=== PATIENT | female | born 1940 | race Caucasian/White ===

== ENCOUNTER 2019-04-30 00:17 | Day surgery (SDC) | payer MEDICARE, SELFPAY ==
[2019-04-17 14:10] VITALS: BMI 21.8
--- NOTE | ~2019-04-30 | XR_ITS ---
EXAMINATION: XR retrograde pyelo w/stent LT EXAM DATE: 04/30/2019 08:26 INDICATION: Left-sided stent exchange. TECHNIQUE: Fluoroscopy used during XR retrograde pyelo w/stent LT performed by Dr. Broderick Lal MD. The DAP for this procedure was 0.5 mGym2. Cine run(s) available for review. FINDINGS: Left ureter was cannulated, injected. There are limitations from lower lumbar hardware ove rlying this region. No mid ureteral strictures identified on images available. A left-sided double-J ureteral stent was placed in expected position. Density projecting over left kidney consistent with k idney stones. Correlate with procedure note. IMPRESSION: Fluoroscopy used during XR retrograde pyelo w/stent LT. Reviewed, dictated and finalized at location B.
--- NOTE | 2019-04-30 06:41 | WPDHPUPDATE1 ---
History and Physical Update Update Date/Time: 04/30/19 06:41 History and Physical has been reviewed, including an updated exam of the patient. There are NO changes in the patient's condition. Risks, benefits, and alternatives have been discussed and questions answered. Patient agrees to proceed with procedure.
[2019-04-30 07:00] VITALS: BP 135/52; PULSE 62; RESP 18; TEMP 36.6; O2SAT 98
[2019-04-30] MEDS: LACTATED RINGERS 1,000 ML 30 ML IV CONT (07:00)
--- NOTE | 2019-04-30 07:47 | WPDANESEPPF ---
Anes - Initial Pre Proc Eval Procedure: Operation Date: 04/30/19 08:30 Proposed Procedures p Cystoscopy, Left Stent Exchange - Broderick Lal MD Date/Time: 04/30/19 07:47 Surgeon: Broderick Lal MD Pre Op Diagnosis: Hydronephrosis/ Cystitis Patient Data Age: 78 Gender: F Height: 5 ft 4 in Weight: 58 kg Last Vital Signs Temp 36.6 C 04/30/19 07:00 Pulse 62 04/30/19 07:00 Resp 18 04/30/19 07:00 BP 135/52 L 04/30/19 07:00 Pulse Ox 98 04/30/19 07:00 Allergies Allergy/AdvReac Type Severity Reaction Status Date / Time latex Allergy Severe SWELLING, Verified 04/30/19 07:28 RASH-POWDER Sulfa (Sulfonamide Allergy Severe RASH Verified 04/30/19 07:28 Antibiotics) estradiol Allergy Intermediate Joint Verified 04/30/19 07:28 pain, swollen eyes & leg pain codeine Allergy Mild NAUSEA, Verified 04/30/19 07:28 RASH esomeprazole Allergy Mild CHEST PAIN Verified 04/30/19 07:28 lansoprazole Allergy Mild CHEST PAIN Verified 04/30/19 07:28 Penicillins Allergy Mild RASH Verified 04/30/19 07:28 baclofen Allergy tremors Verified 04/30/19 07:28 amitriptyline AdvReac Mild MUSCLE PAIN Verified 04/30/19 07:28 citalopram AdvReac Mild CHEST PAIN Verified 04/30/19 07:28 morphine AdvReac Mild MIGRAINE Verified 04/30/19 07:28 lisinopril AdvReac Unknown NAUSEA/DIAR Verified 04/30/19 07:28 SU pravastatin AdvReac Unknown Nausea Verified 04/30/19 07:28 SERTRALINE HCL Allergy Severe Facial Uncoded 04/30/19 07:28 swelling, joint pain & difficulty walking TOLMETIN SODIUM Allergy Mild HIVES Uncoded 04/30/19 07:28 ATORVASTATIN CALCIUM Allergy Unknown HIVES AND Uncoded 04/30/19 07:28 EXTREME NAUSEA Contrast Media Allergy Unknown HIVES Uncoded 04/30/19 07:28 NEBIVOLOL HCL Allergy Unknown NAUSEA, Uncoded 04/30/19 07:28 ITCHING METOCLOPRAMIDE HCL AdvReac Mild ITCHING Uncoded 04/30/19 07:28 Home Medications Medication Instructions Recorded Confirmed Type aspirin 81 mg tablet,delayed 81 mg PO DAILY 12/16/18 04/30/19 History release gabapentin 300 mg capsule 300 mg PO TID 12/16/18 04/30/19 History metoprolol succinate 25 mg 25 mg PO DAILY 12/16/18 04/30/19 History tablet,extended release 24 hr triamterene 37.5 1 cap PO DAILY 12/16/18 04/30/19 History mg-hydrochlorothiazide 25 mg capsule apixaban 5 mg tablet 5 mg PO BID 12/25/18 04/30/19 History budesonide 3 mg 3 mg PO DAILY 12/25/18 04/30/19 History capsule,delayed,extended release Dramamine 50 mg PO Q4-6H PRN 12/30/18 04/30/19 History amiodarone 200 mg PO HS 12/30/18 04/30/19 History calcium citrate-vitamin D3 1 tablet PO DAILY 12/30/18 04/30/19 History [Calcium Citrate + D] oxycodone 10 mg tablet 10 mg PO Q8H PRN #90 tablet 02/23/19 04/30/19 Rx cannabidiol 300 mg HS 03/05/19 04/30/19 History ezetimibe 10 mg tablet 10 mg PO DAILY #90 tablet 04/02/19 04/30/19 Rx Patient hx anesthesia problems: none Family hx anesthesia problems: none PMFSH Past Medical History Medical History Atrial fibrillation Benign essential hypertension History of thrombosis of lower extremity Mixed hyperlipidemia Neuropathic pain Pacemaker Surgical History Surgical History H/O angioplasty History of coronary artery stent placement Peripheral vascular angioplasty status with implants and grafts Family History Family History Mother Family history of osteoporosis Hypertension Family history of elevated blood lipids Family history of coronary artery disease Sibling Patient's brother is Other Family history of cardiovascular disease Family history of malignant neoplasm of breast in first degree relative Family history of malignant neoplasm of male breast Family history of malignant neopl
[2019-04-30] MEDS: ceFAZolin 2 GM/D5W 50 ML 2 GM/50 ML BAG IVPB (08:00)
[2019-04-30] MEDS: LIDOCAINE HCL 2% GEL UROJET 10 ML PKG MUCOUS MEM (08:14)
[2019-04-30 08:28] VITALS: BP 111/48; PULSE 63; RESP 18; O2SAT 99
--- NOTE | 2019-04-30 08:33 | PM.PROC ---
Procedure Note - Detailed Date of procedure: 04/30/19 Pre-op diagnosis: Hydronephrosis/ Cystitis Left hydronephrosis Post-op diagnosis: same Procedure performed: 1. Cystoscopy, left retrograde pyelography. 2. Left ureteroscopy. 3. Left ureteral stent exchange. Description of procedure: The patient is brought to the operative suite where she was prepped and draped in routine sterile fashion while in a dorsal lithotomy position. 2% lidocaine jelly was introduced intraurethrally and systemic sedation is administered per the anesthesia department. The bladder neck and urethra endoscopically normal. Bladder mucosa is without significant hyperemia. The tip of the indwelling ureteral stent is grasped and a 0.035 glidewire is advanced into the left renal pelvis. A gentle retrograde pyelogram was obtained. There is no evidence of contrast extravasation with minimal residual left hydronephrosis. A 7.5 F flexible ureteral scope was then used to perform left ureteral re-endoscopy. The ureter is normal but she continues to have a foreign body visible in the medial portion of her left renal pelvis, consistent with hardware from her back. The remainder of the collecting system was endoscopically normal. At this point ureteral scope was removed and a 4.8 F variable length stent is positioned with the proximal coil in the renal pelvis and distal coil in the bladder. Patient was taken to the outpatient recovery in good condition. Blood loss was negligible. Anesthesia: MAC Surgeon: Broderick Lal MD Estimated blood loss (mL): 0 Drains: Yes (4.8F left uretetal stent) Packing: No Pathology: none sent Complications: No immediate complications Condition: stable Disposition: PACU
[2019-04-30 08:55] VITALS: BP 127/56; PULSE 60; RESP 18; O2SAT 98
[2019-04-30 09:20] VITALS: BP 129/60; PULSE 60; RESP 18
--- NOTE | 2019-04-30 09:38 | SUR.PHASEII ---
[id number] - DR. LOYOLA IN ROOM TALKING WITH PT
[2019-04-30 09:50] VITALS: BP 135/58; PULSE 59; RESP 16
== END 2019-04-30 10:00 | disposition home or self-care (01) ==
PROVIDERS: PCP Internal Medicine; Visit Provider Urology
PROC: (CPT 52352; principal; 2019-04-30 08:30)
DX: N13.30 Unspecified hydronephrosis (principal); N30.90 Cystitis, unspecified without hematuria; I48.91 Unspecified atrial fibrillation; I10 Essential (primary) hypertension; E78.2 Mixed hyperlipidemia; G62.9 Polyneuropathy, unspecified; Z95.0 Presence of cardiac pacemaker; Z79.01 Long term (current) use of anticoagulants; Z79.82 Long term (current) use of aspirin; Z95.5 Presence of coronary angioplasty implant and graft; Z95.820 Peripheral vascular angioplasty status with implants and grafts; Z87.891 Personal history of nicotine dependence
CPT/HCPCS: 52332; 74420; A9270; C1769; C1887; C2617; J0690; J2704; J3010; J7120; Q9966

== ENCOUNTER 2019-05-19 15:04 | IRF | payer MEDICARE, SELFPAY ==
--- NOTE | 2019-05-19 15:09 | ADMGEN ---
This patient, Desirae Peng, was admitted to [facility] Room 230-02. Patient/family oriented to hospital policies and general routines including ID bracelet, bed and alarms, visiting hours, pain management, procedures, bathroom and other care routines, personal items, smoking policy, room service/diet, and visiting hours. Valuables list has been completed. Information on how to activate the Rapid Response Team has been discussed. Patient/Family are encouraged to report perceived risks to care and to ask questions if they do not understand what they are told or what they should do.
[2019-05-19 15:38] VITALS: BP 127/60; PULSE 63; RESP 18; TEMP 36.3; O2SAT 100
[2019-05-19 15:39] VITALS: BMI 23.4
[2019-05-19] MEDS: APIXABAN 5 MG TABLET PO (16:38)
[2019-05-19 17:25] VITALS: PULSE 63
[2019-05-19] MEDS: AMIODARONE HCL 200 MG TABLET PO (17:25)
[2019-05-19] MEDS: EZETIMIBE 10 MG TABLET PO (20:28)
[2019-05-19] MEDS: GABAPENTIN 300 MG CAPSULE PO (20:28)
[2019-05-19] MEDS: MELATONIN 5 MG TABLET 20 MG PO (20:31)
[2019-05-19 22:00] VITALS: BP 148/47; PULSE 65; RESP 20; TEMP 36.6; O2SAT 99
[2019-05-20] VITALS (15 sets, daily range): BP systolic 98–144; BP diastolic 40–73; PULSE 58–82; RESP 18–20; TEMP 35.9–37; O2SAT 96–100; BMI 23.4
[2019-05-20 05:09] LABS: Basophils Percent Auto 0.2 % (0.2-1.2); Eosinophils Absolute Auto 0.3 K/mm3 (0-0.3); Eosinophils Percent Auto 3.4 % (0-4.4); Hematocrit 22.2 % (37.0-47.0); Immature Granulocyte Absolute 0.05 K/mm3 (0.00-0.031); Immature Granulocyte Percent A 0.5 % (0-0.5); Lymphocytes Absolute Auto 1.73 K/mm3 (0.9-3.2); Lymphocytes Percent Auto 17.8 % (18.3-44.2); Mean Corpuscular HGB Conc 30.6 g/dl (32-36); Mean Corpuscular Hemoglobin 25.2 pg (26-34); Mean Corpuscular Volume 82.2 fl (80-100); Mean Platelet Volume 9.2 fl (7.4-10.4); Monocytes Absolute Auto 1.3 K/mm3 (0.1-0.6); Monocytes Percent Auto 12.9 % (2.6-8.5); Neutrophils Absolute Auto 6.3 K/mm3 (1.3-6.7); Neutrophils Percent Auto 65.2 % (45.5-73.1); Platelet Count Result 539 k/mm3 (150-375); Red Cell Distribution Width 18.4 % (11.5-14.5); White Blood Count 9.7 K/mm3 (4.5-10.0)
[2019-05-20] MEDS: GABAPENTIN 300 MG CAPSULE PO ×3 (05:11→20:59)
[2019-05-20 05:24] LABS: Hemoglobin 6.8 g/dL (12.0-15.0)
[2019-05-20 05:29] LABS: Blood Urea Nitrogen 8 mg/dL (7-17); Calcium 8.4 mg/dL (8.4-10.2); Carbon Dioxide 31 mmol/L (22-30); Chloride 104 mmol/L (98-107); Estimated CRCL calculation 44 ml/min; Estimated Glomerular Filt Rate > 60; Glucose 101 mg/dL (65-105); Potassium 4.2 mmol/L (3.4-5.0); Sodium 137 mmol/L (137-145)
--- NOTE | 2019-05-20 06:15 | PC.NURSE ---
critical cbc called to dr maki, orders for type and cross only at this time, explained reason to pt, understands
[2019-05-20] MEDS: ASPIRIN 81 MG ENTERIC TABLET PO (09:52)
[2019-05-20] MEDS: APIXABAN 5 MG TABLET PO ×2 (09:53→17:23)
[2019-05-20] MEDS: METOPROLOL SUCCINATE EXT REL 25 MG TABCR PO (09:53)
[2019-05-20] MEDS: BUDESONIDE 3 MG CAP.SR.24H PO (09:53)
[2019-05-20] MEDS: TRIAMTERENE 37.5 MG/HCTZ 25 MG (MAXZIDE) TABLET 1 TAB PO (09:54)
[2019-05-20] MEDS: SENNOSIDES 8.6 MG TABLET PO (09:54)
[2019-05-20] MEDS: OXYBUTYNIN CHLORIDE 5 MG TABLET PO (09:54)
[2019-05-20] MEDS: ASCORBIC ACID 500 MG TABLET 1000 MG PO (09:55)
--- NOTE | 2019-05-20 11:00 | WPDREHABHP ---
H&P: HPI History of Present Illness Chief complaint: L BKA Narrative: Desirae Peng is a 78 year old femaleHISTORY OF PRESENT ILLNESS: The patient's primary rehab impairment category is amputation/lower extremity The etiologic diagnosis is multilevel arterial occlusive disease with thrombosed left femoral to posterior tibial artery. I saw this patient [id number] on May 19 at 11:00 a.m. 2019 The patient is a 78-year-old white woman with a past medical history of mitral valve regurgitation, atrial fibrillation, coronary artery disease, peripheral vascular disease, hypertension, chronic obstructive pulmonary disease, chronic kidney disease and multilevel arterial occlusive disease. She presented to [facility] on May 11, 2019 with an ischemic left lower extremity and underwent mechanical thrombectomy, left femoral/posterior tibial bypass and a lytic catheter placement for thrombolytic therapy. This make an ankle thrombectomy was performed by Dr. Rudy Hernandez and was only partially successful. On May 12, 2019 she underwent a left leg angiogram and balloon angioplasty of the posterior tibial artery with Mir. Area the procedure the graft was widely patent, however there were still and no filling at the origin and the posterior tibial runoff was to ankle with no good filling of the foot. Vascular surgery was consulted and was determined that the limb was not salvageable. The left foot was cold and pulseless with cyanosis and extreme rest pain. She was scheduled for left [id number] amputation May 14, 2019. Postoperatively she was and still experiencing acute postoperative pain and acute blood-loss anemia which needs to be followed quite closely. The pain is now controlled and is on oral medication however she is quite reluctant to take it and wants to use the 10s unit for her back pain which she has had for quite some time. The patient is hemodynamically stable and at present very eager to engage in therapy the patient is on Eliquis Therapy was initiated at the acute care facility and the patient transferred to us from [facility] on May 19, 2019 on FALLS OR SURGERIES: The patient has had major surgeries in the 100 days prior to admission. They had falls in the past year. They had falls with injury in the past year. PAST MEDICAL HISTORY: allergic rhinitis, bilateral cataracts, [id number], sinus infections, mitral valve regurgitation, arrhythmia, atrial fibrillation, coronary artery disease, deep venous thrombosis, hyperlipidemia, hypertension, pacemaker, peripheral vascular disease, pneumonia, inflammatory bowel disease, liver disease cirrhosis ( nonalcoholic fatty liver ), peptic ulcer disease, chronic kidney disease, frequent urinary tract infections, kidney stones, recurrent kidney infections, osteoarthritis, degenerative disc disease, chronic back pain, melanoma of the face PAST SURGICAL HISTORY: several breast biopsies bilateral breasts, appendectomy 1953, cholecystectomy in 1977, vaginal deliveries x3, partial hysterectomy 1970, joint replacement right total hip 2017, left knee surgery 1989, lumbar laminectomy 1983, lumbar fusion 2015, lumbar fusion with hardware in June of 2018, a right cubital tunnel 1997, left cubital tunnel 1995, [employer] pacemaker 2014, cataract excision 2014, left ring trigger release 1998, sphincterotomy 1998, several angiograms to left lower extremity (angiogram/ [facility] January 16, 2017 and November 20, 2017, thrombectomy femoral the popliteal bypass , angiogram with PTCA, stent to the left lower extremity in February 2019 cystoscopy with ureteral stent to the left ureter SOCIAL HISTORY: the patient lives with her spouse in 1 level home with the ramped entry. She was independent with functional transfers, ambulation and ADLs prior. She used wheel walker for mobility. Patient and daughter available to assist her following rehab if necessa
--- NOTE | 2019-05-20 16:57 | PC.NURSE ---
#20 Saline lock inserted in right forearm. Blood infusing without difficulty. no reactions or side affects noted. Patient sitting up in bed eating dinner.
[2019-05-20] MEDS: AMIODARONE HCL 200 MG TABLET PO (17:23)
[2019-05-20] MEDS: SODIUM CHLORIDE 0.9% IV 250 ML 30 ML IV CONT (17:24)
--- NOTE | 2019-05-20 19:07 | PC.NURSE ---
Patient tolerated 1st unit of blood. no reactions noted. call light within reach. continue to monitor.
--- NOTE | 2019-05-20 20:20 | PC.NURSE ---
Unable to verify second unit of PRBCs. Lab and nursing molding supervisor notified. Instructed per Nursing supervvisor to manually verify unit. Verified with IMU nurseNahed.
[2019-05-20] MEDS: EZETIMIBE 10 MG TABLET PO (20:57)
[2019-05-20] MEDS: MELATONIN 5 MG TABLET 20 MG PO (20:58)
[2019-05-21 05:09] LABS: Basophils Percent Auto 0.3 % (0.2-1.2); Eosinophils Absolute Auto 0.2 K/mm3 (0-0.3); Eosinophils Percent Auto 1.8 % (0-4.4); Hematocrit 28.8 % (37.0-47.0); Hemoglobin 8.9 g/dL (12.0-15.0); Immature Granulocyte Absolute 0.05 K/mm3 (0.00-0.031); Immature Granulocyte Percent A 0.5 % (0-0.5); Lymphocytes Absolute Auto 1.42 K/mm3 (0.9-3.2); Lymphocytes Percent Auto 14.7 % (18.3-44.2); Mean Corpuscular HGB Conc 30.9 g/dl (32-36); Mean Corpuscular Volume 80.9 fl (80-100); Mean Platelet Volume 8.8 fl (7.4-10.4); Monocytes Absolute Auto 1.2 K/mm3 (0.1-0.6); Monocytes Percent Auto 12.3 % (2.6-8.5); Neutrophils Absolute Auto 6.8 K/mm3 (1.3-6.7); Neutrophils Percent Auto 70.4 % (45.5-73.1); Platelet Count Result 553 k/mm3 (150-375); Red Blood Count 3.56 M/mm3 (4.2-5.4); Red Cell Distribution Width 17.6 % (11.5-14.5); White Blood Count 9.7 K/mm3 (4.5-10.0)
[2019-05-21 05:29] LABS: Iron 22 ug/dL (37-170)
[2019-05-21 06:00] VITALS: BP 146/54; PULSE 66; RESP 18; TEMP 36.6; O2SAT 100
[2019-05-21] MEDS: GABAPENTIN 300 MG CAPSULE PO ×3 (07:18→20:42)
[2019-05-21 08:51] VITALS: PULSE 68
[2019-05-21] MEDS: METOPROLOL SUCCINATE EXT REL 25 MG TABCR PO (08:51)
[2019-05-21] MEDS: ASPIRIN 81 MG ENTERIC TABLET PO (08:51)
[2019-05-21] MEDS: ASCORBIC ACID 500 MG TABLET 1000 MG PO (08:51)
[2019-05-21] MEDS: BUDESONIDE 3 MG CAP.SR.24H PO (08:51)
[2019-05-21] MEDS: APIXABAN 5 MG TABLET PO ×2 (08:51→17:21)
[2019-05-21] MEDS: OXYBUTYNIN CHLORIDE 5 MG TABLET PO (08:52)
[2019-05-21] MEDS: SENNOSIDES 8.6 MG TABLET PO (08:52)
[2019-05-21] MEDS: TRIAMTERENE 37.5 MG/HCTZ 25 MG (MAXZIDE) TABLET 1 TAB PO (08:52)
[2019-05-21 14:00] VITALS: BP 120/64; PULSE 88; RESP 20; TEMP 36.6; O2SAT 100
--- NOTE | 2019-05-21 15:50 | WPDNEURORHBP ---
Subjective Date/time seen: 05/21/19 15:50 Interval history: this 78-year-old woman is here after having had complete hbjzy-[id number] amputation of the left lower extremity is in significant amount of pain and I have adjusted her medication on a scheduled rather than an as-needed basis her constipation is relatively okay she denies any fever chills sore throat headache nausea vomiting her back pain is also stable Review of Systems Review of Systems: All systems reviewed & are unremarkable except as noted in HPI and below Functional Status Ambulation Ability Ability to Ambulate 10 Feet: Contact Guard Ambulation Assistive Devices: Walker, Wheeled Transfers Ability Ability to Transfer In/Out of Chair: Standby Assistance Exam Const: General: comfortable and no acute distress HENMT: General nose exam: Normal nares present Mouth: Yes moist mucous membranes Eyes: General: appearance normal, both eyes and all related structures Neck: Neck: supple and no JVD Resp: Effort & Inspection: normal respiratory effort Auscultation: clear to auscultation bilaterally Cardio: Rate: regular rate Rhythm: regular rhythm GI: GI Palp: Yes Soft to palpation Auscultation: normal bowel sounds Skin: General skin exam: normal color and no rashes or lesions noted Neuro: Other: patient's mental status is normal train of the motion normal upper extremity strength is 4.5/5 lower extremity strength is 4- over 5 overall picture is stable and in fact improving Extrem: Other: the below the knee amputation is clean Psych: Mental Status: mental status grossly normal Objective Data Vital Signs Vital Signs: Vital Signs - 24 hr 05/20/19 16:15 05/20/19 16:25 05/20/19 17:23 Temperature 36.8 C 36.7 C Pulse Rate 62 58 L 62 Respiratory Rate 20 20 Blood Pressure 144/58 H 123/57 L Pulse Oximetry 96 100 05/20/19 17:25 05/20/19 18:25 05/20/19 19:05 Temperature 36.9 C 35.9 C L 35.9 C L Pulse Rate 59 L 60 60 Respiratory Rate 20 18 20 Blood Pressure 124/58 L 104/40 L 119/45 L Pulse Oximetry 98 97 100 05/20/19 20:08 05/20/19 20:20 05/20/19 20:35 Temperature 36.6 C 36.7 C 37.0 C Pulse Rate 63 63 65 Respiratory Rate 20 20 20 Blood Pressure 128/73 128/73 116/69 Pulse Oximetry 97 97 100 05/20/19 22:00 05/20/19 23:30 05/21/19 06:00 Temperature 36.8 C 36.6 C Pulse Rate 65 65 66 Respiratory Rate 18 18 18 Blood Pressure 109/73 146/54 H Pulse Oximetry 99 99 100 05/21/19 08:51 05/21/19 14:00 Temperature 36.6 C Pulse Rate 68 88 Respiratory Rate 20 Blood Pressure 120/64 Pulse Oximetry 100 Intake/Output Intake/Output: Intake & Output 05/18/19 05/19/19 05/20/19 05/21/19 23:59 23:59 23:59 23:59 Intake Total 360 1070 480 Balance 360 1070 480 Meds/Results Medications: Active Medications Generic Name Dose Route Start Last Admin Trade Name Freq PRN Reason Stop Dose Admin Amiodarone HCl 200 mg 05/19/19 18:00 05/20/19 17:23 Pacerone PO 200 mg QPM JORDIN Administration Apixaban 5 mg 05/19/19 17:00 05/21/19 08:51 Eliquis PO 5 mg BID JORDIN Administration Ascorbic Acid 1,000 mg 05/20/19 09:00 05/21/19 08:51 Vitamin C PO 1,000 mg DAILY JORDIN Administration Aspirin 81 mg 05/20/19 09:00 05/21/19 08:51 Aspirin Ec PO 81 mg DAILY JORDIN Administration Budesonide 3 mg 05/20/19 09:00 05/21/19 08:51 Entocort Ec PO 3 mg DAILY JORDIN Administration Diphenhydramine HCl 50 mg 05/19/19 15:37 Benadryl Cap PO HS PRN Sleep Ezetimibe 10 mg 05/19/19 21:00 05/20/19 20:57 Zetia PO 10 mg HS JORDIN Administration Fluticasone Propionate 1 spray 05/19/19 15:37 Flonase 0.05% Nasal [place] NASAL DAILY PRN Allergy Symptoms Gabapentin 300 mg 05/19/19 22:00 05/21/19 13:11 Neurontin PO 300 mg Q8HR JORDIN Administration Melatonin 20 mg 05/19/19 21:00 05/20/19 20:58 Melatonin PO 20 mg HS JORDIN Administration Metoprolol Succinate 25 mg
[2019-05-21 17:22] VITALS: PULSE 86
[2019-05-21] MEDS: AMIODARONE HCL 200 MG TABLET PO (17:22)
[2019-05-21] MEDS: DIPHENHYDRAMINE 1%/ZINC 0.1% CREAM 30 GM TUBE 1 APPLIC TOPICAL (17:22)
[2019-05-21 17:27] VITALS: PULSE 86; RESP 20; O2SAT 100
[2019-05-21] MEDS: MELATONIN 5 MG TABLET 20 MG PO (20:40)
[2019-05-21] MEDS: EZETIMIBE 10 MG TABLET PO (20:41)
[2019-05-21 22:00] VITALS: BP 133/57; PULSE 64; RESP 18; TEMP 36.3; O2SAT 99
[2019-05-22] MEDS: GABAPENTIN 300 MG CAPSULE PO ×3 (05:25→20:54)
[2019-05-22 06:00] VITALS: BP 129/55; PULSE 65; RESP 18; TEMP 36.7; O2SAT 98
[2019-05-22 08:56] VITALS: PULSE 65
[2019-05-22] MEDS: BUDESONIDE 3 MG CAP.SR.24H PO (08:56)
[2019-05-22] MEDS: METOPROLOL SUCCINATE EXT REL 25 MG TABCR PO (08:56)
[2019-05-22] MEDS: ASPIRIN 81 MG ENTERIC TABLET PO (08:56)
[2019-05-22] MEDS: ASCORBIC ACID 500 MG TABLET 1000 MG PO (08:56)
[2019-05-22] MEDS: TRIAMTERENE 37.5 MG/HCTZ 25 MG (MAXZIDE) TABLET 1 TAB PO (08:56)
[2019-05-22] MEDS: DIPHENHYDRAMINE 1%/ZINC 0.1% CREAM 30 GM TUBE 1 APPLIC TOPICAL ×3 (08:56→17:05)
[2019-05-22] MEDS: SENNOSIDES 8.6 MG TABLET PO (08:56)
[2019-05-22] MEDS: OXYBUTYNIN CHLORIDE 5 MG TABLET PO (08:56)
[2019-05-22] MEDS: APIXABAN 5 MG TABLET PO ×2 (08:57→17:05)
--- NOTE | 2019-05-22 10:45 | RPD ---
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 Comorbidities include status post angiogram with partially successful mechanical thrombectomy left femoral to posterior tibial artery bypass graft with placement and subsequent initiation of thrombolysis, status post left below the knee amputation, acute pain, acute blood loss anemia, hypertension, hyperlipidemia, atrial fibrillation. The patient requires physician services for medical oversight, management of post-op complications in the setting of present comorbidities and pain management. Post-op complications have included acute blood loss anemia and acute postoperative pain. The patient requires nursing services for anticoagulation therapy, DVT prophylactics, infection protection, medication management and education, pressure relief, and wound care. Deficits include:ADLs, Balance, Endurance, Family Training/Education, Mobility, Pain Management, ROM, Safety, Strength, Transfers Jack Tamp Operator/Case Management for: Discharge Planning and Patient/Family Counseling Physical Therapy: 5 days per week for 90 minutes. Treatments may include: Therapeutic Exercise, Gait Training, Neuromuscular Re-education, Transfer Training, Community Reintegration, Bed Mobility, Patient/Family Education, Wheelchair Mobility Group Therapy/Concurrent Therapy Rationales: -Improve attention span during functional activities in a distracted environment. -Enhance problem solving and/or adequate judgment skills during functional activities in a distracted environment. -Promote increased safety awareness in a distracted environment to reduce fall risk with functional tasks, transfers, and ambulation to allow a more safe, self-sufficient return to the home environment. -Improve dynamic balance skills to promote safety and independence with functional activities in a distracted environment for maximum gain. Occupational Therapy: 5 days per week for 90 minutes. Treatments may include: Therapeutic Exercise, Therapeutic Activity, Cognitive Training, Self-Care Transfer Training, Community Reintegration, Home Management, Patient/Family Education, Wheelchair Mobility Training, Energy Conservation Training Group Therapy/Concurrent Therapy Rationales: -Allow therapist to observe and teach generalization and carry-over of skills learned in individual therapy. -Enhance problem solving and sequencing skills during therapeutic activities in a distracted environment. -Promote increased safety awareness in a realistic setting to reduce fall risk with functional tasks due to visual and verbal distractions. -Increase functional level with ADLs, ADL transfers and use of adaptive equipment through therapeutic activities with others while promoting safety to allow a more safe, self-sufficient return home. Medical Prognosis: Good Anticipated Length of Stay: 12 days Rehab Goals: Eating Goal: 06-Independent Oral Hygiene Goal: 06-Independent Toileting Hygiene Goal: 06-Independent Shower/Bathe Self Goal: 06-Independent Upper Body Dressing Goal: 06-Independent Lower Body Dressing Goal: 06-Independent Putting On/Taking Off Footwear Goal: 06-Independent Rolling Left and Right Goal: 06-Independent Sit to Lying Goal: 06-Independent Lying to Sitting on Side of Bed Goal: 06-Independent Sit to Stand Goal: 06-Independent Chair/Hhk-ex-Ocrhv Transfer Goal: 06-Independent Toilet Transfer Goal: 06-Independent Car Transfer Goal: 06-Independent Walk 10' Goal: 06-Independent Walk 50' with Two Turns Goal: 06-Independent Walk 150' Goal: 09-Not Applicable Walk 10' on Uneven Surface Goal: 06-Independent 1 Step (Curb) Goal: 06-Independent 4 Steps Goal: 04-Supervision or Touching Assistance 12 Steps Goal Score: 09-Not Applicable Picking Up Object Goal
--- NOTE | 2019-05-22 12:55 | WPDNEURORHBP ---
Subjective Date/time seen: 05/22/19 12:55 Interval history: this 78-year-old woman is here after having had left hcdnj-wqg-okaa amputation she had packed RBCs done couple of days ago on her hemoglobin has come over 9 she is doing better however the pain is at best fair control overall picture is of improvement no headache nausea vomiting chest pain shortness of breath fever chills or sore throat Review of Systems Review of Systems: All systems reviewed & are unremarkable except as noted in HPI and below Functional Status Ambulation Ability Ability to Ambulate 10 Feet: Standby Assistance Ambulation Assistive Devices: Walker, Wheeled Transfers Ability Ability to Transfer In/Out of Chair: Standby Assistance Exam Const: General: comfortable and no acute distress HENMT: General nose exam: Normal nares present Mouth: Yes moist mucous membranes Eyes: General: appearance normal, both eyes and all related structures Neck: Neck: supple and no JVD Resp: Effort & Inspection: normal respiratory effort Auscultation: clear to auscultation bilaterally Cardio: Rate: regular rate Rhythm: regular rhythm GI: GI Palp: Yes Soft to palpation Auscultation: normal bowel sounds Skin: General skin exam: normal color and no rashes or lesions noted Neuro: Other: is speech and language functions are normal, cranial examination is normal is strength is improving pain is controlled apart from the deficit she has from the left sahng-ggp-iymw amputation neurologically she seems to fairly decent and intact Extrem: Other: the amputation site is clean Psych: Mental Status: mental status grossly normal Objective Data Vital Signs Vital Signs: Vital Signs - 24 hr 05/21/19 14:00 05/21/19 17:22 05/21/19 17:27 Temperature 36.6 C Pulse Rate 88 86 86 Respiratory Rate 20 20 Blood Pressure 120/64 Pulse Oximetry 100 100 05/21/19 22:00 05/22/19 06:00 05/22/19 08:56 Temperature 36.3 C L 36.7 C Pulse Rate 64 65 65 Respiratory Rate 18 18 Blood Pressure 133/57 L 129/55 L Pulse Oximetry 99 98 Intake/Output Intake/Output: Intake & Output 05/19/19 05/20/19 05/21/19 05/22/19 23:59 23:59 23:59 23:59 Intake Total 360 1070 720 360 Balance 360 1070 720 360 Meds/Results Medications: Active Medications Generic Name Dose Route Start Last Admin Trade Name Freq PRN Reason Stop Dose Admin Amiodarone HCl 200 mg 05/19/19 18:00 05/21/19 17:22 Pacerone PO 200 mg QPM JORDIN Administration Apixaban 5 mg 05/19/19 17:00 05/22/19 08:57 Eliquis PO 5 mg BID JORDIN Administration Ascorbic Acid 1,000 mg 05/20/19 09:00 05/22/19 08:56 Vitamin C PO 1,000 mg DAILY JORDIN Administration Aspirin 81 mg 05/20/19 09:00 05/22/19 08:56 Aspirin Ec PO 81 mg DAILY JORDIN Administration Budesonide 3 mg 05/20/19 09:00 05/22/19 08:56 Entocort Ec PO 3 mg DAILY JORDIN Administration Diphenhydramine HCl 50 mg 05/19/19 15:37 Benadryl Cap PO HS PRN Sleep Ezetimibe 10 mg 05/19/19 21:00 05/21/19 20:41 Zetia PO 10 mg HS [facility] Administration Fluticasone Propionate 1 spray 05/19/19 15:37 Flonase 0.05% Nasal [place] NASAL DAILY PRN Allergy Symptoms Gabapentin 300 mg 05/19/19 22:00 05/22/19 12:35 Neurontin PO 300 mg Q8HR JORDIN Administration Melatonin 20 mg 05/19/19 21:00 05/21/19 20:40 Melatonin PO 20 mg HS [facility] Administration Metoprolol Succinate 25 mg 05/20/19 09:00 05/22/19 08:56 Toprol Xl PO 25 mg DAILY [facility] Administration Oxybutynin Chloride 5 mg 05/20/19 09:00 05/22/19 08:56 Ditropan PO 5 mg DAILY [facility] Administration Oxycodone HCl 10 mg 05/21/19 13:00 05/22/19 12:35 Roxicodone Ir Tablet PO 10 mg Q4HR JORDIN Administration Prochlorperazine Maleate 10 mg 05/19/19 15:37 Compazine Tab PO Q8H PRN Nausea And Vomiting Senna 8.6 mg 05/20/19 09:00 05/22/19 08:56 Senokot Tablet PO 8.6 mg DAILY [place]
[2019-05-22 14:00] VITALS: BP 128/69; PULSE 62; RESP 18; TEMP 37.2; O2SAT 100
[2019-05-22 17:05] VITALS: PULSE 62
[2019-05-22] MEDS: AMIODARONE HCL 200 MG TABLET PO (17:05)
--- NOTE | 2019-05-22 19:16 | PC.NURSE ---
changed dressing to L stump. manisha intact. there was a few reddened areas. md updated. Dr Gonzalez would like a picture taken tomorrow during dressing change and for us to continue to monitor. He also ordered labs for in the morning will continue to monitor.
[2019-05-22] MEDS: MELATONIN 5 MG TABLET 20 MG PO (20:54)
[2019-05-22] MEDS: EZETIMIBE 10 MG TABLET PO (20:55)
[2019-05-22 22:00] VITALS: BP 114/68; PULSE 80; RESP 20; TEMP 36.9; O2SAT 98
[2019-05-23] MEDS: polyethylene glycoL 3350 17 GM POWD.PACK PO (05:09)
[2019-05-23] MEDS: GABAPENTIN 300 MG CAPSULE PO ×3 (05:10→20:45)
[2019-05-23 05:28] VITALS: BP 131/67; PULSE 78; RESP 20; O2SAT 97
[2019-05-23 05:48] LABS: Basophils Percent Auto 0.2 % (0.2-1.2); Eosinophils Absolute Auto 0.2 K/mm3 (0-0.3); Eosinophils Percent Auto 1.5 % (0-4.4); Hematocrit 30.9 % (37.0-47.0); Hemoglobin 9.6 g/dL (12.0-15.0); Immature Granulocyte Absolute 0.11 K/mm3 (0.00-0.031); Immature Granulocyte Percent A 0.8 % (0-0.5); Lymphocytes Absolute Auto 1.86 K/mm3 (0.9-3.2); Lymphocytes Percent Auto 14.3 % (18.3-44.2); Mean Corpuscular HGB Conc 31.1 g/dl (32-36); Mean Corpuscular Hemoglobin 24.8 pg (26-34); Mean Corpuscular Volume 79.8 fl (80-100); Mean Platelet Volume 8.4 fl (7.4-10.4); Monocytes Absolute Auto 1.3 K/mm3 (0.1-0.6); Neutrophils Absolute Auto 9.5 K/mm3 (1.3-6.7); Neutrophils Percent Auto 73.2 % (45.5-73.1); Platelet Count Result 732 k/mm3 (150-375); Red Blood Count 3.87 M/mm3 (4.2-5.4)
[2019-05-23 06:49] VITALS: BP 131/67; PULSE 78; RESP 20; TEMP 37.2; O2SAT 97
[2019-05-23 07:08] LABS: Blood Urea Nitrogen 14 mg/dL (7-17); Calcium 8.7 mg/dL (8.4-10.2); Carbon Dioxide 27 mmol/L (22-30); Chloride 101 mmol/L (98-107); Estimated CRCL calculation 44 ml/min; Estimated Glomerular Filt Rate > 60; Glucose 99 mg/dL (65-105); Potassium 3.6 mmol/L (3.4-5.0); Sodium 136 mmol/L (137-145)
[2019-05-23 09:05] VITALS: PULSE 82
[2019-05-23] MEDS: METOPROLOL SUCCINATE EXT REL 25 MG TABCR PO (09:05)
[2019-05-23] MEDS: PROCHLORPERAZINE MALEATE 5 MG TABLET 10 MG PO (09:05)
[2019-05-23] MEDS: DIPHENHYDRAMINE 1%/ZINC 0.1% CREAM 30 GM TUBE 1 APPLIC TOPICAL ×3 (09:05→17:04)
[2019-05-23] MEDS: SENNOSIDES 8.6 MG TABLET PO (09:05)
[2019-05-23] MEDS: TRIAMTERENE 37.5 MG/HCTZ 25 MG (MAXZIDE) TABLET 1 TAB PO (09:06)
[2019-05-23] MEDS: APIXABAN 5 MG TABLET PO ×2 (09:06→17:04)
[2019-05-23] MEDS: OXYBUTYNIN CHLORIDE 5 MG TABLET PO (09:06)
[2019-05-23] MEDS: BUDESONIDE 3 MG CAP.SR.24H PO (09:06)
[2019-05-23] MEDS: ASCORBIC ACID 500 MG TABLET 1000 MG PO (09:06)
[2019-05-23] MEDS: ASPIRIN 81 MG ENTERIC TABLET PO (09:07)
[2019-05-23 14:43] VITALS: BP 139/49; PULSE 73; RESP 17; TEMP 37.4; O2SAT 98
[2019-05-23 17:05] VITALS: PULSE 74
[2019-05-23] MEDS: AMIODARONE HCL 200 MG TABLET PO (17:05)
--- NOTE | 2019-05-23 19:55 | PM.IMCN ---
Assessment and Plan Assessment and plan (1) Skin infection: Code(s): L08.9 - Local infection of the skin and subcutaneous tissue, unspecified Status: Acute Assessment and Plan: Patient had surgery approximately 1 week ago and has had some peripheral vascular disease. I placed the patient on vancomycin. Considered Zosyn but with her allergies I held off on Zosyn. I could not physically evaluate the surgical site at this time because the patient was in too much pain to remove the Thony wrap at this time. I did review the pictures and it looks like possibly a blister on the anterior medial side. I empirically started her on vancomycin. Wound care consult (2) Atrial fibrillation: Code(s): I48.91 - Unspecified atrial fibrillation Status: Acute Assessment and Plan: Patient is on Eliquis and metoprolol. (3) History of thrombosis of lower extremity: Code(s): Z86.718 - Personal history of other venous thrombosis and embolism Status: Acute Assessment and Plan: Patient is on Eliquis. (4) H/O angioplasty: Code(s): Z98.62 - Peripheral vascular angioplasty status Status: Acute Assessment and Plan: She recently had a left ewmai-xoa-ovye amputation. 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 (6) Neuropathic pain: Code(s): M79.2 - Neuralgia and neuritis, unspecified Status: Acute Assessment and Plan: Continue with gabapentin. (7) Hypertension: Code(s): I10 - Essential (primary) hypertension Status: Acute Assessment and Plan: Continue with metoprolol and triamterene. (8) Mixed hyperlipidemia: Code(s): E78.2 - Mixed hyperlipidemia Status: Chronic Assessment and Plan: Continue with Zetia. [facility] Data of Consult Consult date: 05/23/19 Requesting Physician: Xavier Gonzalez MD Primary Care Provider: Kingston Brown DO Consult Narrative Narrative: Desirae Peng is a 78 year old female Who was in [facility] at this time. The patient presented to [facility] May 10, 2021 with an ischemic left lower extremity placement for thrombectomy therapy. On May 12, 2019 she underwent a left leg angiogram and balloon angioplasty of the posterior tibial artery by Dr. Bartlett after the procedure there was still no feeling at the origin and posterior to earlier runoff. Vascular surgery was consulted and was determined that the limb was not salvageable. The left foot was cold and pulseless was cyanotic and extreme rest pain. She underwent a left zubzt-lea-jfml amputation on 08/08/2019. She is in rehab for for postop left lsuly-mpu-fxxd amputation. There was a blister noted that looks yellow fluid filled on the stump today. There was no drainage and there is some redness there it is hard to determine if there is any infectious process. The nurse just rewrapped the leg and the patient was seen by wound care. The patient would not allow me to take off the Thony wrap due to the amount of pain she is having. The patient did get a dose of Rocephin today. Since she has had history of vascular problems and she is newly postop I empirically started her vancomycin. She has multiple allergies. Review of Systems Review of Systems: All systems reviewed & are unremarkable except as noted in HPI and below Constitutional: Constitutional: Reports as per HPI and Reports no additional constitutional complaints Eyes: Eyes: Reports as per HPI and Reports no additional eye complaints ENT: Reports system reviewed and no additional complaints, except as documented and Reports Normal hearing present Cardiovascular: Cardiovascular: Reports no additional cardiovascular complaints Respiratory: Respiratory: Reports n
[2019-05-23] MEDS: MELATONIN 5 MG TABLET 20 MG PO (20:44)
[2019-05-23] MEDS: EZETIMIBE 10 MG TABLET PO (20:46)
[2019-05-23 22:00] VITALS: BP 115/53; PULSE 61; RESP 18; TEMP 36.7; O2SAT 100
[2019-05-24] MEDS: FLUTICASONE PROPIONATE 0.05% NA SPR 16 GM BTL (*BKC) 1 SPRAY NASAL ×4 (01:31→20:53)
[2019-05-24 06:00] VITALS: BP 134/44; PULSE 66; RESP 18; TEMP 37.2; O2SAT 98
[2019-05-24 08:44] VITALS: PULSE 72
[2019-05-24] MEDS: OXYBUTYNIN CHLORIDE 5 MG TABLET PO (08:44)
[2019-05-24] MEDS: DIPHENHYDRAMINE 1%/ZINC 0.1% CREAM 30 GM TUBE 1 APPLIC TOPICAL ×3 (08:44→16:49)
[2019-05-24] MEDS: ASCORBIC ACID 500 MG TABLET 1000 MG PO (08:44)
[2019-05-24] MEDS: METOPROLOL SUCCINATE EXT REL 25 MG TABCR PO (08:44)
[2019-05-24] MEDS: APIXABAN 5 MG TABLET PO ×2 (08:45→16:50)
[2019-05-24] MEDS: ASPIRIN 81 MG ENTERIC TABLET PO (08:45)
[2019-05-24] MEDS: TRIAMTERENE 37.5 MG/HCTZ 25 MG (MAXZIDE) TABLET 1 TAB PO (08:46)
[2019-05-24] MEDS: BUDESONIDE 3 MG CAP.SR.24H PO (08:46)
[2019-05-24] MEDS: SENNOSIDES 8.6 MG TABLET PO (08:46)
[2019-05-24] MEDS: GABAPENTIN 300 MG CAPSULE PO ×3 (08:48→20:58)
[2019-05-24 11:00] VITALS: PULSE 72; RESP 18; O2SAT 98
--- NOTE | 2019-05-24 13:48 | PM.IMPN ---
Progress Note: A&P Assessment and Plan (1) Skin infection: Code(s): L08.9 - Local infection of the skin and subcutaneous tissue, unspecified Status: Acute Assessment and Plan: Patient had surgery approximately 1 week ago and has had some peripheral vascular disease. I placed the patient on vancomycin. Considered Zosyn but with her allergies I held off on Zosyn. I could not physically evaluate the surgical site at this time because the patient was in too much pain to remove the Thony wrap at this time. I did review the pictures and it looks like possibly a blister on the anterior medial side. I empirically started her on vancomycin. Wound care consult 05/24/19 13:48 Patient is 78-year-old female status post left tccbe-nwz-gcfv empty amputation here in [facility] for rehab patient has a wound on her left stumap along surgical site and we were consulted possible wound management, examined the wound with her nurse, along the surgical site on lateral aspect disease a blister hyperemia there is no open wound or sore, there is no drainage, there is no red streak, though it is extremely painful for the patient, patient denies any fever or chills, patient started on vancomycin empirically will follow-up on wound culture and patient be seen by wound team and further recommendation to follow (2) Atrial fibrillation: Code(s): I48.91 - Unspecified atrial fibrillation Status: Acute Assessment and Plan: Patient is on Eliquis and metoprolol. (3) History of thrombosis of lower extremity: Code(s): Z86.718 - Personal history of other venous thrombosis and embolism Status: Acute Assessment and Plan: Patient is on Eliquis. (4) H/O angioplasty: Code(s): Z98.62 - Peripheral vascular angioplasty status Status: Acute Assessment and Plan: She recently had a left ruhfm-ioe-arct amputation. 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 (6) Neuropathic pain: Code(s): M79.2 - Neuralgia and neuritis, unspecified Status: Acute Assessment and Plan: Continue with gabapentin., will and Zanaflex 2 mg q.day to help her with the pain (7) Hypertension: Code(s): I10 - Essential (primary) hypertension Status: Acute Assessment and Plan: Continue with metoprolol and triamterene. (8) Mixed hyperlipidemia: Code(s): E78.2 - Mixed hyperlipidemia Status: Chronic Assessment and Plan: Continue with Zetia. Subjective Date/time seen: 05/24/19 13:48 Patient is 78-year-old female status post left quqjm-zjh-qinh empty amputation here in [facility] for rehab patient has a wound on her left stumap along surgical site and we were consulted possible wound management, examined the wound with her nurse, along the surgical site on lateral aspect disease a blister hyperemia there is no open wound or sore, there is no drainage, there is no red streak, though it is extremely painful for the patient, patient denies any fever or chills Review of Systems Review of Systems: All systems reviewed & are unremarkable except as noted in HPI and below Exam Const: General: comfortable and no acute distress HENMT: General nose exam: Normal nares present Mouth: Yes moist mucous membranes Eyes: General: appearance normal, both eyes and all related structures Sclera: sclerae normal Neck: Neck: supple Resp: Effort & Inspection: normal respiratory effort Auscultation: clear to auscultation bilaterally Cardio: Rate: regular rate Rhythm: regular rhythm Skin: Other: Left zbost-jdd-gpka amputation along the surgical wound on lateral aspect there is hyperemia and a blister, there is no open wound or sore, there is no drainage or red streaks Neuro: Speech: normal speech
[2019-05-24 14:00] VITALS: BP 130/50; PULSE 64; RESP 18; TEMP 36.8; O2SAT 100
--- NOTE | 2019-05-24 16:51 | WPDNEURORHBP ---
Subjective Date/time seen: 05/24/19 16:51 Interval history: this 78-year-old woman is here after having had left iqwzk-msz-xpra amputation the amputations site in past couple of days was relatively reddish we have taken the cultures but this seems to be little bit better I have requested my attending nurse to take the pictures of this and pass it on to the surgeon and see what their input is for precautionary measures I had started on Rocephin which has been changed to vancomycin by the hospitalist with whom I have consulted with overall it looks good will our wound care nurse look at it and patient seems to be stable apart from the pain she has been suffering from otherwise no headache nausea vomiting fevers chills sore throat Review of Systems Review of Systems: All systems reviewed & are unremarkable except as noted in HPI and below Functional Status Ambulation Ability Ability to Ambulate 10 Feet: Contact Guard Ability to Ambulate 50 Feet With 2 Turns: Contact Guard Ambulation Assistive Devices: Walker, Wheeled Transfers Ability Ability to Transfer In/Out of Chair: Standby Assistance Exam Const: General: comfortable HENMT: General nose exam: Normal nares present Mouth: Yes moist mucous membranes Eyes: General: appearance normal, both eyes and all related structures Neck: Neck: supple and no JVD Resp: Effort & Inspection: normal respiratory effort Auscultation: clear to auscultation bilaterally Cardio: Rate: regular rate Rhythm: regular rhythm GI: GI Palp: Yes Soft to palpation Auscultation: normal bowel sounds Skin: General skin exam: normal color and no rashes or lesions noted Neuro: Other: patient remains awake alert were went to time place and person is speech and language function normal screening exam she has normal upper extremity strength is 4.45 lower extremity strength is 405 reflexes are depressed and she does have evidence of neuropathy Extrem: Other: the reddish area of the stump seems to be little bit better than the previous 48 hours Psych: Mental Status: mental status grossly normal Objective Data Vital Signs Vital Signs: Vital Signs - 24 hr 05/23/19 17:05 05/23/19 22:00 05/24/19 06:00 Temperature 36.7 C 37.2 C Pulse Rate 74 61 66 Respiratory Rate 18 18 Blood Pressure 115/53 L 134/44 L Pulse Oximetry 100 98 05/24/19 08:44 05/24/19 11:00 05/24/19 14:00 Temperature 36.8 C Pulse Rate 72 72 64 Respiratory Rate 18 18 Blood Pressure 130/50 L Pulse Oximetry 98 100 Intake/Output Intake/Output: Intake & Output 05/21/19 05/22/19 05/23/19 05/24/19 23:59 23:59 23:59 23:59 Intake Total 720 840 970 600 Balance 720 840 970 600 Meds/Results Medications: Active Medications Generic Name Dose Route Start Last Admin Trade Name Freq PRN Reason Stop Dose Admin Alprazolam 0.5 mg 05/24/19 15:32 Xanax PO HS PRN Anxiety Amiodarone HCl 200 mg 05/19/19 18:00 05/23/19 17:05 Pacerone PO 200 mg QPM JORDIN Administration Apixaban 5 mg 05/19/19 17:00 05/24/19 08:45 Eliquis PO 5 mg BID JORDIN Administration Ascorbic Acid 1,000 mg 05/20/19 09:00 05/24/19 08:44 Vitamin C PO 1,000 mg DAILY JORDIN Administration Aspirin 81 mg 05/20/19 09:00 05/24/19 08:45 Aspirin Ec PO 81 mg DAILY JORDNI Administration Bisacodyl 10 mg 05/23/19 00:53 Dulcolax Suppository RECTAL QAM PRN Constipation Budesonide 3 mg 05/20/19 09:00 05/24/19 08:46 Entocort Ec PO 3 mg DAILY JORDIN Administration Diphenhydramine HCl 50 mg 05/19/19 15:37 Benadryl Cap PO HS PRN Sleep Ezetimibe 10 mg 05/19/19 21:00 05/23/19 20:46 Zetia PO 10 mg HS JORDIN Administration Fluticasone Propionate 1 spray 05/19/19 15:37 05/24/19 01:39 Flonase 0.05% Nasal [place] NASAL 05/24/19 23:59 1 spray DAILY PRN Administration Allergy Symptoms Fluticasone Propionate 1 spray 05/24/19 09:00 05/24/19 08:44 Flonase 0.05%
[2019-05-24 18:01] VITALS: PULSE 64
[2019-05-24] MEDS: AMIODARONE HCL 200 MG TABLET PO (18:01)
[2019-05-24] MEDS: MELATONIN 5 MG TABLET 20 MG PO (20:53)
[2019-05-24] MEDS: EZETIMIBE 10 MG TABLET PO (20:54)
[2019-05-24] MEDS: ALPRAZOLAM 0.5 MG TABLET PO (20:55)
[2019-05-24 21:20] VITALS: BP 119/46; PULSE 61; RESP 22; TEMP 36.3; O2SAT 99
--- NOTE | 2019-05-24 22:29 | PC.NURSE ---
2152 IV VANCOMYCIN 1000MG/D5W 250ML INFUSED WITHOUT DIFFICULTY.
[2019-05-25 05:02] LABS: Estimated CRCL calculation 40 ml/min; Estimated Glomerular Filt Rate > 60
[2019-05-25] MEDS: GABAPENTIN 300 MG CAPSULE PO ×3 (05:58→21:00)
[2019-05-25 06:00] VITALS: BP 124/45; PULSE 69; RESP 20; TEMP 36.6; O2SAT 96
[2019-05-25 08:43] VITALS: PULSE 69
[2019-05-25] MEDS: ASCORBIC ACID 500 MG TABLET 1000 MG PO (08:43)
[2019-05-25] MEDS: METOPROLOL SUCCINATE EXT REL 25 MG TABCR PO (08:43)
[2019-05-25] MEDS: DIPHENHYDRAMINE 1%/ZINC 0.1% CREAM 30 GM TUBE 1 APPLIC TOPICAL ×3 (08:43→17:28)
[2019-05-25] MEDS: FLUTICASONE PROPIONATE 0.05% NA SPR 16 GM BTL (*BKC) 1 SPRAY NASAL ×2 (08:43→20:59)
[2019-05-25] MEDS: OXYBUTYNIN CHLORIDE 5 MG TABLET PO (08:43)
[2019-05-25] MEDS: TRIAMTERENE 37.5 MG/HCTZ 25 MG (MAXZIDE) TABLET 1 TAB PO (08:43)
[2019-05-25] MEDS: BUDESONIDE 3 MG CAP.SR.24H PO (08:44)
[2019-05-25] MEDS: ASPIRIN 81 MG ENTERIC TABLET PO (08:44)
[2019-05-25] MEDS: SENNOSIDES 8.6 MG TABLET PO (08:44)
[2019-05-25] MEDS: APIXABAN 5 MG TABLET PO ×2 (08:44→17:27)
--- NOTE | 2019-05-25 09:45 | PC.NURSE ---
called Dr Hurst's office at [phone] regarding patient's stump. wound nurse did come look at stump as well. email address for 's office was given and photos were being sent to surgeon for review. awaiting further orders if any. will continue to monitor.
[2019-05-25 11:46] LABS: Hematocrit 30.8 % (37.0-47.0); Hemoglobin 9.4 g/dL (12.0-15.0); Mean Corpuscular HGB Conc 30.5 g/dl (32-36); Mean Corpuscular Hemoglobin 24.8 pg (26-34); Mean Corpuscular Volume 81.3 fl (80-100); Mean Platelet Volume 8.3 fl (7.4-10.4); Platelet Count Result 749 k/mm3 (150-375); Red Blood Count 3.79 M/mm3 (4.2-5.4); Red Cell Distribution Width 17.6 % (11.5-14.5); White Blood Count 15.4 K/mm3 (4.5-10.0)
--- NOTE | 2019-05-25 12:03 | PC.NURSE ---
spoke to Ernestina from Dr Hurst/Dr Harrell's office at approximately 12 pm. Photos were shown to [employer] for the doctors. It is recommended that xeroform be added over the incision on her stump. Ernestina stated that the doctor's are very aware of how her stump is looking. She stated it does not look any worse than it did at [facility]. She also stated they would not be surprised if it comes open. A follow up appointment was scheduled on June 11 at 10:30 am. Ernestina stated they usually recommend manisha being removed in 4 weeks and that they would remove them at her follow up appointment. She also stated to let them know if stump starts looking worse. Spoke with Dr Zhang regarding recommendations for wound care. will continue to monitor.
[2019-05-25 14:00] VITALS: BP 120/49; PULSE 58; RESP 18; TEMP 37.1; O2SAT 98
--- NOTE | 2019-05-25 16:29 | PM.IMPN ---
Progress Note: A&P Assessment and Plan (1) Skin infection: Code(s): L08.9 - Local infection of the skin and subcutaneous tissue, unspecified Status: Acute Assessment and Plan: 05/25/19 16:29 Patient had surgery approximately 1 week ago and has had some peripheral vascular disease. I placed the patient on vancomycin. Considered Zosyn but with her allergies I held off on Zosyn. I could not physically evaluate the surgical site at this time because the patient was in too much pain to remove the Thony wrap at this time. I did review the pictures and it looks like possibly a blister on the anterior medial side. I empirically started her on vancomycin. Wound care consult Patient is 78-year-old female status post left mqjdh-crg-tuwn empty amputation here in [facility] for rehab patient has a wound on her left stumap along surgical site and we were consulted possible wound management, examined the wound with her nurse, along the surgical site on lateral aspect disease a blister hyperemia there is no open wound or sore, there is no drainage, there is no red streak, though it is extremely painful for the patient, patient denies any fever or chills, patient started on vancomycin empirically, today patient pain is better and wound was redressed by the nurse appear healling however her white counts are trending up, she does not have fever, will do blood culture to further evalute will follow-up on wound and blood culture and patient be seen by wound team and further recommendation to follow (2) Atrial fibrillation: Code(s): I48.91 - Unspecified atrial fibrillation Status: Acute Assessment and Plan: Patient is on Eliquis and metoprolol. (3) History of thrombosis of lower extremity: Code(s): Z86.718 - Personal history of other venous thrombosis and embolism Status: Acute Assessment and Plan: Patient is on Eliquis. (4) H/O angioplasty: Code(s): Z98.62 - Peripheral vascular angioplasty status Status: Acute Assessment and Plan: She recently had a left hnzpo-krl-qjsp amputation. 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 (6) Neuropathic pain: Code(s): M79.2 - Neuralgia and neuritis, unspecified Status: Acute Assessment and Plan: Continue with gabapentin., will and Zanaflex 2 mg q.day to help her with the pain (7) Hypertension: Code(s): I10 - Essential (primary) hypertension Status: Acute Assessment and Plan: Continue with metoprolol and triamterene. (8) Mixed hyperlipidemia: Code(s): E78.2 - Mixed hyperlipidemia Status: Chronic Assessment and Plan: Continue with Zetia. Subjective Date/time seen: 05/25/19 16:29 Patient had surgery approximately 1 week ago and has had some peripheral vascular disease. I placed the patient on vancomycin. Considered Zosyn but with her allergies I held off on Zosyn. I could not physically evaluate the surgical site at this time because the patient was in too much pain to remove the Thony wrap at this time. I did review the pictures and it looks like possibly a blister on the anterior medial side. I empirically started her on vancomycin. Wound care consult Patient is 78-year-old female status post left ecurr-mjw-eyfn empty amputation here in [facility] for rehab patient has a wound on her left stumap along surgical site and we were consulted possible wound management, examined the wound with her nurse, along the surgical site on lateral aspect disease a blister hyperemia there is no open wound or sore, there is no drainage, there is no red streak, though it is extremely painful for the patient, patient denies any fever or chills, patient started on vancomycin empirically, today patient pain is
[2019-05-25 17:27] VITALS: PULSE 58
[2019-05-25] MEDS: AMIODARONE HCL 200 MG TABLET PO (17:27)
[2019-05-25] MEDS: EZETIMIBE 10 MG TABLET PO (20:59)
[2019-05-25] MEDS: MELATONIN 5 MG TABLET 20 MG PO (20:59)
[2019-05-25 22:00] VITALS: BP 135/41; PULSE 62; RESP 18; TEMP 37.4; O2SAT 97
[2019-05-26 06:00] VITALS: BP 133/67; PULSE 63; RESP 18; TEMP 37; O2SAT 96
[2019-05-26] MEDS: GABAPENTIN 300 MG CAPSULE PO ×3 (06:08→21:20)
[2019-05-26 08:20] VITALS: PULSE 63
[2019-05-26] MEDS: ASCORBIC ACID 500 MG TABLET 1000 MG PO (08:20)
[2019-05-26] MEDS: OXYBUTYNIN CHLORIDE 5 MG TABLET PO (08:20)
[2019-05-26] MEDS: APIXABAN 5 MG TABLET PO ×2 (08:20→17:05)
[2019-05-26] MEDS: BUDESONIDE 3 MG CAP.SR.24H PO (08:20)
[2019-05-26] MEDS: METOPROLOL SUCCINATE EXT REL 25 MG TABCR PO (08:20)
[2019-05-26] MEDS: SENNOSIDES 8.6 MG TABLET PO (08:20)
[2019-05-26] MEDS: ASPIRIN 81 MG ENTERIC TABLET PO (08:20)
[2019-05-26] MEDS: FLUTICASONE PROPIONATE 0.05% NA SPR 16 GM BTL (*BKC) 1 SPRAY NASAL ×2 (08:20→21:23)
[2019-05-26] MEDS: TRIAMTERENE 37.5 MG/HCTZ 25 MG (MAXZIDE) TABLET 1 TAB PO (08:20)
--- NOTE | 2019-05-26 10:02 | PCPTNOTE ---
Maritza Reyna PT completed an inpatient rehab wheelchair evaluation on Desirae Peng on 05/26/2019. The patient is unable to safely and independently ambulate household distances due to their current impairments. Their diagnosis is L BKA and her impairments include decreased strength, decreased endurance, decreased range of motion, decreased balance, lower extremity weakness, and ataxia. Desirae's weight bearing status is hlm-mhiluj-lswoqrh on the left lower leg. The patient demonstrates significant functional mobility limitations that impair their ability to participate in mobility-related activities of daily living (MRADLs), including toileting, feeding, dressing, grooming, and bathing in the customary locations in the home. These limitations cannot be sufficiently resolved by the use of an appropriately fitted cane or walker. It is recommended that the patient utilize a wheelchair for functional mobility within the home in order to facilitate optimal safety, independence and participation in all MRADL's and adequately access their home environment on a regular basis. The patient's home provides adequate access between rooms, maneuvering space, and surfaces to accommodate the recommended wheelchair. The use of a wheelchair for functional mobility is strongly recommended and the patient is receptive to using the wheelchair. The use of this wheelchair will significantly improve the patient's ability to participate in MRADLS and the patient will use it on a regular basis in the home. This will facilitate optimal safety, independence, and participation. The patient has demonstrated sufficient physical and mental capabilities needed to safely propel a manual wheelchair that is provided in the home during a typical day. Recommended Wheelchair Frame: standard Recommended Wheelchair Size: 18 h x 18 w Recommended Wheelchair Cushion: Wheelchair Leg Recommendations: detachable elevating legrests - Elevating legrests are recommended because the patient has significant edema of the left lower extremity that requires an elevating legrest. - Anti-tippers are recommended due to patient demonstrating increased risk for falls. They would benefit from anti-tippers with added safety and stabilization. Maritza Reyna PT 05/26/19 Evaluating Therapist Date I agree with and certify that the above recommendation is medically necessary. Referring Physician Date I agree with and certify that the above recommendation is medically necessary. Referring Physician Date
--- NOTE | 2019-05-26 10:08 | PCPTNOTE ---
Desirae Peng was evaluated for a wheeled walker on 05/26/2019 by this physical therapist. The wheeled walker will resolve patient's mobility limitations and will be used for ADL's within the home. The patient can safely use the wheeled walker. ?The wheeled walker will resolve the patient?s mobility deficits, including self care, transfers and gait in the bathroom and short distances in home. Maritza Reyna PT
[2019-05-26 10:41] LABS: Hematocrit 31.1 % (37.0-47.0); Hemoglobin 9.7 g/dL (12.0-15.0); Mean Corpuscular HGB Conc 31.2 g/dl (32-36); Mean Corpuscular Hemoglobin 25.1 pg (26-34); Mean Corpuscular Volume 80.4 fl (80-100); Mean Platelet Volume 8.4 fl (7.4-10.4); Platelet Count Result 809 k/mm3 (150-375); Red Blood Count 3.87 M/mm3 (4.2-5.4); Red Cell Distribution Width 17.6 % (11.5-14.5); White Blood Count 12.6 K/mm3 (4.5-10.0)
[2019-05-26 10:52] LABS: Blood Urea Nitrogen 17 mg/dL (7-17); Calcium 8.9 mg/dL (8.4-10.2); Carbon Dioxide 24 mmol/L (22-30); Chloride 96 mmol/L (98-107); Estimated CRCL calculation 44 ml/min; Estimated Glomerular Filt Rate > 60; Glucose 103 mg/dL (65-105); Potassium 4.3 mmol/L (3.4-5.0); Sodium 132 mmol/L (137-145)
--- NOTE | 2019-05-26 11:58 | WPDNEURORHBP ---
Subjective Date/time seen: 05/25/19 11:58 Interval history: This 78-year-old woman is here on the acute rehab after having had the left fyhdw-afb-thuk amputation the details of which are available in my history and physical examination her stump has been her reddish and a possibility of infection is there and she has been consulted with the hospitalist and also actual real-time pictures have been taken and forwarded to her surgeon and updated has been given patient does have follow-up appointment and will keep on updating the surgeon. Although the patient is running relatively high white count but she is afebrile and denies any fever chills sore throat crying his chest pain or shortness of breath Review of Systems Review of Systems: All systems reviewed & are unremarkable except as noted in HPI and below Functional Status Ambulation Ability Ability to Ambulate 10 Feet: Standby Assistance Ability to Ambulate 50 Feet With 2 Turns: Standby Assistance Ambulation Assistive Devices: Walker, Wheeled Transfers Ability Ability to Transfer In/Out of Chair: Standby Assistance Exam Const: General: comfortable and no acute distress HENMT: General nose exam: Normal nares present Mouth: Yes moist mucous membranes Eyes: General: appearance normal, both eyes and all related structures Neck: Neck: supple and no JVD Resp: Effort & Inspection: normal respiratory effort Auscultation: clear to auscultation bilaterally Cardio: Rate: regular rate Rhythm: regular rhythm GI: GI Palp: Yes Soft to palpation Auscultation: normal bowel sounds Skin: General skin exam: normal color and no rashes or lesions noted Other: the stump is reddish not a whole lot discharges noted the culture from the stump is negative Neuro: Other: patient remains awake and alert and well oriented time place and person speech and language function are normal cranial examination normal upper extremity strength is 4.5/5 lower extremity strength is 4- over 5 the stump has really been mentioned the wound nurse notes have been reviewed please refer that Extrem: Other: the left lower extremity stump is relatively reddish does not look like severely infected but the possibilities their hospital is following and the pictures have been taken and sent to the surgeon Psych: Mental Status: mental status grossly normal Objective Data Vital Signs Vital Signs: Vital Signs - 24 hr 05/25/19 14:00 05/25/19 17:27 05/25/19 22:00 Temperature 37.1 C 37.4 C Pulse Rate 58 L 58 L 62 Respiratory Rate 18 18 Blood Pressure 120/49 L 135/41 L Pulse Oximetry 98 97 05/26/19 06:00 05/26/19 08:20 Temperature 37.0 C Pulse Rate 63 63 Respiratory Rate 18 Blood Pressure 133/67 Pulse Oximetry 96 Intake/Output Intake/Output: Intake & Output 05/23/19 05/24/19 05/25/19 05/26/19 23:59 23:59 23:59 23:59 Intake Total 970 1210 970 480 Balance 970 1210 970 480 Meds/Results Medications: Active Medications Generic Name Dose Route Start Last Admin Trade Name Freq PRN Reason Stop Dose Admin Alprazolam 0.5 mg 05/24/19 15:32 05/24/19 20:55 Xanax PO 0.5 mg HS PRN Administration Anxiety Amiodarone HCl 200 mg 05/19/19 18:00 05/25/19 17:27 Pacerone PO 200 mg QPM JORDIN Administration Apixaban 5 mg 05/19/19 17:00 05/26/19 08:20 Eliquis PO 5 mg BID JORDIN Administration Ascorbic Acid 1,000 mg 05/20/19 09:00 05/26/19 08:20 Vitamin C PO 1,000 mg DAILY JORDIN Administration Aspirin 81 mg 05/20/19 09:00 05/26/19 08:20 Aspirin Ec PO 81 mg DAILY JORDIN Administration Bisacodyl 10 mg 05/23/19 00:53 Dulcolax Suppository RECTAL QAM PRN Constipation Budesonide 3 mg 05/20/19 09:00 05/26/19 08:20 Entocort Ec PO 3 mg DAILY JORDIN Administration Diphenhydramine HCl 50 mg 05/19/19 15:37 05/25/19 00:32 Benadryl Cap PO 50 mg HS PRN Administration Sleep Ezetimibe 10 mg 05/19/19 21:00 05/25/19 20:59
--- NOTE | 2019-05-26 12:58 | PCDIET ---
Nutrition Follow-Up Complete: Nutrition Diagnosis: Increased protein/calorie needs related to wound healing as evidenced by recent BKA. Nutrition Goal: Patient to consume 75% of meals or greater. Goal met. Average intake has been 76% of meals since last review. Last recorded weight is 62 kg. Recommend obtaining new weight. Bowel Motility: +BM on 05/24/19. Labs Reviewed: Na (132) Meds Noted: Vitamin C, Miralax, Maxzide-25, Dulcolax, Senna, Vancomycin Additional Notes: Left leg incision post-op; no documented pressure ulcers. Will continue to monitor with same goal. Nutrition Monitoring and Evaluation: Follow up every 7 days.
--- NOTE | 2019-05-26 13:02 | WPDNEURORHBP ---
Subjective Date/time seen: 05/26/19 13:02 Interval history: this 78-year-old woman the status post left fidps-aqx-[id number] amputation and a possibility of a skin infection is being treated with vancomycin has been followed by our hospitalist team and also the wound care nurse the pictures have been taken our nurse salt manager have been sent to the surgeon yesterday and they know about it and we will keep them of bracing of the situation gets worse she remains afebrile without any fever chills sore throat headache nausea vomiting shortness of breath or chest pain Review of Systems Review of Systems: All systems reviewed & are unremarkable except as noted in HPI and below Functional Status Ambulation Ability Ability to Ambulate 10 Feet: Standby Assistance Ability to Ambulate 50 Feet With 2 Turns: Standby Assistance Ambulation Assistive Devices: Walker, Wheeled Transfers Ability Ability to Transfer In/Out of Chair: Standby Assistance Exam Const: General: comfortable and no acute distress HENMT: General nose exam: Normal nares present Mouth: Yes moist mucous membranes Eyes: General: appearance normal, both eyes and all related structures Neck: Neck: supple and no JVD Resp: Effort & Inspection: normal respiratory effort Auscultation: clear to auscultation bilaterally Cardio: Rate: regular rate Rhythm: regular rhythm Other: patient's atrial fibrillation fluctuate GI: GI Palp: Yes Soft to palpation Auscultation: normal bowel sounds Skin: General skin exam: normal color and no rashes or lesions noted Neuro: General: gait normal Speech: normal speech Extrem: Other: according to the hospitalist the a redness of the stump is roughly about the same there is no sign of overt infection the culture via taken is negative report of the blood cultures negative she is already on vancomycin Psych: Mental Status: mental status grossly normal Objective Data Vital Signs Vital Signs: Vital Signs - 24 hr 05/25/19 14:00 05/25/19 17:27 05/25/19 22:00 Temperature 37.1 C 37.4 C Pulse Rate 58 L 58 L 62 Respiratory Rate 18 18 Blood Pressure 120/49 L 135/41 L Pulse Oximetry 98 97 05/26/19 06:00 05/26/19 08:20 Temperature 37.0 C Pulse Rate 63 63 Respiratory Rate 18 Blood Pressure 133/67 Pulse Oximetry 96 Intake/Output Intake/Output: Intake & Output 04/04/20 05/24/19 05/25/19 05/26/19 23:59 23:59 23:59 23:59 Intake Total 970 1210 970 480 Balance 970 1210 970 480 Meds/Results Medications: Active Medications Generic Name Dose Route Start Last Admin Trade Name Freq PRN Reason Stop Dose Admin Alprazolam 0.5 mg 05/24/19 15:32 05/24/19 20:55 Xanax PO 0.5 mg HS PRN Administration Anxiety Amiodarone HCl 200 mg 05/19/19 18:00 05/25/19 17:27 Pacerone PO 200 mg QPM JORDIN Administration Apixaban 5 mg 05/19/19 17:00 05/26/19 08:20 Eliquis PO 5 mg BID JORDIN Administration Ascorbic Acid 1,000 mg 05/20/19 09:00 05/26/19 08:20 Vitamin C PO 1,000 mg DAILY JORDIN Administration Aspirin 81 mg 05/20/19 09:00 05/26/19 08:20 Aspirin Ec PO 81 mg DAILY JORDIN Administration Bisacodyl 10 mg 05/23/19 00:53 Dulcolax Suppository RECTAL QAM PRN Constipation Budesonide 3 mg 05/20/19 09:00 05/26/19 08:20 Entocort Ec PO 3 mg DAILY JORDIN Administration Diphenhydramine HCl 50 mg 05/19/19 15:37 05/25/19 00:32 Benadryl Cap PO 50 mg HS PRN Administration Sleep Ezetimibe 10 mg 05/19/19 21:00 05/25/19 20:59 Zetia PO 10 mg HS JORDIN Administration Fluticasone Propionate 1 spray 05/24/19 09:00 05/26/19 08:20 Flonase 0.05% Nasal [place] NASAL 1 spray Q12HR JORDIN Administration Gabapentin 300 mg 05/19/19 22:00 05/26/19 06:08 Neurontin PO 300 mg Q8HR JORDIN Administration Vancomycin HCl 1,000 mg in 250 mls @ 250 mls/hr 05/23/19 21:00 05/25/19 21:57 Vancomycin 1,000 Mg/D5w 250 Ml IVPB Infused Q24H JORDIN Infusion
--- NOTE | 2019-05-26 13:30 | PM.IMPN ---
Progress Note: A&P Assessment and Plan (1) Skin infection: Code(s): L08.9 - Local infection of the skin and subcutaneous tissue, unspecified Status: Acute Assessment and Plan: 05/26/19 13:30 Patient had surgery approximately 1 week ago and has had some peripheral vascular disease. I placed the patient on vancomycin. Considered Zosyn but with her allergies I held off on Zosyn. I could not physically evaluate the surgical site at this time because the patient was in too much pain to remove the Thony wrap at this time. I did review the pictures and it looks like possibly a blister on the anterior medial side. I empirically started her on vancomycin. Wound care consult Patient is 78-year-old female status post left bpbtq-vjt-[id number] empty amputation here in [facility] for rehab patient has a wound on her left stumap along surgical site and we were consulted possible wound management, examined the wound with her nurse, along the surgical site on lateral aspect disease a blister hyperemia there is no open wound or sore, there is no drainage, there is no red streak, though it is extremely painful for the patient, patient denies any fever or chills, patient started on vancomycin empirically, today patient pain is better and wound was redressed by the nurse appear healling however her white counts are trending up, she does not have fever, did order blood culture to further evalute today examined the wound with nurse, the wound does appear hyperemic and and swelling most likely normal healing process, there is no drainage there is no red streak will follow-up on wound wound culture did not grow any bacteria infection, and blood culture is pending and patient be seen by wound team and further recommendation to follow (2) Atrial fibrillation: Code(s): I48.91 - Unspecified atrial fibrillation Status: Acute Assessment and Plan: Patient is on Eliquis and metoprolol. (3) History of thrombosis of lower extremity: Code(s): Z86.718 - Personal history of other venous thrombosis and embolism Status: Acute Assessment and Plan: Patient is on Eliquis. (4) H/O angioplasty: Code(s): Z98.62 - Peripheral vascular angioplasty status Status: Acute Assessment and Plan: She recently had a left cqjsv-[id number]-natt amputation. 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 (6) Neuropathic pain: Code(s): M79.2 - Neuralgia and neuritis, unspecified Status: Acute Assessment and Plan: Continue with gabapentin., will and Zanaflex 2 mg q.day to help her with the pain (7) Hypertension: Code(s): I10 - Essential (primary) hypertension Status: Acute Assessment and Plan: Continue with metoprolol and triamterene. (8) Mixed hyperlipidemia: Code(s): E78.2 - Mixed hyperlipidemia Status: Chronic Assessment and Plan: Continue with Zetia. Subjective Date/time seen: 05/26/19 13:30 Patient had surgery approximately 1 week ago and has had some peripheral vascular disease. I placed the patient on vancomycin. Considered Zosyn but with her allergies I held off on Zosyn. I could not physically evaluate the surgical site at this time because the patient was in too much pain to remove the Thony wrap at this time. I did review the pictures and it looks like possibly a blister on the anterior medial side. I empirically started her on vancomycin. Wound care consult Patient is 78-year-old female status post left fafgr-[id number] empty amputation here in [facility] for rehab patient has a wound on her left stumap along surgical site and we were consulted possible wound management, examined the wound with her nurse, along the surgical site on lateral aspect disease a blister hypere
[2019-05-26 14:00] VITALS: BP 122/64; PULSE 78; RESP 20; TEMP 36.8; O2SAT 100
[2019-05-26 17:05] VITALS: PULSE 78
[2019-05-26] MEDS: AMIODARONE HCL 200 MG TABLET PO (17:05)
--- NOTE | 2019-05-26 18:33 | PC.NURSE ---
received call from patient's family asking when patient last ate. Stated that she ate lunch and that patient had told nursing staff someone was bringing her food. Pt's stated they were not but they were going to grab her some food. Nursing staff let them know we could order her something from the kitchen. Patient's stated patient was very confused and asked if we have checked her for a kidney infection. Nursing staff let family know that she has been answering things appropriately when we check on her as well as during med pass times. Let family know we would call the doctor. Talked to Dr Gonzalez and received order for a UA with culture. will continue to monitor.
[2019-05-26] MEDS: polyethylene glycoL 3350 17 GM POWD.PACK PO (21:20)
[2019-05-26] MEDS: EZETIMIBE 10 MG TABLET PO (21:22)
[2019-05-26] MEDS: MELATONIN 5 MG TABLET 20 MG PO (21:23)
[2019-05-26 21:49] LABS: Add Urine Microscopic? YES; Appearance Urine Clear (Clear); Bacteria Urine 2+ /hpf; Bilirubin Urine Negative (Negative); Blood Urine 1+ (Negative); Color Urine Yellow (Yellow); Glucose Urine UA Negative (Negative); Ketones Urine Negative (Negative); Leukocyte Esterase Ur 3+ LEU/UL (Negative); Mucus Urine Rare /lpf; Nitrate Urine Negative (Negative); Protein Urine 1+ mg/dL (Negative); Specific Grav Ur 1.011 (1.001-1.035); Squamous Epithelial Cell Urine Few /hpf (Few); Urobilinogen Urine Negative mg/dL (<2.0); WBC Urine 51-75 /hpf
[2019-05-26 22:00] VITALS: BP 111/41; PULSE 61; RESP 16; TEMP 36.8; O2SAT 100
[2019-05-27 04:47] LABS: Basophils Absolute Auto 0.1 K/mm3 (0.0-0.1); Basophils Percent Auto 0.4 % (0.2-1.2); Eosinophils Absolute Auto 0.2 K/mm3 (0-0.3); Eosinophils Percent Auto 1.5 % (0-4.4); Hematocrit 31.7 % (37.0-47.0); Hemoglobin 9.8 g/dL (12.0-15.0); Immature Granulocyte Absolute 0.09 K/mm3 (0.00-0.031); Immature Granulocyte Percent A 0.8 % (0-0.5); Lymphocytes Percent Auto 10.9 % (18.3-44.2); Mean Corpuscular HGB Conc 30.9 g/dl (32-36); Mean Corpuscular Hemoglobin 24.7 pg (26-34); Mean Corpuscular Volume 80.1 fl (80-100); Mean Platelet Volume 8.5 fl (7.4-10.4); Monocytes Absolute Auto 1.1 K/mm3 (0.1-0.6); Monocytes Percent Auto 9.5 % (2.6-8.5); Neutrophils Absolute Auto 9.2 K/mm3 (1.3-6.7); Neutrophils Percent Auto 76.9 % (45.5-73.1); Platelet Count Result 807 k/mm3 (150-375); Red Blood Count 3.96 M/mm3 (4.2-5.4); Red Cell Distribution Width 17.4 % (11.5-14.5)
[2019-05-27 05:00] LABS: Blood Urea Nitrogen 17 mg/dL (7-17); Calcium 9.3 mg/dL (8.4-10.2); Carbon Dioxide 28 mmol/L (22-30); Chloride 97 mmol/L (98-107); Estimated CRCL calculation 40 ml/min; Estimated Glomerular Filt Rate > 60; Glucose 112 mg/dL (65-105); Potassium 4.5 mmol/L (3.4-5.0); Sodium 131 mmol/L (137-145)
[2019-05-27] MEDS: GABAPENTIN 300 MG CAPSULE PO ×3 (05:19→20:43)
[2019-05-27 05:52] VITALS: BP 126/50; PULSE 61; RESP 20; TEMP 36.5; O2SAT 97
[2019-05-27] MEDS: FLUTICASONE PROPIONATE 0.05% NA SPR 16 GM BTL (*BKC) 1 SPRAY NASAL ×2 (08:40→20:41)
[2019-05-27 08:41] VITALS: PULSE 64
[2019-05-27] MEDS: METOPROLOL SUCCINATE EXT REL 25 MG TABCR PO (08:41)
[2019-05-27] MEDS: BUDESONIDE 3 MG CAP.SR.24H PO (08:41)
[2019-05-27] MEDS: ASPIRIN 81 MG ENTERIC TABLET PO (08:41)
[2019-05-27] MEDS: ASCORBIC ACID 500 MG TABLET 1000 MG PO (08:41)
[2019-05-27] MEDS: SENNOSIDES 8.6 MG TABLET PO (08:41)
[2019-05-27] MEDS: APIXABAN 5 MG TABLET PO ×2 (08:41→17:14)
[2019-05-27] MEDS: OXYBUTYNIN CHLORIDE 5 MG TABLET PO (08:42)
[2019-05-27] MEDS: TRIAMTERENE 37.5 MG/HCTZ 25 MG (MAXZIDE) TABLET 1 TAB PO (08:42)
--- NOTE | 2019-05-27 10:23 | PM.IMPN ---
Progress Note: A&P Assessment and Plan (1) Skin infection: Code(s): L08.9 - Local infection of the skin and subcutaneous tissue, unspecified Status: Acute Assessment and Plan: Empirically started on vancomycin at time of consultation. Wound culture negative. Blood cultures negative to date. Findings appear to be more consistent with bruising and healing med infection at this time. Will discontinue vancomycin. Will continue to monitor. 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 Vascular surgeon has been notified of current issues. Continue PT/OT. (3) Pyuria: Code(s): R82.81 - Pyuria Status: Acute Assessment and Plan: Patient with no urinary symptoms but urine culture ordered with WBC increased. Urine culture pending. Levaquin has been started while awaiting culture. (4) Leukocytosis: Qualifiers: Leukocytosis type: unspecified Qualified Code(s): D72.829 - Elevated white blood cell count, unspecified Code(s): D72.829 - Elevated white blood cell count, unspecified Status: Acute Assessment and Plan: WBC did increase to 15.4 on 05/25/2019. Now down to 12.0 today. Blood cultures negative to date. Urine culture pending as noted. No fever. Will monitor. (5) Neuropathic pain: Code(s): M79.2 - Neuralgia and neuritis, unspecified Status: Acute Assessment and Plan: Already on gabapentin. Will continue and monitor. (6) Hypertension: Qualifiers: Hypertension type: essential hypertension Qualified Code(s): I10 - Essential (primary) hypertension Code(s): I10 - Essential (primary) hypertension Status: Acute Assessment and Plan: Blood pressure reviewed on 05/27/2019 and stable. Will continue metoprolol and triamterene/HCTZ. Will monitor. (7) Atrial fibrillation: Qualifiers: Atrial fibrillation type: unspecified Qualified Code(s): I48.91 - Unspecified atrial fibrillation Code(s): I48.91 - Unspecified atrial fibrillation Status: Acute Assessment and Plan: Presently controlled. Will continue to monitor on amiodarone and metoprolol. Continue Eliquis for anticoagulation. (8) History of thrombosis of lower extremity: Code(s): Z86.718 - Personal history of other venous thrombosis and embolism Status: Acute Assessment and Plan: Continue Eliquis. (9) H/O angioplasty: Code(s): Z98.62 - Peripheral vascular angioplasty status Status: Acute Assessment and Plan: Now S/P left BKA as noted above. (10) Mixed hyperlipidemia: Code(s): E78.2 - Mixed hyperlipidemia Status: Chronic Assessment and Plan: Continue Zetia. Time Spent With Patient Time with patient: 15 - 25 minutes Subjective Date/time seen: 05/27/19 10:23 Interval history: Date of Service: 05/27/2019. Admitted to [facility] S/P left BKA. Hospitalist service consulted for possible infection of left stump. Patient complains of pain in left stump. Notes redness but no warmth of left stump. No fever. No chest pain or shortness of breath. Review of Systems Constitutional: Constitutional: Denies chills and Denies fever(s) ENT: Denies nasal congestion and Denies nasal discharge Cardiovascular: Cardiovascular: Denies chest pain Respiratory: Respiratory: Denies dyspnea Gastrointestinal: Gastrointestinal: Denies abdominal pain, Denies nausea and Denies vomiting Genitourinary: Genitourinary: Denies hematuria, Denies nocturia and Denies dysuria Musculoskeletal: Comments: pain left
--- NOTE | 2019-05-27 11:00 | PCPTNOTE ---
05/27/19 physical therapist contacted amputee peer support this date and will schedule telephone appointment with patient and amputee support person.
[2019-05-27 14:00] VITALS: BP 128/69; PULSE 82; RESP 20; TEMP 36.8; O2SAT 99
--- NOTE | 2019-05-27 14:04 | WPDNEURORHBP ---
Subjective Date/time seen: 05/27/19 14:04 Interval history: this 78-year-old is here post left gfpwc-[id number]-weee amputation last evening she was encephalopathic and her was concerned that whenever she gets the urinary tract infection she becomes encephalopathic as it turns out the urinalysis does show at least the initial indication of urinary tract infection and I am going to empirically start her with Levaquin and wait for the culture results her vancomycin for the cellulitis has been discontinued and I do not believe the vancomycin will work for her UTI if she does indeed have 1 in any event she denies any headache nausea vomiting fever chills sore throat and she is back to her baseline Review of Systems Review of Systems: All systems reviewed & are unremarkable except as noted in HPI and below Functional Status Ambulation Ability Ability to Ambulate 10 Feet: Standby Assistance Ability to Ambulate 50 Feet With 2 Turns: Standby Assistance Ambulation Assistive Devices: Walker, Wheeled Transfers Ability Ability to Transfer In/Out of Chair: Standby Assistance Exam Const: General: comfortable and no acute distress HENMT: General nose exam: Normal nares present Mouth: Yes moist mucous membranes Eyes: General: appearance normal, both eyes and all related structures Neck: Neck: supple and no JVD Resp: Effort & Inspection: normal respiratory effort Auscultation: clear to auscultation bilaterally Cardio: Rate: regular rate Rhythm: regular rhythm GI: GI Palp: Yes Soft to palpation Auscultation: normal bowel sounds Skin: General skin exam: normal color and no rashes or lesions noted Neuro: Other: patient is awake alert not clearly encephalopathic as she was yesterday even clear-headed following all commands and normal speech and reflection normal cranial examination normal upper extremity strength clearly decreased strength in the lower extremities due to multiple factors 1 of them is the left fvyyc-elm-kvlt amputation Extrem: Other: the site of left nbtej-hbb-fvaz amputation is stable no drainage is noted no sign of infectious process Psych: Mental Status: mental status grossly normal Objective Data Vital Signs Vital Signs: Vital Signs - 24 hr 05/26/19 17:05 05/26/19 22:00 05/27/19 05:52 Temperature 36.8 C 36.5 C Pulse Rate 78 61 61 Respiratory Rate 16 20 Blood Pressure 111/41 L 126/50 L Pulse Oximetry 100 97 05/27/19 08:41 Temperature Pulse Rate 64 Respiratory Rate Blood Pressure Pulse Oximetry Intake/Output Intake/Output: Intake & Output 05/24/19 05/25/19 05/26/19 05/27/19 23:59 23:59 23:59 23:59 Intake Total 1210 970 960 720 Balance 1210 970 960 720 Meds/Results Medications: Active Medications Generic Name Dose Route Start Last Admin Trade Name Freq PRN Reason Stop Dose Admin Alprazolam 0.5 mg 05/24/19 15:32 05/24/19 20:55 Xanax PO 0.5 mg HS PRN Administration Anxiety Amiodarone HCl 200 mg 05/19/19 18:00 05/26/19 17:05 Pacerone PO 200 mg QPM JORDIN Administration Apixaban 5 mg 05/19/19 17:00 05/27/19 08:41 Eliquis PO 5 mg BID JORDIN Administration Ascorbic Acid 1,000 mg 05/20/19 09:00 05/27/19 08:41 Vitamin C PO 1,000 mg DAILY JORDIN Administration Aspirin 81 mg 05/20/19 09:00 05/27/19 08:41 Aspirin Ec PO 81 mg DAILY JORDIN Administration Bisacodyl 10 mg 05/23/19 00:53 Dulcolax Suppository RECTAL QAM PRN Constipation Budesonide 3 mg 05/20/19 09:00 05/27/19 08:41 Entocort Ec PO 3 mg DAILY JORDIN Administration Diphenhydramine HCl 50 mg 05/19/19 15:37 05/25/19 00:32 Benadryl Cap PO 50 mg HS PRN Administration Sleep Ezetimibe 10 mg 05/19/19 21:00 05/26/19 21:22 Zetia PO 10 mg HS JORDIN Administration Fluticasone Propionate 1 spray 05/24/19 09:00 05/27/19 08:40 Flonase 0.05% Nasal [place] NASAL 1 spray Q12HR JORDIN Administration Gabapentin 300 mg 05/19/19
[2019-05-27 14:50] VITALS: PULSE 82; RESP 20
[2019-05-27 17:14] VITALS: PULSE 80
[2019-05-27] MEDS: AMIODARONE HCL 200 MG TABLET PO (17:14)
[2019-05-27] MEDS: MELATONIN 5 MG TABLET 20 MG PO (20:42)
[2019-05-27] MEDS: EZETIMIBE 10 MG TABLET PO (20:42)
[2019-05-27 22:00] VITALS: BP 131/55; PULSE 62; RESP 18; TEMP 36.6; O2SAT 97
[2019-05-27] MEDS: CYCLOBENZAPRINE HCL 5 MG TABLET PO (22:21)
[2019-05-28 05:00] LABS: Hematocrit 31.5 % (37.0-47.0); Hemoglobin 9.6 g/dL (12.0-15.0); Mean Corpuscular HGB Conc 30.5 g/dl (32-36); Mean Corpuscular Hemoglobin 24.5 pg (26-34); Mean Corpuscular Volume 80.4 fl (80-100); Mean Platelet Volume 8.6 fl (7.4-10.4); Platelet Count Result 842 k/mm3 (150-375); Red Blood Count 3.92 M/mm3 (4.2-5.4); Red Cell Distribution Width 17.2 % (11.5-14.5); White Blood Count 11.4 K/mm3 (4.5-10.0)
[2019-05-28 05:40] LABS: Estimated CRCL calculation 44 ml/min; Estimated Glomerular Filt Rate > 60
[2019-05-28 06:00] VITALS: BP 140/54; PULSE 64; RESP 18; TEMP 36.7; O2SAT 100
[2019-05-28] MEDS: GABAPENTIN 300 MG CAPSULE PO ×3 (06:07→20:58)
--- NOTE | 2019-05-28 08:45 | PM.IMPN ---
Progress Note: A&P Assessment and Plan (1) UTI (urinary tract infection): Qualifiers: Urinary tract infection type: acute cystitis Hematuria presence: without hematuria Qualified Code(s): N30.00 - Acute cystitis without hematuria Code(s): N39.0 - Urinary tract infection, site not specified Status: Acute Assessment and Plan: Urine culture now growing Enterococcus with sensitivities pending. Per nurse, patient was noted to have some confusion a few days ago but now fully oriented. No other specific signs of infection but will assume true infection at this point. Currently on Levaquin but expect to adjust antibiotic once sensitivities are final. (2) Leukocytosis: Qualifiers: Leukocytosis type: unspecified Qualified Code(s): D72.829 - Elevated white blood cell count, unspecified Code(s): D72.829 - Elevated white blood cell count, unspecified Status: Acute Assessment and Plan: WBC did increase to 15.4 on 05/25/2019. Now down to 11.4 today. Blood cultures negative to date. Urine culture as noted above. Continue to follow periodically. (3) Skin infection: Code(s): L08.9 - Local infection of the skin and subcutaneous tissue, unspecified Status: Ruled-out Assessment and Plan: Empirically started on vancomycin at time of consultation. Wound culture negative. Blood cultures negative to date. Findings appear to be more consistent with bruising and healing med infection at this time. Infection ruled out with IV vancomycin discontinued. 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 Vascular surgeon has been notified of current issues. Continue PT/OT. (5) Neuropathic pain: Code(s): M79.2 - Neuralgia and neuritis, unspecified Status: Acute Assessment and Plan: Continue gabapentin. (6) Hypertension: Qualifiers: Hypertension type: essential hypertension Qualified Code(s): I10 - Essential (primary) hypertension Code(s): I10 - Essential (primary) hypertension Status: Acute Assessment and Plan: Blood pressure reviewed on 05/28/2019. Remains stable. Will continue metoprolol and triamterene/HCTZ. Will continue to monitor. (7) Atrial fibrillation: Qualifiers: Atrial fibrillation type: unspecified Qualified Code(s): I48.91 - Unspecified atrial fibrillation Code(s): I48.91 - Unspecified atrial fibrillation Status: Acute Assessment and Plan: Remains controlled. Will continue to monitor on amiodarone and metoprolol. Continue Eliquis for anticoagulation. (8) History of thrombosis of lower extremity: Code(s): Z86.718 - Personal history of other venous thrombosis and embolism Status: Acute Assessment and Plan: Continue Eliquis. (9) H/O angioplasty: Code(s): Z98.62 - Peripheral vascular angioplasty status Status: Acute Assessment and Plan: Now S/P left BKA as noted above. (10) Mixed hyperlipidemia: Code(s): E78.2 - Mixed hyperlipidemia Status: Chronic Assessment and Plan: Continue Zetia. Time Spent With Patient Time with patient: 15 - 25 minutes Subjective Date/time seen: 05/28/19 08:45 Interval history: Date of Service: 05/28/2019. Admitted to [facility] S/P left BKA. Hospitalist service consulted for possible infection of left stump. Patient tearful today over her general situation. Still has pain in left stump particular with movement. No chest pain. No shortness of breath. No dysuria, hematuria, urinary frequency or foul
[2019-05-28] MEDS: FLUTICASONE PROPIONATE 0.05% NA SPR 16 GM BTL (*BKC) 1 SPRAY NASAL ×2 (08:54→20:55)
[2019-05-28 08:55] VITALS: PULSE 64
[2019-05-28] MEDS: TRIAMTERENE 37.5 MG/HCTZ 25 MG (MAXZIDE) TABLET 1 TAB PO (08:55)
[2019-05-28] MEDS: METOPROLOL SUCCINATE EXT REL 25 MG TABCR PO (08:55)
[2019-05-28] MEDS: ASCORBIC ACID 500 MG TABLET 1000 MG PO (08:55)
[2019-05-28] MEDS: BUDESONIDE 3 MG CAP.SR.24H PO (08:55)
[2019-05-28] MEDS: SENNOSIDES 8.6 MG TABLET PO (08:55)
[2019-05-28] MEDS: APIXABAN 5 MG TABLET PO ×2 (08:55→17:25)
[2019-05-28] MEDS: ASPIRIN 81 MG ENTERIC TABLET PO (08:55)
[2019-05-28] MEDS: OXYBUTYNIN CHLORIDE 5 MG TABLET PO (08:55)
--- NOTE | 2019-05-28 12:16 | WPDNEURORHBP ---
Subjective Date/time seen: 05/28/19 12:16 Interval history: apart from the pain and discomfort the patient is doing fairly well denies any changes in her mental status particularly no headache nausea vomiting chest pain shortness of breath the low-dose Flexeril helped her sleep last night for the muscle spasm and most definitely she is feeling better apart from the fact that she still has the pain including the phantom pain no fever no chills no sore throat no belly ache Review of Systems Review of Systems: All systems reviewed & are unremarkable except as noted in HPI and below Functional Status Ambulation Ability Ability to Ambulate 10 Feet: Independent Ability to Ambulate 50 Feet With 2 Turns: Independent Ambulation Assistive Devices: Walker, Wheeled Transfers Ability Ability to Transfer In/Out of Chair: Independent Exam Const: General: comfortable and no acute distress HENMT: General nose exam: Normal nares present Mouth: Yes moist mucous membranes Eyes: General: appearance normal, both eyes and all related structures Neck: Neck: supple and no JVD Resp: Effort & Inspection: normal respiratory effort Auscultation: clear to auscultation bilaterally Cardio: Rate: regular rate Rhythm: regular rhythm GI: GI Palp: Yes Soft to palpation Auscultation: normal bowel sounds Skin: General skin exam: normal color and no rashes or lesions noted Neuro: Other: patient's mental status is normal cranial exam fall normal upper extremity is 5/5 lower extremities 4.5/5 Extrem: General: normal to inspection Other: the left adzly-[id number]-pgap amputation looks clean and the redness is related but better Psych: Mental Status: mental status grossly normal Objective Data Vital Signs Vital Signs: Vital Signs - 24 hr 05/27/19 14:00 05/27/19 14:50 05/27/19 17:14 Temperature 36.8 C Pulse Rate 82 82 80 Respiratory Rate 20 20 Blood Pressure 128/69 Pulse Oximetry 99 05/27/19 22:00 05/28/19 06:00 05/28/19 08:55 Temperature 36.6 C 36.7 C Pulse Rate 62 64 64 Respiratory Rate 18 18 Blood Pressure 131/55 L 140/54 L Pulse Oximetry 97 100 Intake/Output Intake/Output: Intake & Output 05/25/19 05/26/19 05/27/19 05/28/19 23:59 23:59 23:59 23:59 Intake Total 970 960 960 480 Balance 970 960 960 480 Meds/Results Medications: Active Medications Generic Name Dose Route Start Last Admin Trade Name Freq PRN Reason Stop Dose Admin Alprazolam 0.5 mg 05/24/19 15:32 05/24/19 20:55 Xanax PO 0.5 mg HS PRN Administration Anxiety Amiodarone HCl 200 mg 05/19/19 18:00 05/27/19 17:14 Pacerone PO 200 mg QPM JORDIN Administration Apixaban 5 mg 05/19/19 17:00 05/28/19 08:55 Eliquis PO 5 mg BID JORDIN Administration Ascorbic Acid 1,000 mg 05/20/19 09:00 05/28/19 08:55 Vitamin C PO 1,000 mg DAILY JORDIN Administration Aspirin 81 mg 05/20/19 09:00 05/28/19 08:55 Aspirin Ec PO 81 mg DAILY JORDIN Administration Bisacodyl 10 mg 05/23/19 00:53 Dulcolax Suppository RECTAL QAM PRN Constipation Budesonide 3 mg 05/20/19 09:00 05/28/19 08:55 Entocort Ec PO 3 mg DAILY JORDIN Administration Cyclobenzaprine HCl 5 mg 05/27/19 20:54 05/27/19 22:21 Flexeril PO 5 mg Q12H PRN Administration Muscle Spasm Diphenhydramine HCl 50 mg 05/19/19 15:37 05/25/19 00:32 Benadryl Cap PO 50 mg HS PRN Administration Sleep Ezetimibe 10 mg 05/19/19 21:00 05/27/19 20:42 Zetia PO 10 mg HS JORDIN Administration Fluticasone Propionate 1 spray 05/24/19 09:00 05/28/19 08:54 Flonase 0.05% Nasal [place] NASAL 1 spray Q12HR JORDIN Administration Gabapentin 300 mg 05/19/19 22:00 05/28/19 06:07 Neurontin PO 300 mg Q8HR JORDIN Administration Levofloxacin 500 mg 05/27/19 14:15 05/28/19 08:55 Levaquin Tab PO 500 mg DAILY JORDIN Administration Melatonin 20 mg 05/19/19 21:00 05/27/19 20:42 Melatonin PO 20 mg HS S
[2019-05-28 14:00] VITALS: BP 110/54; PULSE 60; RESP 20; TEMP 37.2; O2SAT 100
[2019-05-28 17:25] VITALS: PULSE 60
[2019-05-28] MEDS: AMIODARONE HCL 200 MG TABLET PO (17:25)
[2019-05-28] MEDS: EZETIMIBE 10 MG TABLET PO (20:55)
[2019-05-28] MEDS: MELATONIN 5 MG TABLET 20 MG PO (20:55)
[2019-05-28 21:58] VITALS: BP 114/45; PULSE 62; RESP 18; TEMP 37.1; O2SAT 95
[2019-05-29 06:00] VITALS: BP 133/54; PULSE 65; RESP 18; TEMP 36.7; O2SAT 97
[2019-05-29] MEDS: GABAPENTIN 300 MG CAPSULE PO ×3 (06:13→20:43)
[2019-05-29] MEDS: TRIAMTERENE 37.5 MG/HCTZ 25 MG (MAXZIDE) TABLET 1 TAB PO (09:12)
[2019-05-29] MEDS: ASCORBIC ACID 500 MG TABLET 1000 MG PO (09:12)
[2019-05-29] MEDS: ASPIRIN 81 MG ENTERIC TABLET PO (09:12)
[2019-05-29] MEDS: OXYBUTYNIN CHLORIDE 5 MG TABLET PO (09:12)
[2019-05-29] MEDS: FLUTICASONE PROPIONATE 0.05% NA SPR 16 GM BTL (*BKC) 1 SPRAY NASAL (09:12)
[2019-05-29 09:13] VITALS: PULSE 65
[2019-05-29] MEDS: APIXABAN 5 MG TABLET PO ×2 (09:13→16:56)
[2019-05-29] MEDS: SENNOSIDES 8.6 MG TABLET PO (09:13)
[2019-05-29] MEDS: BUDESONIDE 3 MG CAP.SR.24H PO (09:13)
[2019-05-29] MEDS: METOPROLOL SUCCINATE EXT REL 25 MG TABCR PO (09:13)
--- NOTE | 2019-05-29 09:19 | PM.IMPN ---
Progress Note: A&P Assessment and Plan (1) UTI (urinary tract infection): Qualifiers: Urinary tract infection type: acute cystitis Hematuria presence: without hematuria Qualified Code(s): N30.00 - Acute cystitis without hematuria Code(s): N39.0 - Urinary tract infection, site not specified Status: Acute Assessment and Plan: Urine culture now growing Enterococcus with sensitivities showing VRE. Possible this is asymptomatic bacteriuria but as patient did have some confusion a few days ago will continue to treat as true infection. She has already received Levaquin x3 doses but will transition to Macrobid for an additional 5 days given current sensitivities. Will continue to monitor from afar at this point as stable. Will officially sign off with culture results pending. Please re-consult if needed. (2) Leukocytosis: Qualifiers: Leukocytosis type: unspecified Qualified Code(s): D72.829 - Elevated white blood cell count, unspecified Code(s): D72.829 - Elevated white blood cell count, unspecified Status: Acute Assessment and Plan: WBC did increase to 15.4 on 05/25/2019. Decreased to 11.4 on 05/28/2019. Urine culture now with VRE. Blood cultures negative. Follow periodically. 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 Vascular surgeon has been notified of current issues. Continue PT/OT. (4) Neuropathic pain: Code(s): M79.2 - Neuralgia and neuritis, unspecified Status: Acute Assessment and Plan: Will continue gabapentin. (5) Hypertension: Qualifiers: Hypertension type: essential hypertension Qualified Code(s): I10 - Essential (primary) hypertension Code(s): I10 - Essential (primary) hypertension Status: Acute Assessment and Plan: Blood pressure reviewed on 05/29/2019 and controlled. Will continue metoprolol and triamterene/HCTZ. Will continue to monitor. (6) Atrial fibrillation: Qualifiers: Atrial fibrillation type: unspecified Qualified Code(s): I48.91 - Unspecified atrial fibrillation Code(s): I48.91 - Unspecified atrial fibrillation Status: Acute Assessment and Plan: Remains well controlled. Will continue to monitor on amiodarone and metoprolol. Continue Eliquis for anticoagulation. (7) History of thrombosis of lower extremity: Code(s): Z86.718 - Personal history of other venous thrombosis and embolism Status: Acute Assessment and Plan: Continue Eliquis. (8) H/O angioplasty: Code(s): Z98.62 - Peripheral vascular angioplasty status Status: Acute Assessment and Plan: Now S/P left BKA as noted above. (9) Mixed hyperlipidemia: Code(s): E78.2 - Mixed hyperlipidemia Status: Chronic Assessment and Plan: Continue Zetia. Time Spent With Patient Time with patient: 15 - 25 minutes Subjective Date/time seen: 05/29/19 09:19 Interval history: Date of Service: 05/29/2019. Admitted to [facility] S/P left BKA. Hospitalist service consulted for possible infection of left stump. Patient sitting in chair finishing breakfast. Still has pain in left BKA stump. No dysuria, hematuria or urinary frequency. No chest pain. No shortness of breath. Is tearful again today. Review of Systems Constitutional: Constitutional: Denies chills and Denies fever(s) ENT: Denies nasal congestion and Denies nasal discharge Cardiovascular: Cardiovascular: Denies chest pain Respiratory: Respiratory: Denies cough and Denies dyspnea Gastrointestinal: Ga
[2019-05-29] MEDS: NITROFURANTOIN MONOHYD MACROCR 100 MG CAP PO ×2 (12:33→20:43)
--- NOTE | 2019-05-29 13:15 | WPDNEURORHBP ---
Subjective Date/time seen: 05/29/19 13:15 Interval history: this 78-year-old is here after having had left above the knee amputation she is doing fairly well the urine culture has VRE for which at this point her hospitalist team has switched her over from Levaquin to nitrofurantoin which is fine with me the patient denies any headache nausea vomiting chest pain or shortness of breath fever chills Review of Systems Review of Systems: All systems reviewed & are unremarkable except as noted in HPI and below Functional Status Ambulation Ability Ability to Ambulate 10 Feet: Independent Ability to Ambulate 50 Feet With 2 Turns: Independent Ambulation Assistive Devices: Walker, Wheeled Transfers Ability Ability to Transfer In/Out of Chair: Independent Exam Const: General: comfortable and no acute distress HENMT: General nose exam: Normal nares present Mouth: Yes moist mucous membranes Eyes: General: appearance normal, both eyes and all related structures Neck: Neck: supple and no JVD Resp: Effort & Inspection: normal respiratory effort Auscultation: clear to auscultation bilaterally Cardio: Rate: regular rate Rhythm: regular rhythm GI: GI Palp: Yes Soft to palpation Auscultation: normal bowel sounds Skin: General skin exam: normal color and no rashes or lesions noted Neuro: Other: patient is quite lucid has normal mental state examination normal cranial option normal upper extremity strength and improving lower extremity strength of course with the evidence of the peripheral vascular disease and peripheral neuropathy Extrem: Other: the left lower extremity stump looks better Psych: Mental Status: mental status grossly normal Objective Data Vital Signs Vital Signs: Vital Signs - 24 hr 05/28/19 14:00 05/28/19 17:25 05/28/19 21:58 Temperature 37.2 C 37.1 C Pulse Rate 60 60 62 Respiratory Rate 20 18 Blood Pressure 110/54 L 114/45 L Pulse Oximetry 100 95 05/29/19 06:00 05/29/19 09:13 Temperature 36.7 C Pulse Rate 65 65 Respiratory Rate 18 Blood Pressure 133/54 L Pulse Oximetry 97 Intake/Output Intake/Output: Intake & Output 05/26/19 05/27/19 05/28/19 05/29/19 23:59 23:59 23:59 23:59 Intake Total 803 280 6622 480 Balance 544 005 9501 480 Meds/Results Medications: Active Medications Generic Name Dose Route Start Last Admin Trade Name Freq PRN Reason Stop Dose Admin Alprazolam 0.5 mg 05/24/19 15:32 05/24/19 20:55 Xanax PO 0.5 mg HS PRN Administration Anxiety Amiodarone HCl 200 mg 05/19/19 18:00 05/28/19 17:25 Pacerone PO 200 mg QPM JORDIN Administration Apixaban 5 mg 05/19/19 17:00 05/29/19 09:13 Eliquis PO 5 mg BID JORDIN Administration Ascorbic Acid 1,000 mg 05/20/19 09:00 05/29/19 09:12 Vitamin C PO 1,000 mg DAILY JORDIN Administration Aspirin 81 mg 05/20/19 09:00 05/29/19 09:12 Aspirin Ec PO 81 mg DAILY JORDIN Administration Bisacodyl 10 mg 05/23/19 00:53 Dulcolax Suppository RECTAL QAM PRN Constipation Budesonide 3 mg 05/20/19 09:00 05/29/19 09:13 Entocort Ec PO 3 mg DAILY JORDIN Administration Cyclobenzaprine HCl 5 mg 05/27/19 20:54 05/27/19 22:21 Flexeril PO 5 mg Q12H PRN Administration Muscle Spasm Diphenhydramine HCl 50 mg 05/19/19 15:37 05/25/19 00:32 Benadryl Cap PO 50 mg HS PRN Administration Sleep Ezetimibe 10 mg 05/19/19 21:00 05/28/19 20:55 Zetia PO 10 mg HS JORDIN Administration Fluticasone Propionate 1 spray 05/24/19 09:00 05/29/19 09:12 Flonase 0.05% Nasal [place] NASAL 1 spray Q12HR JORDIN Administration Gabapentin 300 mg 05/19/19 22:00 05/29/19 06:13 Neurontin PO 300 mg Q8HR JORDIN Administration Melatonin 20 mg 05/19/19 21:00 05/28/19 20:55 Melatonin PO 20 mg HS JORDIN Administration Metoprolol Succinate 25 mg 05/20/19 09:00 05/29/19 09:13 Toprol Xl PO 25 mg DAILY JORDIN Administration Nitrofur
[2019-05-29 14:00] VITALS: BP 112/56; PULSE 64; RESP 16; TEMP 36.6; O2SAT 99
[2019-05-29 16:57] VITALS: PULSE 64
[2019-05-29] MEDS: AMIODARONE HCL 200 MG TABLET PO (16:57)
[2019-05-29] MEDS: EZETIMIBE 10 MG TABLET PO (20:42)
[2019-05-29] MEDS: MELATONIN 5 MG TABLET 20 MG PO (20:43)
[2019-05-29 22:00] VITALS: BP 114/37; PULSE 63; RESP 16; TEMP 36.6; O2SAT 99
[2019-05-30] MEDS: FLUTICASONE PROPIONATE 0.05% NA SPR 16 GM BTL (*BKC) 1 SPRAY NASAL ×3 (01:04→20:44)
[2019-05-30] MEDS: GABAPENTIN 300 MG CAPSULE PO ×3 (05:15→20:45)
[2019-05-30 06:00] VITALS: BP 168/65; PULSE 71; RESP 16; TEMP 36.5; O2SAT 98
[2019-05-30 08:00] VITALS: PULSE 71; RESP 16; O2SAT 98
[2019-05-30 09:41] VITALS: PULSE 71
[2019-05-30] MEDS: OXYBUTYNIN CHLORIDE 5 MG TABLET PO (09:41)
[2019-05-30] MEDS: BUDESONIDE 3 MG CAP.SR.24H PO (09:41)
[2019-05-30] MEDS: METOPROLOL SUCCINATE EXT REL 25 MG TABCR PO (09:41)
[2019-05-30] MEDS: ASPIRIN 81 MG ENTERIC TABLET PO (09:41)
[2019-05-30] MEDS: NITROFURANTOIN MONOHYD MACROCR 100 MG CAP PO ×2 (09:42→20:44)
[2019-05-30] MEDS: ASCORBIC ACID 500 MG TABLET 1000 MG PO (09:42)
[2019-05-30] MEDS: APIXABAN 5 MG TABLET PO ×2 (09:43→17:16)
[2019-05-30] MEDS: SENNOSIDES 8.6 MG TABLET PO (09:47)
[2019-05-30] MEDS: TRIAMTERENE 37.5 MG/HCTZ 25 MG (MAXZIDE) TABLET 1 TAB PO (09:47)
--- NOTE | 2019-05-30 12:02 | WPDNEURORHBP ---
Subjective Date/time seen: 05/30/19 12:02 Review of Systems Review of Systems: All systems reviewed & are unremarkable except as noted in HPI and below Functional Status Ambulation Ability Ability to Ambulate 10 Feet: Independent Ability to Ambulate 50 Feet With 2 Turns: Independent Ambulation Assistive Devices: Walker, Wheeled Transfers Ability Ability to Transfer In/Out of Chair: Independent Exam Const: General: cooperative, comfortable and no acute distress Nutritional Appearance: average body habitus Orientation/consciousness: oriented to person and oriented to place HENMT: General nose exam: No nasal discharge present Face and sinus: normal facial exam and face symmetric Mouth: Yes Normal oral and palatal mucosa present Eyes: General: appearance normal, both eyes and all related structures Neck: Neck: full ROM Resp: Effort & Inspection: normal respiratory effort and able to speak in complete sentences Auscultation: clear to auscultation bilaterally Cardio: Rate: regular rate Rhythm: regular rhythm GI: Auscultation: normal bowel sounds Skin: General skin exam: no rashes or lesions noted Neuro: General: oriented to person, oriented to place and moves all extremities Cranial nerves: Yes CN's II-XII intact bilaterally, Yes Equal, round and reactive pupils present, Yes Bilaterally intact EOM present, Yes Nystagmus not present, Yes Normal facial strength present, Yes Midline tongue present, Yes Ability to bilaterally rotate head present and Yes Ability to bilaterally elevate shoulders present Cognition (Neuro): normal cognition Speech: normal speech Motor exam (neuro): 5/5 motor strength present throughout (U/E) Deep tendon reflexes (DTR's): Right triceps reflex intensity grade: 1+, Left triceps reflex intensity grade: 1+, Rt Biceps (C5, C6): 1+, Left biceps reflex intensity grade: 1+, Right brachioradialis reflex intensity grade: 1+ and Left brachioradialis reflex intensity grade: 1+ Psych: Appearance: grossly normal Mental Status: mental status grossly normal Speech and movement: Normal speech and movement present Affect: normal affect Attitude: cooperative Thought process: Normal thought process present Thought content: Yes Normal thought content present Insight: Good insight present (Psych) Judgement: Good judgement present (Psych) Objective Data Vital Signs Vital Signs: Vital Signs - 24 hr 05/29/19 14:00 05/29/19 16:57 05/29/19 22:00 Temperature 36.6 C 36.6 C Pulse Rate 64 64 63 Respiratory Rate 16 16 Blood Pressure 112/56 L 114/37 L Pulse Oximetry 99 99 05/30/19 06:00 05/30/19 09:41 Temperature 36.5 C Pulse Rate 71 71 Respiratory Rate 16 Blood Pressure 168/65 H Pulse Oximetry 98 Intake/Output Intake/Output: Intake & Output 05/27/19 05/28/19 05/29/19 05/30/19 23:59 23:59 23:59 23:59 Intake Total 960 1320 1200 240 Balance 960 1320 1200 240 Meds/Results Medications: Active Medications Generic Name Dose Route Start Last Admin Trade Name Freq PRN Reason Stop Dose Admin Alprazolam 0.5 mg 05/24/19 15:32 05/24/19 20:55 Xanax PO 0.5 mg HS PRN Administration Anxiety Amiodarone HCl 200 mg 05/19/19 18:00 05/29/19 16:57 Pacerone PO 200 mg QPM JORDIN Administration Apixaban 5 mg 05/19/19 17:00 05/30/19 09:43 Eliquis PO 5 mg BID JORDIN Administration Ascorbic Acid 1,000 mg 05/20/19 09:00 05/30/19 09:42 Vitamin C PO 1,000 mg DAILY JORDIN Administration Aspirin 81 mg 05/20/19 09:00 05/30/19 09:41 Aspirin Ec PO 81 mg DAILY JORDIN Administration Bisacodyl 10 mg 05/23/19 00:53 Dulcolax Suppository RECTAL QAM PRN Constipation Budesonide 3 mg 05/20/19 09:00 05/30/19 09:41 Entocort Ec PO 3 mg DAILY JORDIN Administration Cyclobenzaprine HCl 5 mg 05/27/19 20:54 05/27/19 22:21 Flexeril PO 5 mg Q12H PRN Administration Muscle Spasm Diphenhydramine HCl 50 mg 05/19/19 15:37 05/25/19 00:
[2019-05-30 14:00] VITALS: BP 149/43; PULSE 66; RESP 16; TEMP 36.8; O2SAT 99
[2019-05-30 17:16] VITALS: PULSE 66
[2019-05-30] MEDS: AMIODARONE HCL 200 MG TABLET PO (17:16)
[2019-05-30] MEDS: MELATONIN 5 MG TABLET 20 MG PO (20:44)
[2019-05-30] MEDS: EZETIMIBE 10 MG TABLET PO (20:44)
[2019-05-30 22:00] VITALS: BP 119/58; PULSE 64; RESP 18; TEMP 37; O2SAT 99
[2019-05-31 06:00] VITALS: BP 132/53; PULSE 62; RESP 20; TEMP 36.6; O2SAT 95
[2019-05-31] MEDS: GABAPENTIN 300 MG CAPSULE PO ×3 (06:00→20:16)
[2019-05-31] MEDS: FLUTICASONE PROPIONATE 0.05% NA SPR 16 GM BTL (*BKC) 1 SPRAY NASAL ×2 (09:01→20:16)
[2019-05-31] MEDS: NITROFURANTOIN MONOHYD MACROCR 100 MG CAP PO ×2 (09:01→20:15)
[2019-05-31] MEDS: ASPIRIN 81 MG ENTERIC TABLET PO (09:02)
[2019-05-31] MEDS: ASCORBIC ACID 500 MG TABLET 1000 MG PO (09:02)
[2019-05-31] MEDS: OXYBUTYNIN CHLORIDE 5 MG TABLET PO (09:02)
[2019-05-31] MEDS: BUDESONIDE 3 MG CAP.SR.24H PO (09:02)
[2019-05-31] MEDS: SENNOSIDES 8.6 MG TABLET PO (09:02)
[2019-05-31] MEDS: TRIAMTERENE 37.5 MG/HCTZ 25 MG (MAXZIDE) TABLET 1 TAB PO (09:02)
[2019-05-31 09:03] VITALS: PULSE 62
[2019-05-31] MEDS: METOPROLOL SUCCINATE EXT REL 25 MG TABCR PO (09:03)
[2019-05-31] MEDS: APIXABAN 5 MG TABLET PO ×2 (09:03→17:25)
[2019-05-31 14:00] VITALS: BP 143/42; PULSE 62; RESP 16; TEMP 36.2; O2SAT 94
[2019-05-31] MEDS: CYCLOBENZAPRINE HCL 5 MG TABLET PO (16:37)
[2019-05-31 17:25] VITALS: PULSE 62
[2019-05-31] MEDS: AMIODARONE HCL 200 MG TABLET PO (17:25)
[2019-05-31] MEDS: MELATONIN 5 MG TABLET 20 MG PO (20:14)
[2019-05-31] MEDS: EZETIMIBE 10 MG TABLET PO (20:15)
[2019-05-31 22:00] VITALS: BP 127/47; PULSE 60; RESP 18; TEMP 36.7; O2SAT 98
[2019-06-01] MEDS: GABAPENTIN 300 MG CAPSULE PO ×2 (04:57→13:26)
[2019-06-01 05:28] LABS: Estimated CRCL calculation 40 ml/min; Estimated Glomerular Filt Rate > 60
[2019-06-01 06:00] VITALS: BP 174/45; PULSE 65; RESP 18; TEMP 36.5; O2SAT 98
[2019-06-01 08:57] VITALS: PULSE 64
[2019-06-01] MEDS: APIXABAN 5 MG TABLET PO (08:57)
[2019-06-01] MEDS: METOPROLOL SUCCINATE EXT REL 25 MG TABCR PO (08:57)
[2019-06-01] MEDS: BUDESONIDE 3 MG CAP.SR.24H PO (08:57)
[2019-06-01] MEDS: OXYBUTYNIN CHLORIDE 5 MG TABLET PO (08:57)
[2019-06-01] MEDS: SENNOSIDES 8.6 MG TABLET PO (08:58)
[2019-06-01] MEDS: NITROFURANTOIN MONOHYD MACROCR 100 MG CAP PO (08:58)
[2019-06-01] MEDS: ASPIRIN 81 MG ENTERIC TABLET PO (08:58)
[2019-06-01] MEDS: ASCORBIC ACID 500 MG TABLET 1000 MG PO (08:58)
[2019-06-01] MEDS: FLUTICASONE PROPIONATE 0.05% NA SPR 16 GM BTL (*BKC) 1 SPRAY NASAL (09:00)
[2019-06-01] MEDS: TRIAMTERENE 37.5 MG/HCTZ 25 MG (MAXZIDE) TABLET 1 TAB PO (09:01)
--- NOTE | 2019-06-01 12:03 | WPDNEURORHBP ---
Subjective Date/time seen: 06/01/19 12:03 Review of Systems Review of Systems: All systems reviewed & are unremarkable except as noted in HPI and below Functional Status Ambulation Ability Ability to Ambulate 10 Feet: Independent Ability to Ambulate 50 Feet With 2 Turns: Independent Ambulation Assistive Devices: Walker, Wheeled Transfers Ability Ability to Transfer In/Out of Chair: Standby Assistance Exam Const: General: cooperative, healthy appearing, alert, awake and acute distress Nutritional Appearance: average body habitus Orientation/consciousness: patient oriented x3 Limitations: no limitations Eyes: General: appearance normal, both eyes and all related structures Neck: Neck: full ROM Resp: Effort & Inspection: normal respiratory effort and able to speak in complete sentences Cardio: Rate: regular rate Rhythm: regular rhythm GI: Auscultation: normal bowel sounds Skin: General skin exam: no rashes or lesions noted Wounds: amputation site (clean) Neuro: General: patient oriented x3 Cranial nerves: Yes CN's II-XII intact bilaterally Cognition (Neuro): normal cognition Motor exam (neuro): 5/5 motor strength present throughout Psych: Appearance: grossly normal Mental Status: mental status grossly normal Speech and movement: Normal speech and movement present Affect: Anxious affect present Attitude: cooperative Thought process: Normal thought process present Thought content: Yes Normal thought content present Insight: Good insight present (Psych) Objective Data Vital Signs Vital Signs: Vital Signs - 24 hr 05/31/19 14:00 05/31/19 17:25 05/31/19 22:00 Temperature 36.2 C L 36.7 C Pulse Rate 62 62 60 Respiratory Rate 16 18 Blood Pressure 143/42 H 127/47 L Pulse Oximetry 94 98 06/01/19 06:00 06/01/19 08:57 Temperature 36.5 C Pulse Rate 65 64 Respiratory Rate 18 Blood Pressure 174/45 H Pulse Oximetry 98 Intake/Output Intake/Output: Intake & Output 05/29/19 05/30/19 05/31/19 06/01/19 23:59 23:59 23:59 23:59 Intake Total 1200 720 680 240 Balance 1200 720 680 240 Meds/Results Medications: Active Medications Generic Name Dose Route Start Last Admin Trade Name Freq PRN Reason Stop Dose Admin Alprazolam 0.5 mg 05/24/19 15:32 05/24/19 20:55 Xanax PO 0.5 mg HS PRN Administration Anxiety Amiodarone HCl 200 mg 05/19/19 18:00 05/31/19 17:25 Pacerone PO 200 mg QPM JORDIN Administration Apixaban 5 mg 05/19/19 17:00 06/01/19 08:57 Eliquis PO 5 mg BID JORDIN Administration Ascorbic Acid 1,000 mg 05/20/19 09:00 06/01/19 08:58 Vitamin C PO 1,000 mg DAILY JORDIN Administration Aspirin 81 mg 05/20/19 09:00 06/01/19 08:58 Aspirin Ec PO 81 mg DAILY JORDIN Administration Bisacodyl 10 mg 05/23/19 00:53 Dulcolax Suppository RECTAL QAM PRN Constipation Budesonide 3 mg 05/20/19 09:00 06/01/19 08:57 Entocort Ec PO 3 mg DAILY JORDIN Administration Cyclobenzaprine HCl 5 mg 05/27/19 20:54 05/31/19 16:37 Flexeril PO 5 mg Q12H PRN Administration Muscle Spasm Diphenhydramine HCl 50 mg 05/19/19 15:37 05/25/19 00:32 Benadryl Cap PO 50 mg HS PRN Administration Sleep Ezetimibe 10 mg 05/19/19 21:00 05/31/19 20:15 Zetia PO 10 mg HS JORDIN Administration Fluticasone Propionate 1 spray 05/24/19 09:00 06/01/19 09:00 Flonase 0.05% Nasal [place] NASAL 1 spray Q12HR JORDIN Administration Gabapentin 300 mg 05/19/19 22:00 06/01/19 04:57 Neurontin PO 300 mg Q8HR JORDIN Administration Melatonin 20 mg 05/19/19 21:00 05/31/19 20:14 Melatonin PO 20 mg HS JORDIN Administration Metoprolol Succinate 25 mg 05/20/19 09:00 06/01/19 08:57 Toprol Xl PO 25 mg DAILY JORDIN Administration Nitrofurantoin Macrocrystals 100 mg 05/29/19 09:25 06/01/19 08:58 Macrobid PO 06/03/19 09:26 100 mg Q12HR JORDIN Administration Oxybutynin Chloride 5 mg 05/20/19 09:00
--- NOTE | 2019-06-03 14:28 | PM.DS ---
DS: Diagnosis Admitting Diagnosis Admitting Diagnosis: Embolism and thrombosis of arteries of the lower extremities Discharge Diagnosis (1) UTI (urinary tract infection): Qualifiers: Urinary tract infection type: acute cystitis Hematuria presence: without hematuria Qualified Code(s): N30.00 - Acute cystitis without hematuria Code(s): N39.0 - Urinary tract infection, site not specified Status: Acute (2) Leukocytosis: Qualifiers: Leukocytosis type: unspecified Qualified Code(s): D72.829 - Elevated white blood cell count, unspecified Code(s): D72.829 - Elevated white blood cell count, unspecified Status: Acute (3) Pyuria: Code(s): R82.81 - Pyuria Status: Acute (4) Skin infection: Code(s): L08.9 - Local infection of the skin and subcutaneous tissue, unspecified Status: Ruled-out (5) Hypertension: Qualifiers: Hypertension type: essential hypertension Qualified Code(s): I10 - Essential (primary) hypertension Code(s): I10 - Essential (primary) hypertension Status: Acute (6) 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: Qualifiers: Encounter type: sequela Qualified Code(s): S88.112S - Complete traumatic amputation at level between knee and ankle, left lower leg, sequela Code(s): S88.112A - Complete traumatic amputation at level between knee and ankle, left lower leg, initial encounter Status: Acute (7) H/O angioplasty: Code(s): Z98.62 - Peripheral vascular angioplasty status Status: Acute (8) History of thrombosis of lower extremity: Code(s): Z86.718 - Personal history of other venous thrombosis and embolism Status: Acute (9) Pacemaker: Code(s): Z95.0 - Presence of cardiac pacemaker Status: Chronic (10) Chronic low back pain: Code(s): M54.5 - Low back pain; G89.29 - Other chronic pain Status: Acute (11) Osteopenia: Code(s): M85.80 - Other specified disorders of bone density and structure, unspecified site Status: Acute (12) Peripheral vascular angioplasty status with implants and grafts: Code(s): Z95.820 - Peripheral vascular angioplasty status with implants and grafts Status: Acute (13) Mixed hyperlipidemia: Code(s): E78.2 - Mixed hyperlipidemia Status: Chronic (14) Neuropathic pain: Code(s): M79.2 - Neuralgia and neuritis, unspecified Status: Acute (15) Benign essential hypertension: Code(s): I10 - Essential (primary) hypertension Status: Acute (16) Atrial fibrillation: Qualifiers: Atrial fibrillation type: unspecified Qualified Code(s): I48.91 - Unspecified atrial fibrillation Code(s): I48.91 - Unspecified atrial fibrillation Status: Acute (17) ASHD (arteriosclerotic heart disease): Code(s): I25.10 - Atherosclerotic heart disease of [place] coronary artery without angina pectoris Status: Acute (18) Reactive depression (situational): Code(s): F32.9 - Major depressive disorder, single episode, unspecified Status: Acute (19) Vasomotor instability: Code(s): R55 - Syncope and collapse Status: Acute DS: Summary Hospital Course Reason for hospitalization: the patient was admitted to rehab after having had amputation of the left lower extremity below the knee with multiple medical issues as mentioned in the above mentioned problem was able to be safely discharged to home with home health no falls were recorded we had consulted the hospitalist for other medical issues and the recommendations were followed Hospital Course: during the rehab she received the PT OT and medical management was able to choose the following independent measures eating independent, oral hygiene independent, toileting setup, bathing setup, upper body dressing independent, lower body dressing setup, footwear setup, rolling in bed independen
== END 2019-06-01 15:35 | disposition home health service (06) | DRG 560 ==
PROVIDERS: Family Medicine; Hospitalist; Nurse Practitioner; Admitting Provider Psychiatry & Neurology Neurology; PCP Internal Medicine; Visit Provider Psychiatry & Neurology Neurology
DX: Z47.81 Encounter for orthopedic aftercare following surgical amputation (principal); D62 Acute posthemorrhagic anemia; N39.0 Urinary tract infection, site not specified; T87.89 Other complications of amputation stump; D72.829 Elevated white blood cell count, unspecified; B95.2 Enterococcus as the cause of diseases classified elsewhere; E78.2 Mixed hyperlipidemia; I73.9 Peripheral vascular disease, unspecified; I99.8 Other disorder of circulatory system; G62.9 Polyneuropathy, unspecified; G54.6 Phantom limb syndrome with pain; G89.29 Other chronic pain; H91.90 Unspecified hearing loss, unspecified ear; I48.91 Unspecified atrial fibrillation; I25.10 Atherosclerotic heart disease of native coronary artery without angina pectoris; I12.9 Hypertensive chronic kidney disease with stage 1 through stage 4 chronic kidney disease, or unspecified chronic kidney disease; I34.0 Nonrheumatic mitral (valve) insufficiency; J44.9 Chronic obstructive pulmonary disease, unspecified; K76.0 Fatty (change of) liver, not elsewhere classified; L08.9 Local infection of the skin and subcutaneous tissue, unspecified; M85.80 Other specified disorders of bone density and structure, unspecified site; N18.9 Chronic kidney disease, unspecified; R09.89 Other specified symptoms and signs involving the circulatory and respiratory systems; R73.03 Prediabetes; Z95.820 Peripheral vascular angioplasty status with implants and grafts; Z96.641 Presence of right artificial hip joint; Z95.0 Presence of cardiac pacemaker; Z86.718 Personal history of other venous thrombosis and embolism; Z98.1 Arthrodesis status; Z79.82 Long term (current) use of aspirin; Z85.820 Personal history of malignant melanoma of skin; Z79.01 Long term (current) use of anticoagulants; Z89.512 Acquired absence of left leg below knee; Z87.891 Personal history of nicotine dependence
CPT/HCPCS: 36415; 36430; 80048; 80202; 81001; 82565; 83540; 85025; 85027; 86850; 86900; 86901; 86923; 87040; 87070; 87077; 87086; 87088; 87186; 87205; 97110; 97116; 97140; 97162; 97166; 97530; 97535; A9270; J0696; J3370; J7040; J7050; P9016

== ENCOUNTER 2019-07-24 13:01 | Outpatient (CLI) | payer MEDICARE, SELFPAY ==
[2019-07-24 13:44] LABS: Blood Urea Nitrogen 15 mg/dL (7-17); Carbon Dioxide 26 mmol/L (22-30); Chloride 102 mmol/L (98-107); Estimated Glomerular Filt Rate > 60; Glucose 93 mg/dL (65-105); Sodium 135 mmol/L (137-145)
== END 2019-07-24 13:02 | disposition home or self-care (01) ==
PROVIDERS: Anesthesiology; PCP Internal Medicine; Visit Provider Urology
DX: Z79.899 Other long term (current) drug therapy (principal)
CPT/HCPCS: 36415; 80048

== ENCOUNTER 2019-08-04 00:40 | Outpatient (CLI) | payer MEDICARE, SELFPAY ==
[2019-08-04 18:12] LABS: SARS-CoV-2 RNA PCR Negative
== END 2019-08-04 00:41 | disposition home or self-care (01) ==
LOC: ANHCOVIDDT 00:40
PROVIDERS: PCP Internal Medicine; Visit Provider Urology
DX: Z20.828 Contact with and (suspected) exposure to other viral communicable diseases (principal); Z01.812 Encounter for preprocedural laboratory examination
CPT/HCPCS: 87635; C9803; U0003

== ENCOUNTER 2019-08-06 01:06 | Day surgery (SDC) | payer MEDICARE, SELFPAY ==
[2019-07-23 10:17] VITALS: BMI 21.2
--- NOTE | 2019-07-30 10:54 | PM.HPGS ---
History of Present Illness History of Present Illness Consent: Risks, benefits, and alternatives have been discussed and questions answered. Patient agrees to proceed with procedure. 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 This is currently being managed with an indwelling stent with periodic changes. Review of Systems Cardiovascular: Cardiovascular: Denies chest pain, Denies lightheadedness, Denies palpitations and Denies dyspnea Respiratory: Respiratory: Denies dyspnea Gastrointestinal: Gastrointestinal: Denies diarrhea, Denies nausea and Denies vomiting Genitourinary: Genitourinary: Denies hematuria and Denies dysuria Endocrine: Endocrine: Denies palpitations PMFSH Past Medical History Medical History Atrial fibrillation Benign essential hypertension CAD (coronary artery disease) Carotid bruit Chronic renal disease DVT (deep venous thrombosis) Fatty liver History of thrombosis of lower extremity Hx of adenomatous colonic polyps Hypertension Inflammatory bowel disease Kidney stones Melanoma Extracted from her face Menopausal and female climacteric states Microscopic colitis, unspecified Mixed hyperlipidemia Neuropathic pain 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 Thrombectomy femoral popliteal bypass 2009 angiogram with PTCA stent to left lower extremity February 2019 H/O breast biopsy Several biopsies both breast H/O cystoscopy H/O laminectomy Lumbar 1983 H/O left knee surgery 1989 H/O rectal polypectomy History of appendectomy 1953 History of back surgery History of coronary artery stent placement History of lumbar fusion 2015, lumbar fusion with hardware June of 2018 History of partial hysterectomy 1970 History of total right knee replacement (TKR) 2018 History of ureter stent Hx of cholecystectomy 1977 Peripheral vascular angioplasty status with implants and grafts S/P cubital tunnel release Right-sided 1997 and left 1995 Status post trigger finger release Left ring finger 1998 Family History Family History Mother Family history of osteoporosis Hypertension Family history of elevated blood lipids Family history of coronary artery disease Sibling Patient's brother is Other Family history of cardiovascular disease Family history of malignant neoplasm of breast in first degree relative Family history of malignant neoplasm of male breast Family history of malignant neoplasm of ovary Family history of osteoarthritis Social History Social History Social History: The patient quit smoking August of 2013. 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 She has 3 children. She lives with her and daughter. 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 Smoking status: Former smoker Second hand tobacco smoke exposure: No Smoking end date: 02/18/11 Alcohol intake: never Substance use: never Substance use type: does not use Spiritual care concerns: No Agree to blood products: Yes Meds Home Medications and Allergies Home Medications Medication Instructions Recorded Confirmed Type amiodarone 200 mg PO QPM 05/31/19 07/23/19 History apixaban 5 mg tablet 5 mg PO BID 05/31/19 07/23/19 History ascorbic acid (vitamin C) [Vitamin 1,000 mg PO DAILY 30 Days #60 05/31/19 07/23/19 Rx C] tablet
[2019-08-06] VITALS (10 sets, daily range): BP systolic 90–137; BP diastolic 45–73; PULSE 60–73; RESP 6–20; TEMP 36.2–36.6; O2SAT 95–100
--- NOTE | ~2019-08-06 | XR_ITS ---
EXAMINATION: XR retrograde pyelo w/stent LT DATE: 08/06/2019 12:22 INDICATION: Renal stone and flank pain with left ureteral stent placement. TECHNIQUE: 74 fluoroscopic spot images of the abdomen and pelvis were obtained during procedure perfo rmed by the previous. Radiologist was not present for the imaging or procedure. The amount of fluoros copy time used during this procedure was 2.4 minutes. 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 Subsequent images demonstrate removal of the stent and cannulation of the distal left ureter. Retr ograde injection of contrast demonstrates a likely stenosis in the region of the left ureteropelvic j unction with degenerative contrast extending into the renal pelvis. The site of the suspected stenosi s is however obscured by metallic instrumentation for a combined instrumented anterior and posterior lumbar spinal fusion appears to extend from L2 through S1. There is mild left hydronephrosis. Final i mages demonstrate placement of a new left internal ureteral stent with loops formed over the left facundo al pelvis and the bladder. Cholecystectomy clips are seen in the right upper quadrant. IMPRESSION: 1. Left internal ureteral stent exchange with new stent in expected position. 2. Mild left hydronephrosis with likely stenosis in the region of the left ureteropelvic junction but which is obscured by overlying instrumentation for lumbar spinal fusion. See procedure note for furt her detail. Reviewed, dictated and finalized at location A. IMPRESSION: 1. Left internal ureteral stent exchange with new stent in expected position. 2. Mild left hydronephrosis with likely stenosis in the region of the left uret eropelvic junction but which is obscured by overlying instrumentation for lumba r spinal fusion. See procedure note for further detail.
--- NOTE | 2019-08-06 06:49 | WPDHPUPDATE1 ---
History and Physical Update Update Date/Time: 08/06/19 06:49 History and Physical has been reviewed, including an updated exam of the patient. There are NO changes in the patient's condition. Risks, benefits, and alternatives have been discussed and questions answered. Patient agrees to proceed with procedure.
--- NOTE | 2019-08-06 10:53 | WPDANESEPPF ---
Anes - Initial Pre Proc Eval Procedure: Operation Date: 08/06/19 12:00 Proposed Procedures p Cystoscopy, Left Ureteral Stent Exchange - Broderick Lal MD Date/Time: 08/06/19 10:53 Surgeon: Broderick Lal MD Pre Op Diagnosis: hydronephrosis, pelvic pain Patient Data Age: 78 Gender: F Height: 1.63 m Weight: 56 kg Allergies Allergy/AdvReac Type Severity Reaction Status Date / Time latex Allergy Severe SWELLING, Verified 07/23/19 10:12 RASH-POWDER sertraline Allergy Severe Joint Pain Verified 07/23/19 10:12 Sulfa (Sulfonamide Allergy Severe RASH Verified 07/23/19 10:12 Antibiotics) atorvastatin Allergy Intermediate Hives Verified 07/23/19 10:12 baclofen Allergy Intermediate tremors Verified 07/23/19 10:12 estradiol Allergy Intermediate Joint Verified 07/23/19 10:12 pain, swollen eyes & leg pain codeine Allergy Mild NAUSEA, Verified 07/23/19 10:12 RASH esomeprazole Allergy Mild CHEST PAIN Verified 07/23/19 10:12 lansoprazole Allergy Mild CHEST PAIN Verified 07/23/19 10:12 Penicillins Allergy Mild RASH Verified 07/23/19 10:12 trazodone Allergy Mild Joint Pain Verified 07/23/19 10:12 iohexol Allergy Unknown Hives Verified 07/23/19 10:12 [From contrast - CT, X-RAY] metoclopramide Allergy Unknown Itching Verified 07/23/19 10:12 nebivolol Allergy Unknown Itching Verified 07/23/19 10:12 tolmetin Allergy Unknown Hives Verified 07/23/19 10:12 amitriptyline AdvReac Mild MUSCLE PAIN Verified 07/23/19 10:12 citalopram AdvReac Mild CHEST PAIN Verified 07/23/19 10:12 colesevelam AdvReac Mild Gastrointestinal Verified 07/23/19 10:12 Upset lisinopril AdvReac Mild NAUSEA/DIAR Verified 07/23/19 10:12 SU morphine AdvReac Mild MIGRAINE Verified 07/23/19 10:12 pravastatin AdvReac Mild Nausea Verified 07/23/19 10:12 Home Medications Medication Instructions Recorded Confirmed Type amiodarone 200 mg PO QPM 05/31/19 07/23/19 History apixaban 5 mg tablet 5 mg PO BID 05/31/19 07/23/19 History ascorbic acid (vitamin C) [Vitamin 1,000 mg PO DAILY 30 Days #60 05/31/19 07/23/19 Rx C] tablet aspirin 81 mg PO DAILY #30 tablet 05/31/19 07/23/19 Rx budesonide 3 mg 3 mg PO DAILY 05/31/19 07/23/19 History capsule,delayed,extended release fluticasone propionate [Allergy 1 spray INTRANASAL DAILY PRN 30 05/31/19 07/23/19 Rx Relief (fluticasone)] Days #1 vial melatonin 20 mg PO HS #30 tablet 05/31/19 07/23/19 Rx metoprolol succinate 25 mg 25 mg PO DAILY 05/31/19 07/23/19 History tablet,extended release 24 hr oxybutynin chloride 5 mg PO DAILY #30 tablet 05/31/19 07/23/19 Rx polyethylene glycol 3350 [Miralax] 17 g PO QAM PRN #30 ea 05/31/19 07/23/19 Rx sennosides [Senokot] 8.6 mg PO DAILY 30 Days #30 tablet 05/31/19 07/23/19 Rx triamterene 37.5 1 cap PO DAILY 05/31/19 07/23/19 History mg-hydrochlorothiazide 25 mg capsule morphine 15 mg PO Q12H 07/23/19 07/23/19 History ezetimibe 10 mg tablet See Rx Instructions .ROUTE 08/03/19 Rx .COMPLEX #90 tablet gabapentin 300 mg capsule 300 mg PO Q8H #270 cap 08/04/19 Rx prochlorperazine maleate 10 mg 10 mg PO Q8H PRN #30 tablet 08/04/19 Rx tablet Patient hx anesthesia problems: none Family hx anesthesia problems: none PMFSH Past Medical History Medical History Atrial fibrillation Benign essential hypertension CAD (coronary artery disease) Carotid bruit Chronic renal disease DVT (deep venous thrombosis) Fatty liver History of thrombosis of lower extremity Hx of adenomatous colonic polyps Hypertension Inflammatory bowel disease Kidney stones Melanoma Extracted from her face Menopausal and female climacteric states Microscopic colitis, unspecified Mixed hyperlipidemia Neuropathic pain On [facility] drug therapy Pacemaker Inserted 2014 [employer] Peripheral vascular disease Pre-diabetes Statin intolerance Surgical History Surgical History (Reviewed 07/29
[2019-08-06] MEDS: LACTATED RINGERS 1,000 ML 30 ML IV CONT (11:15)
[2019-08-06] MEDS: ceFAZolin 2 GM/D5W 50 ML 2 GM/50 ML BAG IVPB (11:41)
[2019-08-06] MEDS: LIDOCAINE HCL 2% GEL UROJET 10 ML PKG MUCOUS MEM (11:59)
--- NOTE | 2019-08-06 12:28 | PM.PROC ---
Procedure Note - Detailed Date of procedure: 08/06/19 Pre-op diagnosis: hydronephrosis, pelvic pain Post-op diagnosis: same Procedure performed: 1. Cystoscopy with left ureteral stent removal 2. Left retrograde pyelography 3. Left ureteroscopy. 4. Left ureteral stent replacement Description of procedure: patient is brought to the operative suite where she was prepped and draped in routine sterile fashion while in a dorsal lithotomy position. Cystoscopy is undertaken with a 19 F rigid cystoscope in the indwelling stent is removed with ease. 0.035 in glidewire is advanced in the left renal pelvis. Left retrograde pyelography be an angiographic catheter shows no evidence of contrast extravasation but with persistent, unchanged medial tenting of the ureteropelvic junction. Luis ureteroscopy with a 7.5 F digital ureteroscope shows marked edematous changes around the left ureteropelvic junction. The left collecting system and proximal ureter were carefully evaluated. On today's exam, however, I was unable to identify any foreign body extruding into the medial wall of the renal pelvis as had been seen on 2 prior occasions. Again, however, there is an un president amount +edema around the ureteropelvic junction which may be obscuring visualization of an ongoing problem. This point I replace her 4.8 F left ureteral stent with proximal coil in renal pelvis and distal coil in the bladder. Scope was removed. The patient was taken recovery room in good condition. Anesthesia: GLMA Surgeon: Broderick Lal MD Estimated blood loss (mL): 0 Drains: Yes (4.8F left ureteral stent) Packing: No Pathology: none sent Complications: No immediate complications Condition: stable Disposition: PACU
--- NOTE | 2019-08-06 14:16 | SUR.PHASEII ---
1415: RN called Dr. Lal for a medication to help with bladder spasms.
[2019-08-06] MEDS: HYOSCYAMINE SULFATE 0.125 MG TABLET PO (14:25)
--- NOTE | 2019-08-06 15:00 | SUR.PHASEII ---
1455: Dr. Lal contacted by telephone. Prescription for bladder spasm medication will be sent to pharmacy. Also he could not see any hardware like previously seen so there is no images to give to patient.
== END 2019-08-06 15:10 | disposition home or self-care (01) ==
PROVIDERS: PCP Internal Medicine; Visit Provider Urology
PROC: (CPT 52352; principal; 2019-08-06 12:00)
DX: N13.30 Unspecified hydronephrosis (principal); R10.2 Pelvic and perineal pain; I48.91 Unspecified atrial fibrillation; I10 Essential (primary) hypertension; I25.10 Atherosclerotic heart disease of native coronary artery without angina pectoris; K76.0 Fatty (change of) liver, not elsewhere classified; E78.2 Mixed hyperlipidemia; R73.03 Prediabetes; I73.9 Peripheral vascular disease, unspecified; K58.9 Irritable bowel syndrome, unspecified; Z79.01 Long term (current) use of anticoagulants; Z79.82 Long term (current) use of aspirin; Z86.718 Personal history of other venous thrombosis and embolism; Z85.820 Personal history of malignant melanoma of skin; Z95.0 Presence of cardiac pacemaker; Z95.820 Peripheral vascular angioplasty status with implants and grafts; Z95.5 Presence of coronary angioplasty implant and graft; Z87.891 Personal history of nicotine dependence
CPT/HCPCS: 52332; 74420; A9270; C1758; C1769; C2617; J0690; J2704; J3010; J7120; Q9966

== ENCOUNTER 2019-08-09 05:42 | Inpatient (IN) | payer MEDICARE, SELFPAY ==
[2019-08-09] VITALS (18 sets, daily range): BP systolic 94–143; BP diastolic 38–99; PULSE 60–72; RESP 16–20; TEMP 36.4–38; O2SAT 92–100; BMI 20.7
--- NOTE | ~2019-08-09 | CT_ITS ---
EXAMINATION: CT chest wo con DATE: 08/11/2019 20:29 INDICATION: Pneumonia and hemoptysis TECHNIQUE: Computed tomography (CT) of the chest was performed without intravenous contrast. The dose -length product (DLP) was 160.11 mGy-cm. 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 COMPARISON: 03/01/2010 FINDINGS: There are small pleural effusions with mild passive atelectasis in the lower lobes. A few s cattered patchy airspace opacities are present in the upper lobes. There is no pneumothorax. A dual-l ead pacemaker of the left chest wall ends with leads in the right atrium and right ventricle. The hea rt size is normal. There are no pathologically enlarged thoracic lymph nodes. There is mild thoracic spondylosis. IMPRESSION: 1. Small pleural effusions with passive atelectasis in the lower lobes. 2. Scattered patchy airspace opacities in the upper lobes, likely infectious or inflammatory. Reviewed, dictated and finalized at location A.
--- NOTE | ~2019-08-09 | XR_ITS ---
EXAMINATION: XR chest 2V DATE: 08/11/2019 09:44 INDICATION: Pneumonia TECHNIQUE: frontal and lateral views of the chest were obtained. COMPARISON: Chest radiograph dated 08/09/2019 FINDINGS: Increased interstitial pattern with peripheral Camron B-lines in the bilateral mid and lower lung zon es consistent with mild pulmonary edema. Small bilateral pleural effusions best seen on the lateral p rojection. Reticular opacities at the posterior lung bases most likely additional pulmonary edema and atelectasis although differential includes pneumonia. No pneumothorax. The cardiomediastinal silhoue tte is normal. Dual lead pacemaker seen with leads projecting over the expected locations of the righ t atrium and right ventricle near the pulmonary outflow tract. IMPRESSION: 1. Mild pulmonary edema. 2. Small bilateral pleural effusions with bibasilar opacities which in addition no pulmonary edema co uld represent atelectasis or pneumonia. Reviewed, dictated and finalized at location A. IMPRESSION: 1. Mild pulmonary edema. 2. Small bilateral pleural effusions with bibasilar opacities which in addition no pulmonary edema could represent atelectasis or pneumonia.
--- NOTE | ~2019-08-09 | CT_ITS ---
EXAMINATION: CT abdomen pelvis wo con DATE: 08/09/2019 07:20 INDICATION: Lower abdominal tenderness TECHNIQUE: Computed tomography (CT) of the abdomen and pelvis was performed without intravenous contr ast. The dose-length product was 300.39 mGy-cm. Automated exposure control and iterative reconstructi on technique were employed. COMPARISON: CT dated 10/21/2018 FINDINGS: There is patchy bibasilar airspace consolidation. Heart size normal. There is extensive ath erosclerosis of the aorta without evidence for aneurysm. There is a left iliac artery stent. There is a left internal ureteral stent with the proximal coil in the left renal pelvis and distal coil in th e bladder. Small amount of gas in the left renal collecting system and bladder, consistent with stent placement. There are renal arterial calcifications. There is a nonobstructing left renal stone. Bladder is moder ately distended. Status post cholecystectomy. The spleen, pancreas, adrenal glands are unremarkable. There are spinal fusion changes at L3-5. There is retroperitoneal lymphadenopathy, not well visualized due to streak a rtifact from spinal hardware and lack of contrast. IMPRESSION: 1. Moderate bladder distention. Left internal ureteral stent in expected position. 2: Patchy bibasilar airspace consolidation may represent atelectasis and/or pneumonia. 3: Nonobstructing left renal stone. 4: Retroperitoneal lymphadenopathy, nonspecific. Reviewed, dictated and finalized at location A. IMPRESSION: 1. Moderate bladder distention. Left internal ureteral stent in expected positi on. 2: Patchy bibasilar airspace consolidation may represent atelectasis and/or pn eumonia. 3: Nonobstructing left renal stone. 4: Retroperitoneal lymphadenopathy, nonspecific.
--- NOTE | ~2019-08-09 | XR_ITS ---
XR chest 1V portable 08/09/2019 05:58 Indication: Fever. Dyspnea. Procedure: AP portable chest Comparison: Comparison to multiple prior studies sequentially, with oldest reviewed study dated 01/18. Findings: Pacemaker leads are stable. Heart size normal. Interval development of patchy bibasilar air space disease, consistent with pneumonia. The lungs are hyperinflated which is consistent with, but n ot diagnostic of chronic obstructive pulmonary disease. No acute osseous abnormality. Impression: 1: Patchy bibasilar airspace disease, compatible with pneumonia. Reviewed, dictated and finalized at location A. Impression: 1: Patchy bibasilar airspace disease, compatible with pneumonia.
--- NOTE | 2019-08-09 05:43 | ECG_ITS ---
Measurements Intervals [place] Rate: 61 P: 126 [place]: 189 QRS: -15 QRSD: 128 T: 107 QT: 457 QTc: 462 Interpretive Statements ELECTRONIC ATRIAL PACEMAKER LEFT BUNDLE BRANCH BLOCK BASELINE ARTIFACT- I, III, AVL, AVF ABNORMAL ECG Electronically Signed On 08-09-2019 8:13:03 CDT by Luis Layne D.O.
[2019-08-09 05:59] LABS: Basophils Percent Auto 0.3 % (0.2-1.2); Eosinophils Absolute Auto 0.1 K/mm3 (0-0.3); Eosinophils Percent Auto 0.5 % (0-4.4); Hemoglobin 8.8 g/dL (12.0-15.0); Immature Granulocyte Absolute 0.05 K/mm3 (0.00-0.031); Immature Granulocyte Percent A 0.4 % (0-0.5); Lymphocytes Absolute Auto 1.28 K/mm3 (0.9-3.2); Lymphocytes Percent Auto 10.4 % (18.3-44.2); Mean Corpuscular HGB Conc 30.3 g/dl (32-36); Mean Corpuscular Hemoglobin 23.5 pg (26-34); Mean Corpuscular Volume 77.5 fl (80-100); Monocytes Absolute Auto 0.9 K/mm3 (0.1-0.6); Monocytes Percent Auto 7.2 % (2.6-8.5); Neutrophils Percent Auto 81.2 % (45.5-73.1); Platelet Count Result 322 k/mm3 (150-375); Red Blood Count 3.74 M/mm3 (4.2-5.4); Red Cell Distribution Width 19.5 % (11.5-14.5); White Blood Count 12.3 K/mm3 (4.5-10.0)
--- NOTE | 2019-08-09 06:01 | ED.FEVER ---
HPI - Fever General Chief Complaint: Fever <Meche Velázquez MD - Last Filed: 08/10/19 00:57> Stated Complaint: fever <Meche Velázquez MD - Last Filed: 08/10/19 00:57> Source: patient and EMS <Meche Velázquez MD - Last Filed: 08/10/19 00:57> Mode of arrival: EMS <Meche Velázquez MD - Last Filed: 08/10/19 00:57> Limitations: no limitations <Meche Velázquez MD - Last Filed: 08/10/19 00:57> History of Present Illness HPI Narrative: This patient is a 78 year old female with multiple medical problems who presents for evaluation of fever s/p ureteral stent placement. She states Dr. Lal placed of left ureteral stent for hydronephrosis on 08/06/19. She states she was doing well until yesterday. Yesterday she started having fever up to maximum 102. She states just prior to arrival she had a temperature of 101.3 F. She has not taken any tylenol since yesterday. She had lower abdominal pain 3 days ago she states it has resolved. She denies nausea, vomiting, diarrhea or dysuria. She states her urine does appear dirty. She has not had cough, sob, sore throat, runny nose. She tested negative for COVID 19 prior to her procedure earlier this week. <Meche Velázquez MD - Last Filed: 08/10/19 00:57> MD elicited complaint: fever <Meche Velázquez MD - Last Filed: 08/10/19 00:57> Related Data Home Medications: Home Medications Medication Instructions Recorded Confirmed amiodarone 200 mg PO QPM 05/31/19 08/09/19 apixaban 5 mg tablet 5 mg PO BID 05/31/19 08/09/19 metoprolol succinate 25 mg 25 mg PO DAILY 05/31/19 08/09/19 tablet,extended release 24 hr morphine 15 mg PO Q12H 07/23/19 08/09/19 hyoscyamine sulfate 0.125 mg PO QID PRN 08/09/19 08/09/19 oxybutynin chloride 5 mg PO TID 08/09/19 08/09/19 <Meche Velázquez MD - Last Filed: 08/10/19 00:57> Allergies/Adverse Reactions: Allergies Allergy/AdvReac Type Severity Reaction Status Date / Time latex Allergy Severe SWELLING, Verified 08/06/19 11:28 RASH-POWDER sertraline Allergy Severe Joint Pain Verified 08/06/19 11:28 Sulfa (Sulfonamide Allergy Severe RASH Verified 08/06/19 11:28 Antibiotics) atorvastatin Allergy Intermediate Hives Verified 08/06/19 11:28 baclofen Allergy Intermediate tremors Verified 08/06/19 11:28 estradiol Allergy Intermediate Joint Verified 08/06/19 11:28 pain, swollen eyes & leg pain codeine Allergy Mild NAUSEA, Verified 08/06/19 11:28 RASH esomeprazole Allergy Mild CHEST PAIN Verified 08/06/19 11:28 lansoprazole Allergy Mild CHEST PAIN Verified 08/06/19 11:28 Penicillins Allergy Mild RASH Verified 08/06/19 11:28 trazodone Allergy Mild Joint Pain Verified 07/23/19 10:12 iohexol Allergy Unknown Hives Verified 08/06/19 11:28 [From contrast - CT, X-RAY] metoclopramide Allergy Unknown Itching Verified 08/06/19 11:28 nebivolol Allergy Unknown Itching Verified 08/06/19 11:28 tolmetin Allergy Unknown Hives Verified 08/06/19 11:28 amitriptyline AdvReac Mild MUSCLE PAIN Verified 08/06/19 11:28 citalopram AdvReac Mild CHEST PAIN Verified 08/06/19 11:28 colesevelam AdvReac Mild Gastrointestinal Verified 08/06/19 11:28 Upset lisinopril AdvReac Mild NAUSEA/DIAR Verified 08/06/19 11:28 SU pravastatin AdvReac Mild Nausea Verified 08/06/19 11:28 <Meche Velázquez MD - Last Filed: 08/10/19 00:57> Review of Systems Review of Systems: All systems reviewed & are unremarkable except as noted in HPI and below <Meche Velázquez MD - Last Filed: 08/10/19 00:57> Constitutional: Constitutional: Reports fever(s) <Meche Velázquez MD - Last Filed: 08/10/19 00:57> ENT: Denies nasal congestion and Denies sore throat <Meche Velázquez MD - Last Filed: 08/10/19 00:57> Respiratory: Respiratory: Denies cough, Denies dyspnea and Denies wheezing <Meche Velázquez MD - Last Filed: 08/10/19 00:57> Gastrointestinal: Gastrointestinal: Reports abd
[2019-08-09 06:11] LABS: INR 2.1; Prothrombin Time 22.8 Seconds (11.1-14.7)
[2019-08-09 06:12] LABS: Partial Thromboplastin Time 44.9 SECONDS (22.3-36.8)
[2019-08-09 06:15] LABS: Alanine Aminotransferase 12 U/L (4-35); Albumin Level 3.2 g/dL (3.5-5.1); Alkaline Phosphatase 64 U/L (38-126); Aspartate Amino Transferase 31 U/L (14-36); Bilirubin,Total 0.3 mg/dL (0.2-1.3); Blood Urea Nitrogen 30 mg/dL (7-17); Calcium 7.9 mg/dL (8.4-10.2); Carbon Dioxide 21 mmol/L (22-30); Chloride 97 mmol/L (98-107); Estimated CRCL calculation 27 ml/min; Estimated Glomerular Filt Rate 44; Glucose 114 mg/dL (65-105); Potassium 4.3 mmol/L (3.4-5.0); Sodium 127 mmol/L (137-145)
[2019-08-09 06:42] LABS: Add Urine Microscopic? YES; Appearance Urine Cloudy (Clear); Bacteria Urine Trace /hpf; Bilirubin Urine Negative (Negative); Blood Urine 3+ (Negative); Glucose Urine UA Negative (Negative); Ketones Urine Negative (Negative); Leukocyte Esterase Ur 3+ LEU/UL (Negative); Nitrate Urine Negative (Negative); Protein Urine 2+ mg/dL (Negative); RBC Urine >75 /hpf (0-2); Specific Grav Ur 1.012 (1.001-1.035); Squamous Epithelial Cell Urine Occasional /hpf (Few); Urobilinogen Urine Negative mg/dL (<2.0); WBC Urine >75 /hpf
[2019-08-09 06:44] LABS: Color Urine Light Red (Yellow)
--- NOTE | 2019-08-09 07:19 | PC.NURSE ---
assuming care of pt from Alfonzo ERNANDEZ. Pt is A&Ox4. Pt states medication did not help her lower back pain. Pt shivering. Pt going to CT.
[2019-08-09] MEDS: MORPHINE SULFATE 4 MG/ML INJ IV PUSH (07:46)
[2019-08-09] MEDS: SODIUM CHLORIDE 0.9% IV 1,000 ML 999 ML IV CONT (08:23)
[2019-08-09 09:43] LABS: Lactic Acid Reflex 1.3 mmol/L (0.7-2.1)
--- NOTE | 2019-08-09 10:05 | PC.NURSE ---
This patient, Desirae Peng, was admitted to [facility] Surg Room 331-01. Patient/family oriented to hospital policies and general routines including ID bracelet, bed and alarms, visiting hours, pain management, procedures, bathroom and other care routines, personal items, smoking policy, room service/diet, and visiting hours. Valuables list has been completed. Information on how to activate the Rapid Response Team has been discussed. Patient/Family are encouraged to report perceived risks to care and to ask questions if they do not understand what they are told or what they should do.
[2019-08-09 10:08] LABS: Lactate Dehydrogenase 596 U/L (313-618)
--- NOTE | 2019-08-09 12:19 | PM.IMHP ---
H&P: HPI History of Present Illness Chief complaint: pneumonia,uti Narrative: Desirae Peng is a 78 year old female with a complex medical history including a. 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 Lal on 08/05, among several other comorbid conditions who presented to the ER via EMS early this morning with complaints of fever. Patient states that she started developing fevers yesterday with max fever reported to be 102; while in the ER, there is no documented fever. She had taken Tylenol for her fevers yesterday, but nothing today. She noted that her urine has been looking like milk for the past week; it has changed to dark urine the past several days after her procedure on 08/05. Prior to Gonzalez placed in the ER, she has noticed some urgency and dysuria; possibly noting some blood as well. She also notes that she has been having a slightly productive cough, since yesterday, as well as, a sore throat. She denies any recent contacts with similar symptoms or recent COVID contacts. She has had pneumonia in the past but she states it has been years since she has had it; notes similar symptoms. She has ageusia but denies anosmia. She otherwise has no other complaints. Currently not in any pain, but notes her chronic back pain does flair up daily for which she takes 15 mg morphine Q12 at home. Denies rigors, chills, sweats, myalgias/arthralgias, headaches, dizziness, lightheadedness, changes in v/h, cp/palpitations, sob, n/v/d/c, abd pain, changes in BMs, right calf pain/swelling; no issues with left BKA. Review of Systems Review of Systems: All systems reviewed & are unremarkable except as noted in HPI and below PMFSH Past Medical History Medical History Atrial fibrillation Benign essential hypertension CAD (coronary artery disease) Carotid bruit Chronic renal disease DVT (deep venous thrombosis) Fatty liver History of thrombosis of lower extremity Hx of adenomatous colonic polyps Hypertension Inflammatory bowel disease Kidney stones Melanoma Extracted from her face Menopausal and female climacteric states Microscopic colitis, unspecified Mixed hyperlipidemia Neuropathic pain On nursing home drug therapy Pacemaker Inserted 2014 [employer] Peripheral vascular disease Pre-diabetes Statin intolerance Surgical History Surgical History Cataract extraction status 2014 H/O angioplasty Several to left lower extremity January 16, 2017 November 20, 2017. Thrombectomy femoral popliteal bypass 2009 angiogram with PTCA stent to left lower extremity February 2019 H/O breast biopsy Several biopsies both breast H/O cystoscopy H/O laminectomy Lumbar 1984 H/O left knee surgery 1989 H/O rectal polypectomy History of appendectomy 1953 History of back surgery History of coronary artery stent placement History of lumbar fusion 2015, lumbar fusion with hardware June of 2018 History of partial hysterectomy 1970 History of total right knee replacement (TKR) 2018 History of ureter stent Hx of cholecystectomy 1977 Peripheral vascular angioplasty status with implants and grafts S/P cubital tunnel release Right-sided 1997 and left 1995 Status post trigger finger release Left ring finger 1998 Family History Family History (Updated 08/09/19 @ 10:24 by Chyna Ontiveros RN) Mother Family history of cardiovascular disease Family history of elevated blood lipids Family history of osteoporosis Family history of coronary artery disease Hypertension Sibling Patient's brother is Family
[2019-08-09] MEDS: GABAPENTIN 300 MG CAPSULE PO ×2 (13:00→22:08)
[2019-08-09] MEDS: OXYBUTYNIN CHLORIDE 5 MG TABLET PO ×2 (13:00→17:21)
[2019-08-09] MEDS: SODIUM CHLORIDE 0.9% IV 1,000 ML 50 ML IV CONT (15:00)
[2019-08-09] MEDS: ACETAMINOPHEN 325 MG TABLET 650 MG PO (15:04)
[2019-08-09 16:56] LABS: Creatinine Urine 39.4 mg/dL
[2019-08-09 16:57] LABS: Sodium Urine Random 14 meq/L
[2019-08-09] MEDS: EZETIMIBE 10 MG TABLET BY MOUTH (17:21)
[2019-08-09] MEDS: AMIODARONE HCL 200 MG TABLET PO (17:21)
[2019-08-09] MEDS: APIXABAN 5 MG TABLET PO (17:21)
[2019-08-09] MEDS: MELATONIN 5 MG TABLET 20 MG PO (20:33)
[2019-08-09] MEDS: DOXYCYCLINE HYCLATE 100 MG TABLET PO (20:33)
[2019-08-09] MEDS: MORPHINE SULFATE 2 MG/ML INJ 1 MG IV PUSH (20:43)
[2019-08-10] VITALS (10 sets, daily range): BP systolic 102–120; BP diastolic 47–78; PULSE 62–100; RESP 16–20; TEMP 36.4–38.2; O2SAT 95–100; BMI 20.7
[2019-08-10] MEDS: ACETAMINOPHEN 325 MG TABLET 650 MG PO ×2 (01:35→19:02)
[2019-08-10] MEDS: MORPHINE SULFATE 2 MG/ML INJ IV PUSH ×2 (02:00→20:24)
[2019-08-10] MEDS: GABAPENTIN 300 MG CAPSULE PO ×3 (06:00→22:21)
[2019-08-10 06:20] LABS: Basophils Percent Auto 0.2 % (0.2-1.2); Eosinophils Absolute Auto 0.1 K/mm3 (0-0.3); Eosinophils Percent Auto 0.6 % (0-4.4); Hematocrit 26.4 % (37.0-47.0); Immature Granulocyte Absolute 0.04 K/mm3 (0.00-0.031); Immature Granulocyte Percent A 0.5 % (0-0.5); Lymphocytes Absolute Auto 1.25 K/mm3 (0.9-3.2); Lymphocytes Percent Auto 14.2 % (18.3-44.2); Mean Corpuscular HGB Conc 30.3 g/dl (32-36); Mean Corpuscular Hemoglobin 23.7 pg (26-34); Mean Corpuscular Volume 78.1 fl (80-100); Mean Platelet Volume 9.1 fl (7.4-10.4); Monocytes Absolute Auto 0.9 K/mm3 (0.1-0.6); Monocytes Percent Auto 10.2 % (2.6-8.5); Neutrophils Absolute Auto 6.5 K/mm3 (1.3-6.7); Neutrophils Percent Auto 74.3 % (45.5-73.1); Nucleated Red Blood Cells Perc 0.2 % (0.0-0.2); Platelet Count Result 333 k/mm3 (150-375); Red Blood Count 3.38 M/mm3 (4.2-5.4); Red Cell Distribution Width 19.4 % (11.5-14.5); White Blood Count 8.8 K/mm3 (4.5-10.0)
[2019-08-10 06:35] LABS: Alanine Aminotransferase 12 U/L (4-35); Albumin Level 2.9 g/dL (3.5-5.1); Alkaline Phosphatase 62 U/L (38-126); Aspartate Amino Transferase 28 U/L (14-36); Bilirubin,Total 0.2 mg/dL (0.2-1.3); Blood Urea Nitrogen 18 mg/dL (7-17); Calcium 7.9 mg/dL (8.4-10.2); Carbon Dioxide 21 mmol/L (22-30); Chloride 107 mmol/L (98-107); Estimated CRCL calculation 36 ml/min; Estimated Glomerular Filt Rate 54; Glucose 107 mg/dL (65-105); Magnesium 2.1 mg/dL (1.6-2.3); Potassium 4.1 mmol/L (3.4-5.0); Sodium 134 mmol/L (137-145)
[2019-08-10 06:38] LABS: Hemoglobin A1C 5.5 % (<5.7)
--- NOTE | 2019-08-10 07:04 | WPDURCON ---
Assessment and Plan Assessment and plan (1) Hydronephrosis: Code(s): N13.30 - Unspecified hydronephrosis Status: Acute (2) UTI (urinary tract infection): Qualifiers: Urinary tract infection type: acute cystitis Hematuria presence: without hematuria Qualified Code(s): N30.00 - Acute cystitis without hematuria Code(s): N39.0 - Urinary tract infection, site not specified Status: Acute Assessment and Plan: Febrile illness 7 days following replacement of left ureteral stent. It appears this may be coming either from either a urinary tract infection or possible pneumonia. Agree with ceftriaxone pending culture results. 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. Urology Consult Note HPI Date Seen: 08/10/19 Requesting Physician: Tejinder Jay PA-C Primary Care Provider: Albino De Dios, FORENSICS ANALYST Consult Narrative Narrative: Desirae Peng is a 78 year old female who is very well known to me with a history of spinal fixation hardware extruding into her left pelvis. This was diagnosed in December 2018 after she was found to have mild left hydronephrosis. She is working with neurosurgeon at [facility] in [place] to arrange for possible revision of her spinal fixation. In the interval have an indwelling left ureteral stent which is changed periodically, most recently 4 days ago. Subsequent to post recent stent replacement she developed shaking chills and fever several days later. She is admitted to the ER with possible urinary tract infection and possible pneumonia. Review of Systems Cardiovascular: Cardiovascular: Denies chest pain, Denies lightheadedness, Denies palpitations and Denies dyspnea Respiratory: Respiratory: Denies dyspnea Gastrointestinal: Gastrointestinal: Denies diarrhea, Denies nausea and Denies vomiting Genitourinary: Genitourinary: Denies hematuria and Denies dysuria Endocrine: Endocrine: Denies palpitations PMFSH Past Medical History Medical History Atrial fibrillation Benign essential hypertension CAD (coronary artery disease) Carotid bruit Chronic renal disease DVT (deep venous thrombosis) Fatty liver History of thrombosis of lower extremity Hx of adenomatous colonic polyps Hypertension Inflammatory bowel disease Kidney stones Melanoma Extracted from her face Menopausal and female climacteric states Microscopic colitis, unspecified Mixed hyperlipidemia Neuropathic pain 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 Thrombectomy femoral popliteal bypass 2009 angiogram with PTCA stent to left lower extremity February 2019 H/O breast biopsy Several biopsies both breast H/O cystoscopy H/O laminectomy Lumbar 1984 H/O left knee surgery 1989 H/O rectal polypectomy History of appendectomy 1953 History of back surgery History of coronary artery stent placement History of lumbar fusion 2015, lumbar fusion with hardware June of 2018 History of partial hysterectomy 1970 History of total right knee replacement (TKR) 2018 History of ureter stent Hx of cholecystectomy 1977 Peripheral vascular angioplasty status with implants and grafts S/P cubital tunnel release Right-sided 1997 and left 1995 Status post trigger finger release Left ring finger 1998 Family History Family History Mother Family history of cardiovascular disease Family history of elevated blood lipids Family history of osteoporosis Family history of coronary artery diseas
[2019-08-10 07:07] LABS: CRP 28.8 mg/dL (<1.0)
[2019-08-10] MEDS: OXYBUTYNIN CHLORIDE 5 MG TABLET PO ×3 (10:05→17:21)
[2019-08-10] MEDS: ASPIRIN 81 MG ENTERIC TABLET PO (10:06)
[2019-08-10] MEDS: DOXYCYCLINE HYCLATE 100 MG TABLET PO ×2 (10:06→20:22)
[2019-08-10] MEDS: APIXABAN 5 MG TABLET PO ×2 (10:06→17:21)
[2019-08-10] MEDS: SENNOSIDES 8.6 MG TABLET PO (10:07)
[2019-08-10] MEDS: ASCORBIC ACID 500 MG TABLET 1000 MG PO (10:13)
[2019-08-10] MEDS: METOPROLOL SUCCINATE EXT REL 25 MG TABCR PO (10:13)
[2019-08-10 17:14] LABS: SARS-CoV-2 RNA PCR Negative
[2019-08-10] MEDS: SODIUM CHLORIDE 0.9% IV 1,000 ML 50 ML IV CONT (17:20)
[2019-08-10] MEDS: EZETIMIBE 10 MG TABLET BY MOUTH (17:21)
[2019-08-10] MEDS: AMIODARONE HCL 200 MG TABLET PO (17:21)
--- NOTE | 2019-08-10 17:27 | PM.IMPN ---
Progress Note: A&P Assessment and Plan (1) Acute UTI: Code(s): N39.0 - Urinary tract infection, site not specified Status: Acute Assessment and Plan: UCx negative today. S/p cystoscopy with left ureteral stent replacement per Dr. Lal on 08/05. Urology has been consulted by the ER; appreciate recommendations. Patient had been taking cephalexin for UTI as outpatient, per patient. UCx negative today, likely from antibiotic use as an outpatient. Patient reports urgency and dysuria prior to Gonzalez placement in ER, stating urine looked like milk earlier this week. Urine now appears red, but clearer today. Sepsis documented in the ER, however, patient only has leukocytosis; no documented fever, tachypnea, or tachycardia. No lactic acidosis Will continue with IV rocephin daily for now and await further rec from Urology on duration of Rocephin (2) Pneumonia: Qualifiers: Laterality: bilateral Lung location: lower lobe of lung Pneumonia type: due to unspecified organism Qualified Code(s): J18.9 - Pneumonia, unspecified organism Code(s): J18.9 - Pneumonia, unspecified organism Status: Acute Assessment and Plan: Noted as bibasilar airspace consolidation possibly atelectasis vs pneumonia on CT. Given her recent development of respiratory symptoms, pneumonia a possibility. COVID testing negative. Ur anitgens negative. Sputum culture pending For now, will treat patient with IV Rocephin (for UTI as well) and PO doxycycline In addition, will do supportive care with Tylenol and Mucinex Monitor respiratory status (3) Suspected 2019-nCoV infection: Code(s): Z20.828 - Contact with and (suspected) exposure to other viral communicable diseases Status: Ruled-out Assessment and Plan: Testing is negative see above treatment for PNA take patient off droplet isolation (4) Hydronephrosis: Code(s): N13.30 - Unspecified hydronephrosis Status: Acute Assessment and Plan: S/p left ureteral stent replacement per Dr. Lal on 08/05. Urology consulted form the ER; appreciate recommendations. 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 No acute issues PT/OT ordered today (8) Chronic low back pain: Code(s): M54.5 - Low back pain; G89.29 - Other chronic pain Status: Acute Assessment and Plan: Takes morphine 15 mg Q12 at home. no acute issues at the moment. Patient states current regimen is adequate Will do PRN IV morphine now; adjust as needed Hold home PO morphine (9) Mixed hyperlipidemia: Code(s): E78.2 - Mixed hyperlipidemi
[2019-08-10] MEDS: MELATONIN 5 MG TABLET 20 MG PO (20:23)
[2019-08-11] MEDS: GABAPENTIN 300 MG CAPSULE PO ×3 (05:10→21:17)
[2019-08-11 05:20] VITALS: BP 117/46; PULSE 70; RESP 20; TEMP 37.5; O2SAT 95
[2019-08-11 06:31] LABS: Basophils Percent Auto 0.2 % (0.2-1.2); Eosinophils Percent Auto 0.2 % (0-4.4); Hematocrit 23.3 % (37.0-47.0); Hemoglobin 7.2 g/dL (12.0-15.0); Immature Granulocyte Absolute 0.07 K/mm3 (0.00-0.031); Immature Granulocyte Percent A 0.7 % (0-0.5); Lymphocytes Absolute Auto 1.05 K/mm3 (0.9-3.2); Lymphocytes Percent Auto 11.2 % (18.3-44.2); Mean Corpuscular HGB Conc 30.9 g/dl (32-36); Mean Corpuscular Hemoglobin 23.3 pg (26-34); Mean Corpuscular Volume 75.4 fl (80-100); Mean Platelet Volume 9.2 fl (7.4-10.4); Monocytes Absolute Auto 0.9 K/mm3 (0.1-0.6); Monocytes Percent Auto 9.9 % (2.6-8.5); Neutrophils Absolute Auto 7.3 K/mm3 (1.3-6.7); Neutrophils Percent Auto 77.8 % (45.5-73.1); Platelet Count Result 304 k/mm3 (150-375); Red Blood Count 3.09 M/mm3 (4.2-5.4); Red Cell Distribution Width 19.5 % (11.5-14.5); White Blood Count 9.3 K/mm3 (4.5-10.0)
[2019-08-11 06:52] LABS: Blood Urea Nitrogen 14 mg/dL (7-17); Calcium 7.4 mg/dL (8.4-10.2); Carbon Dioxide 19 mmol/L (22-30); Chloride 107 mmol/L (98-107); Estimated CRCL calculation 40 ml/min; Estimated Glomerular Filt Rate > 60; Glucose 138 mg/dL (65-105); Magnesium 1.9 mg/dL (1.6-2.3); Potassium 3.6 mmol/L (3.4-5.0); Sodium 134 mmol/L (137-145)
[2019-08-11 06:59] LABS: Iron < 10 ug/dL (37-170)
[2019-08-11 07:02] LABS: CRP 21.4 mg/dL (<1.0)
[2019-08-11 07:18] LABS: Percent Iron Saturation < 5 % (20-50)
--- NOTE | 2019-08-11 07:20 | WPDUROPN2 ---
Progress Note: A&P Assessment and Plan (1) Hydronephrosis: Code(s): N13.30 - Unspecified hydronephrosis Status: Acute Assessment and Plan: Urine culture negative. Would resume suppressive Trimethoprim at discharge. I have plans to replace left ureteral stent in 3-months. Subjective Subjective Date/Time Seen: 08/11/19 07:20 Feeling better Review of Systems Cardiovascular: Cardiovascular: Denies chest pain, Denies lightheadedness, Denies palpitations and Denies dyspnea Respiratory: Respiratory: Denies dyspnea Gastrointestinal: Gastrointestinal: Denies diarrhea, Denies nausea and Denies vomiting Genitourinary: Genitourinary: Denies hematuria and Denies dysuria Endocrine: Endocrine: Denies palpitations Exam Const: General: no acute distress Resp: Effort & Inspection: normal respiratory effort GI: Inspection: non-distended GI Palp: No abdominal tenderness and No Guarding due to palpation present (GI) Auscultation: normal bowel sounds Objective Data Vital Signs Vital Signs: Vital Signs - 24 hr 08/10/19 10:00 08/10/19 10:13 08/10/19 14:00 Temperature 98.2 F 98.4 F Pulse Rate 70 64 70 Respiratory Rate 16 16 Blood Pressure 106/77 110/78 Pulse Oximetry 96 100 08/10/19 17:21 08/10/19 18:00 08/10/19 21:45 Temperature 99.3 F 98.9 F Pulse Rate 64 100 62 Respiratory Rate 16 20 Blood Pressure 120/66 102/47 L Pulse Oximetry 100 95 08/11/19 05:20 Temperature 99.5 F Pulse Rate 70 Respiratory Rate 20 Blood Pressure 117/46 L Pulse Oximetry 95 Intake/Output Intake/Output: Intake & Output 08/08/19 08/09/19 08/10/19 08/11/19 23:59 23:59 23:59 23:59 Intake Total 4630 3120 1100 Output Total 1300 2550 800 Balance 3330 570 300 Meds/Results Medications: Active Medications Generic Name Dose Route Start Last Admin Trade Name Freq PRN Reason Stop Dose Admin Acetaminophen 650 mg 08/09/19 14:28 08/10/19 19:02 Tylenol Tablet PO 650 mg Q4H PRN Administration Pain or Fever Amiodarone HCl 200 mg 08/09/19 18:00 08/10/19 17:21 Pacerone PO 200 mg QPM JORDIN Administration Apixaban 5 mg 08/09/19 17:00 08/10/19 17:21 Eliquis PO 5 mg BID JORDIN Administration Ascorbic Acid 1,000 mg 08/10/19 09:00 08/10/19 10:13 Vitamin C PO 1,000 mg DAILY JORDIN Administration Aspirin 81 mg 08/10/19 09:00 08/10/19 10:06 Aspirin Ec PO 81 mg DAILY JORDIN Administration Doxycycline Hyclate 100 mg 08/09/19 21:00 08/10/19 20:22 Vibramycin Tab PO 100 mg Q12HR JORDIN Administration Ezetimibe 10 mg 08/09/19 17:00 08/10/19 17:21 Zetia BY MOUTH 10 mg 1700 JORDIN Administration Fluticasone Propionate 1 spray 08/09/19 11:28 Flonase 0.05% Nasal Shushan NASAL DAILY PRN Allergy Symptoms Gabapentin 300 mg 08/09/19 14:00 08/11/19 05:10 Neurontin PO 300 mg Q8HR JORDIN Administration Guaifenesin 1,200 mg 08/09/19 21:00 08/10/19 20:21 Mucinex 12 Hr Tab PO 1,200 mg Q12HR JORDIN Administration Hyoscyamine 0.125 mg 08/09/19 13:00 Levsin Tablet PO QID PRN Bladder Spasms Ceftriaxone Sodium/Dextrose 1 gm in 50 mls @ 100 mls/hr 08/10/19 09:00 08/10/19 10:35 Rocephin 1 Gm/D5w 50 Ml IVPB Infused Q24H JORDIN Infusion Sodium Chloride 1,000 mls @ 50 mls/hr 08/09/19 13:45 08/10/19 17:20 Normal Saline Iv IV CONT 50 mls/hr .Q20H JORDIN Administration Melatonin 20 mg 08/09/19 21:00 08/10/19 20:23 Melatonin PO 20 mg HS JORDIN Administration Metoprolol Succinate 25 mg 08/10/19 09:00 08/10/19 10:13 Toprol Xl PO 25 mg DAILY JORDIN Administration Morphine Sulfate 2 mg 08/09/19 12:17 08/10/19 20:24 Morphine Sulfate Inj IV PUSH 2 mg Q4H PRN Administration Pain Rated 7-10 Morphine Sulfate 1 mg 08/09/19 12:17 08/09/19 20:43 Morphine Sulfate Inj IV PUSH 1 mg Q4H PRN Administration Pain Rated 4-6 Oxybutynin Chloride 5 mg 08/09/19 13:0
[2019-08-11 08:23] VITALS: BP 117/45; PULSE 65; RESP 18; O2SAT 95
[2019-08-11] MEDS: OXYBUTYNIN CHLORIDE 5 MG TABLET PO ×3 (08:25→17:50)
[2019-08-11] MEDS: ASCORBIC ACID 500 MG TABLET 1000 MG PO (08:25)
[2019-08-11] MEDS: DOXYCYCLINE HYCLATE 100 MG TABLET PO ×2 (08:27→21:17)
[2019-08-11] MEDS: ASPIRIN 81 MG ENTERIC TABLET PO (08:27)
[2019-08-11 10:29] VITALS: PULSE 65
[2019-08-11] MEDS: SENNOSIDES 8.6 MG TABLET PO (10:29)
[2019-08-11] MEDS: METOPROLOL SUCCINATE EXT REL 25 MG TABCR PO (10:29)
--- NOTE | 2019-08-11 13:02 | PM.IMPN ---
Progress Note: A&P Assessment and Plan (1) Pneumonia: Qualifiers: Laterality: bilateral Lung location: lower lobe of lung Pneumonia type: due to unspecified organism Qualified Code(s): J18.9 - Pneumonia, unspecified organism Code(s): J18.9 - Pneumonia, unspecified organism Status: Acute Assessment and Plan: Noted as bibasilar airspace consolidation possibly atelectasis vs pneumonia on CT. Given her recent development of respiratory symptoms, pneumonia a possibility. COVID testing negative. Ur antigens pending. Sputum culture was negative. For now, will treat patient with IV Rocephin (for UTI as well) and PO doxycycline In addition, will do supportive care with Tylenol and Mucinex Patient reports intermittent bright red blood sputum production, will order CT Chest to further evaluate pneumonia. Monitor respiratory status (2) Acute UTI: Code(s): N39.0 - Urinary tract infection, site not specified Status: Acute Assessment and Plan: S/p cystoscopy with left ureteral stent replacement per Dr. Lal on 08/05. Urology has been consulted by the ER; appreciate recommendations. Patient had been taking cephalexin for UTI as outpatient, per patient. UCx negative today, likely from antibiotic use as an outpatient. Patient reports urgency and dysuria prior to Gonzalez placement in ER, stating urine looked like milk earlier this week. Urine now appears red, but clearer today. Urology evaluated the patient and recommends discharging her on trimethoprim. Will continue with IV rocephin daily for now and await further rec from Urology on duration of Rocephin Plans to replace left ureteral stent in 3 months. Continue monitoring patients symptoms. Sepsis documented in the ER, however, patient only has leukocytosis; no documented fever, tachypnea, or tachycardia. No lactic acidosis (3) Hydronephrosis: Code(s): N13.30 - Unspecified hydronephrosis Status: Acute Assessment and Plan: S/p left ureteral stent replacement per Dr. Lal on 08/05. Urology consulted form the ER; appreciate recommendations. No mention of this on CT scan during this hospital stay Will await further recommendations from Urology Monitor (4) Suspected 2019-nCoV infection: Code(s): Z20.828 - Contact with and (suspected) exposure to other viral communicable diseases Status: Ruled-out Assessment and Plan: Testing is negative see above treatment for PNA take patient off droplet isolation (5) Hypertension: Qualifiers: Hypertension type: essential hypertension Qualified Code(s): I10 - Essential (primary) hypertension Code(s): I10 - Essential (primary) hypertension Status: Acute Assessment and Plan: BP soft at 110s sys today Continue home antihypertensives Monitor for increase in BP with IVF (6) 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 No acute issues PT/OT ordered today (8) Chronic low back pain: Code(s): M54.5 - Low back pain; G89.29 - Other chronic pain Status: Acute Assessment and Plan:
[2019-08-11 13:29] LABS: Hematocrit 28.5 % (37.0-47.0); Hemoglobin 8.6 g/dL (12.0-15.0)
[2019-08-11 14:00] VITALS: BP 137/59; PULSE 67; RESP 18; TEMP 37.2; O2SAT 96
[2019-08-11 17:03] LABS: IFOB Positive Control Positive; Immunochemical Fecal Occult Bl Positive (N)
[2019-08-11] MEDS: EZETIMIBE 10 MG TABLET BY MOUTH (17:50)
[2019-08-11] MEDS: APIXABAN 5 MG TABLET PO (17:50)
[2019-08-11 19:39] VITALS: PULSE 59
[2019-08-11] MEDS: AMIODARONE HCL 200 MG TABLET PO (19:39)
[2019-08-11 20:00] VITALS: BP 108/42; PULSE 59; RESP 16; TEMP 37; O2SAT 96
--- NOTE | 2019-08-11 20:07 | PC.NURSE ---
Patient to CT at this time.
[2019-08-11] MEDS: MELATONIN 5 MG TABLET 20 MG PO (21:18)
[2019-08-12] VITALS (11 sets, daily range): BP systolic 105–123; BP diastolic 41–60; PULSE 59–79; RESP 16–20; TEMP 36.6–37.4; O2SAT 94–98
[2019-08-12] MEDS: GABAPENTIN 300 MG CAPSULE PO ×3 (06:19→21:40)
[2019-08-12 06:34] LABS: Basophils Percent Auto 0.2 % (0.2-1.2); Eosinophils Absolute Auto 0.1 K/mm3 (0-0.3); Eosinophils Percent Auto 0.5 % (0-4.4); Hematocrit 22.4 % (37.0-47.0); Lymphocytes Absolute Auto 1.71 K/mm3 (0.9-3.2); Lymphocytes Percent Auto 16.4 % (18.3-44.2); Mean Corpuscular HGB Conc 31.3 g/dl (32-36); Mean Corpuscular Hemoglobin 23.4 pg (26-34); Mean Corpuscular Volume 74.9 fl (80-100); Mean Platelet Volume 9.1 fl (7.4-10.4); Monocytes Absolute Auto 1.1 K/mm3 (0.1-0.6); Monocytes Percent Auto 10.5 % (2.6-8.5); Neutrophils Absolute Auto 7.5 K/mm3 (1.3-6.7); Neutrophils Percent Auto 71.4 % (45.5-73.1); Platelet Count Result 303 k/mm3 (150-375); Red Blood Count 2.99 M/mm3 (4.2-5.4); Red Cell Distribution Width 19.4 % (11.5-14.5); White Blood Count 10.5 K/mm3 (4.5-10.0)
[2019-08-12 07:10] LABS: Blood Urea Nitrogen 11 mg/dL (7-17); CRP 19.3 mg/dL (<1.0); Calcium 7.8 mg/dL (8.4-10.2); Carbon Dioxide 21 mmol/L (22-30); Chloride 106 mmol/L (98-107); Estimated CRCL calculation 40 ml/min; Estimated Glomerular Filt Rate > 60; Glucose 101 mg/dL (65-105); Potassium 3.7 mmol/L (3.4-5.0); Sodium 133 mmol/L (137-145)
[2019-08-12] MEDS: ASCORBIC ACID 500 MG TABLET 1000 MG PO (08:37)
[2019-08-12] MEDS: OXYBUTYNIN CHLORIDE 5 MG TABLET PO ×3 (08:37→17:28)
[2019-08-12] MEDS: METOPROLOL SUCCINATE EXT REL 25 MG TABCR PO (08:37)
[2019-08-12] MEDS: ASPIRIN 81 MG ENTERIC TABLET PO (08:37)
[2019-08-12] MEDS: DOXYCYCLINE HYCLATE 100 MG TABLET PO ×2 (08:37→21:41)
[2019-08-12] MEDS: SENNOSIDES 8.6 MG TABLET PO (08:37)
[2019-08-12] MEDS: SODIUM CHLORIDE 0.9% IV 250 ML 30 ML IV CONT (10:04)
[2019-08-12] MEDS: PROCHLORPERAZINE MALEATE 5 MG TABLET 10 MG PO (10:21)
--- NOTE | 2019-08-12 12:27 | WPDGICN ---
Assessment and Plan Assessment and plan (1) Anemia: Code(s): D64.9 - Anemia, unspecified Status: Acute Assessment and Plan: Anemia appears to be chronic. It is possible that anemia may be secondary to hematoma Cervantes a period as she is anticoagulated and had recent ureteral stent placement. Additionally patient notes occasional hemoptysis. Today stool was for documented be Hemoccult-positive. Occult blood stool may be related to swallowed blood from her hemoptysis. GI blood loss cannot be excluded but suggest deferring GI endoscopy until she is more stable. If endoscopy was required she would be required to hold anticoagulation for an interval of time at this time is felt that this may not be prudent given her head for history of peripheral vascular disease and atrial fibrillation. We will follow with you. Consider GI endoscopy electively at a later day. It may be done more urgently should her hemoglobin continued decline. However currently hemoglobin appears to be stable. Iron studies reveal a low iron of 10. Low TIBC 200, 5% saturation but elevated ferritin 261 raising the question this may be anemia of Chronic disease. (2) Occult blood in stools: Code(s): R19.5 - Other fecal abnormalities Status: Acute Assessment and Plan: We will continue to monitor for signs of additional GI blood loss. Hemoglobin will continue be monitored. 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 She is advised to remain on anticoagulation. For this reason we will defer GI endoscopy as anticoagulation she would not be held at this time. (4) Pacemaker: Code(s): Z95.0 - Presence of cardiac pacemaker Status: Chronic (5) Atrial fibrillation: Qualifiers: Atrial fibrillation type: unspecified Qualified Code(s): I48.91 - Unspecified atrial fibrillation Code(s): I48.91 - Unspecified atrial fibrillation Status: Acute Assessment and Plan: Patient remains on Eliquis anticoagulation because of atrial fibrillation at this time. (6) Pneumonia: Code(s): J18.9 - Pneumonia, unspecified organism Status: Acute (7) Hydronephrosis: Code(s): N13.30 - Unspecified hydronephrosis Status: Acute Assessment and Plan: Patient followed by urology service status post ureteral stent placement she does have subsequent hematuria. Which likely contributes to her ongoing anemia. GI Consult Note Consult date/time: 08/12/19 12:27 HPI: Desirae Peng is a 78 year old female seen in evaluation at the request of the hospitalist service. I am asked to see the patient because of occult blood in stool with anemia. Patient has a long history of peripheral vascular disease. She had ischemic left lower leg requiring amputation in April of 2019 she has a history of atrial fibrillation is maintained on Eliquis anticoagulation. She states the Eliquis also helps because of peripheral vascular disease. She was found to have left hydronephrosis and has had cystoscopy with stent placement per Dr. nathanael tyler is felt to have urinary tract infection because of this. Has ongoing hematuria additionally the patient complains of hemoptysis coughing up blood frequently. At the time of admission patient also was identified as having pneumonia. Review of old labs reveal that she has hemoglobin that is varied from 6.8 to 9-1/2 over the last month. This morning hemoglobin was 7 very similar to yesterday morning and is currently receiving 1unit of packed red blood
[2019-08-12] MEDS: BENZOCAINE 20% DENTAL GEL 9 GM TUBE 1 APPLIC BY MOUTH (14:20)
[2019-08-12 14:39] LABS: Hematocrit 28.3 % (37.0-47.0); Hemoglobin 8.7 g/dL (12.0-15.0)
--- NOTE | 2019-08-12 14:43 | PM.IMPN ---
Progress Note: A&P Assessment and Plan (1) Anemia: Code(s): D64.9 - Anemia, unspecified Status: Acute Assessment and Plan: Patient notes blood tinged sputum and has hematuria since urethral stent was placed. Urine still appears to have blood, but otherwise clear. Checked a Hemoccult Stool which was positive for blood. Patient appears to be chronically anemic with Hgb between 8.9-9.8 last hospital stay. MCV also 78.1. Likely acute blood loss from hematuria on top of anemia of chronic disease. Today, Hgb 7.0/Hct 22.4%. The Car Salesperson gave her 1 Unit of PRBCs to be transfused with improvement of H&H to 8.7/28.3% I discussed the case with Dr. Cottrell my attending who recommended getting GI involved for further evaluation and to see if further EGD/Colonoscopy is needed at this time Dr. Gutierrez GI evaluated the patient and feels her H&H is fairly stable since she was admitted into the hospital, and that she has multiple reasons as to why she could be having slight drop in her H&H. She is on Eliquis, having some slight hemoptysis, hematuria since urethral stent placement, and her stool Hemoccult was positive as well. Dr. Gutierrez does not feel like he needs further evaluation at this time would like to continue just monitoring her H&H routine lead to make sure it is not dropping significantly. He understands her need to continue Eliquis due to history of atrial fibrillation and clots. Anemia chronic disease and severe Iron Deficiency anemia noted on labs showing iron <10, % Saturation <5%. Will start IV Venofer for now and monitor H&H. Trend H&H Transfuse prn (2) Pneumonia: Qualifiers: Laterality: bilateral Lung location: lower lobe of lung Pneumonia type: due to unspecified organism Qualified Code(s): J18.9 - Pneumonia, unspecified organism Code(s): J18.9 - Pneumonia, unspecified organism Status: Acute Assessment and Plan: Noted as bibasilar airspace consolidation possibly atelectasis vs pneumonia on CT. Given her recent development of respiratory symptoms, pneumonia a possibility. COVID testing negative. Ur antigens pending. Sputum culture was negative. For now, will treat patient with IV Rocephin (for UTI as well) and PO doxycycline In addition, will do supportive care with Tylenol and Mucinex CT Chest showed Small pleural effusions with passive atelectasis in the lower lobes. Scattered patchy airspace opacities in the upper lobes, likely infectious or inflammatory. Will continue treatment with antibiotics. Monitor respiratory status (3) Acute UTI: Code(s): N39.0 - Urinary tract infection, site not specified Status: Acute Assessment and Plan: S/p cystoscopy with left ureteral stent replacement per Dr. Lal on 08/05. Urology has been consulted by the ER; appreciate recommendations. Patient had been taking cephalexin for UTI as outpatient, per patient. UCx negative today, likely from antibiotic use as an outpatient. Patient reports urgency and dysuria prior to Gonzalez placement in ER, stating urine looked like milk earlier this week. Urine now appears red, but clearer today. Urology evaluated the patient and recommends discharging her on trimethoprim. Will continue with IV rocephin daily for now and await further rec from Urology on duration of Rocephin Plans to replace left ureteral stent in 3 months. Continue monitoring patients symptoms. Sepsis documented in the ER, however, patient only has leukocytosis; no documented fever, tachypnea, or tachycardia. No lactic acidosis (4) Hydronephrosis: Code(s): N13.30 - Unspecified hydronephrosis Status: Acute Assessment and Plan: S/p left ureteral stent replacement per Dr. Lal on 08/05. Urology consulted form the ER; appreciate recommendations. No mention of this on CT sca
--- NOTE | 2019-08-12 14:54 | PCOTNOTE ---
Attempted to see patient this date, however patient was unavailable both attempts.
[2019-08-12 16:28] LABS: Pneumococcal Antigen Urine Not Detected (Not Detected)
[2019-08-12] MEDS: AMIODARONE HCL 200 MG TABLET PO (17:28)
[2019-08-12] MEDS: EZETIMIBE 10 MG TABLET BY MOUTH (17:28)
[2019-08-12] MEDS: MAGNES & ALUM HYD/SIMETH/DIPHENHYD/LIDOCAINE 119 ML MOUTHWASH BY MOUTH ×2 (17:29→21:40)
[2019-08-12] MEDS: APIXABAN 5 MG TABLET PO (18:55)
[2019-08-12 20:55] LABS: Legionella pneumophila Ag Ur Not Detected (Not Detected)
[2019-08-12] MEDS: MELATONIN 5 MG TABLET 20 MG PO (21:40)
--- NOTE | 2019-08-12 23:10 | PC.NURSE ---
this rn to patient's room to give prn pain med, as discussed earlier in the shift w/ patient. patient sleeping soundly, snoring. this rn called out patient's name 3x, patient continues to snore. pain med returned.
[2019-08-13] MEDS: MAGNES & ALUM HYD/SIMETH/DIPHENHYD/LIDOCAINE 119 ML MOUTHWASH BY MOUTH ×6 (02:07→21:14)
[2019-08-13 06:00] VITALS: BP 118/50; PULSE 73; RESP 16; TEMP 36.8; O2SAT 97
[2019-08-13] MEDS: BENZOCAINE 20% DENTAL GEL 9 GM TUBE 1 APPLIC BY MOUTH (06:35)
[2019-08-13] MEDS: GABAPENTIN 300 MG CAPSULE PO ×3 (06:36→21:14)
[2019-08-13 08:23] LABS: Basophils Percent Auto 0.2 % (0.2-1.2); Eosinophils Absolute Auto 0.2 K/mm3 (0-0.3); Eosinophils Percent Auto 1.2 % (0-4.4); Hematocrit 30.8 % (37.0-47.0); Hemoglobin 9.4 g/dL (12.0-15.0); Immature Granulocyte Percent A 0.8 % (0-0.5); Lymphocytes Absolute Auto 1.72 K/mm3 (0.9-3.2); Lymphocytes Percent Auto 13.2 % (18.3-44.2); Mean Corpuscular HGB Conc 30.5 g/dl (32-36); Mean Corpuscular Volume 78.8 fl (80-100); Mean Platelet Volume 9.4 fl (7.4-10.4); Monocytes Absolute Auto 1.1 K/mm3 (0.1-0.6); Monocytes Percent Auto 8.2 % (2.6-8.5); Neutrophils Absolute Auto 9.9 K/mm3 (1.3-6.7); Neutrophils Percent Auto 76.4 % (45.5-73.1); Platelet Count Result 427 k/mm3 (150-375); Red Blood Count 3.91 M/mm3 (4.2-5.4); Red Cell Distribution Width 19.9 % (11.5-14.5)
[2019-08-13 08:39] LABS: Blood Urea Nitrogen 11 mg/dL (7-17); Calcium 8.2 mg/dL (8.4-10.2); Carbon Dioxide 22 mmol/L (22-30); Chloride 103 mmol/L (98-107); Estimated CRCL calculation 40 ml/min; Estimated Glomerular Filt Rate > 60; Glucose 100 mg/dL (65-105); Potassium 3.8 mmol/L (3.4-5.0); Sodium 134 mmol/L (137-145)
[2019-08-13] MEDS: ASPIRIN 81 MG ENTERIC TABLET PO (08:45)
[2019-08-13] MEDS: ASCORBIC ACID 500 MG TABLET 1000 MG PO (08:48)
[2019-08-13] MEDS: SENNOSIDES 8.6 MG TABLET PO (08:49)
[2019-08-13] MEDS: METOPROLOL SUCCINATE EXT REL 25 MG TABCR PO (08:49)
[2019-08-13] MEDS: OXYBUTYNIN CHLORIDE 5 MG TABLET PO ×3 (08:49→18:06)
[2019-08-13] MEDS: DOXYCYCLINE HYCLATE 100 MG TABLET PO ×2 (08:50→21:13)
[2019-08-13] MEDS: FLUTICASONE PROPIONATE 0.05% NA SPR 16 GM BTL (*BKC) 1 SPRAY NASAL (08:52)
[2019-08-13 08:55] LABS: CRP 24.1 mg/dL (<1.0)
[2019-08-13] MEDS: FAMOTIDINE 20 MG/2 ML VIAL IV PUSH ×2 (08:58→21:13)
--- NOTE | 2019-08-13 10:31 | PM.IMPN ---
Progress Note: A&P Assessment and Plan (1) Acute UTI: Code(s): N39.0 - Urinary tract infection, site not specified Status: Acute Assessment and Plan: S/p cystoscopy with left ureteral stent replacement per Dr. Lal on 08/05. Urology has been consulted by the ER; appreciate recommendations. Patient had been taking cephalexin for UTI as outpatient, per patient. UCx negative today, likely from antibiotic use as an outpatient. Patient reports urgency and dysuria prior to Gonzalez placement in ER, stating urine looked like milk earlier this week. Urine now appears nadine in color which just slight red tinge, but clearer today. Urology evaluated the patient and recommends discharging her on trimethoprim. Patient still reports having some rigors at night and slight fevers. Since the patient was on antibiotics orally prior to admission this could have changed our results of her urinalysis and blood cultures. Plans to replace left ureteral stent in 3 months. Since she is still having some symptoms I talked to Dr. Cottrell, my attending provider, who recommends switching her antibiotics to IV ertapenem and continuing doxycycline for the treatment of possible ESBL UTI and coverage of pneumonia. Patient leukocytosis increased today as well as CRP. Will continue to trend. Continue monitoring patients symptoms. Sepsis documented in the ER, however, patient only has leukocytosis; no documented fever, tachypnea, or tachycardia. No lactic acidosis (2) Anemia: Code(s): D64.9 - Anemia, unspecified Status: Acute Assessment and Plan: Patient notes blood tinged sputum and has hematuria since urethral stent was placed. Urine still appears to have blood, but otherwise clear. Checked a Hemoccult Stool which was positive for blood. Patient appears to be chronically anemic with Hgb between 8.9-9.8 last hospital stay. MCV also 78.1. Likely acute blood loss from hematuria on top of anemia of chronic disease. Today, Hgb 9.4/Hct 30.8%. Improved. The [employer] gave her 1 Unit of PRBCs yesterday morning. I discussed the case with Dr. Cottrell my attending who recommended getting GI involved for further evaluation and to see if further EGD/Colonoscopy is needed at this time Dr. Fedder [facility] evaluated the patient and feels her H&H is fairly stable since she was admitted into the hospital, and that she has multiple reasons as to why she could be having slight drop in her H&H. She is on Eliquis, having some slight hemoptysis, hematuria since urethral stent placement, and her stool Hemoccult was positive as well. Dr. Gutierrez does not feel like he needs further evaluation at this time would like to continue just monitoring her H&H routine lead to make sure it is not dropping significantly. Recommend starting on an acid in the meantime. He understands her need to continue Eliquis due to history of atrial fibrillation and clots. Anemia chronic disease and severe Iron Deficiency anemia noted on labs showing iron <10, % Saturation <5%. Will start IV Venofer for now and monitor H&H. Trend H&H Transfuse prn (3) Pneumonia: Qualifiers: Laterality: bilateral Lung location: lower lobe of lung Pneumonia type: due to unspecified organism Qualified Code(s): J18.9 - Pneumonia, unspecified organism Code(s): J18.9 - Pneumonia, unspecified organism Status: Acute Assessment and Plan: Noted as bibasilar airspace consolidation possibly atelectasis vs pneumonia on CT. Given her recent development of respiratory symptoms, pneumonia a possibility. COVID testing negative. Ur antigens negative. Sputum culture was negative. 08/13/2019, we switch the patient's antibiotics IV ertapenem and continue oral doxycycline for pneumonia coverage and ESBL coverage of her urine. In addition, will do supportive care with Tylenol and Mucinex CT Chest s
[2019-08-13] MEDS: APIXABAN 5 MG TABLET PO ×2 (11:06→18:06)
--- NOTE | 2019-08-13 12:14 | PCNFU ---
Nutrition Follow-Up Complete: Inadequate Oral Intake as related to pnuemonia as evidenced by weight loss of 40 ibs in 5 months and poor po intake reported. Goal: Adequate Intake of at least 75% of meals/supplements Progressing towards goal. We will continue current goal. Pt current nutrition is Heart Healthy. Nutrition recommendation: Agree Last recorded weight is 54.8 kg. Bowel Motility:+Bm reported 08/09 Labs Reviewed:Hct 30.8,Hgb 9.4 Meds Noted:Vit C Additional Notes: Patient eating 25-100% of most meals. She does not like the ensure shakes, they are too sweet. They will be discontinued today. Received 1 unit of blood yesterday. Monitoring; RD will monitor every 5 days.
--- NOTE | 2019-08-13 12:29 | WPDGIPROGNO ---
Progress Note: A&P Additional Plan Patient alert and comfortable this morning. Still very fatigued. No longer coughing blood-tinged sputum. Still notices blood in her urine. Status post ureteral stent. Physical exam reveals her to be alert. She is anicteric. Lungs reveal a few rhonchi. Heart without murmur. Abdomen is soft and nontender. Left BKA identified. Labs reveal hemoglobin 9.4, hematocrit 30.8, MCV a 78. Stable after transfusion. Impression 1. Anemia. Appears to be chronic and multifactorial. Low iron and low TIBC low % saturation an elevated ferritin suspicious for anemia of chronic disease. Certainly a component of blood loss is possible. Currently she actively has hematuria and has had blood in her sputum. Will discuss case with Jen the hospitalist. Plan to proceed with EGD tomorrow. To assess for possible upper GI contributing causes to anemia. She has had Hemoccult-positive stools. Colonoscopy will be deferred as she cannot stop her anticoagulation because of blood clotting. Perhaps this can be done at a later date when she is stronger. And other illnesses are less acute. 2. Left ureteral stent with resolving hydronephrosis. Subsequent hematuria. UTI. 3. Pneumonia. 4. Left BKA. 5. Peripheral vascular disease. Patient states she has had blood clots contributing to loss of her left leg. 6. Atrial fibrillation. Patient remains on anticoagulation. Plan to proceed with EGD in the morning. Patient agrees to proceed colonoscopy to be considered electively at a later date. Continue to monitor hemoglobin closely Subjective Date/time seen: 08/13/19 12:29 Objective Data Vital Signs Vital Signs: Vital Signs - 24 hr 08/12/19 13:39 08/12/19 17:28 08/12/19 22:00 Temperature 36.6 C 37.2 C Pulse Rate 59 L 62 79 Respiratory Rate 16 20 Blood Pressure 119/44 L 105/60 Pulse Oximetry 97 94 08/13/19 06:00 Temperature 36.8 C Pulse Rate 73 Respiratory Rate 16 Blood Pressure 118/50 L Pulse Oximetry 97 Intake/Output Intake/Output: Intake & Output 08/10/19 08/11/19 08/12/19 08/13/19 23:59 23:59 23:59 23:59 Intake Total 3120 2355 3025 370 Output Total 2550 1475 1900 500 Balance 269 841 5097 -130 Meds/Results Medications: Active Medications Generic Name Dose Route Start Last Admin Trade Name Freq PRN Reason Stop Dose Admin Acetaminophen 650 mg 08/09/19 14:28 08/10/19 19:02 Tylenol Tablet PO 650 mg Q4H PRN Administration Pain or Fever Hydrocodone Bitart/Acetaminophen 1 tab 08/11/19 13:10 08/13/19 08:45 [place] 7.5-325 Mg PO 1 tab Q4H PRN Administration Pain Rated 4-6 Amiodarone HCl 200 mg 08/09/19 18:00 08/12/19 17:28 Pacerone PO 200 mg QPM JORDIN Administration Apixaban 5 mg 08/09/19 17:00 08/13/19 11:06 Eliquis PO 5 mg BID JORDIN Administration Ascorbic Acid 1,000 mg 08/10/19 09:00 08/13/19 08:48 Vitamin C PO 1,000 mg DAILY JORDIN Administration Aspirin 81 mg 08/10/19 09:00 08/13/19 08:45 Aspirin Ec PO 81 mg DAILY JORDIN Administration Benzocaine 1 applic 08/12/19 13:21 08/13/19 06:35 Anbesol Maximum Strength Gel BY MOUTH 1 applic QID PRN Administration Oral Pain Doxycycline Hyclate 100 mg 08/09/19 21:00 08/13/19 08:50 Vibramycin Tab PO 100 mg Q12HR JORDIN Administration Ezetimibe 10 mg 08/09/19 17:00 08/12/19 17:28 Zetia BY MOUTH 10 mg 1700 JORDIN Administration Famotidine 20 mg 08/13/19 09:00 08/13/19 08:58 Pepcid Iv IV PUSH 20 mg Q12HR JORDIN Administration Fluticasone Propionate 1 spray 08/09/19 11:28 08/13/19 08:52 Flonase 0.05% Nasal [place] NASAL 1 spray DAILY PRN Administration Allergy Symptoms Gabapentin 300 mg 08/09/19 14:00 08/13/19 06:36 Neurontin PO 300 mg Q8HR JORDIN Administration Guaifenesin 1,200 mg 08/09/19 21:00 08/13/19 08:47 Mucinex 12 Hr Tab PO 1,200 mg Q12HR JORDIN Administration Hyoscyamine 0.125
[2019-08-13] MEDS: ERTAPENEM 1 GM/NS 50 ML 1 GM/50 ML BAG IVPB (12:37)
[2019-08-13 14:00] VITALS: BP 105/50; PULSE 62; RESP 16; TEMP 36.4; O2SAT 96
[2019-08-13] MEDS: EZETIMIBE 10 MG TABLET BY MOUTH (18:06)
[2019-08-13] MEDS: AMIODARONE HCL 200 MG TABLET PO (18:06)
[2019-08-13] MEDS: MELATONIN 5 MG TABLET 20 MG PO (21:14)
[2019-08-13 22:00] VITALS: BP 113/36; PULSE 61; RESP 18; TEMP 37.2; O2SAT 91
[2019-08-14] VITALS (11 sets, daily range): BP systolic 107–154; BP diastolic 41–73; PULSE 59–93; RESP 16–21; TEMP 36.6–37.6; O2SAT 93–98
[2019-08-14] MEDS: MAGNES & ALUM HYD/SIMETH/DIPHENHYD/LIDOCAINE 119 ML MOUTHWASH BY MOUTH ×5 (05:04→21:23)
[2019-08-14] MEDS: GABAPENTIN 300 MG CAPSULE PO ×3 (05:04→21:23)
[2019-08-14 06:39] LABS: Basophils Percent Auto 0.2 % (0.2-1.2); Eosinophils Absolute Auto 0.2 K/mm3 (0-0.3); Eosinophils Percent Auto 1.5 % (0-4.4); Hematocrit 27.2 % (37.0-47.0); Hemoglobin 8.4 g/dL (12.0-15.0); Immature Granulocyte Absolute 0.16 K/mm3 (0.00-0.031); Immature Granulocyte Percent A 1.2 % (0-0.5); Lymphocytes Absolute Auto 1.68 K/mm3 (0.9-3.2); Lymphocytes Percent Auto 12.9 % (18.3-44.2); Mean Corpuscular HGB Conc 30.9 g/dl (32-36); Mean Corpuscular Hemoglobin 24.3 pg (26-34); Mean Corpuscular Volume 78.6 fl (80-100); Mean Platelet Volume 9.6 fl (7.4-10.4); Monocytes Absolute Auto 1.1 K/mm3 (0.1-0.6); Neutrophils Absolute Auto 9.9 K/mm3 (1.3-6.7); Neutrophils Percent Auto 76.2 % (45.5-73.1); Platelet Count Result 451 k/mm3 (150-375); Red Blood Count 3.46 M/mm3 (4.2-5.4); White Blood Count 13.1 K/mm3 (4.5-10.0)
[2019-08-14 07:04] LABS: Blood Urea Nitrogen 10 mg/dL (7-17); Calcium 7.9 mg/dL (8.4-10.2); Carbon Dioxide 20 mmol/L (22-30); Chloride 105 mmol/L (98-107); Estimated CRCL calculation 36 ml/min; Estimated Glomerular Filt Rate 54; Glucose 92 mg/dL (65-105); Potassium 3.5 mmol/L (3.4-5.0); Sodium 134 mmol/L (137-145)
[2019-08-14 07:15] LABS: CRP 24.3 mg/dL (<1.0)
[2019-08-14] MEDS: FAMOTIDINE 20 MG/2 ML VIAL IV PUSH ×2 (09:06→21:23)
--- NOTE | 2019-08-14 10:22 | WPDANESEPPF ---
Anes - Initial Pre Proc Eval Procedure: Operation Date: 08/14/19 11:30 Proposed Procedures p Esophagogastroduodenoscopy - Ritesh Gutierrez MD Date/Time: 08/14/19 10:22 Surgeon: Jackie Vanessa PA-C Pre Op Diagnosis: pneumonia,uti Patient Data Age: 78 Gender: F Height: 1.63 m Weight: 54.8 kg Last Vital Signs Temp 37.6 C H 08/14/19 06:00 Pulse 93 08/14/19 08:54 Resp 16 08/14/19 08:54 BP 107/73 08/14/19 08:54 Pulse Ox 93 08/14/19 08:54 Allergies Allergy/AdvReac Type Severity Reaction Status Date / Time latex Allergy Severe SWELLING, Verified 08/06/19 11:28 RASH-POWDER sertraline Allergy Severe Joint Pain Verified 08/06/19 11:28 Sulfa (Sulfonamide Allergy Severe RASH Verified 08/06/19 11:28 Antibiotics) atorvastatin Allergy Intermediate Hives Verified 08/06/19 11:28 baclofen Allergy Intermediate tremors Verified 08/06/19 11:28 estradiol Allergy Intermediate Joint Verified 08/06/19 11:28 pain, swollen eyes & leg pain codeine Allergy Mild NAUSEA, Verified 08/06/19 11:28 RASH esomeprazole Allergy Mild CHEST PAIN Verified 08/06/19 11:28 lansoprazole Allergy Mild CHEST PAIN Verified 08/06/19 11:28 Penicillins Allergy Mild RASH Verified 08/06/19 11:28 trazodone Allergy Mild Joint Pain Verified 07/23/19 10:12 iohexol Allergy Unknown Hives Verified 08/06/19 11:28 [From contrast - CT, X-RAY] metoclopramide Allergy Unknown Itching Verified 08/06/19 11:28 nebivolol Allergy Unknown Itching Verified 08/06/19 11:28 tolmetin Allergy Unknown Hives Verified 08/06/19 11:28 amitriptyline AdvReac Mild MUSCLE PAIN Verified 08/06/19 11:28 citalopram AdvReac Mild CHEST PAIN Verified 08/06/19 11:28 colesevelam AdvReac Mild Gastrointestinal Verified 08/06/19 11:28 Upset lisinopril AdvReac Mild NAUSEA/DIAR Verified 08/06/19 11:28 SU pravastatin AdvReac Mild Nausea Verified 08/06/19 11:28 Home Medications Medication Instructions Recorded Confirmed Type amiodarone 200 mg PO QPM 05/31/19 08/09/19 History apixaban 5 mg tablet 5 mg PO BID 05/31/19 08/09/19 History ascorbic acid (vitamin C) [Vitamin 1,000 mg PO DAILY 30 Days #60 05/31/19 08/09/19 Rx C] tablet aspirin 81 mg PO DAILY #30 tablet 05/31/19 08/09/19 Rx fluticasone propionate [Allergy 1 spray INTRANASAL DAILY PRN 30 05/31/19 08/09/19 Rx Relief (fluticasone)] Days #1 vial melatonin 20 mg PO HS #30 tablet 05/31/19 08/09/19 Rx metoprolol succinate 25 mg 25 mg PO DAILY 05/31/19 08/09/19 History tablet,extended release 24 hr polyethylene glycol 3350 [Miralax] 17 g PO QAM PRN #30 ea 05/31/19 08/09/19 Rx sennosides [Senokot] 8.6 mg PO DAILY 30 Days #30 tablet 05/31/19 08/09/19 Rx morphine 15 mg PO Q12H 07/23/19 08/09/19 History ezetimibe 10 mg tablet See Rx Instructions .ROUTE 08/03/19 08/09/19 Rx .COMPLEX #90 tablet gabapentin 300 mg capsule 300 mg PO Q8H #270 cap 08/04/19 08/09/19 Rx prochlorperazine maleate 10 mg 10 mg PO Q8H PRN #30 tablet 08/04/19 08/09/19 Rx tablet cephalexin 500 mg PO Q8H #9 cap 08/06/19 08/09/19 Rx hyoscyamine sulfate 0.125 mg PO QID PRN 08/09/19 08/09/19 History oxybutynin chloride 5 mg PO TID 08/09/19 08/09/19 History Laboratory Tests 08/14/19 08/14/19 05:45 05:45 WBC 13.1 K/mm3 H K/mm3 (4.5-10.0) RBC 3.46 M/mm3 L M/mm3 (4.2-5.4) Hgb 8.4 g/dL L g/dL (12.0-15.0) Hct 27.2 % L % (37.0-47.0) MCV 78.6 fl L fl (80-100) MCH 24.3 pg L pg (26-34) MCHC 30.9 g/dl L g/dl (32-36) RDW 20.0 % H % (11.5-14.5) Plt Count 451 k/mm3 H k/mm3 (150-375) MPV 9.6 fl fl (7.4-10.4) Immature Gran % (Auto) 1.2 % H % (0-0.5) Neut % (Auto) 76.2 % H % (45.5-73.1) Lymph % (Auto) 12.9 % L % (18.3-44.2) [place] % (Auto) 8.0 % % (2.6-8.5) Eos % (Auto) 1.5 % % (0-4.4) Baso % (Auto) 0.2 % % (0.2-1.2) Lymph # (Auto) 1.68 K/mm3 K/mm3 (0.9-3.2) [place] # (Au
[2019-08-14] MEDS: LACTATED RINGERS 1,000 ML 150 ML IV CONT (11:01)
--- NOTE | 2019-08-14 11:49 | PCOTNOTE ---
Attempted to see patient this am, however patient off floor for testing/procedure at this time.
--- NOTE | 2019-08-14 12:00 | PCPTNOTE ---
The patient treatment was not able to be completed on due to patient out of room for testing. Will plan to continue treatment per plan of care.
[2019-08-14] MEDS: BENZOCAINE (*SP) 60 ML SPRAY CAN (HURRICAINE) 1 SPRAY MUCOUS MEM (12:19)
--- NOTE | 2019-08-14 12:34 | PM.IMPN ---
Progress Note: A&P Assessment and Plan (1) Acute UTI: Code(s): N39.0 - Urinary tract infection, site not specified Status: Acute Assessment and Plan: S/p cystoscopy with left ureteral stent replacement per Dr. Lal on 08/05. Urology has been consulted by the ER; appreciate recommendations. Patient had been taking cephalexin for UTI as outpatient, per patient. UCx negative today, likely from antibiotic use as an outpatient. Patient reports urgency and dysuria prior to Gonzalez placement in ER, stating urine looked like milk earlier this week. Urine now appears nadine in color which just slight red tinge, but clearer today. Urology evaluated the patient and recommends discharging her on trimethoprim. Patient still reports having some rigors at night and slight fevers as well as arise to her leukocytosis and CRP level. Since the patient was on antibiotics orally prior to admission this could have changed our results of her urinalysis and blood cultures. Since she is still having some symptoms I talked to Dr. Cottrell, my attending provider, who recommends switching her antibiotics to IV ertapenem (#2) and continuing doxycycline (#5) for the treatment of possible ESBL UTI and coverage of pneumonia. Patients leukocytosis and CRP are stable today. I also consulted Dr. Rams[facility] Infect[facility] Disease about the patient for further evaluation and recommended antibiotic therapy. Will continue to trend. Continue monitoring patients symptoms. Sepsis documented in the ER, however, patient only has leukocytosis; no documented fever, tachypnea, or tachycardia. No lactic acidosis (2) Anemia: Code(s): D64.9 - Anemia, unspecified Status: Acute Assessment and Plan: Patient notes blood tinged sputum and has hematuria since urethral stent was placed. Urine still appears to have blood, but otherwise clear. Checked a Hemoccult Stool which was positive for blood. Patient appears to be chronically anemic with Hgb between 8.9-9.8 last hospital stay. MCV also 78.1. Likely acute blood loss from hematuria on top of anemia of chronic disease. Today, Hgb 8.4/Hct 27.2%. Decreased. The [employer] gave her 1 Unit of PRBCs 08/12/2019 I discussed the case with Dr. Cottrell my attending who recommended getting GI involved for further evaluation and to see if further EGD/Colonoscopy is needed at this time Dr. Brenda HAWK evaluated the patient and is preforming an EGD today. Continue antacid for possible ulcer He understands her need to continue Eliquis due to history of atrial fibrillation and clots. Anemia chronic disease and severe Iron Deficiency anemia noted on labs showing iron <10, % Saturation <5%. Will start IV Venofer for now and monitor H&H. Continue Ferrous Sulfate 324 mg BID. Continue monitoring. Trend H&H. Transfuse prn. (3) Pneumonia: Qualifiers: Laterality: bilateral Lung location: lower lobe of lung Pneumonia type: due to unspecified organism Qualified Code(s): J18.9 - Pneumonia, unspecified organism Code(s): J18.9 - Pneumonia, unspecified organism Status: Acute Assessment and Plan: Noted as bibasilar airspace consolidation possibly atelectasis vs pneumonia on CT. Given her recent development of respiratory symptoms, pneumonia a possibility. COVID testing negative. Ur antigens negative. Sputum culture was negative. 08/13/2019, we switch the patient's antibiotics IV ertapenem and continue oral doxycycline for pneumonia coverage and ESBL coverage of her urine. In addition, will do supportive care with Tylenol and Mucinex CT Chest showed Small pleural effusions with passive atelectasis in the lower lobes. Scattered patchy airspace opacities in the upper lobes, likely infectious or inflammatory. Will recheck CXR in the morning. Monitor respiratory status (4) H
[2019-08-14] MEDS: SENNOSIDES 8.6 MG TABLET PO (13:36)
[2019-08-14] MEDS: OXYBUTYNIN CHLORIDE 5 MG TABLET PO ×2 (13:36→18:48)
[2019-08-14] MEDS: ASPIRIN 81 MG ENTERIC TABLET PO (13:36)
[2019-08-14] MEDS: ASCORBIC ACID 500 MG TABLET 1000 MG PO (13:36)
[2019-08-14] MEDS: METOPROLOL SUCCINATE EXT REL 25 MG TABCR PO (13:37)
[2019-08-14] MEDS: DOXYCYCLINE HYCLATE 100 MG TABLET PO ×2 (13:37→21:23)
[2019-08-14] MEDS: APIXABAN 5 MG TABLET PO ×2 (13:37→18:49)
[2019-08-14] MEDS: ERTAPENEM 1 GM/NS 50 ML 1 GM/50 ML BAG IVPB (13:43)
--- NOTE | 2019-08-14 14:49 | WPDINFPN2 ---
Progress Note: A&P Assessment and Plan (1) Leukocytosis: Qualifiers: Leukocytosis type: unspecified Qualified Code(s): D72.829 - Elevated white blood cell count, unspecified Code(s): D72.829 - Elevated white blood cell count, unspecified Status: Acute Assessment and Plan: 1. Leukocytosis, CAP most likely 2. 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 PCN and sulfa allergies REC Ertapenem and doxy x 7 day course tentatively Subjective Date/time seen: 08/14/19 14:49 Objective Data Vital Signs Vital Signs: Vital Signs - 24 hr 08/13/19 22:00 08/14/19 00:00 08/14/19 06:00 Temperature 37.2 C 36.6 C 37.6 C H Pulse Rate 61 72 60 Respiratory Rate 18 20 18 Blood Pressure 113/36 L 154/55 H 131/51 L Pulse Oximetry 91 98 94 08/14/19 08:54 08/14/19 11:00 08/14/19 12:35 Temperature 37.4 C Pulse Rate 93 59 L 62 Respiratory Rate 16 18 21 H Blood Pressure 107/73 110/52 L 117/41 L Pulse Oximetry 93 94 96 08/14/19 12:45 08/14/19 12:55 08/14/19 13:37 Temperature Pulse Rate 60 60 60 Respiratory Rate 18 18 Blood Pressure 119/45 L 126/46 L Pulse Oximetry 97 97 Intake/Output Intake/Output: Intake & Output 08/11/19 08/12/19 08/13/19 08/14/19 23:59 23:59 23:59 23:59 Intake Total 2355 3025 1445 550 Output Total 1475 1900 1900 1000 Balance 880 1125 -455 -450 Meds/Results Medications: Active Medications Generic Name Dose Route Start Last Admin Trade Name Freq PRN Reason Stop Dose Admin Acetaminophen 650 mg 08/09/19 14:28 08/10/19 19:02 Tylenol Tablet PO 650 mg Q4H PRN Administration Pain or Fever Hydrocodone Bitart/Acetaminophen 1 tab 08/11/19 13:10 08/14/19 13:50 [place] 7.5-325 Mg PO 1 tab Q4H PRN Administration Pain Rated 4-6 Amiodarone HCl 200 mg 08/09/19 18:00 08/13/19 18:06 Pacerone PO 200 mg QPM JORDIN Administration Apixaban 5 mg 08/09/19 17:00 08/14/19 13:37 Eliquis PO 5 mg BID JORDIN Administration Ascorbic Acid 1,000 mg 08/10/19 09:00 08/14/19 13:36 Vitamin C PO 1,000 mg DAILY JORDIN Administration Aspirin 81 mg 08/10/19 09:00 08/14/19 13:36 Aspirin Ec PO 81 mg DAILY JORDIN Administration Benzocaine 1 applic 08/12/19 13:21 08/13/19 06:35 Anbesol Maximum Strength Gel BY MOUTH 1 applic QID PRN Administration Oral Pain Doxycycline Hyclate 100 mg 08/09/19 21:00 08/14/19 13:37 Vibramycin Tab PO 100 mg Q12HR JORDIN Administration Ezetimibe 10 mg 08/09/19 17:00 08/13/19 18:06 Zetia BY MOUTH 10 mg 1700 JORDIN Administration Famotidine 20 mg 08/13/19 09:00 08/14/19 09:06 Pepcid Iv IV PUSH 20 mg Q12HR JORDIN Administration Ferrous Sulfate 324 mg 08/14/19 11:30 Ferrous Sulfate PO 1130,1630 [facility] Fluticasone Propionate 1 spray 08/09/19 11:28 08/13/19 08:52 Flonase 0.05% Nasal [place] NASAL 1 spray DAILY PRN Administration Allergy Symptoms Gabapentin 300 mg 08/09/19 14:00 08/14/19 13:39 Neurontin PO 300 mg Q8HR JORDIN Administration Guaifenesin 1,200 mg 08/09/19 21:00 08/14/19 13:37 Mucinex 12 Hr Tab PO 1,200 mg Q12HR [facility] Administration Hyoscyamine 0.125 mg 08/09/19 13:00 Levsin Tablet PO QID PRN Bladder Spasms Ertapenem 1 gm in 50 mls @ 100 mls/hr 08/13/19 12:00 08/14/19 13:43 Invanz 1 Gm/Ns 50 Ml IVPB 100 mls/hr Q24H JORDIN Administration Lidocaine/Diphenhydr/Alum/Mg/Simeth 5 ml 08/12/19 17:00 08/14/19 13:38 First-Mouthwash Blm Suspension BY MOUTH 09/11/19 17:01 5 ml Q4HR JORDIN Administration Melatonin 20 mg 08/09/19 21:00 08/13/19 21:14 Melatonin PO 20 mg HS JORDIN Administration Metoprolol Succinate 25 mg 08/10/19 09:00 08/14/19 13:37 Toprol Xl PO 25 mg DAILY JORDIN Administration Morphine Sulfate 15 mg 08/11/19 13:11 Ms Contin PO Q12H PRN chronic pain Oxybutynin Chloride 5 mg 08/09/19 13:00 08/14/19 13:44 Ditropan PO Not Gi
[2019-08-14 15:04] LABS: Hematocrit 26.7 % (37.0-47.0); Hemoglobin 8.5 g/dL (12.0-15.0)
[2019-08-14] MEDS: FERROUS SULFATE 324 MG TABLET PO (18:04)
[2019-08-14] MEDS: EZETIMIBE 10 MG TABLET BY MOUTH (18:49)
[2019-08-14] MEDS: AMIODARONE HCL 200 MG TABLET PO (18:50)
--- NOTE | 2019-08-14 20:28 | CONS_ITS ---
DATE OF CONSULTATION: 08/14/2019 REASON FOR CONSULTATION: Leukocytosis. HISTORY OF PRESENT ILLNESS: The patient is a 78-year-old female who has had several encounters here in last year and has had intermittent leukocytosis. She has known hydronephrosis apparently is due to misplacement of spinal orthopedic hardware. She has ureteral stents in place that have been changed every 3 months. Her urologist placed her on cephalexin, most recently about 1 week before admission for suppression. The patient presented to the hospital on the 08 of August with fever at home up to 38.8. She also noted some hemoptysis, cloudy urine, dysuria, urgency, cough, and sore throat. While here, she is being given various antibiotics, currently ertapenem and doxycycline. No immunosuppressants. She has had stent change while here. No flank pain. No further fever. ALLERGIES: MULTIPLE INCLUDING SULFA AND PENICILLIN, BOTH CAUSE RASH. OTHERS NOT PERTINENT. HABITS: No alcohol. Quit smoking in 2011. CURRENT MEDICATIONS: List reviewed. No immunosuppressants. PAST MEDICAL HISTORY: Multiple illnesses described in her record. Most pertinent would be left AKA, chronic renal insufficiency, IBD. No immunosuppressants, pacemaker, peripheral vascular disease, and joint replacements. REVIEW OF SYSTEMS: 14-point review otherwise negative. FAMILY HISTORY: Not pertinent to her present illness. SOCIAL HISTORY: , lives with her daughter, business regulatory technician. PHYSICAL EXAMINATION: GENERAL: This is an elderly female, appears her actual age. No acute distress. VITAL SIGNS: Shortly after arrival, her temperature mandy up to 38.2 since afebrile, 60, 18, 126/46. SKIN: No rashes, warm and dry. EENT: Pupils equal, round. Conjunctivae are normal. LUNGS: Clear to auscultation and percussion. CARDIAC: Regular rate and rhythm. No murmurs or gallops. Pulses 2+. ABDOMEN: Soft, nontender. No organomegaly. No masses. EXTREMITIES: No clubbing, cyanosis, or edema. LABORATORY DATA: Current urine culture is negative. Blood cultures also no growth. Group A strep screen done for unknown reasons was negative. Sputum culture on August 09. Normal brian. White count 13.1, similar to yesterday, hemoglobin 8.4, platelets are 451. Differential with a minimal left shift. She has mild hyponatremia, otherwise unremarkable. CRP 24. Her COVID assay was nonreactive, and . RADIOLOGY: I personally reviewed her chest x-ray, has new onset since the previous chest x-ray several years ago of interstitial infiltrates bilaterally, read by the radiologist as fluid. CT, however, shows suggestion of upper lobe infiltrates on an infectious basis. ASSESSMENT: 1. Leukocytosis, consider complicated urinary tract infection versus more likely community-acquired pneumonia. Multiple possibilities in terms of microbiology. Her urine culture may be falsely negative due to pre-existing antibiotic suppression with the cephalexin. 2. Hydronephrosis, believed to be due to her spinal hardware. 3. Penicillin, sulfa allergy tolerating present therapy. 4. Past tobacco. RECOMMENDATIONS: 1. Continue her ertapenem and doxycycline through August 18 tentatively. 2. Follow white blood cell count over time. 3. She also asks when her urine might be sterilized to the point that she could have her spinal hardware removed or adjusted. This may enforce to be quite difficult due to presence of the stent, but can be followed over time. Thank you very much for asking me to see her. ANJELICA TUBBS M.D. SULKY DRIVER SULKY DRIVER D I MT: Andrew PERALTA
[2019-08-14] MEDS: MELATONIN 5 MG TABLET 20 MG PO (21:23)
[2019-08-15] MEDS: MAGNES & ALUM HYD/SIMETH/DIPHENHYD/LIDOCAINE 119 ML MOUTHWASH BY MOUTH ×5 (05:57→20:49)
[2019-08-15] MEDS: GABAPENTIN 300 MG CAPSULE PO ×3 (05:57→20:50)
[2019-08-15 06:24] LABS: Basophils Percent Auto 0.2 % (0.2-1.2); Eosinophils Absolute Auto 0.1 K/mm3 (0-0.3); Eosinophils Percent Auto 0.4 % (0-4.4); Hematocrit 26.2 % (37.0-47.0); Hemoglobin 8.3 g/dL (12.0-15.0); Immature Granulocyte Percent A 0.9 % (0-0.5); Lymphocytes Absolute Auto 1.68 K/mm3 (0.9-3.2); Mean Corpuscular HGB Conc 31.7 g/dl (32-36); Mean Corpuscular Hemoglobin 24.6 pg (26-34); Mean Corpuscular Volume 77.7 fl (80-100); Mean Platelet Volume 8.9 fl (7.4-10.4); Monocytes Absolute Auto 0.9 K/mm3 (0.1-0.6); Monocytes Percent Auto 8.3 % (2.6-8.5); Neutrophils Absolute Auto 8.4 K/mm3 (1.3-6.7); Neutrophils Percent Auto 75.2 % (45.5-73.1); Platelet Count Result 487 k/mm3 (150-375); Red Blood Count 3.37 M/mm3 (4.2-5.4); White Blood Count 11.2 K/mm3 (4.5-10.0)
[2019-08-15 06:42] LABS: Alanine Aminotransferase 11 U/L (4-35); Albumin Level 2.5 g/dL (3.5-5.1); Alkaline Phosphatase 68 U/L (38-126); Aspartate Amino Transferase 21 U/L (14-36); Bilirubin,Total 0.2 mg/dL (0.2-1.3); Blood Urea Nitrogen 12 mg/dL (7-17); Calcium 7.9 mg/dL (8.4-10.2); Carbon Dioxide 21 mmol/L (22-30); Chloride 109 mmol/L (98-107); Estimated CRCL calculation 36 ml/min; Estimated Glomerular Filt Rate 54; Glucose 95 mg/dL (65-105); Potassium 3.5 mmol/L (3.4-5.0); Sodium 137 mmol/L (137-145)
[2019-08-15 06:48] VITALS: BP 141/51; PULSE 59; RESP 16; TEMP 37.2; O2SAT 96
[2019-08-15 08:00] VITALS: PULSE 59; RESP 16; O2SAT 96
[2019-08-15] MEDS: ASCORBIC ACID 500 MG TABLET 1000 MG PO (08:42)
[2019-08-15] MEDS: ASPIRIN 81 MG ENTERIC TABLET PO (08:43)
[2019-08-15] MEDS: DOXYCYCLINE HYCLATE 100 MG TABLET PO ×2 (08:44→20:50)
[2019-08-15] MEDS: FAMOTIDINE 20 MG/2 ML VIAL IV PUSH ×2 (08:44→20:49)
[2019-08-15] MEDS: APIXABAN 5 MG TABLET PO ×2 (08:45→17:08)
[2019-08-15] MEDS: METOPROLOL SUCCINATE EXT REL 25 MG TABCR PO (08:47)
[2019-08-15] MEDS: OXYBUTYNIN CHLORIDE 5 MG TABLET PO ×3 (08:48→17:09)
[2019-08-15] MEDS: SENNOSIDES 8.6 MG TABLET PO (08:48)
--- NOTE | 2019-08-15 08:53 | WPDGIPROGNO ---
Progress Note: A&P Additional Plan Patient feeling better today. Anxious to start rehabilitation with her leg. No signs of significant bleeding evident. She no longer has blood in her phlegm. She denies abdominal pain. No blood in her stools. Perhaps some blood still remains in her urine urine Physical exam reveals her to be alert. Vital signs stable. She is anicteric. Abdomen is soft bowel sounds present nontender with no organomegaly. Left BKA noted.. Impression 1. Occult blood in stool. Could have been swallowed from blood noted with expectoration. We may want to consider colonoscopy at a later date when she is stronger. She would need to stop her anticoagulation for this. At the present time hemoglobin is stable from her chronic anemia and feel best to defer colonoscopy for now till she is stronger. 2. Anemia appears to be chronic. Labs consistent with anemia of chronic disease. Hemoglobin centrally stable. 3. Left BKA. 4. Ureteral stent with hematuria in UTI. 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 5. Pneumonia. 6. Chronic anticoagulation. Subjective Date/time seen: 08/15/19 08:53 Objective Data Vital Signs Vital Signs: Vital Signs - 24 hr 08/14/19 08:54 08/14/19 11:00 08/14/19 12:35 Temperature 37.4 C Pulse Rate 93 59 L 62 Respiratory Rate 16 18 21 H Blood Pressure 107/73 110/52 L 117/41 L Pulse Oximetry 93 94 96 08/14/19 12:45 08/14/19 12:55 08/14/19 13:37 Temperature Pulse Rate 60 60 60 Respiratory Rate 18 18 Blood Pressure 119/45 L 126/46 L Pulse Oximetry 97 97 08/14/19 14:00 08/14/19 18:50 08/14/19 22:00 Temperature 36.8 C 37.3 C Pulse Rate 60 60 60 Respiratory Rate 18 18 Blood Pressure 138/45 L 129/63 Pulse Oximetry 97 98 08/15/19 06:48 Temperature 37.2 C Pulse Rate 59 L Respiratory Rate 16 Blood Pressure 141/51 H Pulse Oximetry 96 Intake/Output Intake/Output: Intake & Output 08/12/19 08/13/19 08/14/19 08/15/19 23:59 23:59 23:59 23:59 Intake Total 3025 1445 1105 200 Output Total 1900 1900 1200 900 Balance 1125 -455 -95 -700 Meds/Results Medications: Active Medications Generic Name Dose Route Start Last Admin Trade Name Freq PRN Reason Stop Dose Admin Acetaminophen 650 mg 08/09/19 14:28 08/10/19 19:02 Tylenol Tablet PO 650 mg Q4H PRN Administration Pain or Fever Hydrocodone Bitart/Acetaminophen 1 tab 08/11/19 13:10 08/14/19 13:50 [place] 7.5-325 Mg PO 1 tab Q4H PRN Administration Pain Rated 4-6 Amiodarone HCl 200 mg 08/09/19 18:00 08/14/19 18:50 Pacerone PO 200 mg QPM JORDIN Administration Apixaban 5 mg 08/09/19 17:00 08/14/19 18:49 Eliquis PO 5 mg BID JORDIN Administration Ascorbic Acid 1,000 mg 08/10/19 09:00 08/14/19 13:36 Vitamin C PO 1,000 mg DAILY JORDIN Administration Aspirin 81 mg 08/10/19 09:00 08/14/19 13:36 Aspirin Ec PO 81 mg DAILY [facility]ORD[facility] Administration Benzocaine 1 applic 08/12/19 13:21 08/13/19 06:35 Anbesol Maximum Strength Gel BY MOUTH 1 applic QID PRN Administration Oral Pain Doxycycline Hyclate 100 mg 08/09/19 21:00 08/14/19 21:23 Vibramycin Tab PO 100 mg Q12HR JORDIN Administration Ezetimibe 10 mg 08/09/19 17:00 08/14/19 18:49 Zetia BY MOUTH 10 mg 1700 JORDIN Administration Famotidine 20 mg 08/13/19 09:00 08/14/19 21:23 Pepcid Iv IV PUSH 20 mg Q12HR JORDIN Administration Ferrous Sulfate 324 mg 08/14/19 11:30 08/14/19 18:04 Ferrous Sulfate PO 324 mg 1130,1630 JORDIN Administration Fluticasone Propionate 1 spray 08/09/19 11:28 08/13/19 08:52 Flonase 0.05% Nasal [place] NASAL 1 spray DAILY PRN Administration Allergy Symptoms Gabapentin 300 mg 08/09/19 14:00 08/15/19 05:57 Neurontin PO 300 mg Q8HR JORDIN Administration Guaifenesin 1,200 mg 08/09/19 21:00 08/14/19 21:23 Mucinex 12 Hr Tab PO 1,200 mg Q12HR JORDIN Administration Hyoscyamine 0.125 mg 08/09/19 1
--- NOTE | 2019-08-15 09:12 | PM.IMPN ---
Progress Note: A&P Assessment and Plan (1) Pneumonia: Qualifiers: Laterality: bilateral Lung location: lower lobe of lung Pneumonia type: due to unspecified organism Qualified Code(s): J18.9 - Pneumonia, unspecified organism Code(s): J18.9 - Pneumonia, unspecified organism Status: Acute Assessment and Plan: Noted as bibasilar airspace consolidation possibly atelectasis vs pneumonia on CT. Given her recent development of respiratory symptoms, pneumonia a possibility. COVID testing negative. Ur antigens negative. Sputum culture was negative. 08/13/2019, we switch the patient's antibiotics IV ertapenem and continue oral doxycycline for pneumonia coverage and ESBL coverage of her urine. In addition, will do supportive care with Tylenol and Mucinex CT Chest showed Small pleural effusions with passive atelectasis in the lower lobes. Scattered patchy airspace opacities in the upper lobes, likely infectious or inflammatory. Infectious Disease evaluated the patient and believes that her illness is secondary to her pneumonia and recommended to continue to use IV ertapenem and oral doxycycline until 08/19/2019. Her leukocytosis has improved and CRP has dropped slightly. Will again monitor her overnight and recheck her labs in the morning and see what Infectious Disease says on his evaluation. Monitor respiratory status (2) Acute UTI: Code(s): N39.0 - Urinary tract infection, site not specified Status: Acute Assessment and Plan: S/p cystoscopy with left ureteral stent replacement per Dr. Lal on 08/05. Urology has been consulted by the ER; appreciate recommendations. Patient had been taking cephalexin for UTI as outpatient, per patient. UCx negative today, likely from antibiotic use as an outpatient. Patient reports urgency and dysuria prior to Gonzalez placement in ER, stating urine looked like milk earlier this week. Urine now appears nadine in color which just slight red tinge, but clearer today. Urology evaluated the patient and recommends discharging her on trimethoprim. Patient still reports having some rigors at night and slight fevers as well as arise to her leukocytosis and CRP level. Since the patient was on antibiotics orally prior to admission this could have changed our results of her urinalysis and blood cultures. Since she is still having some symptoms I talked to Dr. Cottrell, my attending provider, who recommends switching her antibiotics to IV ertapenem (#3) and continuing doxycycline (#6) for the treatment of possible ESBL UTI and coverage of pneumonia. Patients leukocytosis and CRP are slightly better today. I also consulted Dr. Ramsay Infectious Disease who recommended to continue IV ertapenem and doxy at this time. Will continue to trend. Continue monitoring patients symptoms. Sepsis documented in the ER, however, patient only has leukocytosis; no documented fever, tachypnea, or tachycardia. No lactic acidosis (3) Anemia: Code(s): D64.9 - Anemia, unspecified Status: Acute Assessment and Plan: Patient notes blood tinged sputum and has hematuria since urethral stent was placed. Urine still appears to have blood, but otherwise clear. Checked a Hemoccult Stool which was positive for blood. Patient appears to be chronically anemic with Hgb between 8.9-9.8 last hospital stay. MCV also 78.1. Likely acute blood loss from hematuria on top of anemia of chronic disease. Today, Hgb 8.3/Hct 26.2%. Stable. The Waste Water Worker gave her 1 Unit of PRBCs 08/12/2019 I discussed the case with Dr. Cottrell my attending who recommended getting GI involved for further evaluation and to see if further EGD/Colonoscopy is needed at this time Dr. Brenda HAWK performed an EGD which showed a normal examination and no cause of her bleeding. Continue antacid for possible ulcer He understands her ne
[2019-08-15 09:15] LABS: CRP 20.5 mg/dL (<1.0)
--- NOTE | 2019-08-15 09:27 | WPDANESPN ---
Anes - Prog Note Post-Op Date/Time: 08/15/19 09:27 Cardiovascular status: normal Respiratory status: normal Airway patency: baseline Mental status: baseline Post-Op hydration status: normal Vital Signs: Last Vital Signs Temp 37.2 C 08/15/19 06:48 Pulse 59 L 08/15/19 06:48 Resp 16 08/15/19 06:48 BP 141/51 H 08/15/19 06:48 Pulse Ox 96 08/15/19 06:48 Pain Score (VAS): 0/10. Patient resting to bedside at time of assessment, appears comfortable. PCT and RN at bedside at time of assessment. I/O: Intake & Output 08/14/19 08/15/19 08/15/19 23:59 07:59 15:59 Intake Total 390 200 Output Total 200 900 Balance 190 -700 Laboratory Tests 08/15/19 06:03 08/15/19 06:03 08/14/19 08/15/19 08/15/19 14:42 05:58 06:03 WBC 11.2 H RBC 3.37 L Hgb 8.5 L 8.3 L Hct 26.7 L 26.2 L MCV 77.7 L MCH 24.6 L MCHC 31.7 L RDW 20.0 H Plt Count 487 H MPV 8.9 Immature Gran % (Auto) 0.9 H Neut % (Auto) 75.2 H Lymph % (Auto) 15.0 L [place] % (Auto) 8.3 Eos % (Auto) 0.4 Baso % (Auto) 0.2 Lymph # (Auto) 1.68 [place] # (Auto) 0.9 H Eos # (Auto) 0.1 Baso # (Auto) 0.0 Abs Immat Gran (auto) 0.10 H Absolute Neuts (auto) 8.4 H Absolute Nucleated RBC 0.0 Nucleated RBC % 0.0 Sodium Potassium Chloride Carbon Dioxide BUN Creatinine Estim Creat Clear Calc Estimated GFR Glucose Calcium Magnesium Total Bilirubin AST ALT Alkaline Phosphatase C-Reactive Protein 20.5 H Total Protein Albumin 08/15/19 06:03 WBC RBC Hgb Hct MCV MCH MCHC RDW Plt Count MPV Immature Gran % (Auto) Neut % (Auto) Lymph % (Auto) [place] % (Auto) Eos % (Auto) Baso % (Auto) Lymph # (Auto) [place] # (Auto) Eos # (Auto) Baso # (Auto) Abs Immat Gran (auto) Absolute Neuts (auto) Absolute Nucleated RBC Nucleated RBC % Sodium 137 Potassium 3.5 Chloride 109 H Carbon Dioxide 21 L BUN 12 Creatinine 1.00 Estim Creat Clear Calc 36 Estimated GFR 54 L Glucose 95 Calcium 7.9 L Magnesium 2.0 Total Bilirubin 0.2 AST 21 ALT 11 Alkaline Phosphatase 68 C-Reactive Protein Total Protein 5.0 L Albumin 2.5 L Microbiology 08/09/19 05:59 Blood Blood Culture - Final 08/09/19 05:50 Blood Blood Culture - Final Post-procedural complaints: none Patient Feedback: Patient satisfied with anesthetic care.
[2019-08-15] MEDS: FERROUS SULFATE 324 MG TABLET PO ×2 (12:29→17:09)
[2019-08-15] MEDS: ERTAPENEM 1 GM/NS 50 ML 1 GM/50 ML BAG IVPB (12:29)
[2019-08-15 14:00] VITALS: BP 132/46; PULSE 60; RESP 18; TEMP 36.7; O2SAT 97
[2019-08-15] MEDS: EZETIMIBE 10 MG TABLET BY MOUTH (17:08)
[2019-08-15] MEDS: AMIODARONE HCL 200 MG TABLET PO (17:08)
[2019-08-15] MEDS: MELATONIN 5 MG TABLET 20 MG PO (20:50)
[2019-08-15 22:08] VITALS: BP 133/48; PULSE 60; RESP 20; TEMP 37.2; O2SAT 95
[2019-08-16] MEDS: MAGNES & ALUM HYD/SIMETH/DIPHENHYD/LIDOCAINE 119 ML MOUTHWASH BY MOUTH ×5 (05:54→21:38)
[2019-08-16] MEDS: GABAPENTIN 300 MG CAPSULE PO ×3 (05:54→21:37)
[2019-08-16] MEDS: BISACODYL 10 MG SUPPOSITORY RECTAL (05:59)
[2019-08-16 06:27] LABS: Basophils Percent Auto 0.3 % (0.2-1.2); Eosinophils Absolute Auto 0.1 K/mm3 (0-0.3); Eosinophils Percent Auto 0.6 % (0-4.4); Hematocrit 28.6 % (37.0-47.0); Hemoglobin 8.8 g/dL (12.0-15.0); Immature Granulocyte Absolute 0.09 K/mm3 (0.00-0.031); Immature Granulocyte Percent A 0.8 % (0-0.5); Lymphocytes Absolute Auto 1.66 K/mm3 (0.9-3.2); Lymphocytes Percent Auto 15.1 % (18.3-44.2); Mean Corpuscular HGB Conc 30.8 g/dl (32-36); Mean Corpuscular Volume 78.1 fl (80-100); Mean Platelet Volume 8.7 fl (7.4-10.4); Monocytes Absolute Auto 0.9 K/mm3 (0.1-0.6); Monocytes Percent Auto 8.3 % (2.6-8.5); Neutrophils Absolute Auto 8.3 K/mm3 (1.3-6.7); Neutrophils Percent Auto 74.9 % (45.5-73.1); Platelet Count Result 579 k/mm3 (150-375); Red Blood Count 3.66 M/mm3 (4.2-5.4); Red Cell Distribution Width 20.9 % (11.5-14.5)
[2019-08-16 06:43] LABS: Blood Urea Nitrogen 11 mg/dL (7-17); Calcium 7.9 mg/dL (8.4-10.2); Carbon Dioxide 22 mmol/L (22-30); Chloride 109 mmol/L (98-107); Estimated CRCL calculation 44 ml/min; Estimated Glomerular Filt Rate > 60; Glucose 92 mg/dL (65-105); Potassium 3.7 mmol/L (3.4-5.0); Sodium 136 mmol/L (137-145)
[2019-08-16 06:56] VITALS: BP 145/51; PULSE 60; RESP 18; TEMP 36.7; O2SAT 95
--- NOTE | 2019-08-16 07:40 | WPDGIPROGNO ---
Progress Note: A&P Additional Plan Patient alert and comfortable this morning. Hopeful to go home today. She denies any obvious signs of GI bleeding. Denies abdominal pain. Physical exam reveals her to be alert and comfortable. Lungs are clear. She is anicteric heart is without murmur. Abdomen is soft and nontender. Labs reveal hemoglobin 8.8 stable. Hematocrit 28, MCV 78. Impression anemia. Likely multifactorial. She likely has chronic disease with superimposed anemia from recent bleeding. Now with hematuria. Resolved hemoptysis. An occult blood in stool. EGD was negative. Elective outpatient colonoscopy suggested when she is stronger. Hopefully this can be done when anticoagulation can safely be held. Currently her hemoglobin is stable with no evidence for ongoing bleeding. 2. UTI. Ureteral stent in place. With resolving hydronephrosis. 3. Left BKA. 4. Pneumonia. 5. Atrial fibrillation and blood clots requiring at chronic anticoagulation. Subjective Date/time seen: 08/16/19 07:40 Objective Data Vital Signs Vital Signs: Vital Signs - 24 hr 08/15/19 08:00 08/15/19 14:00 08/15/19 22:08 Temperature 36.7 C 37.2 C Pulse Rate 59 L 60 60 Respiratory Rate 16 18 20 Blood Pressure 132/46 L 133/48 L Pulse Oximetry 96 97 95 08/16/19 06:56 Temperature 36.7 C Pulse Rate 60 Respiratory Rate 18 Blood Pressure 145/51 H Pulse Oximetry 95 Intake/Output Intake/Output: Intake & Output 08/13/19 08/14/19 08/15/19 08/16/19 23:59 23:59 23:59 23:59 Intake Total 1445 1105 1590 500 Output Total 1900 1200 1650 1200 Balance -455 -95 -60 -700 Meds/Results Medications: Active Medications Generic Name Dose Route Start Last Admin Trade Name Freq PRN Reason Stop Dose Admin Acetaminophen 650 mg 08/09/19 14:28 08/10/19 19:02 Tylenol Tablet PO 650 mg Q4H PRN Administration Pain or Fever Hydrocodone Bitart/Acetaminophen 1 tab 08/11/19 13:10 08/14/19 13:50 [place] 7.5-325 Mg PO 1 tab Q4H PRN Administration Pain Rated 4-6 Amiodarone HCl 200 mg 08/09/19 18:00 08/15/19 17:08 Pacerone PO 200 mg QPM JORDIN Administration Apixaban 5 mg 08/09/19 17:00 08/15/19 17:08 Eliquis PO 5 mg BID JORDIN Administration Ascorbic Acid 1,000 mg 08/10/19 09:00 08/15/19 08:42 Vitamin C PO 1,000 mg DAILY JORDIN Administration Aspirin 81 mg 08/10/19 09:00 08/15/19 08:43 Aspirin Ec PO 81 mg DAILY [facility] Administration Benzocaine 1 applic 08/12/19 13:21 08/13/19 06:35 Anbesol Maximum Strength Gel BY MOUTH 1 applic QID PRN Administration Oral Pain Bisacodyl 10 mg 08/15/19 18:23 08/16/19 05:59 Dulcolax Suppository RECTAL 10 mg BID PRN Administration Constipation Doxycycline Hyclate 100 mg 08/09/19 21:00 08/15/19 20:50 Vibramycin Tab PO 100 mg Q12HR [facility] Administration Ezetimibe 10 mg 08/09/19 17:00 08/15/19 17:08 Zetia BY MOUTH 10 mg 1700 [facility] Administration Famotidine 20 mg 08/13/19 09:00 08/15/19 20:49 Pepcid Iv IV PUSH 20 mg Q12HR [facility] Administration Ferrous Sulfate 324 mg 08/14/19 11:30 08/15/19 17:09 Ferrous Sulfate PO 324 mg 1130,1630 [facility] Administration Fluticasone Propionate 1 spray 08/09/19 11:28 08/13/19 08:52 Flonase 0.05% Nasal [place] NASAL 1 spray DAILY PRN Administration Allergy Symptoms Gabapentin 300 mg 08/09/19 14:00 08/16/19 05:54 Neurontin PO 300 mg Q8HR [facility] Administration Guaifenesin 1,200 mg 08/09/19 21:00 08/15/19 20:50 Mucinex 12 Hr Tab PO 1,200 mg Q12HR [facility] Administration Hyoscyamine 0.125 mg 08/09/19 13:00 Levsin Tablet PO QID PRN Bladder Spasms Ertapenem 1 gm in 50 mls @ 100 mls/hr 08/13/19 12:00 08/15/19 13:00 Invanz 1 Gm/Ns 50 Ml IVPB Infused Q24H [facility] Infusion Lidocaine/Diphenhydr/Alum/Mg/Simeth 5 ml 08/12/19 17:00 08/16/19 05:54 First-Mouthwash Blm Suspension BY MOUTH 09/11/19 17:01 5 m
[2019-08-16] MEDS: SENNOSIDES 8.6 MG TABLET PO (09:06)
[2019-08-16 09:07] VITALS: PULSE 68
[2019-08-16] MEDS: METOPROLOL SUCCINATE EXT REL 25 MG TABCR PO (09:07)
[2019-08-16] MEDS: ASCORBIC ACID 500 MG TABLET 1000 MG PO (09:07)
[2019-08-16] MEDS: DOXYCYCLINE HYCLATE 100 MG TABLET PO ×2 (09:07→21:38)
[2019-08-16] MEDS: APIXABAN 5 MG TABLET PO ×2 (09:07→17:06)
[2019-08-16] MEDS: ASPIRIN 81 MG ENTERIC TABLET PO (09:07)
[2019-08-16] MEDS: OXYBUTYNIN CHLORIDE 5 MG TABLET PO ×3 (09:07→17:06)
[2019-08-16] MEDS: FAMOTIDINE 20 MG/2 ML VIAL IV PUSH ×2 (09:08→21:38)
--- NOTE | 2019-08-16 09:44 | PM.IMPN ---
Progress Note: A&P Assessment and Plan (1) Pneumonia: Qualifiers: Laterality: bilateral Lung location: lower lobe of lung Pneumonia type: due to unspecified organism Qualified Code(s): J18.9 - Pneumonia, unspecified organism Code(s): J18.9 - Pneumonia, unspecified organism Status: Acute Assessment and Plan: Noted as bibasilar airspace consolidation possibly atelectasis vs pneumonia on CT. Given her recent development of respiratory symptoms, pneumonia a possibility. COVID testing negative. Ur antigens negative. Sputum culture was negative. CT Chest showed Small pleural effusions with passive atelectasis in the lower lobes. Scattered patchy airspace opacities in the upper lobes, likely infectious or inflammatory. 08/13/2019, we switch the patient's antibiotics IV ertapenem and continue oral doxycycline for pneumonia coverage and ESBL coverage of her urine. In addition, will do supportive care with Tylenol and Mucinex Infectious Disease evaluated the patient and believes that her illness is secondary to her pneumonia and recommended to continue to use IV ertapenem and oral doxycycline until 08/19/2019. Her leukocytosis is stable and CRP has dropped slightly. Will again monitor her overnight and recheck her labs in the morning and see what Infectious Disease says on his evaluation. Monitor respiratory status (2) Acute UTI: Code(s): N39.0 - Urinary tract infection, site not specified Status: Acute Assessment and Plan: S/p cystoscopy with left ureteral stent replacement per Dr. Lal on 08/05. Urology has been consulted by the ER; appreciate recommendations. Patient had been taking cephalexin for UTI as outpatient, per patient. UCx negative today, likely from antibiotic use as an outpatient. Patient reports urgency and dysuria prior to Gonzalez placement in ER, stating urine looked like milk earlier this week. Urine now appears nadine in color which just slight red tinge, but clearer today. Urology evaluated the patient and recommends discharging her on trimethoprim. Patient still reports having some rigors at night and slight fevers as well as arise to her leukocytosis and CRP level. Since the patient was on antibiotics orally prior to admission this could have changed our results of her urinalysis and blood cultures. 08/13/2019: Since she is still having some symptoms I talked to Dr. Cottrell, my attending provider, who recommends switching her antibiotics to IV ertapenem (#4) and continuing doxycycline (#7) for the treatment of possible ESBL UTI and coverage of pneumonia. Patients leukocytosis and CRP are slightly better today. I also consulted Dr. Ramsay Infectious Disease who recommended to continue IV ertapenem and doxy at this time. Will continue to trend. Continue monitoring patients symptoms. Sepsis documented in the ER, however, patient only has leukocytosis; no documented fever, tachypnea, or tachycardia. No lactic acidosis (3) Anemia: Code(s): D64.9 - Anemia, unspecified Status: Acute Assessment and Plan: Patient notes blood tinged sputum and has hematuria since urethral stent was placed. Urine still appears to have blood, but otherwise clear. Checked a Hemoccult Stool which was positive for blood. Patient appears to be chronically anemic with Hgb between 8.9-9.8 last hospital stay. MCV also 78.1. Likely acute blood loss from hematuria on top of anemia of chronic disease. Today, Hgb 8.8/Hct 28.6%. Stable. The Boilermaker Fitter gave her 1 Unit of PRBCs 08/12/2019 I discussed the case with Dr. Cottrell my attending who recommended getting GI involved for further evaluation and to see if further EGD/Colonoscopy is needed at this time Dr. Brenda HAWK performed an EGD which showed a normal examination and no cause of her bleeding. Continue antacid at this time. He understands h
[2019-08-16] MEDS: FERROUS SULFATE 324 MG TABLET PO ×2 (11:21→17:06)
[2019-08-16] MEDS: ERTAPENEM 1 GM/NS 50 ML 1 GM/50 ML BAG IVPB (11:22)
[2019-08-16 14:00] VITALS: BP 147/71; PULSE 60; RESP 16; TEMP 36.5; O2SAT 95
[2019-08-16] MEDS: EZETIMIBE 10 MG TABLET BY MOUTH (17:06)
[2019-08-16 18:07] VITALS: PULSE 64
[2019-08-16] MEDS: AMIODARONE HCL 200 MG TABLET PO (18:07)
[2019-08-16] MEDS: MELATONIN 5 MG TABLET 20 MG PO (21:37)
[2019-08-16 22:00] VITALS: BP 121/41; PULSE 60; RESP 18; TEMP 37; O2SAT 96
[2019-08-17 06:00] VITALS: BP 154/51; PULSE 60; RESP 18; TEMP 37.1; O2SAT 93
[2019-08-17 06:12] LABS: Basophils Percent Auto 0.2 % (0.2-1.2); Eosinophils Absolute Auto 0.1 K/mm3 (0-0.3); Eosinophils Percent Auto 1.1 % (0-4.4); Hematocrit 28.4 % (37.0-47.0); Hemoglobin 8.7 g/dL (12.0-15.0); Immature Granulocyte Absolute 0.08 K/mm3 (0.00-0.031); Immature Granulocyte Percent A 0.7 % (0-0.5); Lymphocytes Absolute Auto 1.61 K/mm3 (0.9-3.2); Lymphocytes Percent Auto 14.4 % (18.3-44.2); Mean Corpuscular HGB Conc 30.6 g/dl (32-36); Mean Corpuscular Hemoglobin 24.1 pg (26-34); Mean Corpuscular Volume 78.7 fl (80-100); Mean Platelet Volume 8.5 fl (7.4-10.4); Monocytes Absolute Auto 0.9 K/mm3 (0.1-0.6); Neutrophils Absolute Auto 8.5 K/mm3 (1.3-6.7); Neutrophils Percent Auto 75.6 % (45.5-73.1); Platelet Count Result 571 k/mm3 (150-375); Red Blood Count 3.61 M/mm3 (4.2-5.4); Red Cell Distribution Width 21.1 % (11.5-14.5); White Blood Count 11.2 K/mm3 (4.5-10.0)
[2019-08-17] MEDS: GABAPENTIN 300 MG CAPSULE PO ×3 (06:38→21:47)
[2019-08-17] MEDS: MAGNES & ALUM HYD/SIMETH/DIPHENHYD/LIDOCAINE 119 ML MOUTHWASH BY MOUTH ×5 (06:38→20:16)
[2019-08-17 06:49] LABS: Blood Urea Nitrogen 11 mg/dL (7-17); CRP 11.7 mg/dL (<1.0); Calcium 7.8 mg/dL (8.4-10.2); Carbon Dioxide 21 mmol/L (22-30); Chloride 111 mmol/L (98-107); Estimated CRCL calculation 40 ml/min; Estimated Glomerular Filt Rate > 60; Glucose 93 mg/dL (65-105); Potassium 3.3 mmol/L (3.4-5.0); Sodium 138 mmol/L (137-145)
--- NOTE | 2019-08-17 07:06 | WPDINFPN2 ---
Progress Note: A&P Assessment and Plan (1) Leukocytosis: Qualifiers: Leukocytosis type: unspecified Qualified Code(s): D72.829 - Elevated white blood cell count, unspecified Code(s): D72.829 - Elevated white blood cell count, unspecified Status: Acute Assessment and Plan: 1. Leukocytosis, CAP most likely. WBC still slightly elevated at 11 2. 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 PCN and sulfa allergies, tolerating carbapenem REC Ertapenem and doxy x 7 day course, through AM 08/18. Then resume cephalexin suppression. Subjective Date/time seen: 08/17/19 07:06 Interval history: no dyspnea sputum abd pain n/v Exam Narrative: Exam Narrative: afebrile Const: General: no acute distress Eyes: General: appearance normal, both eyes and all related structures Resp: Effort & Inspection: normal respiratory effort Auscultation: rales Other: bilateral rales, 1/2 up on left and 1/3 up on right. Breath sounds vesicular Cardio: Rate: regular rate Rhythm: regular rhythm Heart sounds: no murmurs GI: Inspection: non-distended GI Palp: Yes Soft to palpation, No Tenderness to palpation present (GI) and No Guarding due to palpation present (GI) Urinary Catheter: Urinary Catheter: patent and draining and urine clear Skin: General skin exam: normal color and no rashes or lesions noted Objective Data Vital Signs Vital Signs: Vital Signs - 24 hr 08/16/19 09:07 08/16/19 14:00 08/16/19 18:07 Temperature 36.5 C Pulse Rate 68 60 64 Respiratory Rate 16 Blood Pressure 147/71 H Pulse Oximetry 95 08/16/19 22:00 08/17/19 06:00 Temperature 37.0 C 37.1 C Pulse Rate 60 60 Respiratory Rate 18 18 Blood Pressure 121/41 L 154/51 H Pulse Oximetry 96 93 Intake/Output Intake/Output: Intake & Output 08/14/19 08/15/19 08/16/19 08/17/19 23:59 23:59 23:59 23:59 Intake Total 1105 1590 1230 300 Output Total 1200 1650 1950 950 Balance -95 -60 -720 -650 Meds/Results Medications: Active Medications Generic Name Dose Route Start Last Admin Trade Name Freq PRN Reason Stop Dose Admin Acetaminophen 650 mg 08/09/19 14:28 08/10/19 19:02 Tylenol Tablet PO 650 mg Q4H PRN Administration Pain or Fever Hydrocodone Bitart/Acetaminophen 1 tab 08/11/19 13:10 08/16/19 17:06 [place] 7.5-325 Mg PO 1 tab Q4H PRN Administration Pain Rated 4-6 Amiodarone HCl 200 mg 08/09/19 18:00 08/16/19 18:07 Pacerone PO 200 mg QPM JORDIN Administration Apixaban 5 mg 08/09/19 17:00 08/16/19 17:06 Eliquis PO 5 mg BID [facility]ORD[facility] Administration Ascorbic Acid 1,000 mg 08/10/19 09:00 08/16/19 09:07 Vitamin C PO 1,000 mg DAILY [facility] Administration Aspirin 81 mg 08/10/19 09:00 08/16/19 09:07 Aspirin Ec PO 81 mg DAILY [facility] Administration Benzocaine 1 applic 08/12/19 13:21 08/13/19 06:35 Anbesol Maximum Strength Gel BY MOUTH 1 applic QID PRN Administration Oral Pain Bisacodyl 10 mg 08/15/19 18:23 08/16/19 05:59 Dulcolax Suppository RECTAL 10 mg BID PRN Administration Constipation Doxycycline Hyclate 100 mg 08/09/19 21:00 08/16/19 21:38 Vibramycin Tab PO 100 mg Q12HR [facility] Administration Ezetimibe 10 mg 08/09/19 17:00 08/16/19 17:06 Zetia BY MOUTH 10 mg 1700 [facility] Administration Famotidine 20 mg 08/13/19 09:00 08/16/19 21:38 Pepcid Iv IV PUSH 20 mg Q12HR [facility] Administration Ferrous Sulfate 324 mg 08/14/19 11:30 08/16/19 17:06 Ferrous Sulfate PO 324 mg 1130,1630 [facility] Administration Fluticasone Propionate 1 spray 08/09/19 11:28 08/13/19 08:52 Flonase 0.05% Nasal [place] NASAL 1 spray DAILY PRN Administration Allergy Symptoms Gabapentin 300 mg 08/09/19 14:00 08/17/19 06:38 Neurontin PO 300 mg Q8HR [facility] Administration Guaifenesin 1,200 mg 08/09/19 21:00 08/16/19 21:37 Mucinex 12 Hr Tab PO 1,200 mg Q12HR [facility] Administration Hyoscyamine 0.125 mg
--- NOTE | 2019-08-17 09:09 | PM.IMPN ---
Progress Note: A&P Assessment and Plan (1) Pneumonia: Qualifiers: Laterality: bilateral Lung location: lower lobe of lung Pneumonia type: due to unspecified organism Qualified Code(s): J18.9 - Pneumonia, unspecified organism Code(s): J18.9 - Pneumonia, unspecified organism Status: Acute Assessment and Plan: CXR revealed bibasilar opacities. She also reported a cough with blood-tinged sputum which has resolved. Chest CT was performed which revealed small pleural effusions with passive atelectasis in the lower lobes and scattered patchy airspace opacities in the upper lobes, likely infectious or inflammatory. SARS-CoV-2 testing was negative. Sputum culture was negative. Noted as bibasilar airspace consolidation possibly atelectasis vs pneumonia on CT. She was on IV ceftriaxone and PO doxycycline initially which was switched to IV ertapenem 08/13/19 (for ESBL coverage due to UTI). WBC is 11,200 today with slight increase and CRP is trending down. Dr. Ramsay is on board and recommends we continue IV ertapenem and PO doxycycine until 08/19/19. She is stable on room air and her cough has resolved. She is afebrile. Continue to monitor and trend labs. (2) Acute UTI: Code(s): N39.0 - Urinary tract infection, site not specified Status: Acute Assessment and Plan: She reported that her urine was very cloudy with the appearance of milk prior to admission. UA was suspicious for UTI. Sepsis was documented in the ER, however, patient only has leukocytosis; no documented fever, tachypnea, or tachycardia. No lactic acidosis. She is s/p cystoscopy with left ureteral stent replacement per Dr. Lal on 08/05. Urology is on board and recommendations are greatly appreciated. Final urine cultures were negative which is likely due to suppressive cephalexin which she was on prior to admission. She is currently on IV ertapenem (initiated 08/12). Her urine has cleared and is clear yellow today. WBC is 11.2 (slightly increased, 11.0 yesterday) and CRP is trending down. Dr. Ramsay is on board and recommendations are greatly appreciated. Plan to continue IV ertapenem until 08/19/19 and then resume suppressive cephalexin. Continue to monitor. (3) Anemia: Qualifiers: Anemia type: iron deficiency Iron deficiency anemia type: unspecified iron deficiency Qualified Code(s): D50.9 - Iron deficiency anemia, unspecified Code(s): D64.9 - Anemia, unspecified Status: Acute Assessment and Plan: Microcytic. She initially complained of blood tinged sputum which resolved. She also reported hematuria since urethral stent was placed which also appears to have resolved as urine appears clear. Hemoccult stool which was positive for blood. She underwent EGD by Dr. Gutierrez which was negative for an UGI source of bleeding. She will need colonoscopy outpatient per Dr. Gutierrez once she has recovered from her acute illness. She does have chronic anemia with Hb between 8.9-9.8 last hospital stay. Acute blood loss on anemia of chronic disease is suspected. She recieved 1 unit PRBC 08/12/19. Iron studies revealed evidence of severe iron deficiency so she received IV venofer and is now on ferrous sulfate. Her anemia has stabilized as Hb is 8.7 and Hct 28.4 today. Continue ferrous sulfate. Monitor H&H and transfuse PRN to maintain Hb >7. (4) Hydronephrosis: Qualifiers: Hydronephrosis type: with ureteropelvic junction obstruction Qualified Code(s): Q62.11 - Congenital occlusion of ureteropelvic junction Code(s): N13.30 - Unspecified hydronephrosis Status: Acute Assessment and Plan: Due to ureteral obstruction due to spinal hardware s/p left ureteral stent replacement per Dr. Lal on 08/05. Urology consulted form the ER; appreciate recommendations. Continue follow-up with urology outpatient. Gonzalez is in place and is draining clear yellow urine. Plan for suppressive cephalexin once she complet
--- NOTE | 2019-08-17 09:32 | WPDGIPROGNO ---
Progress Note: A&P Additional Plan patient comfortable this morning. Offers no specific complaints. Denies abdominal pain. No obvious blood in her stools. Physical exam reveals her to be alert. Comfortable at rest. Vital signs are stable. Lungs reveal a few rhonchi. Heart without murmur. Abdomen is soft and nontender with no organomegaly. Extremities with left [id number] amputation. Impression 1. Anemia likely multifactorial. Occult blood in stool noted. Plan is for elective outpatient colonoscopy when she is stronger. EGD during this admission was unremarkable. 2. Left BKA. 3. Pneumonia. 4. Atrial fibrillation on anticoagulation. 5. History of blood clotting for which she requires anticoagulation. 6. Ureteral stent. Hydronephrosis an UTI. With hematuria and identified. This gradually improving. Subjective Date/time seen: 08/17/19 09:32 Objective Data Vital Signs Vital Signs: Vital Signs - 24 hr 08/16/19 14:00 08/16/19 18:07 08/16/19 22:00 Temperature 36.5 C 37.0 C Pulse Rate 60 64 60 Respiratory Rate 16 18 Blood Pressure 147/71 H 121/41 L Pulse Oximetry 95 96 08/17/19 06:00 Temperature 37.1 C Pulse Rate 60 Respiratory Rate 18 Blood Pressure 154/51 H Pulse Oximetry 93 Intake/Output Intake/Output: Intake & Output 08/14/19 08/15/19 08/16/19 08/17/19 23:59 23:59 23:59 23:59 Intake Total 1105 1590 1230 300 Output Total 1200 1650 1950 950 Balance -95 -60 -720 -650 Meds/Results Medications: Active Medications Generic Name Dose Route Start Last Admin Trade Name Freq PRN Reason Stop Dose Admin Acetaminophen 650 mg 08/09/19 14:28 08/10/19 19:02 Tylenol Tablet PO 650 mg Q4H PRN Administration Pain or Fever Hydrocodone Bitart/Acetaminophen 1 tab 08/11/19 13:10 08/16/19 17:06 [place] 7.5-325 Mg PO 1 tab Q4H PRN Administration Pain Rated 4-6 Amiodarone HCl 200 mg 08/09/19 18:00 08/16/19 18:07 Pacerone PO 200 mg QPM JORDIN Administration Apixaban 5 mg 08/09/19 17:00 08/16/19 17:06 Eliquis PO 5 mg BID JORDIN Administration Ascorbic Acid 1,000 mg 08/10/19 09:00 08/16/19 09:07 Vitamin C PO 1,000 mg DAILY JORDIN Administration Aspirin 81 mg 08/10/19 09:00 08/16/19 09:07 Aspirin Ec PO 81 mg DAILY JORDIN Administration Benzocaine 1 applic 08/12/19 13:21 08/13/19 06:35 Anbesol Maximum Strength Gel BY MOUTH 1 applic QID PRN Administration Oral Pain Bisacodyl 10 mg 08/15/19 18:23 08/16/19 05:59 Dulcolax Suppository RECTAL 10 mg BID PRN Administration Constipation Doxycycline Hyclate 100 mg 08/09/19 21:00 08/16/19 21:38 Vibramycin Tab PO 100 mg Q12HR JORDIN Administration Ezetimibe 10 mg 08/09/19 17:00 08/16/19 17:06 Zetia BY MOUTH 10 mg 1700 JORDIN Administration Famotidine 20 mg 08/13/19 09:00 08/16/19 21:38 Pepcid Iv IV PUSH 20 mg Q12HR [facility] Administration Ferrous Sulfate 324 mg 08/14/19 11:30 08/16/19 17:06 Ferrous Sulfate PO 324 mg 1130,1630 JORDIN Administration Fluticasone Propionate 1 spray 08/09/19 11:28 08/13/19 08:52 Flonase 0.05% Nasal [place] NASAL 1 spray DAILY PRN Administration Allergy Symptoms Gabapentin 300 mg 08/09/19 14:00 08/17/19 06:38 Neurontin PO 300 mg Q8HR JORDIN Administration Guaifenesin 1,200 mg 08/09/19 21:00 08/16/19 21:37 Mucinex 12 Hr Tab PO 1,200 mg Q12HR JORDIN Administration Hyoscyamine 0.125 mg 08/09/19 13:00 Levsin Tablet PO QID PRN Bladder Spasms Ertapenem 1 gm in 50 mls @ 100 mls/hr 08/13/19 12:00 08/16/19 11:54 Invanz 1 Gm/Ns 50 Ml IVPB Infused Q24H JORDIN Infusion Lidocaine/Diphenhydr/Alum/Mg/Simeth 5 ml 08/12/19 17:00 08/17/19 06:38 First-Mouthwash Blm Suspension BY MOUTH 09/11/19 17:01 5 ml Q4HR JORDIN Administration Melatonin 20 mg 08/09/19 21:00 08/16/19 21:37 Melatonin PO 20 mg HS JORDIN Administration Metopro
[2019-08-17] MEDS: polyethylene glycoL 3350 17 GM POWD.PACK PO (09:51)
[2019-08-17] MEDS: APIXABAN 5 MG TABLET PO ×2 (09:52→17:02)
[2019-08-17] MEDS: ASPIRIN 81 MG ENTERIC TABLET PO (09:52)
[2019-08-17 09:53] VITALS: PULSE 64
[2019-08-17] MEDS: DOXYCYCLINE HYCLATE 100 MG TABLET PO ×2 (09:53→20:16)
[2019-08-17] MEDS: POTASSIUM CHLORIDE 20 MEQ PACKET (FOR LIQUID) PO (09:53)
[2019-08-17] MEDS: FAMOTIDINE 20 MG/2 ML VIAL IV PUSH ×2 (09:53→20:16)
[2019-08-17] MEDS: ASCORBIC ACID 500 MG TABLET 1000 MG PO (09:53)
[2019-08-17] MEDS: OXYBUTYNIN CHLORIDE 5 MG TABLET PO ×3 (09:53→17:02)
[2019-08-17] MEDS: METOPROLOL SUCCINATE EXT REL 25 MG TABCR PO (09:53)
[2019-08-17] MEDS: SENNOSIDES 8.6 MG TABLET PO (09:54)
[2019-08-17] MEDS: FERROUS SULFATE 324 MG TABLET PO ×2 (11:10→17:02)
[2019-08-17] MEDS: ERTAPENEM 1 GM/NS 50 ML 1 GM/50 ML BAG IVPB (12:05)
[2019-08-17 14:00] VITALS: BP 138/51; PULSE 60; RESP 16; TEMP 36.3; O2SAT 98
[2019-08-17] MEDS: EZETIMIBE 10 MG TABLET BY MOUTH (17:01)
[2019-08-17 17:02] VITALS: PULSE 68
[2019-08-17] MEDS: AMIODARONE HCL 200 MG TABLET PO (17:02)
[2019-08-17] MEDS: MELATONIN 5 MG TABLET 20 MG PO (20:15)
[2019-08-17 22:00] VITALS: BP 135/51; PULSE 60; RESP 16; TEMP 37.1; O2SAT 97
[2019-08-18] MEDS: GABAPENTIN 300 MG CAPSULE PO ×3 (05:55→21:00)
[2019-08-18] MEDS: MAGNES & ALUM HYD/SIMETH/DIPHENHYD/LIDOCAINE 119 ML MOUTHWASH BY MOUTH ×4 (05:55→20:54)
[2019-08-18 06:00] VITALS: BP 152/50; PULSE 59; RESP 16; TEMP 36.6; O2SAT 97
[2019-08-18 06:14] LABS: Basophils Percent Auto 0.3 % (0.2-1.2); Eosinophils Absolute Auto 0.1 K/mm3 (0-0.3); Eosinophils Percent Auto 0.9 % (0-4.4); Hematocrit 28.9 % (37.0-47.0); Hemoglobin 8.9 g/dL (12.0-15.0); Immature Granulocyte Absolute 0.09 K/mm3 (0.00-0.031); Immature Granulocyte Percent A 0.8 % (0-0.5); Lymphocytes Absolute Auto 1.96 K/mm3 (0.9-3.2); Lymphocytes Percent Auto 17.1 % (18.3-44.2); Mean Corpuscular HGB Conc 30.8 g/dl (32-36); Mean Corpuscular Hemoglobin 24.7 pg (26-34); Mean Corpuscular Volume 80.3 fl (80-100); Mean Platelet Volume 8.6 fl (7.4-10.4); Monocytes Absolute Auto 0.8 K/mm3 (0.1-0.6); Monocytes Percent Auto 6.6 % (2.6-8.5); Neutrophils Absolute Auto 8.5 K/mm3 (1.3-6.7); Neutrophils Percent Auto 74.3 % (45.5-73.1); Platelet Count Result 597 k/mm3 (150-375); Red Cell Distribution Width 21.7 % (11.5-14.5); White Blood Count 11.4 K/mm3 (4.5-10.0)
[2019-08-18 06:31] LABS: Blood Urea Nitrogen 12 mg/dL (7-17); CRP 7.4 mg/dL (<1.0); Calcium 7.9 mg/dL (8.4-10.2); Carbon Dioxide 22 mmol/L (22-30); Chloride 111 mmol/L (98-107); Estimated CRCL calculation 40 ml/min; Estimated Glomerular Filt Rate > 60; Glucose 95 mg/dL (65-105); Potassium 3.7 mmol/L (3.4-5.0); Sodium 138 mmol/L (137-145)
[2019-08-18 09:03] VITALS: BP 130/49; PULSE 63; RESP 18; TEMP 36.6; O2SAT 94
[2019-08-18] MEDS: polyethylene glycoL 3350 17 GM POWD.PACK PO (09:06)
[2019-08-18] MEDS: ASPIRIN 81 MG ENTERIC TABLET PO (09:08)
[2019-08-18] MEDS: OXYBUTYNIN CHLORIDE 5 MG TABLET PO ×3 (09:08→18:21)
[2019-08-18] MEDS: ASCORBIC ACID 500 MG TABLET 1000 MG PO (09:08)
[2019-08-18] MEDS: APIXABAN 5 MG TABLET PO ×2 (09:08→18:21)
[2019-08-18 09:09] VITALS: PULSE 63
[2019-08-18] MEDS: METOPROLOL SUCCINATE EXT REL 25 MG TABCR PO (09:09)
[2019-08-18] MEDS: SENNOSIDES 8.6 MG TABLET PO (09:09)
[2019-08-18] MEDS: DOXYCYCLINE HYCLATE 100 MG TABLET PO ×2 (09:09→20:55)
[2019-08-18] MEDS: FAMOTIDINE 20 MG/2 ML VIAL IV PUSH ×2 (09:10→20:54)
--- NOTE | 2019-08-18 09:41 | PM.IMPN ---
Progress Note: A&P Assessment and Plan (1) Pneumonia: Qualifiers: Laterality: bilateral Lung location: lower lobe of lung Pneumonia type: due to unspecified organism Qualified Code(s): J18.9 - Pneumonia, unspecified organism Code(s): J18.9 - Pneumonia, unspecified organism Status: Acute Assessment and Plan: CXR revealed bibasilar opacities. She also reported a cough with blood-tinged sputum which has resolved. Chest CT was performed which revealed small pleural effusions with passive atelectasis in the lower lobes and scattered patchy airspace opacities in the upper lobes, likely infectious or inflammatory. SARS-CoV-2 testing was negative. Sputum culture was negative. She was on IV ceftriaxone and PO doxycycline initially. IV ceftriaxone which switched to IV ertapenem 08/13/19 (for ESBL coverage due to UTI). WBC is 11,400 today with a slight increase and CRP continues to trend down. Dr. Ramsay is on board and recommends we continue IV ertapenem and PO doxycycine until 08/19/19. She is stable on room air and her cough has resolved. She is afebrile. Continue to monitor and trend labs. (2) Acute UTI: Code(s): N39.0 - Urinary tract infection, site not specified Status: Acute Assessment and Plan: She reported that her urine was very cloudy with the appearance of milk prior to admission. UA was suspicious for UTI. Sepsis was documented in the ER, however, patient only has leukocytosis without a documented fever, tachypnea, or tachycardia. No lactic acidosis. She is s/p cystoscopy with left ureteral stent replacement per Dr. Lal on 08/05. Urology is on board and recommendations are greatly appreciated. Final urine cultures were negative which is likely due to suppressive cephalexin which she was on prior to admission. She is currently on IV ertapenem (initiated 08/12). Her ren was removed yesterday and she is voiding without difficulty. WBC is 11.4 (slightly increased, 11.2 yesterday) and CRP is trending down. Dr. Ramsay is on board and recommendations are greatly appreciated. Plan to continue IV ertapenem until 08/19/19 and then resume suppressive cephalexin. Continue to monitor. (3) Anemia: Qualifiers: Anemia type: iron deficiency Iron deficiency anemia type: unspecified iron deficiency Qualified Code(s): D50.9 - Iron deficiency anemia, unspecified Code(s): D64.9 - Anemia, unspecified Status: Acute Assessment and Plan: Normocytic. She initially complained of blood tinged sputum which resolved. She also reported hematuria since urethral stent was placed which also appears to have resolved as urine appears clear. Hemoccult stool which was positive for blood. She underwent EGD by Dr. Gutierrez which was negative for an UGI source of bleeding. She will need colonoscopy outpatient per Dr. Gutierrez once she has recovered from her acute illness. She does have chronic anemia with Hb between 8.9-9.8 last hospital stay. Acute blood loss on anemia of chronic disease is suspected. She recieved 1 unit PRBC 08/12/19. Iron studies revealed evidence of severe iron deficiency so she received IV venofer and is now on ferrous sulfate. Her anemia has stabilized as Hb is 8.9 and Hct 28.9 today. Continue ferrous sulfate. Monitor H&H and transfuse PRN to maintain Hb >7. (4) Hydronephrosis: Qualifiers: Hydronephrosis type: with ureteropelvic junction obstruction Qualified Code(s): Q62.11 - Congenital occlusion of ureteropelvic junction Code(s): N13.30 - Unspecified hydronephrosis Status: Acute Assessment and Plan: Due to ureteral obstruction due to spinal hardware s/p left ureteral stent replacement per Dr. Lal on 08/05. Urology consulted form the ER; appreciate recommendations. Continue follow-up with urology outpatient. Urology recommended ren removal and voiding trial so that was performed yesterday (08/17/19) and she is voiding without difficulty. Plan
--- NOTE | 2019-08-18 13:50 | PCOTNOTE ---
Attempted to see patient for skilled OT, however, patient sleeping upon therapist arrival and declined to participate in any ADLs or functional mobility at this time. Will continue plan of care tomorrow, 08/19/2019.
[2019-08-18 14:00] VITALS: BP 130/59; PULSE 60; RESP 18; TEMP 36.4; O2SAT 97
[2019-08-18] MEDS: FERROUS SULFATE 324 MG TABLET PO ×2 (14:04→18:21)
[2019-08-18] MEDS: ERTAPENEM 1 GM/NS 50 ML 1 GM/50 ML BAG IVPB (14:04)
--- NOTE | 2019-08-18 16:25 | PCDIET ---
Nutrition Follow-Up Complete: Inadequate Oral Intake as related to pneumonia as evidenced by weight loss of 40 lbs in 5 months and poor po intake reported. Adequate Intake of at least 75% of meals/supplements Goal:Goal met. Continue with current goal. Pt current nutrition is Regular. Nutrition recommendation: Agree Last recorded weight is 54.8 kg (recommend new wt) Bowel Motility:Last BM Saturday (motility agents senna, miralax) Labs Reviewed: 7.4 C Reactive Meds Noted: Gabapentin, Pacerone, Vit C, Fe, Dulcolax, Senna, Miralax Additional Notes: Pt eating well on appropriate diet. Motility agents on board. No new wt to assess. We will continue to monitor for adequate intake every five days.
[2019-08-18 18:22] VITALS: PULSE 60
[2019-08-18] MEDS: EZETIMIBE 10 MG TABLET BY MOUTH (18:22)
[2019-08-18] MEDS: AMIODARONE HCL 200 MG TABLET PO (18:22)
[2019-08-18 20:00] VITALS: BP 147/51; PULSE 61; RESP 16; TEMP 37.1; O2SAT 98
[2019-08-18] MEDS: MELATONIN 5 MG TABLET 20 MG PO (20:54)
[2019-08-18] MEDS: ACETAMINOPHEN 325 MG TABLET 650 MG PO (23:19)
[2019-08-19] MEDS: MAGNES & ALUM HYD/SIMETH/DIPHENHYD/LIDOCAINE 119 ML MOUTHWASH BY MOUTH ×2 (05:19→09:48)
[2019-08-19] MEDS: GABAPENTIN 300 MG CAPSULE PO (05:19)
[2019-08-19 06:00] VITALS: BP 107/69; PULSE 62; RESP 20; TEMP 36.6; O2SAT 97
[2019-08-19 06:20] LABS: Basophils Percent Auto 0.3 % (0.2-1.2); Eosinophils Absolute Auto 0.1 K/mm3 (0-0.3); Eosinophils Percent Auto 0.9 % (0-4.4); Hematocrit 33.1 % (37.0-47.0); Immature Granulocyte Absolute 0.07 K/mm3 (0.00-0.031); Immature Granulocyte Percent A 0.7 % (0-0.5); Lymphocytes Absolute Auto 1.76 K/mm3 (0.9-3.2); Lymphocytes Percent Auto 18.3 % (18.3-44.2); Mean Corpuscular HGB Conc 30.2 g/dl (32-36); Mean Corpuscular Hemoglobin 24.8 pg (26-34); Mean Corpuscular Volume 82.1 fl (80-100); Mean Platelet Volume 8.5 fl (7.4-10.4); Monocytes Absolute Auto 0.7 K/mm3 (0.1-0.6); Monocytes Percent Auto 7.1 % (2.6-8.5); Neutrophils Percent Auto 72.7 % (45.5-73.1); Platelet Count Result 621 k/mm3 (150-375); Red Blood Count 4.03 M/mm3 (4.2-5.4); Red Cell Distribution Width 22.3 % (11.5-14.5); White Blood Count 9.6 K/mm3 (4.5-10.0)
[2019-08-19 06:33] LABS: Blood Urea Nitrogen 9 mg/dL (7-17); Calcium 7.9 mg/dL (8.4-10.2); Carbon Dioxide 24 mmol/L (22-30); Chloride 111 mmol/L (98-107); Estimated CRCL calculation 44 ml/min; Estimated Glomerular Filt Rate > 60; Glucose 93 mg/dL (65-105); Potassium 3.6 mmol/L (3.4-5.0); Sodium 139 mmol/L (137-145)
--- NOTE | 2019-08-19 09:39 | PM.DS ---
DS: Admitting Diagnosis Admitting Diagnosis Admitting Diagnosis: Urinary tract infection, site not specified DS: Discharge Diagnosis Discharge Diagnosis (1) Pneumonia: Qualifiers: Laterality: bilateral Lung location: lower lobe of lung Pneumonia type: due to unspecified organism Qualified Code(s): J18.9 - Pneumonia, unspecified organism Code(s): J18.9 - Pneumonia, unspecified organism Status: Acute (2) Acute UTI: Code(s): N39.0 - Urinary tract infection, site not specified Status: Acute (3) Anemia: Qualifiers: Anemia type: iron deficiency Iron deficiency anemia type: unspecified iron deficiency Qualified Code(s): D50.9 - Iron deficiency anemia, unspecified Code(s): D64.9 - Anemia, unspecified Status: Acute (4) Hydronephrosis: Qualifiers: Hydronephrosis type: with ureteropelvic junction obstruction Qualified Code(s): Q62.11 - Congenital occlusion of ureteropelvic junction Code(s): N13.30 - Unspecified hydronephrosis Status: Chronic (5) Hypertension: Qualifiers: Hypertension type: essential hypertension Qualified Code(s): I10 - Essential (primary) hypertension Code(s): I10 - Essential (primary) hypertension Status: Acute (6) History of thrombosis of lower extremity: Code(s): Z86.718 - Personal history of other venous thrombosis and embolism Status: Acute (7) 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: Qualifiers: Encounter type: sequela Qualified Code(s): S88.112S - Complete traumatic amputation at level between knee and ankle, left lower leg, sequela Code(s): S88.112A - Complete traumatic amputation at level between knee and ankle, left lower leg, initial encounter Status: Acute (8) Chronic low back pain: Qualifiers: Back pain laterality: midline Sciatica presence: unspecified whether sciatica present Qualified Code(s): M54.5 - Low back pain; G89.29 - Other chronic pain Code(s): M54.5 - Low back pain; G89.29 - Other chronic pain Status: Chronic (9) Mixed hyperlipidemia: Code(s): E78.2 - Mixed hyperlipidemia Status: Chronic (10) ELIZABETH (acute kidney injury): Code(s): N17.9 - Acute kidney failure, unspecified Status: Resolved (11) Atrial fibrillation: Qualifiers: Atrial fibrillation type: unspecified Qualified Code(s): I48.91 - Unspecified atrial fibrillation Code(s): I48.91 - Unspecified atrial fibrillation Status: Chronic (12) Neuropathic pain: Code(s): M79.2 - Neuralgia and neuritis, unspecified Status: Acute (13) Hyponatremia: Code(s): E87.1 - Hypo-osmolality and hyponatremia Status: Resolved (14) Pre-diabetes: Code(s): R73.03 - Prediabetes Status: Chronic Assessment and Plan: Prediabetes documented in EMR. Appears to be diet controlled; no meds. Hemoglobin A1c was 5.5. FBS on daily labs is at target. Lifestyle intervention was encouarged. (15) Suspected 2019-nCoV infection: Code(s): Z20.828 - Contact with and (suspected) exposure to other viral communicable diseases Status: Ruled-out Assessment and Plan: SARS-CoV-2 virus testing was performed and was negative 08/09/19. DS: Summary Hospital Course Hospital Course: Mrs. Peng is a 78 y.o. female with a complex medical history including atrial fibrillation (rate controlled, on eliquis), PAD with LLE ischemia s/p left AKA 05/2019 due to wound complications after left BKA, ureteral obstruction due to spinal hardware with left renal stent in place, and multiple other comorbidities who presented to the emergency department with a c/o fever up to 101.3F x1 day. She also reported that her urine looked like milk and reported urgency and dysuria. She also reported a slightly productive cough. Initial workup in the ED revealed WBC 12,300 with a neutrophil pr
[2019-08-19] MEDS: METOPROLOL SUCCINATE EXT REL 25 MG TABCR PO (09:45)
[2019-08-19] MEDS: OXYBUTYNIN CHLORIDE 5 MG TABLET PO ×2 (09:45→12:17)
[2019-08-19] MEDS: ASPIRIN 81 MG ENTERIC TABLET PO (09:46)
[2019-08-19] MEDS: DOXYCYCLINE HYCLATE 100 MG TABLET PO (09:46)
[2019-08-19] MEDS: ASCORBIC ACID 500 MG TABLET 1000 MG PO (09:46)
[2019-08-19] MEDS: SENNOSIDES 8.6 MG TABLET PO (09:46)
[2019-08-19] MEDS: FAMOTIDINE 20 MG/2 ML VIAL IV PUSH (09:47)
[2019-08-19] MEDS: APIXABAN 5 MG TABLET PO (09:47)
[2019-08-19] MEDS: ERTAPENEM 1 GM/NS 50 ML 1 GM/50 ML BAG IVPB (12:04)
[2019-08-19] MEDS: FERROUS SULFATE 324 MG TABLET PO (12:05)
--- NOTE | 2019-08-19 12:26 | WPDPN ---
Progress Note: A&P Assessment and Plan (1) Leukocytosis: Qualifiers: Leukocytosis type: unspecified Qualified Code(s): D72.829 - Elevated white blood cell count, unspecified Code(s): D72.829 - Elevated white blood cell count, unspecified Status: Acute Assessment and Plan: 1. Leukocytosis, CAP most likely. WBC back to normal 2. 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 PCN and sulfa allergies, tolerating carbapenem REC Ertapenem and doxy completed, ok discharge, resume cephalexin suppression tomorrow. Exam Narrative: Exam Narrative: afebrile Const: General: comfortable and no acute distress Eyes: General: appearance normal, both eyes and all related structures Skin: General skin exam: normal color and no rashes or lesions noted Objective Data Vital Signs Vital Signs: Vital Signs - 24 hr 08/18/19 14:00 08/18/19 18:22 08/18/19 20:00 Temperature 36.4 C 37.1 C Pulse Rate 60 60 61 Respiratory Rate 18 16 Blood Pressure 130/59 L 147/51 H Pulse Oximetry 97 98 08/19/19 06:00 Temperature 36.6 C Pulse Rate 62 Respiratory Rate 20 Blood Pressure 107/69 Pulse Oximetry 97 Intake/Output Intake/Output: Intake & Output 08/16/19 08/17/19 08/18/19 08/19/19 23:59 23:59 23:59 23:59 Intake Total 1230 1570 1300 740 Output Total 1950 1950 1200 1400 Balance -720 -380 100 -660 Meds/Results Medications: Active Medications Generic Name Dose Route Start Last Admin Trade Name Guilleq PRN Reason Stop Dose Admin Acetaminophen 650 mg 08/09/19 14:28 08/18/19 23:19 Tylenol Tablet PO 650 mg Q4H PRN Administration Pain or Fever Hydrocodone Bitart/Acetaminophen 1 tab 08/11/19 13:10 08/19/19 12:07 [place] 7.5-325 Mg PO 1 tab Q4H PRN Administration Pain Rated 4-6 Amiodarone HCl 200 mg 08/09/19 18:00 08/18/19 18:22 Pacerone PO 200 mg QPM JORDIN Administration Apixaban 5 mg 08/09/19 17:00 08/19/19 09:47 Eliquis PO 5 mg BID JORDIN Administration Ascorbic Acid 1,000 mg 08/10/19 09:00 08/19/19 09:46 Vitamin C PO 1,000 mg DAILY JORDIN Administration Aspirin 81 mg 08/10/19 09:00 08/19/19 09:46 Aspirin Ec PO 81 mg DAILY JORDIN Administration Benzocaine 1 applic 08/12/19 13:21 08/13/19 06:35 Anbesol Maximum Strength Gel BY MOUTH 1 applic QID PRN Administration Oral Pain Bisacodyl 10 mg 08/15/19 18:23 08/16/19 05:59 Dulcolax Suppository RECTAL 10 mg BID PRN Administration Constipation Doxycycline Hyclate 100 mg 08/09/19 21:00 08/19/19 09:46 Vibramycin Tab PO 100 mg Q12HR [facility] Administration Ezetimibe 10 mg 08/09/19 17:00 08/18/19 18:22 Zetia BY MOUTH 10 mg 1700 JORDIN Administration Famotidine 20 mg 08/13/19 09:00 08/19/19 09:47 Pepcid Iv IV PUSH 20 mg Q12HR [facility] Administration Ferrous Sulfate 324 mg 08/14/19 11:30 08/19/19 12:05 Ferrous Sulfate PO 324 mg 1130,1630 [facility] Administration Fluticasone Propionate 1 spray 08/09/19 11:28 08/13/19 08:52 Flonase 0.05% Nasal [place] NASAL 1 spray DAILY PRN Administration Allergy Symptoms Gabapentin 300 mg 08/09/19 14:00 08/19/19 05:19 Neurontin PO 300 mg Q8HR [facility] Administration Guaifenesin 1,200 mg 08/09/19 21:00 08/19/19 09:46 Mucinex 12 Hr Tab PO 1,200 mg Q12HR [facility] Administration Hyoscyamine 0.125 mg 08/09/19 13:00 Levsin Tablet PO QID PRN Bladder Spasms Ertapenem 1 gm in 50 mls @ 100 mls/hr 08/13/19 12:00 08/19/19 12:04 Invanz 1 Gm/Ns 50 Ml IVPB 100 mls/hr Q24H JORDIN Administration Lidocaine/Diphenhydr/Alum/Mg/Simeth 5 ml 08/12/19 17:00 08/19/19 12:17 First-Mouthwash Blm Suspension BY MOUTH 09/11/19 17:01 Not Given Q4HR JORDIN Melatonin 20 mg 08/09/19 21:00 08/18/19 20:54 Melatonin PO 20 mg HS JORDIN Administration Metoprolol Succinate 25 mg 08/10/19 09:00 08/19/19 09:45 Toprol Xl PO 25 mg DAILY JORDIN Administration
--- NOTE | 2019-08-19 14:22 | PC.NURSE ---
Pt is A&O x 4. Pt is discharging today. Pt has had IV removed, and all discharge paperwork has been reviewed with pt and her . Opportunity for questions provided, and both exhibited a good understanding of discharge instructions. Pt assisted to w/c by staff and to the front door of the facility, to get her ride.
== END 2019-08-19 14:20 | disposition home health service (06) | DRG 194 ==
LOC: ANHED 08:36 → ANH3MEDSUR 11:01
PROVIDERS: Emergency Medicine; Internal Medicine Gastroenterology; Physician Assistant; Admitting Provider Internal Medicine; Emergency Provider General Practice; PCP Nurse Practitioner Family; Visit Provider Physician Assistant
PROC: 0DJ08ZZ Inspection of Upper Intestinal Tract, Via Natural or Artificial Opening Endoscopic (ICD-10-PCS; CPT 43235; principal; 2019-08-14 11:30)
DX: J18.9 Pneumonia, unspecified organism (principal); N17.9 Acute kidney failure, unspecified; N39.0 Urinary tract infection, site not specified; N13.39 Other hydronephrosis; E87.1 Hypo-osmolality and hyponatremia; D62 Acute posthemorrhagic anemia; Z20.828 Contact with and (suspected) exposure to other viral communicable diseases; D72.829 Elevated white blood cell count, unspecified; M79.2 Neuralgia and neuritis, unspecified; D50.9 Iron deficiency anemia, unspecified; I12.9 Hypertensive chronic kidney disease with stage 1 through stage 4 chronic kidney disease, or unspecified chronic kidney disease; N18.9 Chronic kidney disease, unspecified; M54.5 Low back pain; G89.29 Other chronic pain; I48.91 Unspecified atrial fibrillation; R73.03 Prediabetes; I73.9 Peripheral vascular disease, unspecified; I25.10 Atherosclerotic heart disease of native coronary artery without angina pectoris; K58.9 Irritable bowel syndrome, unspecified; E78.2 Mixed hyperlipidemia; D63.1 Anemia in chronic kidney disease; R31.9 Hematuria, unspecified; E86.0 Dehydration; R19.5 Other fecal abnormalities; Z96.651 Presence of right artificial knee joint; Z86.718 Personal history of other venous thrombosis and embolism; Z89.612 Acquired absence of left leg above knee; Z85.820 Personal history of malignant melanoma of skin; Z95.0 Presence of cardiac pacemaker; Z98.42 Cataract extraction status, left eye; Z98.41 Cataract extraction status, right eye; Z95.5 Presence of coronary angioplasty implant and graft; Z98.1 Arthrodesis status; Z90.49 Acquired absence of other specified parts of digestive tract; Z87.891 Personal history of nicotine dependence; Z79.01 Long term (current) use of anticoagulants; Z79.82 Long term (current) use of aspirin
CPT/HCPCS: 36415; 36430; 71045; 71046; 71250; 74176; 74420; 80048; 80053; 81001; 82274; 82570; 82728; 83036; 83540; 83550; 83605; 83615; 83735; 84300; 85014; 85018; 85025; 85610; 85730; 86140; 86850; 86900; 86901; 86923; 87040; 87070; 87081; 87086; 87205; 87449; 87635; 87880; 87899; 93005; 96365; 96367; 96375; 97110; 97116; 97161; 97165; 97530; 97535; 99285; A9270; C1758; C1769; C2617; C9803; J0456; J0690; J0696; J1335; J1756; J2270; J2704; J3010; J7030; J7050; J7120; P9016; Q9966; U0003

== ENCOUNTER 2019-10-13 09:54 | Outpatient (CLI) | payer MEDICARE, SELFPAY ==
--- NOTE | 2019-10-13 | ECG_ITS ---
Measurements Intervals [place] Rate: 61 P: 151 MN: 194 QRS: -30 QRSD: 135 T: 89 QT: 490 QTc: 494 Interpretive Statements ELECTRONIC ATRIAL PACEMAKER LEFT BUNDLE BRANCH BLOCK BASELINE ARTIFACT- I, II, III, AVR, AVL ,AVF ABNORMAL ECG Electronically Signed On 10-13-2019 13:38:40 CDT by Luis Layne D.O.
== END 2019-10-13 09:55 | disposition home or self-care (01) ==
PROVIDERS: PCP Family Medicine; Visit Provider Family Medicine
DX: R94.31 Abnormal electrocardiogram [ECG] [EKG] (principal); I44.7 Left bundle-branch block, unspecified
CPT/HCPCS: 93005

== ENCOUNTER 2019-11-03 00:15 | Outpatient (CLI) | payer MEDICARE, SELFPAY ==
[2019-11-03 17:25] LABS: SARS-CoV-2 RNA PCR Negative
== END 2019-11-03 00:16 | disposition home or self-care (01) ==
LOC: ANHCOVIDDT 00:15
PROVIDERS: PCP Family Medicine; Visit Provider Urology
DX: Z01.812 Encounter for preprocedural laboratory examination (principal); Z11.59 Encounter for screening for other viral diseases
CPT/HCPCS: 87635; C9803; U0003

== ENCOUNTER 2019-11-03 08:24 | Outpatient (CLI) | payer MEDICARE, SELFPAY ==
[2019-11-03 09:15] LABS: Hematocrit 39.6 % (37.0-47.0); Hemoglobin 12.4 g/dL (12.0-15.0)
[2019-11-03 09:25] LABS: INR 1.6; Prothrombin Time 18.4 Seconds (11.1-14.7)
[2019-11-03 09:26] LABS: Anion Gap 7 mmol/L (8-16); Blood Urea Nitrogen 21 mg/dL (7-17); Calcium 9.3 mg/dL (8.4-10.2); Carbon Dioxide 26 mmol/L (22-30); Chloride 103 mmol/L (98-107); Estimated Glomerular Filt Rate 48; Glucose 112 mg/dL (65-105); Partial Thromboplastin Time 47.3 SECONDS (22.3-36.8); Potassium 5.3 mmol/L (3.4-5.0); Sodium 136 mmol/L (137-145)
== END 2019-11-03 08:25 | disposition home or self-care (01) ==
PROVIDERS: Anesthesiology; PCP Family Medicine; Visit Provider Urology
DX: N18.9 Chronic kidney disease, unspecified (principal); D64.9 Anemia, unspecified
CPT/HCPCS: 36415; 80048; 85014; 85018; 85610; 85730; 87635; C9803; U0003

== ENCOUNTER 2019-11-05 01:17 | Day surgery (SDC) | payer MEDICARE, SELFPAY ==
[2019-10-29 14:40] VITALS: BMI 18.1
--- NOTE | 2019-10-30 09:58 | PM.IMHP ---
H&P: HPI History of Present Illness Date/Time: 10/30/19 09:58 Chief complaint: gross hematuria Narrative: Pleasant 79 yo female with chronic left hydronephrosis felt to be secondary to obstruction arising from spinal orthopedic hardware. This has been managed with an indwelling left ureteral stent. Review of Systems Cardiovascular: Cardiovascular: Denies chest pain, Denies lightheadedness, Denies palpitations and Denies dyspnea Respiratory: Respiratory: Denies dyspnea Gastrointestinal: Gastrointestinal: Denies diarrhea, Denies nausea and Denies vomiting Genitourinary: Genitourinary: Denies hematuria and Denies dysuria Endocrine: Endocrine: Denies palpitations [facility] Past Medical History Medical History Above knee amputation of left lower extremity Atrial fibrillation Benign essential hypertension CAD (coronary artery disease) Carotid bruit Chronic renal disease DVT (deep venous thrombosis) Fatty liver History of thrombosis of lower extremity Hx of adenomatous colonic polyps Hypertension Inflammatory bowel disease Kidney stones Melanoma Extracted from her face Menopausal and female climacteric states Microscopic colitis, unspecified Mixed hyperlipidemia Neuropathic pain 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 Thrombectomy femoral popliteal bypass 2010 angiogram with PTCA stent to left lower extremity February 2019 H/O breast biopsy Several biopsies both breast H/O cystoscopy H/O laminectomy Lumbar 1984 H/O left knee surgery 1989 H/O rectal polypectomy History of appendectomy 1953 History of back surgery History of coronary artery stent placement History of lumbar fusion 2015, lumbar fusion with hardware June of 2018 History of partial hysterectomy 1970 History of total right knee replacement (TKR) 2018 History of ureter stent Hx of cholecystectomy 1977 Peripheral vascular angioplasty status with implants and grafts S/P cubital tunnel release Right-sided 1997 and left 1995 Status post trigger finger release Left ring finger 1998 Family History Family History Mother Family history of cardiovascular disease Family history of elevated blood lipids Family history of osteoporosis Family history of coronary artery disease Hypertension Sibling Patient's brother is Family history of malignant neoplasm of breast in first degree relative Grandparent Family history of cardiovascular disease Sibling No problems noted. Other Family history of malignant neoplasm of male breast Family history of malignant neoplasm of ovary Family history of osteoarthritis Social History Social History Social History: The patient quit smoking August of 2013. She does not have a durable power chapter relations administrator for healthcare. She has 3 children. She lives with her and daughter. 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 Smoking packs per day: 1 Smoking cigarettes per day: 20.0 Years smoked: 40 Smoking pack-years: 40.00 Smoking status: Former smoker Tobacco type: cigarettes Second hand tobacco smoke exposure: No Smoking end date: 08/21/13 Alcohol intake: never Substance use: never Substance use type: prescription drug Gender identity (if verbalized by the patient): Female Spiritual care concerns: No Agree to blood products: Yes Meds Home Medications and Allergies Home Medications Medication Instructions Recorded Confirmed Type amiodarone 200 mg PO QPM 05/31/19
--- NOTE | ~2019-11-05 | XR_ITS ---
EXAMINATION: XR retrograde pyelo w/stent LT DATE: 11/05/2019 12:21 INDICATION: Left internal ureteral stent placement TECHNIQUE: Fluoroscopic images from a left internal ureteral stent placement are submitted for review . 45 seconds of fluoroscopy time. 43 fluoroscopic images FINDINGS: There is a left double-J internal ureteral stent projecting in expected position, with proximal Refugio loop at the level of the renal pelvis and distal loop in the pelvis within the bladder lumen. IMPRESSION: 1. Left internal ureteral stent placement. Please refer to real-time procedural findings for detail s. Reviewed, dictated and finalized at location B. IMPRESSION: 1. Left internal ureteral stent placement. Please refer to real-time procedur al findings for details.
--- NOTE | 2019-11-05 07:01 | WPDHPUPDATE1 ---
History and Physical Update Update Date/Time: 11/05/19 07:01 History and Physical has been reviewed, including an updated exam of the patient. There are NO changes in the patient's condition. Risks, benefits, and alternatives have been discussed and questions answered. Patient agrees to proceed with procedure.
[2019-11-05] MEDS: LACTATED RINGERS 1,000 ML 30 ML IV CONT (10:44)
--- NOTE | 2019-11-05 10:50 | WPDANESEPPF ---
Anes - Initial Pre Proc Eval Procedure: Operation Date: 11/05/19 12:00 Proposed Procedures p Cystoscopy, Left Ureteral Stent Exchange - Broderick Lal MD Date/Time: 11/05/19 10:50 Surgeon: Broderick Lal MD Pre Op Diagnosis: gross hematuria Patient Data Age: 79 Gender: F Height: 5 ft 4 in Weight: 46.8 kg Allergies Allergy/AdvReac Type Severity Reaction Status Date / Time sertraline Allergy Severe Joint Pain Verified 11/05/19 10:20 Sulfa (Sulfonamide Allergy Severe RASH Verified 11/05/19 10:20 Antibiotics) atorvastatin Allergy Intermediate Hives Verified 11/05/19 10:20 baclofen Allergy Intermediate tremors Verified 11/05/19 10:20 estradiol Allergy Intermediate Joint Verified 11/05/19 10:20 pain, swollen eyes & leg pain codeine Allergy Mild NAUSEA, Verified 11/05/19 10:20 RASH esomeprazole Allergy Mild CHEST PAIN Verified 11/05/19 10:20 lansoprazole Allergy Mild CHEST PAIN Verified 11/05/19 10:20 Penicillins Allergy Mild RASH Verified 11/05/19 10:20 iohexol Allergy Unknown Hives Verified 11/05/19 10:20 [From contrast - CT, X-RAY] metoclopramide Allergy Unknown Itching Verified 11/05/19 10:20 nebivolol Allergy Unknown Itching Verified 11/05/19 10:20 tolmetin Allergy Unknown Hives Verified 11/05/19 10:20 amitriptyline AdvReac Mild MUSCLE PAIN Verified 11/05/19 10:20 citalopram AdvReac Mild CHEST PAIN Verified 11/05/19 10:20 colesevelam AdvReac Mild Gastrointestinal Verified 11/05/19 10:20 Upset lisinopril AdvReac Mild NAUSEA/DIAR Verified 11/05/19 10:20 SU pravastatin AdvReac Mild Nausea Verified 11/05/19 10:20 Home Medications Medication Instructions Recorded Confirmed Type amiodarone 200 mg PO QPM 05/31/19 11/05/19 History apixaban 5 mg tablet 5 mg PO BID 05/31/19 11/05/19 History ascorbic acid (vitamin C) [Vitamin 1,000 mg PO DAILY 30 Days #60 05/31/19 11/05/19 Rx C] tablet aspirin 81 mg PO DAILY #30 tablet 05/31/19 11/05/19 Rx fluticasone propionate [Allergy 1 spray INTRANASAL DAILY PRN 30 05/31/19 11/05/19 Rx Relief (fluticasone)] Days #1 vial metoprolol succinate 25 mg 25 mg PO QAM 05/31/19 11/05/19 History tablet,extended release 24 hr polyethylene glycol 3350 [Miralax] 17 g PO QAM PRN #30 ea 05/31/19 11/05/19 Rx gabapentin 300 mg capsule 300 mg PO Q8H #270 cap 08/04/19 11/05/19 Rx prochlorperazine maleate 10 mg 10 mg PO Q8H PRN #30 tablet 08/04/19 11/05/19 Rx tablet oxybutynin chloride 5 mg PO TID 08/09/19 11/05/19 History albuterol sulfate 2 puff INHALATION BID PRN 10/29/19 11/05/19 History cephalexin 500 mg PO QPM 10/29/19 11/05/19 History docusate calcium 240 mg PO HS 10/29/19 11/05/19 History ezetimibe [Zetia] 10 mg PO QPM 10/29/19 11/05/19 History hydrocodone-acetaminophen 1 tablet PO BID PRN 10/29/19 11/05/19 History trimethoprim 100 mg PO HS 10/29/19 11/05/19 History Patient hx anesthesia problems: none Family hx anesthesia problems: none PMFSH Past Medical History Medical History Above knee amputation of left lower extremity Atrial fibrillation Benign essential hypertension CAD (coronary artery disease) Carotid bruit Chronic renal disease DVT (deep venous thrombosis) Fatty liver History of thrombosis of lower extremity Hx of adenomatous colonic polyps Hypertension Inflammatory bowel disease Kidney stones Melanoma Extracted from her face Menopausal and female climacteric states Microscopic colitis, unspecified Mixed hyperlipidemia Neuropathic pain On residential drug therapy Pacemaker Inserted 2014 Medtronic Peripheral vascular disease Pre-diabetes Statin intolerance Surgical History Surgical History Cataract extraction status 2014 H/O angioplasty Several to left lower extremity January 16, 2017 November 20, 2017. Thrombectomy femoral popliteal bypass 2009 angiogram with PTCA stent to left lower extr
[2019-11-05 11:05] VITALS: BP 145/67; PULSE 68; RESP 16; TEMP 36.6; O2SAT 100
[2019-11-05 11:09] LABS: INR 1.5; Prothrombin Time 17.8 Seconds (11.1-14.7)
[2019-11-05 11:10] LABS: Partial Thromboplastin Time 47.1 SECONDS (22.3-36.8)
[2019-11-05] MEDS: levoFLOXacin 500 MG/D5W 100 ML 500 MG/100 ML BAG 100 MG IVPB (11:45)
--- NOTE | 2019-11-05 12:13 | SUR.OPER ---
Urine culture handed off to Annita @ [id number]
[2019-11-05 12:25] VITALS: BP 96/52; PULSE 61; RESP 12; O2SAT 97
--- NOTE | 2019-11-05 12:30 | PM.PROC ---
Procedure Note - Detailed Date of procedure: 11/05/19 Pre-op diagnosis: gross hematuria Post-op diagnosis: same Procedure performed: Cystoscopy. left RPG, left ureteroscopy and left stent exchange. Description of procedure: Patient is brought to the operative suite received prepped and draped in routine sterile fashion while in a dorsal lithotomy position. Twenty-one F rigid cystoscope was placed in the bladder and tip of the indwelling stent is grasped and removed with ease. A 0.035 in glidewire is advanced number left renal pelvis. The 7.5 F digital ureteral scope was advanced in the proximal ureter. I can see the ureteropelvic junction where there is marked bullous edema. There is no obvious hardware in the renal pelvis but I can't get a good look. I did perform a retrograde pyelogram and there was no apparent extravasation of contrast. A 4.8 F variable length stent was replaced with the proximal coil in the renal pelvis and distal coil in the bladder. Anesthesia: GLMA Surgeon: Broderick Lal MD Drains: Yes (4.8F left ureteral stent) Packing: No Pathology: yes (Urine culture) Complications: No immediate complications Condition: stable Disposition: PACU
[2019-11-05] MEDS: fentaNYL CITRATE INJ (*CRX) 100 MCG/2 ML VIAL 25 MCG IV PUSH ×2 (12:38→12:40)
[2019-11-05] MEDS: HYDROcodone/acetaminophen (*CRX) 5-325 MG TABLET 1 TAB PO (12:51)
[2019-11-05 12:55] VITALS: BP 106/64; PULSE 57; RESP 18
[2019-11-05 13:20] VITALS: BP 143/59; PULSE 60
== END 2019-11-05 13:25 | disposition home or self-care (01) ==
PROVIDERS: Anesthesiology; PCP Family Medicine; Visit Provider Urology
PROC: (CPT 52352; principal; 2019-11-05 12:00)
DX: R31.0 Gross hematuria (principal); N13.30 Unspecified hydronephrosis; I25.10 Atherosclerotic heart disease of native coronary artery without angina pectoris; I48.91 Unspecified atrial fibrillation; K76.0 Fatty (change of) liver, not elsewhere classified; R73.03 Prediabetes; Z85.820 Personal history of malignant melanoma of skin; I73.9 Peripheral vascular disease, unspecified; E78.2 Mixed hyperlipidemia; Z86.718 Personal history of other venous thrombosis and embolism; Z95.0 Presence of cardiac pacemaker; Z87.442 Personal history of urinary calculi; Z87.891 Personal history of nicotine dependence
CPT/HCPCS: 52332; 36415; 74420; 85610; 85730; 87086; A9270; C1769; C1887; C2617; J1956; J2370; J2704; J3010; J7120; Q9966

== ENCOUNTER 2019-11-26 21:08 | Inpatient (IN) | payer MEDICARE, SELFPAY ==
--- NOTE | ~2019-11-26 | XR_ITS ---
EXAMINATION: XR barium swallow modified DATE: 12/09/2019 14:50 INDICATION: Dysphagia. TECHNIQUE: The patient was given barium-containing material of multiple consistencies to swallow by [place] speech pathologist while I performed fluoroscopy. Dose-area product was 2.666 Gy-cm2. 2.3 minutes fluoroscopy time FINDINGS: Oral Preparatory Stage: Within functional limits Oral Stage: Within functional limits Pharyngeal Phase: Within functional limits Cervical/Esophageal Stage: Within functional limits There appears to be some retention of barium within the lower esophagus in the upright sitting positi on; consider barium swallow examination. IMPRESSION: Modified esophagram findings as above. [facility]. Unexpected retention of barium in the lower esophagus after swallowing, without abnormal dilatation; consider barium swallow examination Reviewed, dictated and finalized at Location A. Reviewed, dictated and finalized at location A. IMPRESSION: Modified esophagram findings as above. Please refer to the speech t herapy report for specific recommendations. Unexpected retention of barium in the lower esophagus after swallowing, without abnormal dilatation; consider barium swallow examination
--- NOTE | ~2019-11-26 | CT_ITS ---
EXAMINATION: CT abdomen pelvis wo con DATE: 11/29/2019 09:12 INDICATION: Constipation. Abdominal discomfort. TECHNIQUE: Computed tomography (CT) of the abdomen and pelvis was performed without intravenous contr ast. The dose-length product was 445.93 mGy-cm. Automated exposure control and iterative reconstructi on technique were employed. COMPARISON: CT dated 08/09/2019. FINDINGS: Lung bases are unremarkable. Heart size normal. No significant pleural or pericardial effus ion. There is fluid in the distal esophagus, consistent with reflux. There is extensive atheroscleros is of the aorta. No evidence for aneurysm. There is a stent in the left external iliac artery. There is fecal impaction of the colon. There is a left internal ureteral stent in expected position. Bladde r is severely distended. No free air. There are cholecystectomy clips. There is a right hip arthropla sty. There are extensive surgical changes in the lumbar spine. IMPRESSION: 1. Colonic fecal impaction. 2: Severe distention of the bladder. Left internal ureteral stent in expected position. 3: Extensive atherosclerosis without evidence for aneurysm. Reviewed, dictated and finalized at location A. IMPRESSION: 1. Colonic fecal impaction. 2: Severe distention of the bladder. Left internal ureteral stent in expected p osition. 3: Extensive atherosclerosis without evidence for aneurysm.
[2019-11-26 22:15] VITALS: BP 122/48; PULSE 63; RESP 18; TEMP 36.6; O2SAT 96
--- NOTE | 2019-11-26 22:28 | ADMGEN ---
This patient, Desirae Peng, was admitted to 2nd Floor Room 226-2. Patient/family oriented to hospital policies and general routines including ID bracelet, bed and alarms, visiting hours, pain management, procedures, bathroom and other care routines, personal items, smoking policy, room service/diet, and visiting hours. Patient/Family are encouraged to report perceived risks to care and to ask questions if they do not understand what they are told or what they should do.
--- NOTE | 2019-11-26 22:35 | PC.NURSE ---
Dr Pereira at pt bedside
--- NOTE | 2019-11-26 22:42 | PM.IMHP ---
H&P: HPI History of Present Illness Date/Time: 11/26/19 22:42 Chief complaint: REHAB Narrative: Desirae Peng is a 79 year old female Presents from [facility] after she had spinal surgery with some spinal fusion of L5 and S1, patient admitted for rehab. Patient has a history of a complicated spinal surgery with plates and and screws that admitted into her kidney causing damage to her kidney. Patient with a history of atrial fibrillation currently on amiodarone, with a history of left above knee amputation secondary to what the patient describes as numerous some blood clots to her left lower extremity. The patient is to follow up with spinal surgeon in approximately 6 weeks for possibly further surgeries and follow-up. Review of Systems Review of Systems: All systems reviewed & are unremarkable except as noted in HPI and below PMFSH Past Medical History Medical History Above knee amputation of left lower extremity Atrial fibrillation Benign essential hypertension CAD (coronary artery disease) Carotid bruit Chronic renal disease DVT (deep venous thrombosis) Fatty liver History of thrombosis of lower extremity Hx of adenomatous colonic polyps Hypertension Inflammatory bowel disease Kidney stones Melanoma Extracted from her face Menopausal and female climacteric states Microscopic colitis, unspecified Mixed hyperlipidemia Neuropathic pain 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 Thrombectomy femoral popliteal bypass 2009 angiogram with PTCA stent to left lower extremity February 2019 H/O breast biopsy Several biopsies both breast H/O cystoscopy H/O laminectomy Lumbar 1984 H/O left knee surgery 1989 H/O rectal polypectomy History of appendectomy 1953 History of back surgery History of coronary artery stent placement History of lumbar fusion 2015, lumbar fusion with hardware June of 2018 History of partial hysterectomy 1970 History of total right knee replacement (TKR) 2018 History of ureter stent Hx of cholecystectomy 1977 Peripheral vascular angioplasty status with implants and grafts S/P cubital tunnel release Right-sided 1997 and left 1996 Status post trigger finger release Left ring finger 1998 Family History Family History Mother Family history of cardiovascular disease Family history of elevated blood lipids Family history of osteoporosis Family history of coronary artery disease Hypertension Sibling Patient's brother is Family history of malignant neoplasm of breast in first degree relative Grandparent Family history of cardiovascular disease Sibling No problems noted. Other Family history of malignant neoplasm of male breast Family history of malignant neoplasm of ovary Family history of osteoarthritis Social History Social History Social History: The patient quit smoking August of 2013. She does not have a durable power sports attorney for healthcare. She has 3 children. She lives with her and daughter. 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 Smoking packs per day: 1 Smoking cigarettes per day: 20.0 Years smoked: 40 Smoking pack-years: 40.00 Smoking status: Former smoker Tobacco type: cigarettes Second hand tobacco smoke exposure: No Smoking end date: 08/21/13 Alcohol intake: never Substance use: never Substance use type: prescription drug Gender identity (if verbalized by the patient): Female Spiritual care concerns: No Agree to
[2019-11-26] MEDS: CYCLOBENZAPRINE HCL 10 MG TABLET PO (23:12)
[2019-11-26] MEDS: GABAPENTIN 300 MG CAPSULE PO (23:12)
[2019-11-26] MEDS: AMIODARONE HCL 200 MG TABLET PO (23:48)
[2019-11-26] MEDS: TRIMETHOPRIM 100 MG TABLET PO (23:48)
[2019-11-27] MEDS: oxyCODONE/ACETAMINOPHEN (*CRX) 10-325 MG TABLET 1 TAB PO ×5 (00:11→18:18)
[2019-11-27] MEDS: GABAPENTIN 300 MG CAPSULE PO ×3 (05:17→20:58)
--- NOTE | 2019-11-27 07:43 | WPDREHABHP ---
H&P: HPI History of Present Illness Date/Time: 11/27/19 07:43 Chief complaint: REHAB Narrative: Desirae Peng is a 79 year old female that was a patient at [facility] then transferred here to our swing bed for rehab status post L5-S1 fusion revision. Patient has a history of [id number] amputation to her left lower extremity, A. fib, hypertension, CAD, carotid bruit, chronic renal disease, DVT, fatty liver, fusion of lumbar spine, history of thrombosis of the lower extremities, colonic polyps, hypertension, inflammatory bowel disease, kidney stones, melanoma, colitis, mixed hyperlipidemia, neuropathy pain, pacemaker placement, peripheral vascular disease, prediabetes, and statin intolerance.. Patient was admitted into [facility] on 11/18/2019. Patient did have a procedure there she had her L2- L5 hardware removed and L5-S1 fusion revision. Patient admitted in swing bed for rehabilitation due to decreased balance decreased mobility in severe limited function endurant and/or mobility. [facility] Past Medical History Medical History (Updated 11/27/19 @ 08:12 by GA Chaney) Above knee amputation of left lower extremity Atrial fibrillation Benign essential hypertension CAD (coronary artery disease) Carotid bruit Chronic renal disease DVT (deep venous thrombosis) Fatty liver Fusion of lumbar spine History of thrombosis of lower extremity Hx of adenomatous colonic polyps Hypertension Inflammatory bowel disease Kidney stones Melanoma Extracted from her face Menopausal and female climacteric states Microscopic colitis, unspecified Mixed hyperlipidemia Neuropathic pain 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 Thrombectomy femoral popliteal bypass 2009 angiogram with PTCA stent to left lower extremity February 2019 H/O breast biopsy Several biopsies both breast H/O cystoscopy H/O laminectomy Lumbar 1984 H/O left knee surgery 1989 H/O rectal polypectomy History of appendectomy 1953 History of back surgery History of coronary artery stent placement History of lumbar fusion 2015, lumbar fusion with hardware June of 2018 History of partial hysterectomy 1970 History of total right knee replacement (TKR) 2017 History of ureter stent Hx of appendectomy Hx of cardiac cath Hx of cholecystectomy 1977 Peripheral vascular angioplasty status with implants and grafts S/P cubital tunnel release Right-sided 1997 and left 1995 Status post trigger finger release Left ring finger 1998 Family History Family History Mother Family history of cardiovascular disease Family history of elevated blood lipids Family history of osteoporosis Family history of coronary artery disease Hypertension Sibling Patient's brother is Family history of malignant neoplasm of breast in first degree relative Grandparent Family history of cardiovascular disease Sibling No problems noted. Other Family history of malignant neoplasm of male breast Family history of malignant neoplasm of ovary Family history of osteoarthritis Social History Social History Social History: The patient quit smoking August of 2013. She does not have a durable power insurance defense attorney for healthcare. She has 3 children. She lives with her and daughter. 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 Smoking packs per day: 1 Smoking cigarettes per day: 20.0 Years smoked: 40 Smoking pack-years: 40.00 Smoking status: Former smoker Tobacco type: cigarettes Second hand tobacco smoke
[2019-11-27 08:00] VITALS: BP 99/40; PULSE 69; RESP 18; TEMP 36.1; O2SAT 95
--- NOTE | 2019-11-27 08:11 | PC.NURSE ---
[place] to the back are well approximated, no drainage and no redness noted
[2019-11-27 08:31] LABS: Hematocrit 28.5 % (35.0-42.0); Hemoglobin 8.8 g/dL (11.7-13.8); Mean Corpuscular HGB Conc 30.9 g/dL (32.0-36.0); Mean Corpuscular Hemoglobin 27.4 pg (27.0-31.0); Mean Corpuscular Volume 88.8 fL (78.0-102.0); Mean Platelet Volume 7.9 fl (9.2-11.8); Platelet Count Result 561 K/mm3 (150-420); Red Blood Count 3.21 M/mm3 (4.20-5.40); Red Cell Distribution Width 14.6 % (11.6-14.4); White Blood Count 8.6 K/mm3 (4.8-10.8)
[2019-11-27 08:58] LABS: Alanine Aminotransferase 15 U/L (14-59); Albumin Level 2.8 g/dL (3.4-5.0); Alkaline Phosphatase 83 U/L (46-116); Anion Gap 9 mmol/L (8-16); Aspartate Amino Transferase 13 U/L (15-37); Bilirubin,Total 0.3 mg/dL (0.00-1.00); Blood Urea Nitrogen 11 mg/dL (7-18); Calcium 9.2 mg/dL (8.5-10.1); Carbon Dioxide 27 mmol/L (21-32); Chloride 99 mmol/L (98-108); Estimated Glomerular Filt Rate 52; Glucose 94 mg/dL (70-99); Osmolality Calculated 279 mOsm/kg (285-295); Sodium 135 mmol/L (136-145); Total Protein 6.8 g/dL (6.4-8.2)
[2019-11-27 09:10] LABS: Hemoglobin A1C 5.2 % (<5.7)
--- NOTE | 2019-11-27 09:15 | PC.NURSE ---
Pain in back worse this am 11/27, oxycodone given
[2019-11-27 09:16] VITALS: PULSE 69
[2019-11-27] MEDS: METOPROLOL SUCCINATE EXT REL 25 MG TABCR PO (09:16)
[2019-11-27] MEDS: OXYBUTYNIN CHLORIDE 5 MG TABLET PO ×3 (09:17→17:00)
[2019-11-27] MEDS: ASCORBIC ACID 500 MG TABLET 1000 MG PO (09:17)
[2019-11-27] MEDS: APIXABAN 2.5 MG TABLET 5 MG PO ×2 (09:17→17:00)
--- NOTE | 2019-11-27 10:09 | PC.NURSE ---
contacted per patient request, unable to get cell to work in room, gave patients direct line to her room, hx of constipation, no results on commode, hospitalist aware, not eating well, is taking PO fluids well,
[2019-11-27] MEDS: CYCLOBENZAPRINE HCL 10 MG TABLET PO ×3 (10:20→20:58)
--- NOTE | 2019-11-27 10:24 | PC.NURSE ---
Pain down to 8/10, laying on left side, pillows for support flexeril given for pain
--- NOTE | 2019-11-27 11:57 | PC.NURSE ---
Pain remains 8, sitting up and trying to eat lunch
[2019-11-27] MEDS: MAGNESIUM CITRATE 300 ML BTL 150 ML PO (13:30)
--- NOTE | 2019-11-27 14:07 | PC.NURSE ---
No change in pain, moved from chair to commode, then to bed, no results from magnesium citrate at this time
[2019-11-27] MEDS: EZETIMIBE 10 MG TABLET PO (16:59)
[2019-11-27] MEDS: CEPHALEXIN 500 MG CAPSULE PO (16:59)
[2019-11-27 17:00] VITALS: BP 126/81; PULSE 73; RESP 18; TEMP 36.4; O2SAT 97
--- NOTE | 2019-11-27 17:29 | PC.NURSE ---
pt's is here to eat with her, pt moved up in bed by nurses then hob raised for dinner, pt puts pain at 710, rails up, declines commode
[2019-11-27 18:43] LABS: Appearance Urine Sl Cloudy (Clear); Bilirubin Urine Negative (Negative); Color Urine Yellow (Yellow); Glucose Urine UA Negative (Negative); Ketones Urine Negative (Negative); Leukocyte Esterase Ur 3+ LEU/UL (Negative); Nitrate Urine Negative (Negative); Protein Urine Negative (Negative); Specific Grav Ur <= 1.005 (1.010-1.020); Urobilinogen Urine 0.2 mg/dL (0.2-1.0)
[2019-11-27 18:49] LABS: Add Urine Microscopic? YES; Blood Urine Trace-Intact (Negative)
[2019-11-27 18:50] LABS: Bacteria Urine 1+ /hpf; Mucus Urine None seen /lpf; Squamous Epithelial Cell Urine Few /hpf (Few); WBC Urine 51-75 /hpf (0-3)
--- NOTE | 2019-11-27 19:53 | PC.NURSE ---
pt appears to be sleeping, no s/sx of distress, rails up, breathing even, call light in reach
[2019-11-27] MEDS: AMIODARONE HCL 200 MG TABLET PO (20:57)
[2019-11-27] MEDS: SENNA/DOCUSATE SODIUM TABLET 1 TAB PO (20:58)
[2019-11-28] VITALS: PULSE 60; RESP 16; TEMP 35.9; O2SAT 96
[2019-11-28] MEDS: oxyCODONE/ACETAMINOPHEN (*CRX) 10-325 MG TABLET 1 TAB PO ×5 (00:55→21:47)
[2019-11-28] MEDS: GABAPENTIN 300 MG CAPSULE PO ×3 (06:11→21:46)
[2019-11-28 08:00] VITALS: BP 130/52; PULSE 61; RESP 18; TEMP 36.1; O2SAT 97
[2019-11-28] MEDS: ASCORBIC ACID 500 MG TABLET 1000 MG PO (08:36)
[2019-11-28] MEDS: DOCUSATE SODIUM 100 MG CAPSULE PO (08:36)
[2019-11-28] MEDS: polyethylene glycoL 3350 17 GM POWD.PACK PO ×2 (08:36→22:06)
[2019-11-28 08:37] VITALS: PULSE 61
[2019-11-28] MEDS: OXYBUTYNIN CHLORIDE 5 MG TABLET PO ×3 (08:37→17:45)
[2019-11-28] MEDS: CYCLOBENZAPRINE HCL 10 MG TABLET PO ×2 (08:37→12:56)
[2019-11-28] MEDS: APIXABAN 2.5 MG TABLET 5 MG PO ×2 (08:37→17:45)
[2019-11-28] MEDS: METOPROLOL SUCCINATE EXT REL 25 MG TABCR PO (08:37)
--- NOTE | 2019-11-28 09:00 | PC.NURSE ---
Resting quietly in bed, no distress, no evidence of pain at this time
--- NOTE | 2019-11-28 11:00 | PC.NURSE ---
Assisted up from bed to with use of walker and gait belt, to take patient for a ride in wheel chair to get out of room for a bit,
--- NOTE | 2019-11-28 11:50 | PC.NURSE ---
Assisted patient from to commode then to Bed, using gait belt and walker, tolerated fairly well, pain med given at this time for back pain, pillow for comfort, tolerated well
--- NOTE | 2019-11-28 13:05 | PC.NURSE ---
Napping at intervals, no discomfort noted at this time
[2019-11-28 16:00] VITALS: BP 90/51; PULSE 60; RESP 18; TEMP 36.1; O2SAT 95
[2019-11-28] MEDS: CEPHALEXIN 500 MG CAPSULE PO (17:45)
[2019-11-28] MEDS: EZETIMIBE 10 MG TABLET PO (17:45)
--- NOTE | 2019-11-28 18:07 | PC.NURSE ---
Up to BSC with gait belt and assist of 1 with walker, contact guard assist during duration of movement for safety, noted to pass gas while up, hoping her bowels move, will call when done
--- NOTE | 2019-11-28 18:17 | PC.NURSE ---
Assisted back to bed, voided only
[2019-11-28] MEDS: SENNA/DOCUSATE SODIUM TABLET 1 TAB PO (21:45)
[2019-11-28] MEDS: TRIMETHOPRIM 100 MG TABLET PO (21:45)
[2019-11-28] MEDS: AMIODARONE HCL 200 MG TABLET PO (21:46)
[2019-11-29] MEDS: CYCLOBENZAPRINE HCL 10 MG TABLET PO ×2 (00:32→08:48)
[2019-11-29 00:38] VITALS: BP 102/48; PULSE 61; RESP 18; TEMP 36.2; O2SAT 98
--- NOTE | 2019-11-29 02:13 | PC.NURSE ---
pt sleeping, respirations even and regular, no evidence of distress noted at this time
[2019-11-29] MEDS: GABAPENTIN 300 MG CAPSULE PO ×3 (05:25→21:04)
[2019-11-29] MEDS: oxyCODONE/ACETAMINOPHEN (*CRX) 10-325 MG TABLET 1 TAB PO ×3 (05:25→14:13)
[2019-11-29 07:52] VITALS: BP 101/31; PULSE 59; RESP 18; TEMP 36.2; O2SAT 95
--- NOTE | 2019-11-29 08:30 | PC.NURSE ---
Up to commode with physical therapy
--- NOTE | 2019-11-29 08:53 | PC.NURSE ---
Imaging here to get patient for CT scan, placed in WC per PT dept
--- NOTE | 2019-11-29 09:05 | PC.NURSE ---
returned from CT, assisted with gait belt and walker back to bed with HOB elevated for comfort, pain getting worse advised would bring pain medication when time
[2019-11-29] MEDS: ASCORBIC ACID 500 MG TABLET 1000 MG PO (09:07)
[2019-11-29] MEDS: polyethylene glycoL 3350 17 GM POWD.PACK PO (09:07)
[2019-11-29 09:08] VITALS: PULSE 59
[2019-11-29] MEDS: DOCUSATE SODIUM 100 MG CAPSULE PO (09:08)
[2019-11-29] MEDS: APIXABAN 2.5 MG TABLET 5 MG PO ×2 (09:08→17:03)
[2019-11-29] MEDS: OXYBUTYNIN CHLORIDE 5 MG TABLET PO ×3 (09:08→17:03)
--- NOTE | 2019-11-29 10:53 | PC.NURSE ---
RESTING IN BED, PAIN IMPROVED, CALL LIGHT IN REACH, DENIES NEEDS
--- NOTE | 2019-11-29 12:05 | PC.NURSE ---
CONTACT GUARD ASSIST UP TO COMMODE FROM BED, PIVOT TO SIT, ASSISTED TO STAND AND STEADY PATIENT WHILE DOES PERICARE, PIVOT ASSIST TO WC FROM COMMODE, TOLERATED WELL, BACK BRACE APPLIED WILL SIT IN CHAIR FOR A WHILE, DURING LUNCH
[2019-11-29] MEDS: MAGNESIUM CITRATE 300 ML BTL 150 ML PO (12:45)
[2019-11-29] MEDS: BISACODYL 10 MG SUPPOSITORY RECTAL (12:45)
--- NOTE | 2019-11-29 12:57 | PC.NURSE ---
Up from WC to commode then to bed, suppository for constipation administered and sipping on mag citrate at this time to promote bowel movement, to call when feels like bowels need to move
--- NOTE | 2019-11-29 13:25 | PC.NURSE ---
Responded to call light, patient needs to urinate, doesn't feel like her bowels need to move, full contact assist with use of gait belt to pivot from edge of bed to commode, will call when done
--- NOTE | 2019-11-29 13:40 | PC.NURSE ---
Returned to bed, no results from suppository at this time, set up to do oral care
--- NOTE | 2019-11-29 14:33 | PM.EVENT ---
Event Note Event Note Event Note: Patient continues to complain of constipation. CT of the abdomen completed indicate Colonic fecal impaction. Patient given mag citrate with a suppository. If she does not have a bowel movement today we will digitally remove impacted.
[2019-11-29 15:27] VITALS: BP 106/80; PULSE 65; RESP 18; TEMP 36.6; O2SAT 95
--- NOTE | 2019-11-29 17:00 | PC.NURSE ---
not much results at this time from mag citrate and suppository, 2 small flecks of brown stool noted, passed gas, felt a little better passing gas
[2019-11-29] MEDS: CEPHALEXIN 500 MG CAPSULE PO (17:02)
[2019-11-29] MEDS: EZETIMIBE 10 MG TABLET PO (17:03)
--- NOTE | 2019-11-29 17:45 | PC.NURSE ---
Assisted back to bed, use of gait belt and walker and contact guard assist, call light in reach for safety, at the bedside
--- NOTE | 2019-11-29 18:28 | PC.NURSE ---
Sleeping, no evidence of pain noted
[2019-11-29] MEDS: AMIODARONE HCL 200 MG TABLET PO (21:03)
[2019-11-29] MEDS: TRIMETHOPRIM 100 MG TABLET PO (21:03)
[2019-11-29] MEDS: SENNA/DOCUSATE SODIUM TABLET 3 TAB PO (21:04)
[2019-11-29] MEDS: PROCHLORPERAZINE MALEATE 5 MG TABLET 10 MG PO (21:14)
--- NOTE | 2019-11-29 21:20 | PC.NURSE ---
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
--- NOTE | 2019-11-29 22:02 | PC.NURSE ---
pt resting comfortably at this time
--- NOTE | 2019-11-29 22:26 | PC.NURSE ---
Call placed to Dr Duff regarding pt status, order received
[2019-11-29 23:00] VITALS: BP 114/46; PULSE 59; RESP 18; TEMP 36.7; O2SAT 95
--- NOTE | 2019-11-30 00:31 | PC.NURSE ---
Pt's called to see how pt was doing. given an update on pt's condition.
[2019-11-30] MEDS: oxyCODONE/ACETAMINOPHEN (*CRX) 10-325 MG TABLET 1 TAB PO ×4 (00:45→12:59)
--- NOTE | 2019-11-30 00:45 | PC.NURSE ---
Patient was given two soap suds enemas, she tolerated fairly well. She did pass a lot of brownish fluids with some soft brown bowel movements as well. She was assisted up to the commode with 2 assist. Patient experiencing a lot of pain and was given a pain pill and a small snack. She would like to rest for awhile before we attempt another soap suds enema.
--- NOTE | 2019-11-30 03:20 | PC.NURSE ---
Dr Duff notified of patient unable to tolerate enema any longer, only small results have been produced, Dr stated she will come evaluate pt
--- NOTE | 2019-11-30 03:32 | PC.NURSE ---
Patient received about 3/4 bag of soap suds enema (bag #3) and asked us to stop. She had mostly liquid but some formed stool. The provider was called per RN and said to go ahead and stop for now and she will come evaluate patient. Patient turned to right side and needed items within reach.
[2019-11-30] MEDS: GABAPENTIN 300 MG CAPSULE PO ×3 (05:07→21:45)
[2019-11-30 05:20] LABS: Hematocrit 29.6 % (35.0-42.0); Hemoglobin 8.9 g/dL (11.7-13.8); Immature Platelet Fraction Pct 0.5 % (1.0-7.0); Mean Corpuscular HGB Conc 30.1 g/dL (32.0-36.0); Mean Corpuscular Hemoglobin 26.5 pg (27.0-31.0); Mean Corpuscular Volume 88.1 fL (78.0-102.0); Platelet Count Result 726 K/mm3 (150-420); Red Blood Count 3.36 M/mm3 (4.20-5.40); Red Cell Distribution Width 14.9 % (11.6-14.4); White Blood Count 11.5 K/mm3 (4.8-10.8)
--- NOTE | 2019-11-30 05:24 | PC.NURSE ---
Patient received 2 3/4 bags of soap suds enema which produced 3/4 cup of soft, brown mushy stool with liquid as well.
[2019-11-30 05:45] LABS: Alanine Aminotransferase 14 U/L (14-59); Albumin Level 2.9 g/dL (3.4-5.0); Alkaline Phosphatase 110 U/L (46-116); Anion Gap 7 mmol/L (8-16); Aspartate Amino Transferase 16 U/L (15-37); Bilirubin,Total 0.3 mg/dL (0.00-1.00); Blood Urea Nitrogen 10 mg/dL (7-18); Carbon Dioxide 30 mmol/L (21-32); Chloride 100 mmol/L (98-108); Estimated Glomerular Filt Rate 46; Glucose 101 mg/dL (70-99); Osmolality Calculated 283 mOsm/kg (285-295); Potassium 4.6 mmol/L (3.5-5.1); Sodium 137 mmol/L (136-145); Total Protein 5.9 g/dL (6.4-8.2)
[2019-11-30 08:00] VITALS: BP 110/62; PULSE 64; RESP 18; TEMP 36.4; O2SAT 98
[2019-11-30] MEDS: PROCHLORPERAZINE MALEATE 5 MG TABLET 10 MG PO (08:06)
[2019-11-30] MEDS: CYCLOBENZAPRINE HCL 10 MG TABLET PO (08:13)
[2019-11-30] MEDS: DOCUSATE SODIUM 100 MG CAPSULE PO (09:13)
[2019-11-30] MEDS: ASCORBIC ACID 500 MG TABLET 1000 MG PO (09:13)
[2019-11-30 09:14] VITALS: PULSE 64
[2019-11-30] MEDS: APIXABAN 2.5 MG TABLET 5 MG PO ×2 (09:14→17:57)
[2019-11-30] MEDS: OXYBUTYNIN CHLORIDE 5 MG TABLET PO ×3 (09:14→17:57)
[2019-11-30] MEDS: METOPROLOL SUCCINATE EXT REL 25 MG TABCR PO (09:14)
[2019-11-30] MEDS: polyethylene glycoL 3350 17 GM POWD.PACK PO ×2 (09:16→17:56)
[2019-11-30] MEDS: SENNA/DOCUSATE SODIUM TABLET 2 TAB PO (09:18)
[2019-11-30 16:00] VITALS: BP 114/42; PULSE 64; RESP 16; TEMP 36.5; O2SAT 97
[2019-11-30] MEDS: BISACODYL 10 MG SUPPOSITORY RECTAL (17:57)
[2019-11-30] MEDS: EZETIMIBE 10 MG TABLET PO (17:57)
[2019-11-30] MEDS: CEPHALEXIN 500 MG CAPSULE PO (17:57)
[2019-11-30] MEDS: TRIMETHOPRIM 100 MG TABLET PO (21:45)
[2019-11-30] MEDS: SENNA/DOCUSATE SODIUM TABLET 3 TAB PO (21:45)
--- NOTE | 2019-11-30 21:45 | PC.NURSE ---
[facility] showed Amiodarone due at 2100 but APR did not show it due. Per charge nurse it says scheduled QHS so go ahead and give it. Pulled med from [facility] but when I checked patient's heart rate it was 52 so I held the medication. Amiodarone returned to [facility] and note written to pharmacy as I was unable to document not given in the APR.
[2019-12-01] VITALS: BP 110/32; PULSE 60; RESP 18; TEMP 36.6; O2SAT 97
[2019-12-01] MEDS: oxyCODONE/ACETAMINOPHEN (*CRX) 10-325 MG TABLET 1 TAB PO ×3 (00:17→15:57)
--- NOTE | 2019-12-01 04:00 | PC.NURSE ---
Sleeping; no signs of discomfort.
[2019-12-01] MEDS: GABAPENTIN 300 MG CAPSULE PO ×3 (05:55→20:36)
--- NOTE | 2019-12-01 05:59 | PC.NURSE ---
Awakens easily to name called; Morning medication taken without difficulty.
--- NOTE | 2019-12-01 06:43 | PC.NURSE ---
Addendum entered by Miladis Willett RN 12/01/19 22:26: Pillow placed under right leg, not left leg. Original Note: Returned to bed after voiding on BSC; continues to need assistance rising from chair to standing position. Unable to lift leg on to bed and needs assist of nurse to do the same. Suture line to midback is well approximated without signs of infection. Positioned on left side, pillow placed under left leg and behind back. Tolerated activity well.
[2019-12-01 07:25] VITALS: BP 92/30; PULSE 60; RESP 18; TEMP 36.2; O2SAT 95
--- NOTE | 2019-12-01 07:27 | PC.NURSE ---
Percocet given for pain in back 06/27, in preparation for physical therapy, states bad pain during therapy yesterday, commode moved from left side of bed to right side of bed for ease of use, right heel noted to be pink, states not painful just tender, keeping elevated off bed when in bed to prevent breakdown
[2019-12-01] MEDS: polyethylene glycoL 3350 17 GM POWD.PACK PO (08:12)
--- NOTE | 2019-12-01 08:14 | PC.NURSE ---
moderate assist to stand, used gait belt and walker and pivot step to commode, then to wheel chair for breakfast, tolerated well. Brace applied to back
[2019-12-01] MEDS: SENNA/DOCUSATE SODIUM TABLET 2 TAB PO (08:42)
[2019-12-01] MEDS: APIXABAN 2.5 MG TABLET 5 MG PO ×2 (08:42→16:46)
[2019-12-01] MEDS: DOCUSATE SODIUM 100 MG CAPSULE PO (08:43)
[2019-12-01] MEDS: OXYBUTYNIN CHLORIDE 5 MG TABLET PO ×3 (08:43→16:46)
[2019-12-01] MEDS: ASCORBIC ACID 500 MG TABLET 1000 MG PO (08:43)
--- NOTE | 2019-12-01 08:48 | PM.EVENT ---
Event Note Event Note Event Note: Patient had a bm this day her perocet has been changed to Q8hr instead of Q4hr. we will continue stool laxative and stool softener scheduled to prevent further constipation. Called Dr Hankins office at [phone] to inquire on date of staple removal.
--- NOTE | 2019-12-01 09:09 | PC.NURSE ---
therapy in to work with patient
[2019-12-01] MEDS: CYCLOBENZAPRINE HCL 10 MG TABLET PO ×2 (10:42→20:42)
--- NOTE | 2019-12-01 11:32 | PC.NURSE ---
Assisted up from WC to commode then to bed, pivot transfer with use of gait belt, tolerated well, just tired from sitting all am, pain improved after flexeril
--- NOTE | 2019-12-01 12:08 | PC.NURSE ---
Sitting on edge of bed, patient got self to sitting position, tolerated well, eating lunch
--- NOTE | 2019-12-01 13:00 | PC.NURSE ---
napping, on left side, heel off bed
[2019-12-01 13:59] LABS: Hematocrit 28.1 % (35.0-42.0); Hemoglobin 8.7 g/dL (11.7-13.8); Mean Corpuscular Hemoglobin 27.4 pg (27.0-31.0); Mean Corpuscular Volume 88.6 fL (78.0-102.0); Mean Platelet Volume 8.1 fl (9.2-11.8); Platelet Count Result 577 K/mm3 (150-420); Red Blood Count 3.17 M/mm3 (4.20-5.40); Red Cell Distribution Width 14.8 % (11.6-14.4); White Blood Count 10.4 K/mm3 (4.8-10.8)
--- NOTE | 2019-12-01 14:12 | PC.NURSE ---
Up to commode with assist of 1 with gait belt, back to bed, laying on right side, pillows for positioning
[2019-12-01 16:00] VITALS: BP 128/45; PULSE 61; RESP 18; TEMP 36.4; O2SAT 99
[2019-12-01] MEDS: CEPHALEXIN 500 MG CAPSULE PO (16:45)
[2019-12-01] MEDS: EZETIMIBE 10 MG TABLET PO (16:46)
[2019-12-01] MEDS: traMADol HCL (*CRX) 25 MG TABLET PO (18:22)
[2019-12-01] MEDS: TRIMETHOPRIM 100 MG TABLET PO (20:36)
[2019-12-01] MEDS: SENNA/DOCUSATE SODIUM TABLET 3 TAB PO (20:37)
[2019-12-01 20:49] VITALS: PULSE 62
[2019-12-01] MEDS: AMIODARONE HCL 200 MG TABLET PO (20:49)
[2019-12-01 23:19] VITALS: BP 104/48; PULSE 60; RESP 18; TEMP 36.2; O2SAT 98
--- NOTE | 2019-12-01 23:21 | PC.NURSE ---
Woke for vital signs, oriented to time of day, denies needs, call light inr each of pateint
[2019-12-02] MEDS: oxyCODONE/ACETAMINOPHEN (*CRX) 10-325 MG TABLET 1 TAB PO ×3 (00:34→17:00)
--- NOTE | 2019-12-02 01:05 | PC.NURSE ---
Up to BSC from bed, able to get self up from bed to sitting position, gait belt and pivot full assist to commode, voided and returned to bed
--- NOTE | 2019-12-02 03:00 | PC.NURSE ---
sleeping, no distress noted
[2019-12-02] MEDS: GABAPENTIN 300 MG CAPSULE PO ×3 (05:35→21:12)
[2019-12-02] MEDS: CYCLOBENZAPRINE HCL 10 MG TABLET PO ×3 (05:35→21:12)
--- NOTE | 2019-12-02 05:50 | PC.NURSE ---
Up to BSC, gait belt and walker used, feels unstable this am, tolerated well, more secure with movements using walker, returned to bed am meds given with flexeril added per patient request for pain
--- NOTE | 2019-12-02 07:55 | P.PNIM_ITS ---
Progress Note: A&P Assessment and Plan (1) DVT prophylaxis: Code(s): Z29.9 - Encounter for prophylactic measures, unspecified <Reji Koehlerjosé VIOLIN TEACHER-C - Last Filed: 12/02/19 10:36> Status: Acute <Reji Morales VIOLIN TEACHER-C - Last Filed: 12/02/19 10:36> Assessment and Plan: * Continue Eliquis 12/02/2019 continue Eliquis <Reji Koehlerjosé VIOLIN TEACHER-C - Last Filed: 12/02/19 10:36> (2) Weakness: Code(s): R53.1 - Weakness <Reji Koehlerjosé VIOLIN TEACHER-C - Last Filed: 12/02/19 10:36> Status: Acute <Reji Koehlerjosé VIOLIN TEACHER-C - Last Filed: 12/02/19 10:36> Assessment and Plan: ? Exhibit tolerance during physical activity as evidenced by a no rmal fluctuation of vital signs during physical activity. ? Patient will be ability to perform required activities of daily living. ? Provide appropriate nutrition for healing and strength. ? Use appropriate to prevent falls. ? Continue physical therapy/occupational therapy. 12/02/2019 continue to work with PT OT, attempting dietary modification to increased energy level, added lidocaine patch in effort to decrease patient's pain so that she can work with PT and OT <Reji OreillyDaniela Morales VIOLIN TEACHER-C - Last Filed: 12/02/19 10:36> (3) Pre-diabetes: Code(s): R73.03 - Prediabetes <Reji OreillyDaniela Morales VIOLIN TEACHER-C - Last Filed: 12/02/19 10:36> Status: Chronic <Reji OreillyDaniela Morales VIOLIN TEACHER-C - Last Filed: 12/02/19 10:36> Assessment and Plan: * A1c pending 12/02/2019 A1C is 5.2 <Reji OreillyDaniela Morales VIOLIN TEACHER-C - Last Filed: 12/02/19 10:36> (4) ELIZABETH (acute kidney injury): Code(s): N17.9 - Acute kidney failure, unspecified <Reji OreillyDaniela Morales VIOLIN TEACHER-C - Last Filed: 12/02/19 10:36> Status: Resolved <Reji AfiaDaniela Morales VIOLIN TEACHER-C - Last Filed: 12/02/19 10:36> Assessment and Plan: * BUN/creatinine pending * Patent BUN/creat at [facility] was 17/1.2 * Avoid nephrotoxic agents * Renal dose all medication * Periodically monitor renal function 12/02/2019 BUN 10, creatinine 1.15, continue to monitor, patient taking oral water <Reji KoehlerANGIE kumarC - Last Filed: 12/02/19 10:36> (5) Hypertension: Qualifiers: Hypertension type: essential hypertension Qualified Code(s): I10 - Essential (primary) hypertension <Reji KoehlerBETZAIDA kumar-C - Last Filed: 12/02/19 10:36> Code(s): I10 - Essential (primary) hypertension <Reji KoehlerBETZAIDA kumar-C - Last Filed: 12/02/19 10:36> Status: Acute <Reji KoehlerANGIE kumarC - Last Filed: 12/02/19 10:36> Assessment and Plan: * Blood pressure 122/78, stable * Continue metoprolol 25 mg daily * Vital signs as ordered * Will adjust medication as 12/02/2019 vital signs stable patient afebrile <Reji KoehlerBETZAIDA kumar-C - Last Filed: 12/02/19 10:36> (6) Atrial fibrillation: Qualifiers: Atrial fibrillation type: unspecified Qualified Code(s): I48.91 - Unspecified atrial fibrillation <Reji Reyes ANGIE MoralesC - Last Filed: 12/02/19 10:36> Code(s): I48.91 - Unspecified atrial fibrillation <Reji KoehlerBETZAIDA kumar-C - Last Filed: 12/02/19 10:36> Status: Chronic <Reji Reyes BETZAIDA Morales-C - Last Filed: 12/02/19 10:36> Assessment and Plan: * Heart rate 63 controlled * Continue Eliquis 5 mg p.o. twice daily * Continue amiodarone 200 mg daily and metoprolol 25 mg daily 12/02/2019 continue with medications, heart rate is regular around 60 <Reji Reyes ROGER Morales - Last Filed: 12/02/19 10:36> Subjective Date/time seen: 12/02/19 07:55 Patient states he
--- NOTE | 2019-12-02 07:55 | PM.IMPN ---
Progress Note: A&P Assessment and Plan (1) DVT prophylaxis: Code(s): Z29.9 - Encounter for prophylactic measures, unspecified <Reji OreillyDaniela Morales APN-C - Last Filed: 12/02/19 10:36> Status: Acute <Reji Koehlerjosé SYSTEMS PROTECTION TECHNICIAN-C - Last Filed: 12/02/19 10:36> Assessment and Plan: Continue Eliquis 12/02/2019 continue Eliquis <Reji Koehlerjosé SYSTEMS PROTECTION TECHNICIAN-C - Last Filed: 12/02/19 10:36> (2) Weakness: Code(s): R53.1 - Weakness <Reji Koehlerjosé SYSTEMS PROTECTION TECHNICIAN-C - Last Filed: 12/02/19 10:36> Status: Acute <Reji Reyes Andrew SYSTEMS PROTECTION TECHNICIAN-C - Last Filed: 12/02/19 10:36> Assessment and Plan: ? Exhibit tolerance during physical activity as evidenced by a normal fluctuation of vital signs during physical activity. ? Patient will be ability to perform required activities of daily living. ? Provide appropriate nutrition for healing and strength. ? Use appropriate to prevent falls. ? Continue physical therapy/occupational therapy. 12/02/2019 continue to work with PT OT, attempting dietary modification to increased energy level, added lidocaine patch in effort to decrease patient's pain so that she can work with PT and OT <Reji OreillyDaniela Morales APN-C - Last Filed: 12/02/19 10:36> (3) Pre-diabetes: Code(s): R73.03 - Prediabetes <Reji OreillyDaniela Morales APN-C - Last Filed: 12/02/19 10:36> Status: Chronic <Reji OreillyDaniela Morales SYSTEMS PROTECTION TECHNICIAN-C - Last Filed: 12/02/19 10:36> Assessment and Plan: A1c pending 12/02/2019 A1C is 5.2 <Reji AfiaDaniela Morales APN-C - Last Filed: 12/02/19 10:36> (4) ELIZABETH (acute kidney injury): Code(s): N17.9 - Acute kidney failure, unspecified <Reji AfiaDaniela Morales SYSTEMS PROTECTION TECHNICIAN-C - Last Filed: 12/02/19 10:36> Status: Resolved <Reji AfiaDaniela Morales SYSTEMS PROTECTION TECHNICIAN-C - Last Filed: 12/02/19 10:36> Assessment and Plan: BUN/creatinine pending Patent BUN/creat at [facility] was 17/1.2 Avoid nephrotoxic agents Renal dose all medication Periodically monitor renal function 12/02/2019 BUN 10, creatinine 1.15, continue to monitor, patient taking oral water <Reji Reyes ROGER Morales - Last Filed: 12/02/19 10:36> (5) Hypertension: Qualifiers: Hypertension type: essential hypertension Qualified Code(s): I10 - Essential (primary) hypertension <Reji OreillyROGER Starks - Last Filed: 12/02/19 10:36> Code(s): I10 - Essential (primary) hypertension <Reji OreillyROGER Starks - Last Filed: 12/02/19 10:36> Status: Acute <Reji Reyes ROGER Morales - Last Filed: 12/02/19 10:36> Assessment and Plan: Blood pressure 122/78, stable Continue metoprolol 25 mg daily Vital signs as ordered Will adjust medication as 12/02/2019 vital signs stable patient afebrile <Reji OreillyROGER Starks - Last Filed: 12/02/19 10:36> (6) Atrial fibrillation: Qualifiers: Atrial fibrillation type: unspecified Qualified Code(s): I48.91 - Unspecified atrial fibrillation <Reji OreillyROGER Starks - Last Filed: 12/02/19 10:36> Code(s): I48.91 - Unspecified atrial fibrillation <Reji OreillyROGER Starks - Last Filed: 12/02/19 10:36> Status: Chronic <Reji OreillyROGER Starks - Last Filed: 12/02/19 10:36> Assessment and Plan: Heart rate 63 controlled Continue Eliquis 5 mg p.o. twice daily Continue amiodarone 200 mg daily and metoprolol 25 mg daily 12/02/2019 continue with medications, heart rate is regular around 60 <Reji OreillyROGER Starks - Last Filed: 12/02/19 10:36> Subjective Date/time seen: 12/02/19 07:55 Patient states her appetite is not very good. She explains the insurer is too sweet and would like to switch over to Glucerna. Patient admits her lumbar pain is a 7 on 10 while lying in bed. We discussed giving her a pain pill prior to physical therapy working with her today. We discussed her recent constipation and her Percocet prescription and she was amicable to trying a lidocaine patch.
[2019-12-02 08:00] VITALS: BP 119/51; PULSE 60; RESP 16; TEMP 36.3; O2SAT 97
[2019-12-02] MEDS: APIXABAN 2.5 MG TABLET 5 MG PO ×2 (08:52→17:01)
[2019-12-02] MEDS: SENNA/DOCUSATE SODIUM TABLET 2 TAB PO (08:52)
[2019-12-02 08:53] VITALS: PULSE 64
[2019-12-02] MEDS: DOCUSATE SODIUM 100 MG CAPSULE PO (08:53)
[2019-12-02] MEDS: ASCORBIC ACID 500 MG TABLET 1000 MG PO (08:53)
[2019-12-02] MEDS: OXYBUTYNIN CHLORIDE 5 MG TABLET PO ×3 (08:53→17:01)
[2019-12-02] MEDS: METOPROLOL SUCCINATE EXT REL 25 MG TABCR PO (08:53)
[2019-12-02] MEDS: polyethylene glycoL 3350 17 GM POWD.PACK PO (08:53)
[2019-12-02] MEDS: LIDOCAINE 5% PATCH 1 PATCH TRANSDERM (09:55)
[2019-12-02 16:00] VITALS: BP 124/74; PULSE 70; RESP 16; TEMP 36.6; O2SAT 98
--- NOTE | 2019-12-02 16:21 | PC.NURSE ---
1500 at moments she she is alert and orient. the moments she is making no sense takes about a female that murdered some one and they are loooking for her. knows our president but thinks we are in another town.
[2019-12-02] MEDS: CEPHALEXIN 500 MG CAPSULE PO (17:00)
[2019-12-02] MEDS: EZETIMIBE 10 MG TABLET PO (17:12)
--- NOTE | 2019-12-02 18:33 | PC.NURSE ---
remains at bedside. tells dr spann that he was the one that did her back surgery. at times explains that she has been doing this every so often she is confused.
[2019-12-02 21:12] VITALS: PULSE 61
[2019-12-02] MEDS: SENNA/DOCUSATE SODIUM TABLET 3 TAB PO (21:12)
[2019-12-02] MEDS: TRIMETHOPRIM 100 MG TABLET PO (21:12)
[2019-12-02] MEDS: AMIODARONE HCL 200 MG TABLET PO (21:12)
[2019-12-02 23:45] VITALS: BP 105/66; PULSE 60; RESP 18; TEMP 36.6; O2SAT 96
[2019-12-03] MEDS: oxyCODONE/ACETAMINOPHEN (*CRX) 10-325 MG TABLET 1 TAB PO ×3 (01:15→15:09)
[2019-12-03] MEDS: GABAPENTIN 300 MG CAPSULE PO ×3 (05:27→21:08)
[2019-12-03 07:28] VITALS: BP 97/30; PULSE 59; RESP 18; TEMP 36.2; O2SAT 95
[2019-12-03] MEDS: traMADol HCL (*CRX) 25 MG TABLET PO (08:16)
[2019-12-03] MEDS: polyethylene glycoL 3350 17 GM POWD.PACK PO (08:19)
[2019-12-03] MEDS: CYCLOBENZAPRINE HCL 10 MG TABLET PO ×2 (08:21→21:10)
--- NOTE | 2019-12-03 08:23 | PC.NURSE ---
Up to void, then to for breakfast, back brace on, contact guard assist gait belt used for transfer, in crease pain to sit up, given tramadol and flexeril as ordered, breakfast tray to patient and will try to eat
[2019-12-03] MEDS: SENNA/DOCUSATE SODIUM TABLET 2 TAB PO (09:01)
[2019-12-03] MEDS: DOCUSATE SODIUM 100 MG CAPSULE PO (09:02)
[2019-12-03] MEDS: ASCORBIC ACID 500 MG TABLET 1000 MG PO (09:02)
[2019-12-03] MEDS: APIXABAN 2.5 MG TABLET 5 MG PO ×2 (09:02→16:33)
--- NOTE | 2019-12-03 11:50 | PC.NURSE ---
Up to commode with assist of 1 with gait belt and walker, back to bed, chooses to stay in bed for lunch due to pain
[2019-12-03] MEDS: LIDOCAINE 5% PATCH 1 PATCH TRANSDERM (12:53)
--- NOTE | 2019-12-03 13:05 | PC.NURSE ---
Assisted up to commode, tolerated fair, gait belt used and pivot transfer
--- NOTE | 2019-12-03 14:04 | PC.NURSE ---
In bed, call light and personal items in reach, no BM today, would like a suppository when all therapy done for the day, taking po fluids fairly well
[2019-12-03] MEDS: BISACODYL 10 MG SUPPOSITORY RECTAL (15:10)
--- NOTE | 2019-12-03 15:17 | PC.NURSE ---
pt given suppository per request, digitally inserted without bleeding from hemmorhoid, pt resting in bed, commode placed by bedside, pt tolerated well, given percocet for pain from therapy
[2019-12-03 16:00] VITALS: BP 108/33; PULSE 60; RESP 18; TEMP 36.3; O2SAT 95
[2019-12-03] MEDS: CEPHALEXIN 500 MG CAPSULE PO (17:34)
[2019-12-03] MEDS: EZETIMIBE 10 MG TABLET PO (17:34)
--- NOTE | 2019-12-03 18:39 | PC.NURSE ---
pt had large bm in commode, stand and pivot back to bed, leg up on pillow, hob elevated, call light in reach
[2019-12-03 21:08] VITALS: PULSE 60
[2019-12-03] MEDS: SENNA/DOCUSATE SODIUM TABLET 3 TAB PO (21:08)
[2019-12-03] MEDS: TRIMETHOPRIM 100 MG TABLET PO (21:08)
[2019-12-03] MEDS: AMIODARONE HCL 200 MG TABLET PO (21:08)
[2019-12-03] MEDS: traZODone HCL 50 MG TABLET PO (22:35)
--- NOTE | 2019-12-03 22:43 | PC.NURSE ---
pt c/o right hip pain, asks if dr will do a scan tmrw as she is worried something is wrong with it, charge nurse notified, given pain medicine on request, repositioned to back, pillow under leg
[2019-12-04] VITALS: BP 126/48; PULSE 60; RESP 20; TEMP 36.1; O2SAT 97
[2019-12-04] MEDS: oxyCODONE/ACETAMINOPHEN (*CRX) 10-325 MG TABLET 1 TAB PO ×3 (00:06→16:01)
[2019-12-04] MEDS: CYCLOBENZAPRINE HCL 10 MG TABLET PO ×3 (05:12→21:36)
[2019-12-04] MEDS: GABAPENTIN 300 MG CAPSULE PO ×3 (06:11→21:36)
[2019-12-04 07:25] VITALS: BP 109/35; PULSE 59; RESP 18; TEMP 36.3; O2SAT 95
--- NOTE | 2019-12-04 08:36 | PC.NURSE ---
Pain in right hip pretty bad this am, pain in back present, tearful, would not get in to chair for breakfast, did eat well, refused miralax due to good very large BM last night
[2019-12-04] MEDS: SENNA/DOCUSATE SODIUM TABLET 2 TAB PO (09:14)
[2019-12-04] MEDS: ASCORBIC ACID 500 MG TABLET 1000 MG PO (09:15)
[2019-12-04] MEDS: APIXABAN 2.5 MG TABLET 5 MG PO ×2 (09:15→17:06)
[2019-12-04] MEDS: LIDOCAINE 5% PATCH 1 PATCH TRANSDERM (09:16)
[2019-12-04] MEDS: DOCUSATE SODIUM 100 MG CAPSULE PO (09:16)
[2019-12-04 09:20] VITALS: PULSE 58
--- NOTE | 2019-12-04 10:39 | PC.NURSE ---
Up in chair, ice pack to right hip, Prosthesis in place at this time, all personal items in reach of patient
--- NOTE | 2019-12-04 11:30 | PC.NURSE ---
Requesting to be put back to bed, cannot sit up any longer, pateint used walker and gait belt, needs to make sure prosthesis is locked before moving, does well with use of walker, in bed and legs elevated on pillows for comfort, right heel slightly pink, keeping it off the bed with pillow
--- NOTE | 2019-12-04 15:16 | PM.EVENT ---
Event Note Event Note Event Note: 12/04/2019 Removed 1/2 of the manisha from patient's incision on her back, 18 manisha were removed, site is clean and well healed, no bleeding, no signs of infection, patient tolerated this well, will remove the remaining manisha in 2 days.
[2019-12-04 16:00] VITALS: BP 121/40; PULSE 59; RESP 18; TEMP 37; O2SAT 95
--- NOTE | 2019-12-04 16:00 | PC.NURSE ---
Up to commode, pain to right hip increased, tearful, percocet given for pain
--- NOTE | 2019-12-04 16:29 | PC.NURSE ---
Ice to right hip for pain
[2019-12-04] MEDS: CEPHALEXIN 500 MG CAPSULE PO (17:06)
[2019-12-04] MEDS: EZETIMIBE 10 MG TABLET PO (17:07)
--- NOTE | 2019-12-04 18:06 | PC.NURSE ---
In bed with HOB elevated for comfort, leg elevated on pillow to keep heel off bed, here and they shared dinner, ate fairly well, denies needs, pain at a 5-6 right now
[2019-12-04 21:36] VITALS: PULSE 60
[2019-12-04] MEDS: AMIODARONE HCL 200 MG TABLET PO (21:36)
[2019-12-04] MEDS: TRIMETHOPRIM 100 MG TABLET PO (21:36)
[2019-12-04] MEDS: SENNA/DOCUSATE SODIUM TABLET 3 TAB PO (21:37)
[2019-12-05] MEDS: oxyCODONE/ACETAMINOPHEN (*CRX) 10-325 MG TABLET 1 TAB PO ×3 (00:07→18:10)
[2019-12-05 00:20] VITALS: BP 101/35; PULSE 63; RESP 18; TEMP 36.8; O2SAT 96
[2019-12-05] MEDS: GABAPENTIN 300 MG CAPSULE PO ×3 (05:26→20:56)
[2019-12-05 08:00] VITALS: BP 123/37; PULSE 63; RESP 18; TEMP 36.3; O2SAT 98
[2019-12-05] MEDS: LIDOCAINE 5% PATCH 1 PATCH TRANSDERM (09:07)
[2019-12-05] MEDS: ASCORBIC ACID 500 MG TABLET 1000 MG PO (09:07)
[2019-12-05] MEDS: PROCHLORPERAZINE MALEATE 5 MG TABLET PO (09:08)
[2019-12-05] MEDS: APIXABAN 2.5 MG TABLET 5 MG PO ×2 (09:09→18:09)
[2019-12-05] MEDS: DOCUSATE SODIUM 100 MG CAPSULE PO (09:09)
[2019-12-05] MEDS: SENNA/DOCUSATE SODIUM TABLET 2 TAB PO (09:09)
[2019-12-05 09:10] VITALS: PULSE 63
[2019-12-05] MEDS: METOPROLOL SUCCINATE EXT REL 25 MG TABCR PO (09:10)
[2019-12-05] MEDS: polyethylene glycoL 3350 17 GM POWD.PACK PO (09:10)
[2019-12-05] MEDS: PROCHLORPERAZINE MALEATE 5 MG TABLET 10 MG PO (12:49)
[2019-12-05] MEDS: CYCLOBENZAPRINE HCL 10 MG TABLET PO ×2 (12:49→20:57)
[2019-12-05 16:00] VITALS: BP 93/31; PULSE 60; RESP 26; TEMP 36.3; O2SAT 99
[2019-12-05] MEDS: CEPHALEXIN 500 MG CAPSULE PO (18:18)
[2019-12-05] MEDS: EZETIMIBE 10 MG TABLET PO (18:18)
[2019-12-05] MEDS: TRIMETHOPRIM 100 MG TABLET PO (20:56)
[2019-12-05] MEDS: SENNA/DOCUSATE SODIUM TABLET 3 TAB PO (20:56)
[2019-12-05 20:57] VITALS: PULSE 60
[2019-12-05] MEDS: AMIODARONE HCL 200 MG TABLET PO (20:57)
--- NOTE | 2019-12-05 21:45 | PC.NURSE ---
pt has med sized soft brown stool, turn/pivot from commode back to bed, two ice packs placed under back and R hip, rails up, call light on lap
[2019-12-06] VITALS: BP 138/40; PULSE 61; RESP 14; TEMP 35.9; O2SAT 96
[2019-12-06] MEDS: traZODone HCL 50 MG TABLET PO ×2 (00:37→21:31)
[2019-12-06] MEDS: ACETAMINOPHEN 325 MG TABLET 650 MG PO ×2 (00:37→09:24)
[2019-12-06] MEDS: GABAPENTIN 300 MG CAPSULE PO ×3 (04:50→21:31)
[2019-12-06] MEDS: oxyCODONE/ACETAMINOPHEN (*CRX) 10-325 MG TABLET 1 TAB PO ×2 (04:50→14:28)
[2019-12-06 08:00] VITALS: BP 91/37; PULSE 60; RESP 20; TEMP 36.6; O2SAT 95
[2019-12-06] MEDS: LIDOCAINE 5% PATCH 1 PATCH TRANSDERM (09:10)
[2019-12-06] MEDS: SENNA/DOCUSATE SODIUM TABLET 2 TAB PO (09:11)
[2019-12-06] MEDS: DOCUSATE SODIUM 100 MG CAPSULE PO (09:11)
[2019-12-06] MEDS: ASCORBIC ACID 500 MG TABLET 1000 MG PO (09:13)
[2019-12-06] MEDS: PROCHLORPERAZINE MALEATE 5 MG TABLET PO (09:13)
[2019-12-06] MEDS: APIXABAN 2.5 MG TABLET 5 MG PO ×2 (09:14→17:12)
[2019-12-06] MEDS: polyethylene glycoL 3350 17 GM POWD.PACK PO (09:14)
[2019-12-06] MEDS: CYCLOBENZAPRINE HCL 10 MG TABLET PO ×3 (09:24→21:29)
--- NOTE | 2019-12-06 14:30 | PC.NURSE ---
Aissatou Reyes RN removed 17 manisha from back. Tolerated well by patient.
[2019-12-06 15:44] VITALS: BP 120/33; PULSE 62; RESP 18; TEMP 36.8
[2019-12-06] MEDS: CEPHALEXIN 500 MG CAPSULE PO (17:11)
[2019-12-06] MEDS: EZETIMIBE 10 MG TABLET PO (17:11)
[2019-12-06] MEDS: PROCHLORPERAZINE MALEATE 5 MG TABLET 10 MG PO (17:12)
[2019-12-06] MEDS: HYDROcodone/acetaminophen (*CRX) 7.5-325 MG TABLET 1 TAB PO (18:42)
[2019-12-06 21:29] VITALS: PULSE 63
[2019-12-06] MEDS: AMIODARONE HCL 200 MG TABLET PO (21:29)
[2019-12-06] MEDS: TRIMETHOPRIM 100 MG TABLET PO (21:31)
[2019-12-06 23:57] VITALS: BP 124/68; PULSE 61; RESP 18; TEMP 36.3; O2SAT 99
[2019-12-07] MEDS: HYDROcodone/acetaminophen (*CRX) 7.5-325 MG TABLET 1 TAB PO ×4 (00:40→22:10)
[2019-12-07] MEDS: CYCLOBENZAPRINE HCL 10 MG TABLET PO ×2 (05:49→23:55)
[2019-12-07] MEDS: GABAPENTIN 300 MG CAPSULE PO ×3 (05:49→21:19)
[2019-12-07 07:30] VITALS: BP 112/40; PULSE 61; RESP 18; TEMP 36.2; O2SAT 96
--- NOTE | 2019-12-07 08:36 | PM.EVENT ---
Event Note Event Note Event Note: 12/07/2019 Pt reports that for a few years she has been having food and drink getting stuck in her throat. She points at the area between her clavicles. This makes it difficult for her to eat. Have ordered a Modified Barium Swallow Evaluation.
[2019-12-07] MEDS: APIXABAN 2.5 MG TABLET 5 MG PO ×2 (09:12→17:09)
[2019-12-07] MEDS: LIDOCAINE 5% PATCH 1 PATCH TRANSDERM (09:12)
[2019-12-07 09:13] VITALS: PULSE 61
[2019-12-07] MEDS: ASCORBIC ACID 500 MG TABLET 1000 MG PO (09:13)
[2019-12-07] MEDS: METOPROLOL SUCCINATE EXT REL 25 MG TABCR PO (09:13)
[2019-12-07] MEDS: DOCUSATE SODIUM 100 MG CAPSULE PO (09:13)
--- NOTE | 2019-12-07 14:30 | PC.NURSE ---
Resting quietly in bed. No distress noted. Call light and belongings at side.
[2019-12-07 16:30] VITALS: BP 119/38; PULSE 60; RESP 18; TEMP 36.5; O2SAT 96
[2019-12-07] MEDS: CEPHALEXIN 500 MG CAPSULE PO (17:08)
[2019-12-07] MEDS: EZETIMIBE 10 MG TABLET PO (17:08)
[2019-12-07 21:18] VITALS: PULSE 64
[2019-12-07] MEDS: AMIODARONE HCL 200 MG TABLET PO (21:18)
[2019-12-07] MEDS: TRIMETHOPRIM 100 MG TABLET PO (21:19)
[2019-12-08] VITALS: BP 94/48; PULSE 60; RESP 20; TEMP 36.1; O2SAT 97
[2019-12-08] MEDS: HYDROcodone/acetaminophen (*CRX) 7.5-325 MG TABLET 1 TAB PO ×2 (04:10→15:17)
[2019-12-08] MEDS: GABAPENTIN 300 MG CAPSULE PO ×3 (05:50→21:02)
[2019-12-08 05:52] LABS: Hematocrit 30.6 % (35.0-42.0); Hemoglobin 9.3 g/dL (11.7-13.8); Immature Platelet Fraction Pct 0.4 % (1.0-7.0); Mean Corpuscular HGB Conc 30.4 g/dL (32.0-36.0); Mean Corpuscular Volume 88.7 fL (78.0-102.0); Mean Platelet Volume 7.9 fl (9.2-11.8); Platelet Count Result 708 K/mm3 (150-420); Red Blood Count 3.45 M/mm3 (4.20-5.40); Red Cell Distribution Width 15.2 % (11.6-14.4); White Blood Count 8.8 K/mm3 (4.8-10.8)
[2019-12-08 06:01] LABS: Anion Gap 7 mmol/L (8-16); Blood Urea Nitrogen 13 mg/dL (7-18); Calcium 8.6 mg/dL (8.5-10.1); Carbon Dioxide 27 mmol/L (21-32); Chloride 105 mmol/L (98-108); Estimated Glomerular Filt Rate 41; Glucose 89 mg/dL (70-99); Osmolality Calculated 287 mOsm/kg (285-295); Potassium 4.3 mmol/L (3.5-5.1); Sodium 139 mmol/L (136-145)
[2019-12-08 07:25] VITALS: BP 109/38; PULSE 60; RESP 18; TEMP 36.7; O2SAT 97
[2019-12-08 08:23] VITALS: PULSE 60
[2019-12-08] MEDS: ASCORBIC ACID 500 MG TABLET 1000 MG PO (08:23)
[2019-12-08] MEDS: METOPROLOL SUCCINATE EXT REL 25 MG TABCR PO (08:23)
[2019-12-08] MEDS: LIDOCAINE 5% PATCH 1 PATCH TRANSDERM (08:23)
[2019-12-08] MEDS: ACETAMINOPHEN 325 MG TABLET 650 MG PO (08:23)
[2019-12-08] MEDS: APIXABAN 2.5 MG TABLET 5 MG PO ×2 (08:23→17:35)
[2019-12-08] MEDS: DOCUSATE SODIUM 100 MG CAPSULE PO ×2 (08:24→17:35)
[2019-12-08] MEDS: CYCLOBENZAPRINE HCL 10 MG TABLET PO ×2 (08:24→17:35)
--- NOTE | 2019-12-08 11:16 | WPDPN ---
Progress Note: A&P Assessment and Plan (1) DVT prophylaxis: Code(s): Z29.9 - Encounter for prophylactic measures, unspecified Status: Acute Assessment and Plan: Continue Eliquis (2) Weakness: Code(s): R53.1 - Weakness Status: Acute Assessment and Plan: ? Exhibit tolerance during physical activity as evidenced by a normal fluctuation of vital signs during physical activity. ? Patient will be ability to perform required activities of daily living. ? Provide appropriate nutrition for healing and strength. ? Use appropriate to prevent falls. ? Continue physical therapy/occupational therapy. (3) Pre-diabetes: Code(s): R73.03 - Prediabetes Status: Chronic Assessment and Plan: A1c pending (4) ELIZABETH (acute kidney injury): Code(s): N17.9 - Acute kidney failure, unspecified Status: Resolved Assessment and Plan: BUN/creatinine 13/1.25 at baseline Patent BUN/creat at [facility] was 17/1.2 Avoid nephrotoxic agents Renal dose all medication Periodically monitor renal function (5) Hypertension: Qualifiers: Hypertension type: essential hypertension Qualified Code(s): I10 - Essential (primary) hypertension Code(s): I10 - Essential (primary) hypertension Status: Acute Assessment and Plan: Blood pressure 109/38 soft metoprolol 25 mg daily changed to 12.5 daily Vital signs as ordered Will adjust medication as (6) Atrial fibrillation: Qualifiers: Atrial fibrillation type: unspecified Qualified Code(s): I48.91 - Unspecified atrial fibrillation Code(s): I48.91 - Unspecified atrial fibrillation Status: Chronic Assessment and Plan: Heart rate 60 controlled Continue Eliquis 5 mg p.o. twice daily Continue amiodarone 200 mg daily and change metoprolol to 12.5 daily (7) Uncontrolled pain: Code(s): R52 - Pain, unspecified Status: Acute Assessment and Plan: Secondary to surgical procedure Impeding the patient's physical therapy and sleep Started patient on oxycodone 10 mg twice daily extended release with as needed [place] 7.5 and she will continue to receive the lidocaine patch Review of Systems Review of Systems: All systems reviewed & are unremarkable except as noted in HPI and below (10 point system review) Exam Narrative: Exam Narrative: GENERAL: This is a well-nourished, well-developed patient, in no apparent distress. seems depressed HEAD: normocephalic, atraumatic. EYES: PERRL. Sclera clear/white. Vision is grossly intact. EARS: External ears normal, auditory canals clear and without drainage, TMs normal without perforation. Hearing grossly intact. NOSE: External nose normal with no obvious nasal discharge, nares without redness, no rhinorrhea. THROAT: Mucous membranes moist, posterior pharynx clear. NECK: Neck supple, non-tender without lymphadenopathy, masses or thyromegaly. CARDIOVASCULAR: Regular rate and rhythm without murmurs, gallops, or rubs. RESPIRATORY: Clear to auscultation. Breath sounds equal bilaterally. No wheezes, rales, or rhonchi. GASTROINTESTINAL: Abdomen soft, non-tender, nondistended. Bowel sounds are active. No hepato-splenomegaly, or palpable masses. No guarding. SKIN: lumbar area from surgical site NEURO: awake, alert, and oriented to person, place and time. There were no obvious focal neurologic abnormalities. Steady gait EXTREMITIES: Normal range of motion. No edema. 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
[2019-12-08] MEDS: oxyCODONE HCL (*CRX) 10 MG TAB SR 12HR PO ×2 (11:48→21:02)
[2019-12-08 15:20] VITALS: BP 109/45; PULSE 63; RESP 18; TEMP 36.3; O2SAT 97
[2019-12-08] MEDS: EZETIMIBE 10 MG TABLET PO (17:35)
--- NOTE | 2019-12-08 18:15 | PC.NURSE ---
Patient resting in bed. in room to visit. Reports no needs. Call light at side
[2019-12-08 21:01] VITALS: PULSE 70
[2019-12-08] MEDS: AMIODARONE HCL 200 MG TABLET PO (21:01)
[2019-12-08] MEDS: TRIMETHOPRIM 100 MG TABLET PO (21:02)
[2019-12-09] VITALS: BP 146/37; PULSE 64; RESP 20; TEMP 36.2; O2SAT 96
[2019-12-09] MEDS: HYDROcodone/acetaminophen (*CRX) 7.5-325 MG TABLET 1 TAB PO ×3 (01:12→18:12)
[2019-12-09] MEDS: GABAPENTIN 300 MG CAPSULE PO (05:24)
[2019-12-09 08:00] VITALS: BP 121/52; PULSE 62; RESP 20; TEMP 36.3
[2019-12-09] MEDS: oxyCODONE HCL (*CRX) 10 MG TAB SR 12HR PO ×2 (08:13→20:55)
[2019-12-09] MEDS: PROCHLORPERAZINE MALEATE 5 MG TABLET 10 MG PO (08:13)
[2019-12-09] MEDS: CYCLOBENZAPRINE HCL 10 MG TABLET PO ×2 (08:13→16:28)
[2019-12-09] MEDS: ASCORBIC ACID 500 MG TABLET 1000 MG PO (09:33)
[2019-12-09] MEDS: LIDOCAINE 5% PATCH 1 PATCH TRANSDERM (09:33)
[2019-12-09] MEDS: DOCUSATE SODIUM 100 MG CAPSULE PO ×2 (09:33→16:27)
[2019-12-09 09:34] VITALS: PULSE 62
[2019-12-09] MEDS: METOPROLOL SUCCINATE EXT REL 25 MG TABCR 12.5 MG PO (09:34)
[2019-12-09] MEDS: APIXABAN 2.5 MG TABLET 5 MG PO ×2 (09:34→16:28)
[2019-12-09] MEDS: GABAPENTIN 400 MG CAPSULE PO ×2 (13:55→16:27)
--- NOTE | 2019-12-09 15:56 | PC.NURSE ---
pt out for walk in hallway with edu from PT
[2019-12-09 16:00] VITALS: BP 110/36; PULSE 60; RESP 16; TEMP 36.3; O2SAT 99
[2019-12-09] MEDS: EZETIMIBE 10 MG TABLET PO (16:28)
[2019-12-09 20:55] VITALS: PULSE 60
[2019-12-09] MEDS: AMIODARONE HCL 200 MG TABLET PO (20:55)
[2019-12-09] MEDS: TRIMETHOPRIM 100 MG TABLET PO (20:55)
[2019-12-10] VITALS: BP 106/48; PULSE 60; RESP 18; TEMP 36.3; O2SAT 94
[2019-12-10] MEDS: CYCLOBENZAPRINE HCL 10 MG TABLET PO ×2 (03:47→13:26)
[2019-12-10] MEDS: HYDROcodone/acetaminophen (*CRX) 7.5-325 MG TABLET 1 TAB PO ×2 (03:47→13:27)
[2019-12-10 08:00] VITALS: BP 112/35; PULSE 90; RESP 18; TEMP 36.4; O2SAT 98
[2019-12-10] MEDS: ASCORBIC ACID 500 MG TABLET 1000 MG PO (08:40)
[2019-12-10] MEDS: oxyCODONE HCL (*CRX) 10 MG TAB SR 12HR PO ×2 (08:40→21:18)
[2019-12-10] MEDS: LIDOCAINE 5% PATCH 1 PATCH TRANSDERM (08:40)
[2019-12-10] MEDS: PROCHLORPERAZINE MALEATE 5 MG TABLET 10 MG PO (08:40)
[2019-12-10 08:41] VITALS: PULSE 90
[2019-12-10] MEDS: METOPROLOL SUCCINATE EXT REL 25 MG TABCR 12.5 MG PO (08:41)
[2019-12-10] MEDS: APIXABAN 2.5 MG TABLET 5 MG PO ×2 (08:41→16:19)
[2019-12-10] MEDS: DOCUSATE SODIUM 100 MG CAPSULE PO ×2 (08:41→16:18)
[2019-12-10] MEDS: GABAPENTIN 400 MG CAPSULE PO ×3 (08:41→16:18)
[2019-12-10 16:00] VITALS: BP 96/32; PULSE 60; RESP 18; TEMP 36.7; O2SAT 96
[2019-12-10] MEDS: BISACODYL 10 MG SUPPOSITORY RECTAL (16:18)
[2019-12-10] MEDS: EZETIMIBE 10 MG TABLET PO (17:58)
[2019-12-10 21:17] VITALS: PULSE 68
[2019-12-10] MEDS: AMIODARONE HCL 200 MG TABLET PO (21:17)
[2019-12-10] MEDS: TRIMETHOPRIM 100 MG TABLET PO (21:18)
[2019-12-11] VITALS: BP 117/36; PULSE 60; RESP 18; TEMP 36.3; O2SAT 97
[2019-12-11] MEDS: HYDROcodone/acetaminophen (*CRX) 7.5-325 MG TABLET 1 TAB PO ×3 (00:37→16:00)
[2019-12-11] MEDS: CYCLOBENZAPRINE HCL 10 MG TABLET PO ×2 (03:49→16:00)
[2019-12-11 08:00] VITALS: BP 133/45; PULSE 73; RESP 18; TEMP 36.3; O2SAT 96
[2019-12-11] MEDS: PROCHLORPERAZINE MALEATE 5 MG TABLET 10 MG PO ×2 (08:02→16:00)
[2019-12-11 09:54] VITALS: PULSE 73
[2019-12-11] MEDS: LIDOCAINE 5% PATCH 1 PATCH TRANSDERM (09:54)
[2019-12-11] MEDS: DOCUSATE SODIUM 100 MG CAPSULE PO ×2 (09:54→16:00)
[2019-12-11] MEDS: APIXABAN 2.5 MG TABLET 5 MG PO ×2 (09:54→15:59)
[2019-12-11] MEDS: METOPROLOL SUCCINATE EXT REL 25 MG TABCR 12.5 MG PO (09:54)
[2019-12-11] MEDS: ASCORBIC ACID 500 MG TABLET 1000 MG PO (09:54)
[2019-12-11] MEDS: GABAPENTIN 400 MG CAPSULE PO ×3 (09:55→16:00)
[2019-12-11] MEDS: oxyCODONE HCL (*CRX) 10 MG TAB SR 12HR PO (09:55)
--- NOTE | 2019-12-11 13:30 | PM.DS ---
DS: Admitting Diagnosis Admitting Diagnosis Admitting Diagnosis: REHAB DS: Discharge Diagnosis Discharge Diagnosis (1) DVT prophylaxis: Code(s): Z29.9 - Encounter for prophylactic measures, unspecified Status: Acute Assessment and Plan: Continue Eliquis (2) Weakness: Code(s): R53.1 - Weakness Status: Acute Assessment and Plan: ? Exhibit tolerance during physical activity as evidenced by a normal fluctuation of vital signs during physical activity. ? Patient will be ability to perform required activities of daily living. ? Provide appropriate nutrition for healing and strength. ? Use appropriate to prevent falls. ? Continue physical therapy/occupational therapy. Patient will discharge home with home health (3) Pre-diabetes: Code(s): R73.03 - Prediabetes Status: Chronic Assessment and Plan: Follow-up with primary care physician (4) ELIZABETH (acute kidney injury): Code(s): N17.9 - Acute kidney failure, unspecified Status: Resolved Assessment and Plan: BUN/creatinine 13/1.25 at baseline Patent BUN/creat at [facility] was 17/1.2 Patient will follow up with primary care physician (5) Hypertension: Qualifiers: Hypertension type: essential hypertension Qualified Code(s): I10 - Essential (primary) hypertension Code(s): I10 - Essential (primary) hypertension Status: Acute Assessment and Plan: Blood pressure 133/45 metoprolol 25 mg daily changed to 12.5 daily Patient to follow-up with primary care physician in 1 week (6) Atrial fibrillation: Qualifiers: Atrial fibrillation type: unspecified Qualified Code(s): I48.91 - Unspecified atrial fibrillation Code(s): I48.91 - Unspecified atrial fibrillation Status: Chronic Assessment and Plan: Heart rate controlled Continue Eliquis 5 mg p.o. twice daily Continue amiodarone 200 mg daily and change metoprolol to 12.5 daily due to the soft blood pressure (7) Uncontrolled pain: Code(s): R52 - Pain, unspecified Status: Acute Assessment and Plan: Secondary to surgical procedure Impeding the patient's physical therapy and sleep patient on oxycodone 10 mg twice daily extended release with as needed [place] 7.5 and she will continue to receive the lidocaine patch. Patient will have to follow-up with the pain clinic DS: Summary Time Spent with Patient Time attestation: Total time spent providing and/or coordinating discharge services:60 Exam Narrative: Exam Narrative: GENERAL: This is a well-nourished, well-developed patient, in no apparent distress. seems depressed HEAD: normocephalic, atraumatic. EYES: PERRL. Sclera clear/white. Vision is grossly intact. EARS: External ears normal, auditory canals clear and without drainage, TMs normal without perforation. Hearing grossly intact. NOSE: External nose normal with no obvious nasal discharge, nares without redness, no rhinorrhea. THROAT: Mucous membranes moist, posterior pharynx clear. NECK: Neck supple, non-tender without lymphadenopathy, masses or thyromegaly. CARDIOVASCULAR: Regular rate and rhythm without murmurs, gallops, or rubs. RESPIRATORY: Clear to auscultation. Breath sounds equal bilaterally. No wheezes, rales, or rhonchi. GASTROINTESTINAL: Abdomen soft, non-tender, nondistended. Bowel sounds are active. No hepato-splenomegaly, or palpable masses. No guarding. SKIN: lumbar area from surgical site NEURO: awake, alert, and oriented to person, place and time. There were no obvious focal neurologic abnormalities. Steady gait EXTREMITIES: Normal range of motion. No edema. 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
--- NOTE | 2019-12-18 14:13 | PC.NURSE ---
Pt states she understood her instructions and stated I will say my care was awesome, the girls were so patient and kind .
== END 2019-12-11 16:40 | disposition home health service (06) | DRG 560 ==
PROVIDERS: Nurse Practitioner; Nurse Practitioner Family; Admitting Provider Emergency Medicine; PCP Nurse Practitioner Family; Visit Provider Emergency Medicine
DX: Z47.89 Encounter for other orthopedic aftercare (principal); I48.20 Chronic atrial fibrillation, unspecified; Z98.1 Arthrodesis status; R53.1 Weakness; G89.18 Other acute postprocedural pain; I25.10 Atherosclerotic heart disease of native coronary artery without angina pectoris; I12.9 Hypertensive chronic kidney disease with stage 1 through stage 4 chronic kidney disease, or unspecified chronic kidney disease; N18.9 Chronic kidney disease, unspecified; I73.9 Peripheral vascular disease, unspecified; E78.2 Mixed hyperlipidemia; K56.41 Fecal impaction; R73.03 Prediabetes; R41.0 Disorientation, unspecified; R09.89 Other specified symptoms and signs involving the circulatory and respiratory systems; R13.10 Dysphagia, unspecified; Z96.651 Presence of right artificial knee joint; Z86.718 Personal history of other venous thrombosis and embolism; Z86.010 Personal history of colon polyps; Z87.442 Personal history of urinary calculi; Z85.820 Personal history of malignant melanoma of skin; Z95.0 Presence of cardiac pacemaker; Z87.891 Personal history of nicotine dependence
CPT/HCPCS: 36415; 74176; 80048; 80053; 81001; 83036; 85027; 85055; 87086; 92611; 97110; 97116; 97161; 97165; 97530; 97535; A9270

== ENCOUNTER → 2020-04-11 00:09 | Outpatient (CLI) | payer MEDICARE, SELFPAY ==
[2020-04-11 19:33] LABS: SARS-CoV-2 RNA PCR Negative
== END ==
PROVIDERS: Family Provider Internal Medicine; PCP Internal Medicine; Visit Provider Urology
DX: Z01.812 Encounter for preprocedural laboratory examination (principal); Z20.822 Contact with and (suspected) exposure to COVID-19
CPT/HCPCS: C9803; U0003; U0005

== ENCOUNTER 2020-04-14 01:22 | Day surgery (SDC) | payer MEDICARE, SELFPAY ==
[2020-04-07 15:20] VITALS: BMI 17.5
--- NOTE | 2020-04-11 08:32 | PM.HPGS ---
History of Present Illness History of Present Illness Consent: Risks, benefits, and alternatives have been discussed and questions answered. Patient agrees to proceed with procedure. Chief complaint: Hydronephrosis, Bladder spasm, Cystitis Narrative: Desirae Peng is a 79 year old female known left hydronephrosis due to obstruction from spine hardware. Her spinal hardware has been revised decision not to intervene for the scrotum in her left renal pelvis. She presents now for cystoscopy with left ureteroscopy and stent exchange. Review of Systems Cardiovascular: Cardiovascular: Denies chest pain, Denies lightheadedness, Denies palpitations and Denies dyspnea Respiratory: Respiratory: Denies dyspnea Gastrointestinal: Gastrointestinal: Denies diarrhea, Denies nausea and Denies vomiting Genitourinary: Genitourinary: Denies hematuria and Denies dysuria Endocrine: Endocrine: Denies palpitations PMF Past Medical History Medical History Above knee amputation of left lower extremity Atrial fibrillation Benign essential hypertension CAD (coronary artery disease) Carotid bruit Chronic renal disease DVT (deep venous thrombosis) Fatty liver Fusion of lumbar spine History of thrombosis of lower extremity Hx of adenomatous colonic polyps Hypertension Inflammatory bowel disease Kidney stones Melanoma Extracted from her face Menopausal and female climacteric states Microscopic colitis, unspecified Mixed hyperlipidemia Neuropathic pain On long term care 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 Thrombectomy femoral popliteal bypass 2009 angiogram with PTCA stent to left lower extremity February 2019 H/O breast biopsy Several biopsies both breast H/O cystoscopy H/O laminectomy Lumbar 1984 H/O left knee surgery 1989 H/O rectal polypectomy History of appendectomy 1953 History of back surgery History of coronary artery stent placement History of lumbar fusion 2015, lumbar fusion with hardware June of 2018 History of partial hysterectomy 1970 History of total right knee replacement (TKR) 2018 History of ureter stent Hx of appendectomy Hx of cardiac cath Hx of cholecystectomy 1977 Peripheral vascular angioplasty status with implants and grafts S/P cubital tunnel release Right-sided 1997 and left 1995 Status post trigger finger release Left ring finger 1998 Family History Family History Mother Family history of cardiovascular disease Family history of elevated blood lipids Family history of osteoporosis Family history of coronary artery disease Hypertension Sibling Patient's brother is Family history of malignant neoplasm of breast in first degree relative Grandparent Family history of cardiovascular disease Sibling No problems noted. Other Family history of malignant neoplasm of male breast Family history of malignant neoplasm of ovary Family history of osteoarthritis Social History Social History Social History: The patient quit smoking August of 2013. She does not have a durable power compliance attorney for healthcare. She has 3 children. She lives with her and daughter. 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 Smoking packs per day: 1 Smoking cigarettes per day: 20.0 Years smoked: 40 Smoking pack-years: 40.00 Smoking status: Former smoker Tobacco type: cigarettes Second hand tobacco smoke exposure: No Smoking end date: 08/21/13 Alcohol intake: never Substance use: never Substa
--- NOTE | ~2020-04-14 | XR_ITS ---
EXAMINATION: XR retrograde pyelo w/stent LT EXAM DATE: 04/14/2020 12:14 INDICATION: Left-sided obstructive nephropathy. Stent. TECHNIQUE: Fluoroscopy used during XR retrograde pyelo w/stent LT performed by Dr. Broderick Lal MD. The DAP for this procedure was 667 radcm2 Cine run(s) available for review. FINDINGS: Manager Gas image demonstrates left double-J ureteral stent in position, right hip replacement o f extensive lumbar hardware. Contrast was injected into the left renal pelvis. Severe left hydronephr osis demonstrated. Image which may be the final image demonstrates another left double-J ureteral valeria nt. Correlate with procedure note. IMPRESSION: Fluoroscopy used during XR retrograde pyelo w/stent LT. Severe left hydronephrosis. Stent in position. Reviewed, dictated and finalized at location B. CONSULTANT
--- NOTE | 2020-04-14 06:54 | WPDHPUPDATE1 ---
History and Physical Update Update Date/Time: 04/14/20 06:54 History and Physical has been reviewed, including an updated exam of the patient. There are NO changes in the patient's condition. Risks, benefits, and alternatives have been discussed and questions answered. Patient agrees to proceed with procedure.
[2020-04-14 09:36] VITALS: BP 113/68; PULSE 61; RESP 14; TEMP 37.5; O2SAT 99
--- NOTE | 2020-04-14 09:57 | WPDANESEPPF ---
Anes - Initial Pre Proc Eval Procedure: Operation Date: 04/14/20 11:30 Proposed Procedures p Cystoscopy, Left Retrograde Pyelogram, Left Ureteroscopy, Left Stent Removal and Stent Replacement - Broderick Lal MD Date/Time: 04/14/20 09:57 Surgeon: Broderick Lal MD Pre Op Diagnosis: Hydronephrosis, Bladder spasm, Cystitis Patient Data Age: 79 Gender: F Height: 5 ft 4 in Weight: 41.5 kg Last Vital Signs Temp 99.5 F 04/14/20 09:36 Pulse 61 04/14/20 09:36 Resp 14 04/14/20 09:36 BP 113/68 04/14/20 09:36 Pulse Ox 99 04/14/20 09:36 Allergies Allergy/AdvReac Type Severity Reaction Status Date / Time sertraline Allergy Severe Joint Pain Verified 04/14/20 09:49 Sulfa (Sulfonamide Allergy Severe RASH Verified 04/14/20 09:49 Antibiotics) atorvastatin Allergy Intermediate Hives Verified 04/14/20 09:49 baclofen Allergy Intermediate tremors Verified 04/14/20 09:49 estradiol Allergy Intermediate Joint Verified 04/14/20 09:49 pain, swollen eyes & leg pain codeine Allergy Mild NAUSEA, Verified 04/14/20 09:49 RASH esomeprazole Allergy Mild CHEST PAIN Verified 04/14/20 09:49 lansoprazole Allergy Mild CHEST PAIN Verified 04/14/20 09:49 Penicillins Allergy Mild RASH Verified 04/14/20 09:49 iohexol Allergy Unknown Hives Verified 04/14/20 09:49 [From contrast - CT, X-RAY] metoclopramide Allergy Unknown Itching Verified 04/14/20 09:49 nebivolol Allergy Unknown Itching Verified 04/14/20 09:49 tolmetin Allergy Unknown Hives Verified 04/14/20 09:49 amitriptyline AdvReac Mild MUSCLE PAIN Verified 04/14/20 09:49 citalopram AdvReac Mild CHEST PAIN Verified 04/14/20 09:49 colesevelam AdvReac Mild Gastrointestinal Verified 04/14/20 09:49 Upset lisinopril AdvReac Mild NAUSEA/DIAR Verified 04/14/20 09:49 SU pravastatin AdvReac Mild Nausea Verified 04/14/20 09:49 Home Medications Medication Instructions Recorded Confirmed Type amiodarone 200 mg PO HS 05/31/19 04/14/20 History apixaban 5 mg tablet 5 mg PO BID 05/31/19 04/14/20 History ascorbic acid (vitamin C) [Vitamin 1,000 mg PO DAILY 30 Days #60 05/31/19 04/14/20 Rx C] tablet oxybutynin chloride 5 mg PO TID 08/09/19 04/14/20 History albuterol sulfate 2 puff INHALATION PRN PRN 10/29/19 04/14/20 History cephalexin 500 mg PO QPM 10/29/19 04/14/20 History ezetimibe [Zetia] 10 mg PO QPM 10/29/19 04/14/20 History trimethoprim 100 mg PO HS 10/29/19 04/14/20 History docusate sodium 100 mg PO HS 11/26/19 04/14/20 History polyethylene glycol 3350 [Miralax] 17 g PO HS PRN 11/26/19 04/14/20 History hydrocodone-acetaminophen 1 tab PO Q8HR PRN #15 tablet 12/11/19 04/14/20 Rx aspirin [Adult Low Dose Aspirin] 81 mg PO DAILY 04/07/20 04/14/20 History cholecalciferol (vitamin D3) 25 mcg PO DAILY 04/07/20 04/14/20 History gabapentin 300 mg PO TID 04/07/20 04/14/20 History hydrocodone bitartrate 30 mg PO BID 04/07/20 04/14/20 History lidocaine [Lidoderm] 1 patch TRANSDERMAL PRN PRN 04/07/20 04/14/20 History metoprolol succinate [Toprol XL] 25 mg PO QAM 04/07/20 04/14/20 History ondansetron HCl 4 mg PO PRN PRN 04/07/20 04/14/20 History Patient hx anesthesia problems: none Family hx anesthesia problems: none PMFSH Past Medical History Medical History Above knee amputation of left lower extremity Atrial fibrillation Benign essential hypertension CAD (coronary artery disease) Carotid bruit Chronic renal disease DVT (deep venous thrombosis) Fatty liver Fusion of lumbar spine History of thrombosis of lower extremity Hx of adenomatous colonic polyps Hypertension Inflammatory bowel disease Kidney stones Melanoma Extracted from her face Menopausal and female climacteric states Microscopic colitis, unspecified Mixed hyperlipidemia Neuropathic pain On snf drug therapy Pacemaker Inserted 2014 Medtronic Pacemaker Peripheral vascular disease Pre-diabetes Statin intolerance
[2020-04-14] MEDS: LACTATED RINGERS 1,000 ML 30 ML IV CONT ×2 (10:35→12:18)
[2020-04-14] MEDS: ONDANSETRON INJ 4 MG/2 ML VIAL IV PUSH (10:37)
[2020-04-14] MEDS: ceFAZolin 2 GM/D5W 50 ML 2 GM/50 ML BAG IVPB (11:34)
[2020-04-14 12:18] VITALS: BP 109/51; PULSE 57; RESP 18; O2SAT 99
--- NOTE | 2020-04-14 12:18 | PM.PROC ---
Procedure Note - Detailed Date of procedure: 04/14/20 Pre-op diagnosis: Hydronephrosis, Bladder spasm, Cystitis Post-op diagnosis: same Procedure performed: Cystoscopy, left ureteral stent removal, left ureteroscopy, left retrograde pyelography and left ureteral stent replacement Description of procedure: patient is brought to the operatory where she has prepped and draped in routine sterile fashion while in a dorsal lithotomy position. After the uneventful induction of a general anesthetic a 19 F rigid cystoscope was placed in her bladder. The tip of the indwelling stent is grasped in is brought to the external urethral meatus. A 0.035 in glidewire is advanced into the left renal pelvis. A digital 7.5 F flexible ureteral scope was advanced over the wire. Inspection of the ureter is normal. The continues to be bullous edema of the ureteropelvic junction suggesting an underlying extrusion of the foreign body is has been previously identified. I cannot identify the body itself today, likely because of the edema. Retrograde pyelogram shows no obvious extravasation. I replaced a 4.8 F variable length stent. It should be noted the previous 1 had minimal encrustation. I will extended duration for next stent replacement to 6 months. Anesthesia: GLMA Surgeon: Broderick Lal MD Estimated blood loss (mL): 0 Drains: Yes (4.8F left ureteral stent) Packing: No Pathology: none sent Complications: No immediate complications Condition: stable Disposition: PACU
[2020-04-14 12:48] VITALS: BP 129/56; PULSE 60; RESP 18; O2SAT 96
[2020-04-14] MEDS: oxyCODONE HCL (*CRX) 5 MG TAB IR PO (13:01)
[2020-04-14 13:18] VITALS: BP 157/61; PULSE 60; RESP 18
== END 2020-04-14 13:35 | disposition home or self-care (01) ==
PROVIDERS: Family Provider Internal Medicine; PCP Nurse Practitioner Family; Visit Provider Urology
PROC: (CPT 52352; principal; 2020-04-14 11:30)
DX: N13.30 Unspecified hydronephrosis (principal); N32.89 Other specified disorders of bladder; N30.90 Cystitis, unspecified without hematuria; I48.91 Unspecified atrial fibrillation; I10 Essential (primary) hypertension; I25.10 Atherosclerotic heart disease of native coronary artery without angina pectoris; K76.0 Fatty (change of) liver, not elsewhere classified; K58.9 Irritable bowel syndrome, unspecified; E78.2 Mixed hyperlipidemia; Z95.0 Presence of cardiac pacemaker; I73.9 Peripheral vascular disease, unspecified; R73.03 Prediabetes; Z79.82 Long term (current) use of aspirin; Z79.01 Long term (current) use of anticoagulants; Z86.718 Personal history of other venous thrombosis and embolism; Z89.612 Acquired absence of left leg above knee; Z95.5 Presence of coronary angioplasty implant and graft; Z98.1 Arthrodesis status; Z95.820 Peripheral vascular angioplasty status with implants and grafts; Z87.891 Personal history of nicotine dependence
CPT/HCPCS: 52332; 74420; A9270; C1769; C1887; C2617; J0690; J2405; J2704; J3010; J7120; Q9966

== ENCOUNTER 2020-04-15 12:14 | Inpatient (IN) | payer MEDICARE, SELFPAY ==
[2020-04-15] VITALS (8 sets, daily range): BP systolic 90–134; BP diastolic 32–86; PULSE 61–109; RESP 15–22; TEMP 36.8–37.6; O2SAT 81–93
--- NOTE | ~2020-04-15 | XR_ITS ---
EXAMINATION: XR chest 1V portable DATE: 04/15/2020 13:11 INDICATION: Fever post renal stent placement 1 day prior. TECHNIQUE: frontal view of the chest was obtained. COMPARISON: Chest radiograph dated 08/11/2019 FINDINGS: Mild reticular opacities at the bilateral lung bases and favor atelectasis or mild pulmonary edema ov er pneumonia. No pleural effusion or pneumothorax. The cardiomediastinal silhouette is normal. Dual l ead pacemaker seen with leads projecting over the expected locations of the right atrium and right ve ntricular outflow tract. Instrumented anterior and posterior spinal fusion at the upper lumbar spine. Loop of a likely left internal ureteral stent projects over the expected location of the left renal pelvis. IMPRESSION: 1. Mild reticular opacities at the bilateral lung bases and favor atelectasis or mild pulmonary edema over pneumonia. Reviewed, dictated and finalized at location A. LINE COOK IMPRESSION: 1. Mild reticular opacities at the bilateral lung bases and favor atelectasis o r mild pulmonary edema over pneumonia.
--- NOTE | ~2020-04-15 | CT_ITS ---
EXAMINATION: CT abdomen pelvis wo con DATE: 04/15/2020 13:51 INDICATION: Fever. Left internal urinary stent. TECHNIQUE: Computed tomography (CT) of the abdomen and pelvis was performed without intravenous contr ast. Automated exposure control and iterative reconstruction technique were employed. Exam dose: 468 .63 mGy-cm total exam DLP. COMPARISON: 04/14/2020 retrograde left pyelogram 11/29/[address] abdomen pelvis FINDINGS: Examination is limited because of the upper extremities and overlapping the abdomen and bec ause of extensive streak artifact from lumbar spine hardware. There are patchy groundglass infiltrates in the lower lungs bilaterally. There is discoid atelectasis and/or scarring in both lower lobes. Heart size is within normal range. No pericardial effusion. Status post cholecystectomy. No hepatic space-occupying mass lesion is evident. Normal splenic size. No pancreatic mass lesion or calcification is evident. No adrenal mass lesion is evident. Prominent abdominal aortic and renal artery calcifications. Celiac and superior mesenteric and iliac and femoral artery calcifications. Minimal air in the collecting system apparently of the upper pole left kidney. Left internal urinary stent, proximal pigtail at the left renal pelvis. The distal pigtail is situated at the posterolatera l aspect of the urinary bladder trigone area. There is a prominent amount of fecal material in the colon. No bowel obstruction or intraperitoneal f ree air is evident. Left iliac and femoral artery stents. Right bipolar hip prosthesis. Anterior spinal fusion at L4-5 and L5-S1. Posterior and interbody spinal fusion including pedicle scr ews and rods at L1-S1, including screws extending through both sacroiliac joints. IMPRESSION: Patchy groundglass infiltrates in both lower lungs Status post cholecystectomy Left internal urinary stent; small amount of air in the left renal collecting system Prominent fecal material in the colon Reviewed, dictated and finalized at [facility] Reviewed, dictated and finalized at [facility]TER IMPRESSION: Patchy groundglass infiltrates in both lower lungs Status post cholecystectomy Left internal urinary stent; small amount of air in the left renal collecting s ystem Prominent fecal material in the colon
--- NOTE | 2020-04-15 12:37 | ED.FEVER ---
HPI - Fever General Chief Complaint: Fever Stated Complaint: fever, had renal stent yesterday Time Seen by Provider: 04/15/20 12:37 History of Present Illness HPI Narrative: 79 yo female presents to the ED for fever. She had a ureteral stent exchange performed yesterday by Dr. Lal. After the procedure she notes that she had some back pain and nausea. Then overnight last night she developed a fever of 101 and chills. She reports no symptoms prior the procedure. Home health told her that she was hypoxic. Related Data Home Medications Medication Instructions Recorded Confirmed amiodarone [Pacerone] 200 mg PO HS 05/31/19 04/15/20 oxybutynin chloride 5 mg PO TID 08/09/19 04/15/20 albuterol sulfate 2 puff INHALATION Q4-6H PRN 10/29/19 04/16/20 cephalexin 500 mg PO QPM 10/29/19 04/15/20 ezetimibe [Zetia] 10 mg PO QPM 10/29/19 04/15/20 trimethoprim 100 mg PO HS 10/29/19 04/15/20 docusate sodium 100 mg PO HS 11/26/19 04/15/20 polyethylene glycol 3350 [Miralax] 17 g PO HS PRN 11/26/19 04/15/20 aspirin 81 mg PO DAILY 04/07/20 04/15/20 cholecalciferol (vitamin D3) 25 mcg PO DAILY 04/07/20 04/15/20 gabapentin 300 mg PO TID 04/07/20 04/15/20 hydrocodone bitartrate 30 mg PO BID 04/07/20 04/15/20 lidocaine [Lidoderm] 1 patch TRANSDERMAL PRN PRN 04/07/20 04/15/20 metoprolol succinate [Toprol XL] 25 mg PO QAM 04/07/20 04/15/20 ondansetron HCl [Zofran] 4 mg PO Q4-6H PRN 04/07/20 04/16/20 Eliquis 5 mg PO BID 04/15/20 04/15/20 Allergies Allergy/AdvReac Type Severity Reaction Status Date / Time sertraline Allergy Severe Joint Pain Verified 04/15/20 23:10 Sulfa (Sulfonamide Allergy Severe RASH Verified 04/15/20 23:10 Antibiotics) atorvastatin Allergy Intermediate Hives Verified 04/15/20 23:10 baclofen Allergy Intermediate tremors Verified 04/15/20 23:10 estradiol Allergy Intermediate Joint Verified 04/15/20 23:10 pain, swollen eyes & leg pain codeine Allergy Mild NAUSEA, Verified 04/15/20 23:10 RASH esomeprazole Allergy Mild CHEST PAIN Verified 04/15/20 23:10 lansoprazole Allergy Mild CHEST PAIN Verified 04/15/20 23:10 Penicillins Allergy Mild RASH Verified 04/15/20 23:10 iohexol Allergy Unknown Hives Verified 04/15/20 23:10 [From contrast - CT, X-RAY] metoclopramide Allergy Unknown Itching Verified 04/15/20 23:10 nebivolol Allergy Unknown Itching Verified 04/15/20 23:10 tolmetin Allergy Unknown Hives Verified 04/15/20 23:10 amitriptyline AdvReac Mild MUSCLE PAIN Verified 04/15/20 23:10 citalopram AdvReac Mild CHEST PAIN Verified 04/15/20 23:10 colesevelam AdvReac Mild Gastrointestinal Verified 04/15/20 23:10 Upset lisinopril AdvReac Mild NAUSEA/DIAR Verified 04/15/20 23:10 SU pravastatin AdvReac Mild Nausea Verified 04/15/20 23:10 Review of Systems Review of Systems: All systems reviewed & are unremarkable except as noted in HPI and below Constitutional: Constitutional: Reports chills and Reports fever(s) ENT: Denies sore throat Cardiovascular: Cardiovascular: Denies chest pain Respiratory: Respiratory: Denies dyspnea Gastrointestinal: Gastrointestinal: Denies abdominal pain and Denies diarrhea Genitourinary: Genitourinary: Denies dysuria and Reports flank pain Musculoskeletal: Musculoskeletal: Reports back pain Neurologic: Reports weakness PMFSH Past Medical History Medical History (Updated 04/19/20 @ 15:09 by Bossman Roblero MD) Above knee amputation of left lower extremity Atrial fibrillation Rate controlled with pacemaker Benign essential hypertension CAD (coronary artery disease) Carotid bruit Chronic renal disease DVT (deep venous thrombosis) Fatty liver Fusion of lumbar spine History of thrombosis of lower extremity Hx of adenomatous colonic polyps Hypertension Inflammatory bowel disease Kidney stones Melanoma Extracted from her face Menopausal and female climacteric states Microscopic colitis, unspecified Mixed hyperlipidemia Neuropathic pain On retirement
--- NOTE | 2020-04-15 12:47 | ECG_ITS ---
Measurements Intervals [place] Rate: 73 P: 64 ND: 174 QRS: -36 QRSD: 123 T: 95 QT: 428 QTc: 472 Interpretive Statements SINUS RHYTHM LEFT AXIS DEVIATION LEFT BUNDLE BRANCH BLOCK BASELINE ARTIFACT- I, II, III, AVR, AVL, AVF, V1-V3 ABNORMAL ECG Electronically Signed On 04-15-2020 14:42:25 [employer] PROGRAMMER by Luis Layne D.O.
[2020-04-15 13:14] LABS: Basophils Absolute Auto 0.1 K/mm3 (0.0-0.1); Basophils Percent Auto 0.2 % (0.2-1.2); Eosinophils Absolute Auto 0.1 K/mm3 (0-0.3); Eosinophils Percent Auto 0.3 % (0-4.4); Hematocrit 39.9 % (37.0-47.0); Hemoglobin 12.7 g/dL (12.0-15.0); Immature Granulocyte Absolute 0.12 K/mm3 (0.00-0.031); Immature Granulocyte Percent A 0.6 % (0-0.5); Lymphocytes Absolute Auto 0.45 K/mm3 (0.9-3.2); Lymphocytes Percent Auto 2.1 % (18.3-44.2); Mean Corpuscular HGB Conc 31.8 g/dl (32-36); Mean Corpuscular Hemoglobin 26.8 pg (26-34); Mean Corpuscular Volume 84.2 fl (80-100); Mean Platelet Volume 8.6 fl (7.4-10.4); Monocytes Absolute Auto 0.3 K/mm3 (0.1-0.6); Monocytes Percent Auto 1.3 % (2.6-8.5); Neutrophils Percent Auto 95.5 % (45.5-73.1); Platelet Count Result 371 k/mm3 (150-375); Red Blood Count 4.74 M/mm3 (4.2-5.4); Red Cell Distribution Width 19.9 % (11.5-14.5)
[2020-04-15 13:25] LABS: Lactic Acid Reflex 1.8 mmol/L (0.7-2.1)
[2020-04-15 13:31] LABS: Alanine Aminotransferase 14 U/L (4-35); Albumin Level 3.6 g/dL (3.5-5.1); Alkaline Phosphatase 76 U/L (38-126); Anion Gap 6 mmol/L (8-16); Aspartate Amino Transferase 50 U/L (14-36); Bilirubin,Total 0.5 mg/dL (0.2-1.3); Blood Urea Nitrogen 25 mg/dL (7-17); Calcium 8.4 mg/dL (8.4-10.2); Carbon Dioxide 26 mmol/L (22-30); Chloride 102 mmol/L (98-107); Estimated CRCL calculation 21 ml/min; Estimated Glomerular Filt Rate 36; Glucose 96 mg/dL (65-105); Potassium 4.5 mmol/L (3.4-5.0); Sodium 134 mmol/L (137-145)
[2020-04-15 13:38] LABS: CRP 20.3 mg/dL (<1.0)
[2020-04-15 13:38] LABS: Add Urine Microscopic? YES; Appearance Urine Turbid (Clear); Bacteria Urine 4+ /hpf; Bilirubin Urine Negative (Negative); Blood Urine 3+ (Negative); Color Urine Red (Yellow); Glucose Urine UA Negative (Negative); Ketones Urine Negative (Negative); Leukocyte Esterase Ur 3+ LEU/UL (Negative); Nitrate Urine Negative (Negative); Protein Urine 2+ mg/dL (Negative); RBC Urine >75 /hpf (0-2); Specific Grav Ur 1.015 (1.001-1.035); Squamous Epithelial Cell Urine Occasional /hpf (Few); Urobilinogen Urine Negative mg/dL (<2.0); WBC Clumps Urine Present /HPF; WBC Urine >75 /hpf
[2020-04-15 13:40] LABS: INR 1.7; Prothrombin Time 20.2 Seconds (11.1-14.7)
[2020-04-15 13:41] LABS: Partial Thromboplastin Time 56.4 SECONDS (22.3-36.8)
[2020-04-15] MEDS: SODIUM CHLORIDE 0.9% IV 1,000 ML 999 ML IV CONT (13:56)
--- NOTE | 2020-04-15 17:58 | PM.IMHP ---
H&P: HPI History of Present Illness Date/Time: 04/15/20 17:58 Chief Complaint: Fever Narrative: Desirae Peng is a 79 year old female who a history left hydronephrosis secondary to hardware her thoracic spine. The patient was here yesterday and had a cystoscopy, left ureteral stent removal in the left ureteroscopy, left retrograde pyelography and left ureteral stent replacement. The patient is chronically on antibiotics due to the stent. The patient came into the emergency room today because she felt feverish. The patient was having some back pain and some nausea shortly after the procedure.. Her fever peaked at 101? F throughout the night. She had fever and chills. Home health came to see her today and thought that she was hypoxic so they sent her to the emergency room. CT of the abdomen and pelvis was read as patchy ground-glass infiltrates in both lungs. Status post cholecystectomy. Left internal urinary stent, small amount of air in the left her renal collecting system. Prominent fecal material In the colon. Patient fits the sepsis criteria as her heart rate was elevated To 93 beats per minute.blood pressure was low (90/48 to was the lowest blood pressure). [place] [address]. She had a fever as well 101? F during the night. Patient was positive for UTI and she was started on ceftriaxone. so far the patient has only been given 1 L fluid bolus. Her creatinine today was 1.4 with her baseline somewhere between 1.03 and 1.25. To her GFR is 21 today with a baseline in the 40s. The patient was swabbed for COVID-19. Patient is being admitted to inpatient services on the date of service of 04/15/2020. Review of Systems Review of Systems: All systems reviewed & are unremarkable except as noted in HPI and below Constitutional: Constitutional: Reports as per HPI and Reports no additional constitutional complaints Eyes: Eyes: Reports as per HPI and Reports no additional eye complaints ENT: Reports system reviewed and no additional complaints, except as documented and Reports Normal hearing present Cardiovascular: Cardiovascular: Reports no additional cardiovascular complaints Respiratory: Respiratory: Reports no additional respiratory complaints and Reports no additional respiratory complaints Gastrointestinal: Gastrointestinal: Reports as per HPI and Reports no additional gastrointestinal complaints Musculoskeletal: Musculoskeletal: Reports no additional musculoskeletal complaints Integumentary/Breasts: Skin/Breast: Reports system reviewed and no additional complaints, except as docu and Reports as per HPI Neurologic: Reports system reviewed and no additional complaints, except as documented, Reports as per HPI and Reports Normal hearing present Psychiatric: Psychiatric: Reports no additional psychiatric complaints and Reports as per HPI Endocrine: Endocrine: Reports no additional endocrine complaints Hematologic/Lymphatic: Hematologic/Lymphatic: Reports no additional hematologic/lymphatic complaints Allergic/Immunologic: Allergic/Immunologic: Reports no additional allergic/immunologic complaints [facility] Past Medical History Medical History (Updated 04/15/20 @ 18:22 by Bindu Cerrato NP) Above knee amputation of left lower extremity Atrial fibrillation Rate controlled with pacemaker Benign essential hypertension CAD (coronary artery disease) Carotid bruit Chronic renal disease DVT (deep venous thrombosis) Fatty liver Fusion of lumbar spine History of thrombosis of lower extremity Hx of adenomatous colonic polyps Hypertension Inflammatory bowel disease Kidney stones Melanoma Extracted from her face Menopausal and female climacteric states Microscopic colitis, unspecified Mixed hyperlipidemia Neuropathic pain On intermediate drug therapy Pacemaker Inserted 2014 Medtronic left upper chest Pacemaker Peripheral vascular disease Pre-diabetes Statin intolerance Surgical History Barry
--- NOTE | 2020-04-15 18:51 | ADMGEN ---
This patient, Desirae Peng, was admitted to [facility] Surg Room 325-01. Patient/family oriented to hospital policies and general routines including ID bracelet, bed and alarms, visiting hours, pain management, procedures, bathroom and other care routines, personal items, smoking policy, room service/diet, and visiting hours. Information on how to activate the Rapid Response Team has been discussed. Patient/Family are encouraged to report perceived risks to care and to ask questions if they do not understand what they are told or what they should do.
[2020-04-15] MEDS: SODIUM CHLORIDE 0.9% IV 1,000 ML 100 ML IV CONT (19:32)
[2020-04-16] VITALS (9 sets, daily range): BP systolic 92–116; BP diastolic 34–67; PULSE 60–71; RESP 16–20; TEMP 35.9–36.6; O2SAT 93–99
[2020-04-16] MEDS: AMIODARONE HCL 200 MG TABLET PO ×2 (00:38→21:27)
[2020-04-16] MEDS: DOCUSATE SODIUM 100 MG CAPSULE PO ×2 (00:39→21:28)
[2020-04-16] MEDS: EZETIMIBE 10 MG TABLET PO ×2 (00:39→19:17)
[2020-04-16] MEDS: APIXABAN 5 MG TABLET PO ×3 (00:39→21:28)
[2020-04-16] MEDS: GABAPENTIN 300 MG CAPSULE PO ×4 (00:39→19:17)
[2020-04-16] MEDS: ONDANSETRON HCL ODT 4 MG TABLET PO ×2 (02:45→10:46)
[2020-04-16 06:19] LABS: Basophils Percent Auto 0.2 % (0.2-1.2); Hematocrit 33.6 % (37.0-47.0); Hemoglobin 10.6 g/dL (12.0-15.0); Immature Granulocyte Absolute 0.05 K/mm3 (0.00-0.031); Immature Granulocyte Percent A 0.4 % (0-0.5); Lymphocytes Absolute Auto 0.59 K/mm3 (0.9-3.2); Lymphocytes Percent Auto 5.3 % (18.3-44.2); Mean Corpuscular HGB Conc 31.5 g/dl (32-36); Mean Corpuscular Volume 82.4 fl (80-100); Mean Platelet Volume 8.7 fl (7.4-10.4); Monocytes Absolute Auto 0.3 K/mm3 (0.1-0.6); Monocytes Percent Auto 2.9 % (2.6-8.5); Neutrophils Absolute Auto 10.2 K/mm3 (1.3-6.7); Neutrophils Percent Auto 91.2 % (45.5-73.1); Platelet Count Result 278 k/mm3 (150-375); Red Blood Count 4.08 M/mm3 (4.2-5.4); Red Cell Distribution Width 19.2 % (11.5-14.5); White Blood Count 11.2 K/mm3 (4.5-10.0)
[2020-04-16 06:43] LABS: Alanine Aminotransferase 16 U/L (4-35); Albumin Level 2.7 g/dL (3.5-5.1); Alkaline Phosphatase 73 U/L (38-126); Anion Gap 2 mmol/L (8-16); Aspartate Amino Transferase 49 U/L (14-36); Bilirubin,Total 0.3 mg/dL (0.2-1.3); Blood Urea Nitrogen 25 mg/dL (7-17); Calcium 7.6 mg/dL (8.4-10.2); Carbon Dioxide 26 mmol/L (22-30); Chloride 106 mmol/L (98-107); Estimated CRCL calculation 29 ml/min; Estimated Glomerular Filt Rate 48; Glucose 86 mg/dL (65-105); Lactate Dehydrogenase 566 U/L (313-618); Magnesium 1.9 mg/dL (1.6-2.3); Potassium 3.8 mmol/L (3.4-5.0); Sodium 134 mmol/L (137-145)
[2020-04-16 06:44] LABS: Lactic Acid Reflex 0.9 mmol/L (0.7-2.1)
[2020-04-16] MEDS: ASCORBIC ACID 500 MG TABLET 1000 MG PO (08:34)
[2020-04-16] MEDS: ASPIRIN 81 MG CHEWABLE TABLET PO (08:35)
[2020-04-16] MEDS: CHOLECALCIFEROL 1,000 UNITS TABLET 1000 UNITS PO (08:35)
[2020-04-16] MEDS: polyethylene glycoL 3350 17 GM POWD.PACK PO (10:46)
--- NOTE | 2020-04-16 11:42 | WPDURCON ---
Assessment and Plan Assessment and plan (1) Sepsis: Qualifiers: Sepsis acute organ dysfunction status: unspecified Sepsis type: sepsis due to unspecified organism Qualified Code(s): A41.9 - Sepsis, unspecified organism Code(s): A41.9 - Sepsis, unspecified organism Status: Acute Assessment and Plan: treating UTI, await cult, ren overnight, taking PO well CT with stent in good position. Would await cult and hopeful oral agent OK. OK to DC ren today (2) Acute UTI: Code(s): N39.0 - Urinary tract infection, site not specified Status: Acute (3) Hydronephrosis: Qualifiers: Hydronephrosis type: with ureteropelvic junction obstruction Qualified Code(s): Q62.11 - Congenital occlusion of ureteropelvic junction Code(s): N13.30 - Unspecified hydronephrosis Status: Chronic (4) UTI (urinary tract infection): Qualifiers: Urinary tract infection type: acute cystitis Hematuria presence: without hematuria Qualified Code(s): N30.00 - Acute cystitis without hematuria Code(s): N39.0 - Urinary tract infection, site not specified Status: Acute Urology Consult Note HPI Date Seen: 04/16/20 Requesting Physician: Shaista Noe PA-C Primary Care Provider: Albino De Dios, PRODUCT COORDINATOR Consult Narrative Narrative: Desirae Peng is a 79 year old female with chronic stenting of left ureter---now admitted with fever and had stent changed 2 days ago---treating for UTI. I reviewed CT--stent in good position and ren overnight. Fever down this am. No complaints of pain. Review of Systems Review of Systems: Narrative: no complaints of pain Cardiovascular: Cardiovascular: Denies dyspnea Respiratory: Respiratory: Denies dyspnea on exertion Genitourinary: Genitourinary: Denies hematuria, Denies pelvic pain and Denies flank pain PMF Past Medical History Medical History (Updated 04/15/20 @ 18:22 by Bindu Cerrato NP) Above knee amputation of left lower extremity Atrial fibrillation Rate controlled with pacemaker Benign essential hypertension CAD (coronary artery disease) Carotid bruit Chronic renal disease DVT (deep venous thrombosis) Fatty liver Fusion of lumbar spine History of thrombosis of lower extremity Hx of adenomatous colonic polyps Hypertension Inflammatory bowel disease Kidney stones Melanoma Extracted from her face Menopausal and female climacteric states Microscopic colitis, unspecified Mixed hyperlipidemia Neuropathic pain On roasterman drug therapy Pacemaker Inserted 2014 Medtronic left upper chest Pacemaker Peripheral vascular disease Pre-diabetes Statin intolerance Surgical History Surgical History Cataract extraction status 2014 H/O angioplasty Several to left lower extremity January 16, 2017 November 20, 2017. Thrombectomy femoral popliteal bypass 2009 angiogram with PTCA stent to left lower extremity February 2019 H/O breast biopsy Several biopsies both breast H/O cystoscopy H/O laminectomy Lumbar 1984 H/O left knee surgery 1989 H/O rectal polypectomy History of appendectomy 1953 History of back surgery History of coronary artery stent placement History of lumbar fusion 2015, lumbar fusion with hardware June of 2018 History of partial hysterectomy 1970 History of total right knee replacement (TKR) 2018 History of ureter stent Hx of appendectomy Hx of cardiac cath Hx of cholecystectomy 1977 Peripheral vascular angioplasty status with implants and grafts S/P cubital tunnel release Right-sided 1997 and left 1995 Status post trigger finger release Left ring finger 1998 Family History Family History Mother Family history of cardiovascular disease Family history of elevated blood lipids Family history of osteoporosis Family history of coronary artery disease Hypertension Sabramaxim
--- NOTE | 2020-04-16 13:57 | PM.IMPN ---
Progress Note: A&P Assessment and Plan (1) Acute UTI: Code(s): N39.0 - Urinary tract infection, site not specified Status: Acute Assessment and Plan: Patient had left ureteral stent exchange on 04/14/[address] Lal. The following day she developed fever with Tmax 101. urinalysis was abnormal upon presentation. She had a very low grade fever of 99.7, however has remained afebrile today. She is on daily prophylactic trimethoprim. continue IV Rocephin, started on 04/15 urine culture and blood cultures pending. Await results and tailor antibiotics accordingly urology has been consulted and input is appreciated will hold prophylactic trimethoprim at this time while treating with IV antibiotics discontinue Gonzalez per Urology. proceed with voiding trial (2) Abnormal chest xray: Code(s): R93.89 - Abnormal findings on diagnostic imaging of other specified body structures Status: Acute Assessment and Plan: chest x-ray abnormal upon presentation with mild reticular opacities at bilateral lung bases, which favors atelectasis or mild pulmonary edema rather than pneumonia. Clinically, patient is asymptomatic without shortness of breath or cough. Her lungs are clear to auscultation. Do not suspect pneumonia at this time. patient does not appear to be fluid overloaded and pulmonary edema is less likely. Will provide incentive spirometry monitor clinically COVID-19 test pending albuterol available p.r.n. (3) Suspected COVID-19 virus infection: Code(s): Z20.822 - Contact with and (suspected) exposure to COVID-19 Status: Acute Assessment and Plan: patient has been tested for COVID-19. She reports she has received her 1st dose of vaccine. she denies any known COVID-19 positive contacts. she is maintaining adequate oxygen saturations on room air. continue isolation precautions while awaiting test results At this time, there is no need for COVID specific therapy including dexamethasone or Remdesivir as she has no oxygen requirements (4) Hydronephrosis: Qualifiers: Hydronephrosis type: with ureteropelvic junction obstruction Qualified Code(s): Q62.11 - Congenital occlusion of ureteropelvic junction Code(s): N13.30 - Unspecified hydronephrosis Status: Chronic Assessment and Plan: Chronic. She is established with Dr. Lal and has a chronic ureteral stent, which was exchanged on 04/14 urology has been consulted and input is appreciated Monitor renal function (5) Hypertension: Qualifiers: Hypertension type: essential hypertension Qualified Code(s): I10 - Essential (primary) hypertension Code(s): I10 - Essential (primary) hypertension Status: Acute Assessment and Plan: BP reviewed and has been low-normal. Yesterday as low as 90/48. BP improved today but still on low end. She is asymptomatic. Continue with her low dose metoprolol which is needed for her atrial fibrillation. Can hold if BP declines. Monitor BP closely. Administer IV fluid bolus if BP decline. (6) Atrial fibrillation: Qualifiers: Atrial fibrillation type: unspecified Qualified Code(s): I48.91 - Unspecified atrial fibrillation Code(s): I48.91 - Unspecified atrial fibrillation Status: Chronic Assessment and Plan: rate is controlled. She does have a pacemaker. Continue metoprolol and amiodarone continue Eliquis (7) Neuropathic pain: Code(s): M79.2 - Neuralgia and neuritis, unspecified Status: Acute Assessment and Plan: she is S/P left above knee amputation and has pain in the stump. Continue gabapentin (8) Acute kidney failure: Code(s): N17.9 - Acute kidney failure, unspecified Status: Acute Assessment and Plan: Creatinine was 1.4 upon presentation. Baseline creatinine appears to be about 1.0, however seems to have in
[2020-04-16] MEDS: HYDROcodone/acetaminophen (*CRX) 5-325 MG TABLET 1 TAB PO ×2 (15:15→21:24)
[2020-04-16] MEDS: LIDOCAINE 5% PATCH 1 PATCH TRANSDERM (15:15)
[2020-04-16 19:43] LABS: SARS-CoV-2 RNA PCR Negative
[2020-04-17 06:00] VITALS: BP 118/58; PULSE 69; RESP 18; TEMP 36.8; O2SAT 94
[2020-04-17 06:47] LABS: Hematocrit 30.7 % (37.0-47.0); Mean Corpuscular HGB Conc 32.6 g/dl (32-36); Mean Corpuscular Hemoglobin 26.5 pg (26-34); Mean Corpuscular Volume 81.4 fl (80-100); Mean Platelet Volume 9.1 fl (7.4-10.4); Platelet Count Result 261 k/mm3 (150-375); Red Blood Count 3.77 M/mm3 (4.2-5.4); Red Cell Distribution Width 18.8 % (11.5-14.5); White Blood Count 11.1 K/mm3 (4.5-10.0)
[2020-04-17] MEDS: HYDROcodone/acetaminophen (*CRX) 5-325 MG TABLET 1 TAB PO (06:55)
[2020-04-17 07:02] LABS: Anion Gap 3 mmol/L (8-16); Blood Urea Nitrogen 18 mg/dL (7-17); Calcium 7.7 mg/dL (8.4-10.2); Carbon Dioxide 24 mmol/L (22-30); Chloride 108 mmol/L (98-107); Estimated CRCL calculation 39 ml/min; Estimated Glomerular Filt Rate > 60; Glucose 103 mg/dL (65-105); Potassium 3.5 mmol/L (3.4-5.0); Sodium 135 mmol/L (137-145)
[2020-04-17 08:15] VITALS: PULSE 70
[2020-04-17] MEDS: APIXABAN 5 MG TABLET PO (08:15)
[2020-04-17] MEDS: GABAPENTIN 300 MG CAPSULE PO ×2 (08:15→14:05)
[2020-04-17] MEDS: CHOLECALCIFEROL 1,000 UNITS TABLET 1000 UNITS PO (08:15)
[2020-04-17] MEDS: ASCORBIC ACID 500 MG TABLET 1000 MG PO (08:15)
[2020-04-17] MEDS: ASPIRIN 81 MG CHEWABLE TABLET PO (08:15)
[2020-04-17] MEDS: METOPROLOL SUCCINATE EXT REL 25 MG TABCR PO (08:15)
--- NOTE | 2020-04-17 12:35 | WPDUROPN2 ---
Progress Note: A&P Assessment and Plan (1) UTI (urinary tract infection): Qualifiers: Urinary tract infection type: acute cystitis Hematuria presence: without hematuria Qualified Code(s): N30.00 - Acute cystitis without hematuria Code(s): N39.0 - Urinary tract infection, site not specified Status: Acute Assessment and Plan: stent in good position and cult neg---likely sceondary to IV treatment at cysto--would treat 7 days and resume prophylaxsis (2) Hydronephrosis: Qualifiers: Hydronephrosis type: with ureteropelvic junction obstruction Qualified Code(s): Q62.11 - Congenital occlusion of ureteropelvic junction Code(s): N13.30 - Unspecified hydronephrosis Status: Chronic Subjective Subjective Date/Time Seen: 04/17/20 12:35 Feeling better and will rec DC. Cult was negative but she had IV antibiotics with cysto and stent exchange. WBC better and fever resolved. Review of Systems Review of Systems: All systems reviewed & are unremarkable except as noted in HPI and below Exam : General: Yes bladder normal to palpation, Yes CVA tenderness and Yes no CVA tenderness Objective Data Vital Signs Vital Signs: Vital Signs - 24 hr 04/16/20 13:53 04/16/20 16:58 04/16/20 21:27 Temperature 36.5 C Pulse Rate 66 69 68 Respiratory Rate 16 18 Blood Pressure 116/50 L Pulse Oximetry 93 94 04/16/20 22:00 04/17/20 06:00 04/17/20 08:15 Temperature 36.1 C L 36.8 C Pulse Rate 64 69 70 Respiratory Rate 16 18 Blood Pressure 99/43 L 118/58 L Pulse Oximetry 99 94 Intake/Output Intake/Output: Intake & Output 04/14/20 04/15/20 04/16/20 04/17/20 23:59 23:59 23:59 23:59 Intake Total 1150 2330 340 Output Total 350 1002 Balance 800 1328 340 Meds/Results Medications: Active Medications Generic Name Dose Route Start Last Admin Trade Name Freq PRN Reason Stop Dose Admin Acetaminophen 650 mg 04/16/20 13:51 Acetaminophen 325 Mg Tablet PO Q4H PRN Pain 1-3 Hydrocodone Bitart/Acetaminophen 1 tab 04/16/20 13:51 04/17/20 06:55 Hydrocodone/Acetaminophen (*Crx) 5-325 Mg Tablet PO 1 tab Q6H PRN Administration Pain Rated 4-6 Albuterol 2 puff 04/15/20 23:16 Albuterol Sulfate (*Sp) Aerosol 1 Puff INHALATION Q4-6H PRN Dyspnea Amiodarone HCl 200 mg 04/15/20 23:30 04/16/20 21:27 Amiodarone Hcl 200 Mg Tablet PO 200 mg HS JORDIN Administration Apixaban 5 mg 04/15/20 23:30 04/17/20 08:15 Apixaban 5 Mg Tablet PO 5 mg Q12HR JORDIN Administration Ascorbic Acid 1,000 mg 04/16/20 09:00 04/17/20 08:15 Ascorbic Acid 500 Mg Tablet PO 1,000 mg DAILY JORDIN Administration Aspirin 81 mg 04/16/20 08:00 04/17/20 08:15 Aspirin 81 Mg Chewable Tablet PO 81 mg DAILY@0800 JORDIN Administration Docusate Sodium 100 mg 04/15/20 23:35 04/16/20 21:28 Docusate Sodium 100 Mg Capsule PO 100 mg HS JORDIN Administration Ezetimibe 10 mg 04/15/20 23:35 04/16/20 19:17 Ezetimibe 10 Mg Tablet PO 10 mg QPM JORDIN Administration Gabapentin 300 mg 04/15/20 23:30 04/17/20 08:15 Gabapentin 300 Mg Capsule PO 300 mg TID JORDIN Administration Ceftriaxone Sodium/Dextrose 1 gm in 50 mls @ 100 mls/hr 04/16/20 15:00 04/16/20 15:40 Rocephin 1 Gm/D5w 50 Ml IVPB Infused Q24H JORDIN Infusion Lidocaine 1 patch 04/15/20 23:16 04/16/20 15:15 Lidocaine 5% Patch TRANSDERM 1 patch PRN PRN Administration Pain Metoprolol Succinate 25 mg 04/17/20 09:00 04/17/20 08:15 Metoprolol Succinate Ext Rel 25 Mg Tabcr PO 25 mg QAM JORDIN Administration Ondansetron HCl 4 mg 04/15/20 23:16 04/16/20 10:46 Ondansetron Hcl Odt 4 Mg Tablet PO 4 mg Q4-6H PRN Administration Nausea Polyethylene Glycol 17 gm 04/16/20 09:00 04/17/20 08:16 Polyethylene Glycol 3350 17 Gm Powd.Pack PO Not Given QAM [facility] Trimethoprim 100 mg 04/16/20 21:00 Trimethoprim 100 Mg Tablet PO
--- NOTE | 2020-04-17 13:04 | PCOTNOTE ---
Practitioner attempted to have patient participate in therapy session. Patient stated that she is going home today and is waiting on paperwork, refused therapy this date.
--- NOTE | 2020-04-17 13:28 | PM.DS ---
DS: Admitting Diagnosis Admitting Diagnosis Admitting Diagnosis: Urinary tract infection DS: Discharge Diagnosis Discharge Diagnosis (1) Acute UTI: Code(s): N39.0 - Urinary tract infection, site not specified Status: Acute Assessment and Plan: Discharge Summary (Date of service 04/17/20): Mrs. Peng is a 78 y.o. 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 Lal on 04/14/20. Initial workup in the emergency department was notable for abnormal urinalysis urinalysis with >75 WBC, WBC clumps, 4+ bacteria, >75 RBC, 3+ leukocyte esterase. Labs notable for WBC elevated at 21,00 with neutrophil predominance, Cr 1.4 and BUN 25. CXR showed mild reticular opacities at the bilateral lung bases favoring atelectasis or mild edema as opposed to pneumonia and CT abd/pelvis showed patchy groundglass opacities in lung bases, fecal material in colon, and left internal urinary stent with small amount of air in collecting system. Gonzalez catheter was placed. Blood and urine culture were obtained and she was treated with IV ceftriaxone and IV fluids for UTI and ELIZABETH and urology was consulted. She was admitted to the hospitalist service under isolation and tested for COVID-19 given chest imaging findings. WBC improved significantly and fever abated. She felt much better overall. Gonzalez was discontinued and she was voiding without difficulty. Urine culture demonstrated no growth, likely secondary to treatment with IV antibiotic during cystoscopy. Urology recommended treatment with oral antibiotic for 7 days so she was treated with cefdinir at discharge given significant improvement on ceftriaxone. She was advised to hold her prophylactic antibiotics until she finished her course of cefdinir. She was encouraged to follow-up with her primary care doctor in 1 week for a hospital follow-up visit and she will need repeat ureteral stent exchange in 6 months (or sooner should she have problems) by Dr. Lal. She was advised to keep her routine follow-up appointment with Dr. Lal as well. Worrisome signs and symptoms which would warrant return to the emergency department were discussed and she was discharged in hemodynamically stable condition on the afternoon of 04/17/20. (2) Abnormal chest xray: Code(s): R93.89 - Abnormal findings on diagnostic imaging of other specified body structures Status: Acute Assessment and Plan: Chest x-ray abnormal upon presentation demostrated mild reticular opacities at bilateral lung bases, which favors atelectasis or mild pulmonary edema rather than pneumonia. Clinically, patient was asymptomatic without shortness of breath or cough and appeared euvolemic with pulmonary edema felt unlikely. Her lungs were clear to auscultation. Her findings were felt most likely secondary to atelectasis and incentive spirometry was prescribed. She was advised to follow-up with her PCP/return to ED should she develop any symptoms concerning for pneumonia. (3) Hydronephrosis: Qualifiers: Hydronephrosis type: with ureteropelvic junction obstruction Qualified Code(s): Q62.11 - Congenital occlusion of ureteropelvic junction Code(s): N13.30 - Unspecified hydronephrosis Status: Chronic Assessment and Plan: Chronic. She is established with Dr. Lal and has a chronic ureteral stent, which was exchanged on 04/14. She was seen by urology while inpatient and will continue to follow with them for routine exchange. (4) Hypertension: Qualifiers: Hypertension type: essential hypertension Qualified Code(s): I10 - Essential (primary) hypertension Code(s): I10 - Ess
[2020-04-17 14:00] VITALS: BP 132/41; PULSE 60; RESP 18; TEMP 36.7; O2SAT 99
== END 2020-04-17 15:35 | disposition home health service (06) | DRG 872 ==
LOC: ANHED 12:47 → ANH3MEDSUR 18:34
PROVIDERS: Nurse Practitioner; Physician Assistant; Admitting Provider Internal Medicine; Emergency Provider Emergency Medicine; PCP Nurse Practitioner Family; Visit Provider Physician Assistant
DX: A41.9 Sepsis, unspecified organism (principal); N39.0 Urinary tract infection, site not specified; N13.30 Unspecified hydronephrosis; N17.9 Acute kidney failure, unspecified; Z20.822 Contact with and (suspected) exposure to COVID-19; I48.91 Unspecified atrial fibrillation; E78.5 Hyperlipidemia, unspecified; I25.10 Atherosclerotic heart disease of native coronary artery without angina pectoris; I12.9 Hypertensive chronic kidney disease with stage 1 through stage 4 chronic kidney disease, or unspecified chronic kidney disease; N18.9 Chronic kidney disease, unspecified; Z96.0 Presence of urogenital implants
CPT/HCPCS: 36415; 51701; 71045; 74176; 74420; 80048; 80053; 81001; 83605; 83615; 83735; 85025; 85027; 85610; 85730; 86140; 87040; 87086; 93005; 96361; 96365; 97161; 97165; 99285; A9270; C1769; C1887; C2617; C9803; J0131; J0690; J0696; J2405; J2704; J3010; J7030; J7120; Q9966; U0003; U0005

== ENCOUNTER 2020-04-22 13:26 | Inpatient (IN) | payer MEDICARE, SELFPAY ==
[2020-04-22] VITALS (7 sets, daily range): BP systolic 106–129; BP diastolic 49–58; PULSE 60–63; RESP 16–20; TEMP 36.3–36.6; O2SAT 95–99; BMI 16.3
--- NOTE | ~2020-04-22 | XR_ITS ---
EXAMINATION: XR chest 2V DATE: 04/25/2020 10:44 INDICATION: Candidemia. TECHNIQUE: Frontal and lateral views of the chest were obtained. COMPARISON: Chest single view 04/15/2020 FINDINGS: The chest demonstrates clear lungs without pneumonia, pleural effusion, or pneumothorax. Th e heart size is normal. There is a left chest wall pacer with leads in the right atrium and right yayo tricle. There are changes of anterior and posterior fusion procedures in lumbar spine. There is a chr onic compression fracture of T12. IMPRESSION: 1. No acute cardiopulmonary disease. Reviewed, dictated and finalized at location A. 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
--- NOTE | ~2020-04-22 | CT_ITS ---
EXAMINATION: CT lumbar spine wo con EXAM DATE: 04/25/2020 13:58 INDICATION: Lumbar hardware, candidemia. TECHNIQUE: Spiral CT of the lumbar spine was performed without contrast. Axial, coronal and sagittal images were reviewed. The dose-length product (DLP) for this examination was 638.72 mGy-cm. The e xposure was tailored according to patient size (auto mA exposure control), and iterative reconstructi on (ASIR) was used as additional dose reduction technique. Comparison is made to prior examination fr 10/06/2018. FINDINGS: There is been interval extension of the lumbar fusion posteriorly now from L1 through the s acrum. There is no lucency surrounding the pedicular screws to suggest loosening or infection. Interv al placement of interbody device L1-2 without solid bone bridging at present. Interval development of solid bone bridging at the L2-3 interbody device, fusion with 4 mm of retrolisthesis of this level. Mild subsidence of the L3-4 interbody device. There is anterior fusion at L4-5 and L5-S1. No evidence of acute erosive change to suggest discitis. No paraspinal fluid identified but if he barrios itations from metallic artifact. Multiple lumbar laminectomies are present. Interval development of m ild to moderate compression fracture inferior endplate of T12 and at the superior and plate of L1. Th ere is a left-sided double-J ureteral stent. There are no acute fractures identified. There is mild t o moderate right neural foraminal stenosis L2-3, and left neural foraminal stenosis L4-5 and L5-S1. T hese appear to be the most narrowed neural foramen on exam. Left external iliac artery stents. Trace pleural effusions. IMPRESSION: 1. Intact lumbosacral fusion hardware, some subsidence at the L3-4 interbody device. 2. No findings to suggest discitis or infected hardware but sensitivity is low. 3. Development of mild to moderate chronic appearing compressions T12 and L1. Reviewed, dictated and finalized at location B. 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 Intact lumbosacral fusion hardware, some subsidence at the L3-4 interbody d evice. 2. No findings to suggest discitis or infected hardware but sensitivity is low . 3. Development of mild to moderate chronic appearing compressions T12 and L1.
--- NOTE | ~2020-04-22 | US_ITS ---
EXAMINATION: US venous doppler LE RT EXAM DATE: 04/23/2020 10:26 INDICATION: Right leg edema. TECHNIQUE: Multiple grayscale, color flow and Doppler images of the right lower extremity deep venous system were obtained and reviewed. There is no prior study for comparison. FINDINGS: The right common femoral, femoral and profunda veins demonstrate normal color flow, respira tory variation, augmentation and compressibility. Compressibility, color flow confirmed within the r ight popliteal, posterior tibial, peroneal, and greater saphenous veins. There is a Willett's cyst mal suring 3.7 x 1.2 x 3.5 cm. IMPRESSION: 1. No right lower extremity deep venous thrombosis. 2. Moderate-sized Willett's cyst. Reviewed, dictated and finalized at location A. MARKER
--- NOTE | 2020-04-22 14:00 | ED.GENADULT ---
HPI - General Adult General Chief complaint: Unspecified Stated complaint: i have yeast in my blood Time Seen by Provider: 04/22/20 13:43 History of Present Illness HPI narrative: 79 yo female w/ multiple medical problems presents to the ED for positive blood cultures. SHe was hospitalized 10 days ago for sepsis. This was thought / UTI after having ureteral stent change. She was discharged 2 days later on cefdinir for presumed UTI. On 04/19 her blood cultures collected during that visit both came back positive for yeast. The urine culture was negative, although she was already on antibiotics at the time. She reports not feelin g well since then. No fever. She has had swelling to her LE. Related Data Home Medications Medication Instructions Recorded Confirmed amiodarone [Pacerone] 200 mg PO HS 05/31/19 04/15/20 oxybutynin chloride 5 mg PO TID 08/09/19 04/15/20 albuterol sulfate 2 puff INHALATION Q4-6H PRN 10/29/19 04/16/20 cephalexin 500 mg PO QPM 10/29/19 04/15/20 ezetimibe [Zetia] 10 mg PO QPM 10/29/19 04/15/20 trimethoprim 100 mg PO HS 10/29/19 04/15/20 docusate sodium 100 mg PO HS 11/26/19 04/15/20 polyethylene glycol 3350 [Miralax] 17 g PO HS PRN 11/26/19 04/15/20 aspirin 81 mg PO DAILY 04/07/20 04/15/20 cholecalciferol (vitamin D3) 25 mcg PO DAILY 04/07/20 04/15/20 gabapentin 300 mg PO TID 04/07/20 04/15/20 lidocaine [Lidoderm] 1 patch TRANSDERMAL PRN PRN 04/07/20 04/15/20 metoprolol succinate [Toprol XL] 25 mg PO QAM 04/07/20 04/15/20 ondansetron HCl [Zofran] 4 mg PO Q4-6H PRN 04/07/20 04/16/20 Eliquis 5 mg PO BID 04/15/20 04/15/20 hydrocodone bitartrate [Hysingla 80 mg PO DAILY 04/22/20 04/22/20 ER] Allergies Allergy/AdvReac Type Severity Reaction Status Date / Time sertraline Allergy Severe Joint Pain Verified 04/22/20 14:05 Sulfa (Sulfonamide Allergy Severe RASH Verified 04/22/20 14:05 Antibiotics) atorvastatin Allergy Intermediate Hives Verified 04/22/20 14:05 baclofen Allergy Intermediate tremors Verified 04/22/20 14:05 estradiol Allergy Intermediate Joint Verified 04/22/20 14:05 pain, swollen eyes & leg pain codeine Allergy Mild NAUSEA, Verified 04/22/20 14:05 RASH esomeprazole Allergy Mild CHEST PAIN Verified 04/22/20 14:05 lansoprazole Allergy Mild CHEST PAIN Verified 04/22/20 14:05 Penicillins Allergy Mild RASH Verified 04/22/20 14:05 iohexol Allergy Unknown Hives Verified 04/22/20 14:05 [From contrast - CT, X-RAY] metoclopramide Allergy Unknown Itching Verified 04/22/20 14:05 nebivolol Allergy Unknown Itching Verified 04/22/20 14:05 tolmetin Allergy Unknown Hives Verified 04/22/20 14:05 amitriptyline AdvReac Mild MUSCLE PAIN Verified 04/22/20 14:05 citalopram AdvReac Mild CHEST PAIN Verified 04/22/20 14:05 colesevelam AdvReac Mild Gastrointestinal Verified 04/22/20 14:05 Upset lisinopril AdvReac Mild NAUSEA/DIAR Verified 04/22/20 14:05 SU pravastatin AdvReac Mild Nausea Verified 04/22/20 14:05 Review of Systems Review of Systems: All systems reviewed & are unremarkable except as noted in HPI and below Constitutional: Constitutional: Denies chills, Reports fatigue, Denies fever(s) and Reports weakness ENT: Reports dizziness Cardiovascular: Cardiovascular: Denies chest pain Respiratory: Respiratory: Denies dyspnea Gastrointestinal: Gastrointestinal: Reports nausea Genitourinary: Genitourinary: Denies hematuria Musculoskeletal: Musculoskeletal: Reports back pain Neurologic: Denies confusion and Reports weakness PMFSH Past Medical History Medical History Atrial fibrillation Status post pacemaker insertion per Dr. Garza. Maintained on amiodarone and metoprolol. On apixaban for stroke prophylaxis. Carotid bruit Less than 50% stenosis in bilateral internal carotid arteries on Dopplers in April 2018. Chronic anemia Chronic renal disease Baseline creatinine is between 0.9 and 1.10. Coronary
[2020-04-22 14:31] LABS: Basophils Percent Auto 0.3 % (0.2-1.2); Eosinophils Absolute Auto 0.2 K/mm3 (0-0.3); Eosinophils Percent Auto 1.6 % (0-4.4); Hematocrit 30.8 % (37.0-47.0); Hemoglobin 9.5 g/dL (12.0-15.0); Immature Granulocyte Absolute 0.16 K/mm3 (0.00-0.031); Immature Granulocyte Percent A 1.4 % (0-0.5); Lymphocytes Absolute Auto 2.23 K/mm3 (0.9-3.2); Lymphocytes Percent Auto 19.4 % (18.3-44.2); Mean Corpuscular HGB Conc 30.8 g/dl (32-36); Mean Corpuscular Hemoglobin 26.5 pg (26-34); Mean Corpuscular Volume 85.8 fl (80-100); Mean Platelet Volume 8.8 fl (7.4-10.4); Monocytes Percent Auto 8.4 % (2.6-8.5); Neutrophils Absolute Auto 7.9 K/mm3 (1.3-6.7); Neutrophils Percent Auto 68.9 % (45.5-73.1); Platelet Count Result 581 k/mm3 (150-375); Red Blood Count 3.59 M/mm3 (4.2-5.4); Red Cell Distribution Width 18.6 % (11.5-14.5); White Blood Count 11.5 K/mm3 (4.5-10.0)
[2020-04-22 14:40] LABS: INR 1.4; Prothrombin Time 18.2 Seconds (11.1-14.7)
[2020-04-22 14:41] LABS: Alanine Aminotransferase 7 U/L (4-35); Albumin Level 3.1 g/dL (3.5-5.1); Alkaline Phosphatase 80 U/L (38-126); Anion Gap 3 mmol/L (8-16); Aspartate Amino Transferase 16 U/L (14-36); Bilirubin,Total 0.2 mg/dL (0.2-1.3); Blood Urea Nitrogen 9 mg/dL (7-17); Calcium 8.5 mg/dL (8.4-10.2); Carbon Dioxide 26 mmol/L (22-30); Chloride 107 mmol/L (98-107); Estimated CRCL calculation 29 ml/min; Estimated Glomerular Filt Rate > 60; Glucose 95 mg/dL (65-105); Partial Thromboplastin Time 50.4 SECONDS (22.3-36.8); Potassium 3.4 mmol/L (3.4-5.0); Sodium 136 mmol/L (137-145)
[2020-04-22 15:14] LABS: Add Urine Microscopic? YES; Appearance Urine Cloudy (Clear); Bacteria Urine Trace /hpf; Bilirubin Urine Negative (Negative); Color Urine Amber (Yellow); Glucose Urine UA Negative (Negative); Ketones Urine Negative (Negative); Leukocyte Esterase Ur 3+ LEU/UL (Negative); Mucus Urine Rare /lpf; Nitrate Urine Positive (Negative); Protein Urine 1+ mg/dL (Negative); RBC Urine 51-75 /hpf (0-2); Squamous Epithelial Cell Urine Rare /hpf (Few); WBC Clumps Urine Present /HPF; WBC Urine >75 /hpf
[2020-04-22 15:29] LABS: Blood Urine Negative (Negative)
--- NOTE | 2020-04-22 16:00 | PM.IMHP ---
H&P: HPI History of Present Illness Date/Time: 04/22/20 16:00 Chief Complaint: ?Yeast in blood.? Narrative: This is a 79-year-old female with multiple medical problems including atrial fibrillation, coronary artery disease, hypertension anemia, peripheral vascular disease, and several other comorbidities who presented to the emergency department with reports of ?yeast in my blood.? She is known to the hospitalist service with numerous admissions over the years and more recently she was admitted on 04/15/2020 with a fever after having her left ureteral stent replaced (she has chronic left-sided hydronephrosis due to obstruction from spine hardware and has the stent changed q.[address] Lal). At that time she was started on antibiotics for presumed urinary tract infection however culture showed no growth though she was discharged on cefdinir. It was felt that her culture was negative due to her already being on antibiotics before the culture was taken and she completed her antibiotics just this morning. Since discharge she has been much more fatigued than usual and over the past several days she has developed dysuria and urinary urgency for which she has been taking azo without much benefit. Today she received a call from her primary care provider's office instructing her to go to the emergency department as 2 sets of blood cultures collected on 04/15/2020 came back positive for yeast (these positive blood cultures were resulted 3 days ago and relayed to the nurse practitioner for Dr. Brown on 04/19/2020 at approximately 10:30 though the patient was not informed of these results or referred to the hospital until today). At the time my evaluation she has no specific complaints aside from being frustrated with having to be back at the hospital. She denies fever, chills, sweats, cold and flu symptoms, cough, shortness of breath, nausea, vomiting, and diarrhea. Review of Systems Review of Systems: Narrative: Twelve systems were reviewed with pertinent positives and negatives as per HPI. She has pain at her left leg stump site to the point where she has not been wearing her prosthesis for many weeks and instead she has been using her wheelchair more. She denies swelling, erythema, and wounds at the stump site and has not had any trauma. She has been taking hydrocodone at home for that pain however it has not helped much. She has an upcoming appoint with her vascular surgeon in the next week or so for evaluation. Over the last 3 days she has noticed edema in her right leg which is very unusual for her. She denies calf pain and tenderness. She is on long-term anticoagulation for history of atrial fibrillation, DVT, and severe vascular disease and she states compliance with that. She is not a diabetic but was told that she was prediabetic however her recent A1c was 5.2%. No diarrhea however she does pass soft stools in what she feels to be large quantities. Except as documented, all other systems were reviewed and are negative. [facility] Past Medical History Medical History (Updated 04/22/20 @ 18:32 by Alisha Najera PA-C) Atrial fibrillation Status post pacemaker insertion per Dr. Garza. Maintained on amiodarone and metoprolol. On apixaban for stroke prophylaxis. Candidemia (~04/19/20) Carotid bruit Less than 50% stenosis in bilateral internal carotid arteries on Dopplers in April 2018. Chronic anemia Chronic renal disease Baseline creatinine is between 0.9 and 1.10. Coronary artery disease Status post stent per Dr. Duque in 2014. Current use of manager long term care anticoagulation Degenerative disc disease Depression with anxiety Essential hypertension History of adenomatous polyp of colon History of bleeding peptic ulcer Hyperlipidemia Kidney stones Left leg DVT (~10/2014) Following spinal surgery. Melanoma of face Status post complete resection in the 1970s. Mixed hyperlipidemia Neuropathic pain Peripheral vascular disease Pre-diabetes
[2020-04-22] MEDS: MICAFUNGIN SODIUM 100 MG in SODIUM CHLORIDE 0.9% IV 100 ML IVPB (17:22)
[2020-04-22] MEDS: HYDROcodone/acetaminophen (*CRX) 5-325 MG TABLET 1 TAB PO (18:22)
--- NOTE | 2020-04-22 18:31 | ADMGEN ---
This patient, Desirae Peng, was admitted to 2 Medical Room 259-01. Patient/family oriented to hospital policies and general routines including ID bracelet, bed and alarms, visiting hours, pain management, procedures, bathroom and other care routines, personal items, smoking policy, room service/diet, and visiting hours. Information on how to activate the Rapid Response Team has been discussed. Patient/Family are encouraged to report perceived risks to care and to ask questions if they do not understand what they are told or what they should do.
[2020-04-22] MEDS: OXYBUTYNIN CHLORIDE 5 MG TABLET PO (21:23)
[2020-04-22] MEDS: DOCUSATE SODIUM 100 MG CAPSULE PO (21:23)
[2020-04-22] MEDS: EZETIMIBE 10 MG TABLET PO (21:23)
[2020-04-22] MEDS: AMIODARONE HCL 200 MG TABLET PO (21:23)
[2020-04-22] MEDS: TRIMETHOPRIM 100 MG TABLET PO (21:23)
[2020-04-22] MEDS: CEPHALEXIN 500 MG CAPSULE PO (21:24)
[2020-04-22] MEDS: GABAPENTIN 300 MG CAPSULE PO (21:24)
[2020-04-22] MEDS: APIXABAN 5 MG TABLET PO (21:24)
[2020-04-23] VITALS (13 sets, daily range): BP systolic 112–128; BP diastolic 40–50; PULSE 60–68; RESP 16–17; TEMP 36.4–36.9; O2SAT 95–99
[2020-04-23] MEDS: HYDROcodone/acetaminophen (*CRX) 5-325 MG TABLET 1 TAB PO ×4 (01:30→20:25)
[2020-04-23] MEDS: GABAPENTIN 300 MG CAPSULE PO ×3 (05:43→22:07)
[2020-04-23 05:57] LABS: Hematocrit 30.6 % (37.0-47.0); Hemoglobin 9.4 g/dL (12.0-15.0); Mean Corpuscular HGB Conc 30.7 g/dl (32-36); Mean Corpuscular Hemoglobin 26.5 pg (26-34); Mean Corpuscular Volume 86.2 fl (80-100); Mean Platelet Volume 8.5 fl (7.4-10.4); Platelet Count Result 587 k/mm3 (150-375); Red Blood Count 3.55 M/mm3 (4.2-5.4); Red Cell Distribution Width 18.7 % (11.5-14.5); White Blood Count 9.1 K/mm3 (4.5-10.0)
[2020-04-23 06:16] LABS: Anion Gap 4 mmol/L (8-16); Blood Urea Nitrogen 9 mg/dL (7-17); Calcium 8.2 mg/dL (8.4-10.2); Carbon Dioxide 24 mmol/L (22-30); Chloride 110 mmol/L (98-107); Estimated CRCL calculation 34 ml/min; Estimated Glomerular Filt Rate > 60; Glucose 102 mg/dL (65-105); Magnesium 1.8 mg/dL (1.6-2.3); Potassium 3.3 mmol/L (3.4-5.0); Sodium 138 mmol/L (137-145)
[2020-04-23] MEDS: CHOLECALCIFEROL 1,000 UNITS TABLET 1000 UNITS PO (09:27)
[2020-04-23] MEDS: METOPROLOL SUCCINATE EXT REL 25 MG TABCR PO (09:27)
[2020-04-23] MEDS: APIXABAN 5 MG TABLET PO ×2 (09:27→16:27)
[2020-04-23] MEDS: ASPIRIN 81 MG CHEWABLE TABLET PO (09:27)
[2020-04-23] MEDS: OXYBUTYNIN CHLORIDE 5 MG TABLET PO ×3 (09:27→16:27)
[2020-04-23] MEDS: ASCORBIC ACID 500 MG TABLET 1000 MG PO (09:27)
--- NOTE | 2020-04-23 13:10 | PM.IMPN ---
Progress Note: A&P Assessment and Plan (1) Candidemia: Onset Date: ~04/19/20 Code(s): B37.7 - Candidal sepsis Status: Acute Assessment and Plan: Meghna glabrata seen on blood cultures obtained 04/15/2020. Source unclear. Possible colonization of previous ureteral stent. Dr. Ramsay (infectious disease) consulted and input is appreciated Continue micafungin 100 mg daily per ID recommendations Repeat blood cultures have been collected and are pending (2) History of ureter stent: Status: Acute Assessment and Plan: She has chronic left ureteral stent in place due to ureteral obstruction from spinal hardware. She is s/p left ureteral stent exchange on 04/14/[address] Lal, her primary urologist. I contacted Dr. Dickerson, on-call urologist, and informed him of patient's admission. No need for urology consultation at this time. Dr. Lal will be informed and will monitor. (3) Abnormal urinalysis: Code(s): R82.90 - Unspecified abnormal findings in urine Status: Acute Assessment and Plan: Urinalysis is once again abnormal though she just finished a course of PO cefdinir on 04/22/2020. She complains of dysuria and frequency. She is afebrile and without leukocytosis. Hold antibiotics at this time pending Dr. Ramsay's consultation. Urine culture has been obtained and is pending. (4) Atrial fibrillation: Qualifiers: Atrial fibrillation type: unspecified Qualified Code(s): I48.91 - Unspecified atrial fibrillation Code(s): I48.91 - Unspecified atrial fibrillation Status: Chronic Assessment and Plan: She has a pacemaker. Sounds to be in a sinus rhythm. Rate is controlled. Continue amiodarone and metoprolol. (5) Current use of senior care anticoagulation: Code(s): Z79.01 - correction (current) use of anticoagulants Status: Chronic Assessment and Plan: On long-term anticoagulation for stroke prophylaxis due to AFib. Continue Eliquis. (6) Hypertension: Qualifiers: Hypertension type: essential hypertension Qualified Code(s): I10 - Essential (primary) hypertension Code(s): I10 - Essential (primary) hypertension Status: Acute Assessment and Plan: Blood pressures were reviewed and they are well controlled. Last BP 112/40 Continue antihypertensives and monitor blood pressures daily. (7) Chronic anemia: Code(s): D64.9 - Anemia, unspecified Status: Chronic Assessment and Plan: Labs were reviewed and hemoglobin and hematocrit are stable. Trend H&H (8) Edema of right lower leg: Code(s): R60.0 - Localized edema Status: Acute Assessment and Plan: This is developed over the last couple of days, likely related to decreased mobility due to pain at stump site. Venous Doppler negative for right lower extremity DVT. Encourage elevation of the affected extremity. (9) Willett cyst: Code(s): M71.20 - Synovial cyst of popliteal space [Willett], unspecified knee Status: Acute Assessment and Plan: Incidentally noted on venous doppler. No popliteal mass appreciated on physical exam. She is asymptomatic. No treatment required as she is asymptomatic. Informed her of need for follow-up should she develop symptoms. 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 she reports she is feeling fairly well today. She does complain of dysuria and urinary frequency. She denies suprapubic pain, flank pain, or back pain. Denies hematuria. She reports a poor appet
[2020-04-23] MEDS: MICAFUNGIN SODIUM 100 MG in SODIUM CHLORIDE 0.9% IV 100 ML IVPB (15:30)
[2020-04-23] MEDS: POTASSIUM CHLORIDE 20 MEQ PACKET (FOR LIQUID) PO (15:30)
[2020-04-23] MEDS: PROCHLORPERAZINE MALEATE 5 MG TABLET 10 MG PO ×2 (16:27→22:07)
[2020-04-23] MEDS: MAGNES & ALUM HYD/SIMETH/DIPHENHYD/LIDOCAINE 119 ML MOUTHWASH BY MOUTH (16:28)
[2020-04-23] MEDS: CEPHALEXIN 500 MG CAPSULE PO (17:23)
[2020-04-23] MEDS: EZETIMIBE 10 MG TABLET PO (17:23)
[2020-04-23] MEDS: DOCUSATE SODIUM 100 MG CAPSULE PO (20:24)
[2020-04-23] MEDS: TRIMETHOPRIM 100 MG TABLET PO (20:24)
[2020-04-23] MEDS: AMIODARONE HCL 200 MG TABLET PO (20:25)
[2020-04-23] MEDS: BISACODYL 10 MG SUPPOSITORY RECTAL (22:07)
[2020-04-24] VITALS (8 sets, daily range): BP systolic 105–140; BP diastolic 45–76; PULSE 58–62; RESP 14–18; TEMP 36.4–36.7; O2SAT 94–98
[2020-04-24] MEDS: ONDANSETRON INJ 4 MG/2 ML VIAL IV PUSH ×2 (00:49→13:32)
[2020-04-24] MEDS: HYDROcodone/acetaminophen (*CRX) 5-325 MG TABLET 1 TAB PO ×2 (03:02→10:26)
[2020-04-24] MEDS: PROCHLORPERAZINE MALEATE 5 MG TABLET 10 MG PO ×3 (03:46→16:47)
[2020-04-24] MEDS: LIDOCAINE 5% PATCH 1 PATCH TRANSDERM (04:57)
[2020-04-24] MEDS: GABAPENTIN 300 MG CAPSULE PO ×3 (04:59→20:51)
[2020-04-24 05:38] LABS: Hematocrit 31.6 % (37.0-47.0); Hemoglobin 9.9 g/dL (12.0-15.0); Mean Corpuscular HGB Conc 31.3 g/dl (32-36); Mean Corpuscular Hemoglobin 26.4 pg (26-34); Mean Corpuscular Volume 84.3 fl (80-100); Mean Platelet Volume 8.5 fl (7.4-10.4); Platelet Count Result 672 k/mm3 (150-375); Red Blood Count 3.75 M/mm3 (4.2-5.4); Red Cell Distribution Width 18.6 % (11.5-14.5); White Blood Count 9.9 K/mm3 (4.5-10.0)
[2020-04-24 05:52] LABS: Anion Gap 3 mmol/L (8-16); Blood Urea Nitrogen 9 mg/dL (7-17); Calcium 8.3 mg/dL (8.4-10.2); Carbon Dioxide 26 mmol/L (22-30); Chloride 110 mmol/L (98-107); Estimated CRCL calculation 39 ml/min; Estimated Glomerular Filt Rate > 60; Glucose 93 mg/dL (65-105); Potassium 3.6 mmol/L (3.4-5.0); Sodium 139 mmol/L (137-145)
[2020-04-24] MEDS: OXYBUTYNIN CHLORIDE 5 MG TABLET PO ×3 (08:08→16:42)
[2020-04-24] MEDS: ASCORBIC ACID 500 MG TABLET 1000 MG PO (08:08)
[2020-04-24] MEDS: APIXABAN 5 MG TABLET PO ×2 (08:08→16:42)
[2020-04-24] MEDS: ASPIRIN 81 MG CHEWABLE TABLET PO (08:08)
[2020-04-24] MEDS: CHOLECALCIFEROL 1,000 UNITS TABLET 1000 UNITS PO (08:08)
[2020-04-24] MEDS: METOPROLOL SUCCINATE EXT REL 25 MG TABCR PO (08:08)
[2020-04-24] MEDS: MAGNES & ALUM HYD/SIMETH/DIPHENHYD/LIDOCAINE 119 ML MOUTHWASH BY MOUTH (08:09)
[2020-04-24] MEDS: polyethylene glycoL 3350 17 GM POWD.PACK PO (12:26)
--- NOTE | 2020-04-24 14:31 | PM.IMPN ---
Progress Note: A&P Assessment and Plan (1) Candidemia: Onset Date: ~04/19/20 Code(s): B37.7 - Candidal sepsis Status: Acute Assessment and Plan: Meghna glabrata seen on blood cultures obtained 04/15/2020. Source unclear. Possible colonization of previous ureteral stent. Dr. Ramsay (infectious disease) consulted and input is appreciated Continue micafungin 100 mg daily per ID recommendations Preliminary blood cultures with NGTD. Continue monitoring. (2) History of ureter stent: Status: Acute Assessment and Plan: She has chronic left ureteral stent in place due to obstruction from spinal hardware. She is s/p left ureteral stent exchange on 04/14/[address] Lal, her primary urologist. I contacted Dr. Dickerson, on-call urologist, and informed him of patient's admission on 04/23/20. No need for urology consultation at this time. Dr. Lal will be informed and will monitor. (3) Abnormal urinalysis: Code(s): R82.90 - Unspecified abnormal findings in urine Status: Acute Assessment and Plan: Urinalysis is once again abnormal though she just finished a course of PO cefdinir on 04/22/2020. She complains of frequency. She is afebrile and without leukocytosis. Initial urine culture was contaminated therefore will repeat urine culture Her home prophylactic Keflex and trimethoprim was continued, therefore urine culture results may be affected by this. Based on clinical findings, I do not suspect acute UTI. Will not proceed with further antibiotic treatment at this time. Continue prophylactic medications. (4) Atrial fibrillation: Qualifiers: Atrial fibrillation type: unspecified Qualified Code(s): I48.91 - Unspecified atrial fibrillation Code(s): I48.91 - Unspecified atrial fibrillation Status: Chronic Assessment and Plan: She has a pacemaker. Sounds to be in a sinus rhythm. Rate is controlled. Continue amiodarone and metoprolol. (5) Current use of [facility] anticoagulation: Code(s): Z79.01 - retirement (current) use of anticoagulants Status: Chronic Assessment and Plan: On long-term anticoagulation for stroke prophylaxis due to AFib. Continue Eliquis. (6) Hypertension: Qualifiers: Hypertension type: essential hypertension Qualified Code(s): I10 - Essential (primary) hypertension Code(s): I10 - Essential (primary) hypertension Status: Acute Assessment and Plan: Blood pressures were reviewed and they are well controlled. Last BP 105/46 Continue antihypertensives and monitor blood pressures daily. (7) Chronic anemia: Code(s): D64.9 - Anemia, unspecified Status: Chronic Assessment and Plan: Labs were reviewed and hemoglobin and hematocrit are stable. Vital signs stable. No evidence of active bleeding. Previous iron panel consistent with anemia of chronic disease. Trend H&H (8) Edema of right lower leg: Code(s): R60.0 - Localized edema Status: Acute Assessment and Plan: This is developed a few days prior to admission, likely related to decreased mobility due to pain at stump site. Venous Doppler negative for right lower extremity DVT. Edema resolved today. Encourage elevation of the affected extremity. (9) Willett cyst: Code(s): M71.20 - Synovial cyst of popliteal space [Willett], unspecified knee Status: Acute Assessment and Plan: Incidentally noted on venous doppler. No popliteal mass appreciated on physical exam. She is asymptomatic. No treatment required as she is asymptomatic. Informed her of need for follow-up should she develop symptoms. (10) Thrombocytosis: Code(s): D47.3 - Essential (hemorrhagic) thrombocythemia Status: Acute Assessment and Plan: Noted on CBC. Platelets 672 today. Review of prior labs demonstrate this to be a chronic issue. May be due t
[2020-04-24] MEDS: MICAFUNGIN SODIUM 100 MG in SODIUM CHLORIDE 0.9% IV 100 ML IVPB (16:42)
[2020-04-24] MEDS: CEPHALEXIN 500 MG CAPSULE PO (17:29)
[2020-04-24] MEDS: EZETIMIBE 10 MG TABLET PO (17:29)
[2020-04-24] MEDS: DOCUSATE SODIUM 100 MG CAPSULE PO (20:51)
[2020-04-24] MEDS: TRIMETHOPRIM 100 MG TABLET PO (20:52)
[2020-04-24] MEDS: AMIODARONE HCL 200 MG TABLET PO (20:52)
--- NOTE | 2020-04-25 | ECHO_ITS ---
Patient Info Name: Desirae Peng Age: 79 years : 1940 Gender: Female Ht: 64 in Wt: 95 lbs BSA: 1.38 m2 HR: 64 bpm BP: 134 / 54 mmHg Heart Rhythm: Sinus Rhythm Technical Quality: Good Exam Date: 04/25/2020 4:22 PM Exam Location: [facility] Pulmonary Exam Room: 259 Patient Status: Inpatient Admit Date: 04/22/2020 Staff Ordering Physician: Shaista Noe PA-C Appraiser: Radha Murrieta RDCS Attending Provider: Shaista Noe PA-C Referring Physician: Hasmukh AGUILAR; Exam Type: CA echo doppler color flow Study Info Indications - afib cad stent ppm candidemia Complete two-dimentional, color flow and Doppler transthoracic echocardiogram is performed with agitated saline and with contrast to opacify the left ventricle and to improve the delineation of the left ventricle endocardial borders. Summary 1. Left ventricular chamber dimension is normal. 2. Left ventricular systolic function is normal, estimated at 60-65%. 3. There is no increased left ventricular wall thickness. 4. Left ventricular septal wall motion is abnormal with septal motion related to bundle branch block. 5. The left ventricular diastolic function is normal. 6. Right atrial chamber dimension is mildly enlarged. 7. The mitral valve has thickened leaflets. 8. There is moderate mitral valve regurgitation. 9. There is mild to moderate tricuspid valve regurgitation. Left Ventricle Left ventricular chamber dimension is normal. Left ventricular systolic function is normal, estimated at 60-65%. There is no increased left ventricular wall thickness. Left ventricular septal wall motion is abnormal with septal motion related to bundle branch block. The left ventricular diastolic function is normal. Right Ventricle Right ventricular chamber dimension is normal. Right ventricular systolic function is normal. Left Atria Left atrial chamber dimension is normal. Right Atria Right atrial chamber dimension is mildly enlarged. Atrial Septum Intact interatrial septum visualized by color flow imaging. Aortic Valve The aortic valve is trileaflet. There is mild aortic valve sclerosis. There is no aortic valve stenosis. There is trace aortic valve regurgitation. Pulmonic Valve The pulmonic valve is normal. There is no pulmonic valve stenosis. There is trace pulmonic regurgitation. Mitral Valve The mitral valve has thickened leaflets. There is no mitral valve stenosis. There is moderate mitral valve regurgitation. Tricuspid Valve The tricuspid valve leaflets are normal. There is no significant tricuspid valve stenosis. There is mild to moderate tricuspid valve regurgitation. No pulmonary hypertension, estimated pulmonary arterial systolic pressure is 31 mmHg. Pericardium/Pleural The pericardium appears normal. There is no pericardial effusion. Inferior Vena Cava Dilated inferior vena cava with >50% collapse upon inspiration consistent with elevated right atrial pressure, 10 mmHg. Aorta The aortic root size at the sinus of Valsalva is normal. Left Ventricular Outflow Tract Name Value Normal LVOT 2D LVOT Diameter 2.0 cm LVOT Doppler
[2020-04-25] MEDS: HYDROcodone/acetaminophen (*CRX) 5-325 MG TABLET 1 TAB PO ×2 (03:12→11:10)
[2020-04-25 04:10] VITALS: BP 134/54; PULSE 64; RESP 16; TEMP 36.9; O2SAT 97
[2020-04-25] MEDS: GABAPENTIN 300 MG CAPSULE PO ×3 (06:07→21:26)
[2020-04-25 06:26] LABS: Anion Gap 4 mmol/L (8-16); Blood Urea Nitrogen 9 mg/dL (7-17); Calcium 7.9 mg/dL (8.4-10.2); Carbon Dioxide 27 mmol/L (22-30); Chloride 110 mmol/L (98-107); Estimated CRCL calculation 34 ml/min; Estimated Glomerular Filt Rate > 60; Glucose 86 mg/dL (65-105); Potassium 3.9 mmol/L (3.4-5.0); Sodium 141 mmol/L (137-145)
[2020-04-25 06:50] LABS: Basophils Percent Auto 0.3 % (0.2-1.2); Eosinophils Absolute Auto 0.1 K/mm3 (0-0.3); Eosinophils Percent Auto 0.6 % (0-4.4); Hematocrit 30.3 % (37.0-47.0); Hemoglobin 9.4 g/dL (12.0-15.0); Immature Granulocyte Absolute 0.05 K/mm3 (0.00-0.031); Immature Granulocyte Percent A 0.6 % (0-0.5); Lymphocytes Percent Auto 24.3 % (18.3-44.2); Mean Corpuscular Hemoglobin 25.5 pg (26-34); Mean Corpuscular Volume 82.3 fl (80-100); Mean Platelet Volume 8.5 fl (7.4-10.4); Monocytes Absolute Auto 0.9 K/mm3 (0.1-0.6); Neutrophils Absolute Auto 4.9 K/mm3 (1.3-6.7); Neutrophils Percent Auto 63.2 % (45.5-73.1); Platelet Count Result 754 k/mm3 (150-375); Red Blood Count 3.68 M/mm3 (4.2-5.4); Red Cell Distribution Width 18.8 % (11.5-14.5); White Blood Count 7.8 K/mm3 (4.5-10.0)
[2020-04-25] MEDS: ASPIRIN 81 MG CHEWABLE TABLET PO (08:15)
[2020-04-25] MEDS: CHOLECALCIFEROL 1,000 UNITS TABLET 1000 UNITS PO (08:15)
[2020-04-25] MEDS: ASCORBIC ACID 500 MG TABLET 1000 MG PO (08:15)
[2020-04-25] MEDS: OXYBUTYNIN CHLORIDE 5 MG TABLET PO ×3 (08:15→16:42)
[2020-04-25] MEDS: APIXABAN 5 MG TABLET PO ×2 (08:15→16:42)
[2020-04-25] MEDS: polyethylene glycoL 3350 17 GM POWD.PACK PO (08:15)
[2020-04-25 08:16] VITALS: PULSE 64
[2020-04-25] MEDS: METOPROLOL SUCCINATE EXT REL 25 MG TABCR PO (08:16)
[2020-04-25 09:19] LABS: HIV 1/2 Ab P24 Ag Result Negative (Negative)
[2020-04-25] MEDS: ONDANSETRON INJ 4 MG/2 ML VIAL IV PUSH (09:36)
[2020-04-25 09:40] VITALS: O2SAT 95
--- NOTE | 2020-04-25 12:05 | PM.IMPN ---
Progress Note: A&P Assessment and Plan (1) Candidemia: Onset Date: ~04/19/20 Code(s): B37.7 - Candidal sepsis Status: Acute Assessment and Plan: Meghna glabrata seen on blood cultures obtained 04/15/2020. Source unclear. Possible colonization of previous ureteral stent with dislodgement to circulatory system. Urine cultures do not demonstrate fungal infection. Additional considerations included implanted hardware of lumbar spine or valvular disease. Infection from implanted pacemaker unlikely as the area is nontender. Pacemaker palpated with no bogginess or evidence of fluid collection. Joint infection from right knee or hip considered given hx of joint replacement but unlikely as she has no pain, limitation in ROM, or other symptoms consistent with infection. Previous imaging reviewed with radiologist Dr. George who indicates no areas of lucency on CT a/p consistent with fungal infection. Fungal pneumonia considered, however unlikely given lack of respiratory symptoms. CXR from 04/[address] Ramsay (infectious disease) consulted and input is appreciated Continue micafungin 100 mg daily per ID recommendations Preliminary blood cultures repeated 04/22/20 with NGTD. Continue monitoring. Repeat urine cultures pending 04/24/20. Obtain lumbar CT to assess hardware for collection of infection Obtain echocardiogram to assess for valve infection. Reassess CXR to assess for fungal pneumonia. Sputum culture unable to be obtained (2) History of ureter stent: Status: Acute Assessment and Plan: She has chronic left ureteral stent in place due to obstruction from spinal hardware. She is s/p left ureteral stent exchange on 04/14/[address] Lal, her primary urologist. I contacted Dr. Dickerson, on-call urologist, on 04/23/20 and informed him of patient's admission. No need for urology consultation at this time. Dr. Lal will be informed and will monitor. (3) Abnormal urinalysis: Code(s): R82.90 - Unspecified abnormal findings in urine Status: Acute Assessment and Plan: Urinalysis is once again abnormal though she just finished a course of PO cefdinir on 04/22/2020. She complains of frequency. She is afebrile and without leukocytosis. Initial urine culture was contaminated therefore urine culture repeated on 04/24/20 and is pending. Her home prophylactic Keflex and trimethoprim was continued, therefore urine culture results may be affected by this. Based on clinical findings, I do not suspect acute UTI. Will not proceed with further antibiotic treatment at this time while awaiting cultures. Continue prophylactic medications. (4) Atrial fibrillation: Qualifiers: Atrial fibrillation type: unspecified Qualified Code(s): I48.91 - Unspecified atrial fibrillation Code(s): I48.91 - Unspecified atrial fibrillation Status: Chronic Assessment and Plan: She has a pacemaker. Sounds to be in a sinus rhythm. Rate is controlled. Continue amiodarone and metoprolol. 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 Continue Eliquis. (6) Hypertension: Qualifiers: Hypertension type: essential hypertension Qualified Code(s): I10 - Essential (primary) hypertension Code(s): I10 - Essential (primary) hypertension Status: Acute Assessment and Plan: Blood pressures were reviewed and they are well controlled. Last BP 134/54 Continue antihypertensives and monitor blood pressures daily. (7) Chronic anemia: Code(s): D64.9 - Anemia, unspecified Status: Chronic Assessment and Plan: Labs were reviewed and hemoglobin and hematocrit are stable. Vital signs stable. No evidence of active bleeding. Previous iron panel consist
[2020-04-25 13:32] VITALS: BMI 16.3
--- NOTE | 2020-04-25 14:28 | PCNSR ---
On 04/25/20, the student, Mimi Holt, provided care and completed [facility] documentation on this patient. I have reviewed the student's documentation and agree with the findings.
[2020-04-25 14:55] VITALS: BP 124/54; PULSE 60; RESP 16; TEMP 36.3; O2SAT 100
[2020-04-25] MEDS: MICAFUNGIN SODIUM 100 MG in SODIUM CHLORIDE 0.9% IV 100 ML IVPB (16:41)
[2020-04-25] MEDS: PROCHLORPERAZINE MALEATE 5 MG TABLET 10 MG PO (16:42)
[2020-04-25] MEDS: EZETIMIBE 10 MG TABLET PO (17:47)
[2020-04-25] MEDS: CEPHALEXIN 500 MG CAPSULE PO (17:47)
[2020-04-25] MEDS: TRIMETHOPRIM 100 MG TABLET PO (21:26)
[2020-04-25] MEDS: FAMOTIDINE 20 MG/2 ML VIAL IV PUSH (21:26)
[2020-04-25 21:27] VITALS: PULSE 60
[2020-04-25] MEDS: AMIODARONE HCL 200 MG TABLET PO (21:27)
[2020-04-25] MEDS: DOCUSATE SODIUM 100 MG CAPSULE PO (21:27)
[2020-04-25] MEDS: MELATONIN 3 MG TABLET PO (21:27)
[2020-04-25 22:00] VITALS: BP 119/48; PULSE 60; RESP 18; TEMP 36.5; O2SAT 97
[2020-04-26] VITALS (8 sets, daily range): BP systolic 132–145; BP diastolic 48–58; PULSE 60–75; RESP 12–16; TEMP 36.1–36.6; O2SAT 95–98
[2020-04-26] MEDS: PROCHLORPERAZINE MALEATE 5 MG TABLET 10 MG PO ×2 (00:37→10:05)
[2020-04-26] MEDS: GABAPENTIN 300 MG CAPSULE PO ×3 (05:48→20:26)
[2020-04-26] MEDS: HYDROcodone/acetaminophen (*CRX) 5-325 MG TABLET 1 TAB PO ×2 (05:48→13:13)
[2020-04-26] MEDS: ONDANSETRON INJ 4 MG/2 ML VIAL IV PUSH (05:48)
[2020-04-26 05:51] LABS: Hematocrit 30.8 % (37.0-47.0); Hemoglobin 9.6 g/dL (12.0-15.0); Mean Corpuscular HGB Conc 31.2 g/dl (32-36); Mean Corpuscular Hemoglobin 25.5 pg (26-34); Mean Corpuscular Volume 81.7 fl (80-100); Mean Platelet Volume 8.3 fl (7.4-10.4); Platelet Count Result 735 k/mm3 (150-375); Red Blood Count 3.77 M/mm3 (4.2-5.4); Red Cell Distribution Width 18.6 % (11.5-14.5); White Blood Count 9.3 K/mm3 (4.5-10.0)
[2020-04-26 06:02] LABS: Anion Gap 1 mmol/L (8-16); Blood Urea Nitrogen 10 mg/dL (7-17); Calcium 8.3 mg/dL (8.4-10.2); Carbon Dioxide 27 mmol/L (22-30); Chloride 111 mmol/L (98-107); Estimated CRCL calculation 39 ml/min; Estimated Glomerular Filt Rate > 60; Glucose 97 mg/dL (65-105); Potassium 3.7 mmol/L (3.4-5.0); Sodium 139 mmol/L (137-145)
[2020-04-26] MEDS: polyethylene glycoL 3350 17 GM POWD.PACK PO (10:00)
[2020-04-26] MEDS: METOPROLOL SUCCINATE EXT REL 25 MG TABCR PO (10:02)
[2020-04-26] MEDS: APIXABAN 5 MG TABLET PO ×2 (10:04→17:18)
[2020-04-26] MEDS: ASCORBIC ACID 500 MG TABLET 1000 MG PO (10:06)
[2020-04-26] MEDS: OXYBUTYNIN CHLORIDE 5 MG TABLET PO ×3 (10:07→17:18)
[2020-04-26] MEDS: ASPIRIN 81 MG CHEWABLE TABLET PO (10:08)
[2020-04-26] MEDS: CHOLECALCIFEROL 1,000 UNITS TABLET 1000 UNITS PO (10:08)
[2020-04-26] MEDS: FAMOTIDINE 20 MG/2 ML VIAL IV PUSH ×2 (10:15→20:25)
--- NOTE | 2020-04-26 14:28 | WPDINFPN2 ---
Progress Note: A&P Assessment and Plan (1) Candidemia: Onset Date: ~04/19/20 Code(s): B37.7 - Candidal sepsis Status: Acute Assessment and Plan: C glabrata BSI, urine source REC Micafungin through 05/05, F/U Dr. Lal re need for stent change (not urgent from my standpoint) Subjective Date/time seen: 04/26/20 14:28 Objective Data Vital Signs Vital Signs: Vital Signs - 24 hr 04/25/20 14:55 04/25/20 21:27 04/25/20 22:00 Temperature 36.3 C L 36.5 C Pulse Rate 60 60 60 Respiratory Rate 16 18 Blood Pressure 124/54 L 119/48 L Pulse Oximetry 100 97 04/26/20 05:05 04/26/20 09:22 04/26/20 10:02 Temperature 36.4 C L 36.1 C L Pulse Rate 60 63 63 Respiratory Rate 16 12 Blood Pressure 145/48 H 132/52 L Pulse Oximetry 95 97 Intake/Output Intake/Output: Intake & Output 04/23/20 04/24/20 04/25/20 04/26/20 23:59 23:59 23:59 23:59 Intake Total 1590 1440 1080 390 Output Total 2700 500 1500 1450 Balance -1110 940 -420 -1060 Meds/Results Medications: Active Medications Generic Name Dose Route Start Last Admin Trade Name Freq PRN Reason Stop Dose Admin Hydrocodone Bitart/Acetaminophen 1 tab 04/22/20 17:57 04/26/20 13:13 Hydrocodone/Acetaminophen (*Crx) 5-325 Mg Tablet PO 1 tab Q6H PRN Administration Pain Rated 4-6 Albuterol 2 puff 04/22/20 18:35 Albuterol Sulfate (*Sp) Aerosol 1 Puff INHALATION Q4-6H PRN Dyspnea Amiodarone HCl 200 mg 04/22/20 21:00 04/25/20 21:27 Amiodarone Hcl 200 Mg Tablet PO 200 mg HS JORDIN Administration Apixaban 5 mg 04/22/20 18:45 04/26/20 10:04 Apixaban 5 Mg Tablet PO 5 mg BID JORDIN Administration Ascorbic Acid 1,000 mg 04/23/20 09:00 04/26/20 10:06 Ascorbic Acid 500 Mg Tablet PO 1,000 mg DAILY JORDIN Administration Aspirin 81 mg 04/23/20 09:00 04/26/20 10:08 Aspirin 81 Mg Chewable Tablet PO 05/23/20 09:01 81 mg DAILY JORDIN Administration Cephalexin HCl 500 mg 04/22/20 18:00 04/25/20 17:47 Cephalexin 500 Mg Capsule PO 500 mg QPM JORDIN Administration Docusate Sodium 100 mg 04/22/20 21:00 04/25/20 21:27 Docusate Sodium 100 Mg Capsule PO 100 mg HS JORDIN Administration Ezetimibe 10 mg 04/22/20 18:00 04/25/20 17:47 Ezetimibe 10 Mg Tablet PO 10 mg QPM JORDIN Administration Famotidine 20 mg 04/25/20 21:00 04/26/20 10:15 Famotidine 20 Mg/2 Ml Vial IV PUSH 20 mg Q12HR JORDIN Administration Gabapentin 300 mg 04/22/20 22:00 04/26/20 13:12 Gabapentin 300 Mg Capsule PO 300 mg Q8HR JORDIN Administration Micafungin Sodium 100 mg/ 100 mls @ 100 mls/hr 04/22/20 16:00 04/25/20 17:47 Sodium Chloride IVPB Infused DAILY@1600 [facility] Infusion Lidocaine 1 patch 04/22/20 18:35 04/24/20 04:57 Lidocaine 5% Patch TRANSDERM 1 patch PRN PRN Administration Pain Lidocaine/Diphenhydr/Alum/Mg/Simeth 5 ml 04/23/20 14:33 04/24/20 08:09 Magnes & Alum Hyd/Simeth/Diphenhyd/Lidocaine 119 Ml Mouthwash BY MOUTH 05/23/20 14:36 5 ml Q6H PRN Administration Mouth sore Melatonin 3 mg 04/25/20 21:00 04/25/20 21:27 Melatonin 3 Mg Tablet PO 3 mg HS JORDIN Administration Metoprolol Succinate 25 mg 04/23/20 09:00 04/26/20 10:02 Metoprolol Succinate Ext Rel 25 Mg Tabcr PO 25 mg QAM JORDIN Administration Ondansetron HCl 4 mg 04/24/20 10:32 04/26/20 05:48 Ondansetron Inj 4 Mg/2 Ml Vial IV PUSH 4 mg Q6H PRN Administration Nausea And Vomiting Oxybutynin Chloride 5 mg 04/22/20 18:55 04/26/20 13:13 Oxybutynin Chloride 5 Mg Tablet PO 5 mg TID JORDIN Administration Polyethylene Glycol 17 gm 04/24/20 11:10 04/26/20 10:00 Polyethylene Glycol 3350 17 Gm Powd.Pack PO 17 gm QAM JORDIN Administration Prochlorperazine Maleate 10 mg 04/23/20 15:48 04/26/20 10:05 Prochlorperazine Maleate 5 Mg Tablet PO 10 mg Q6H PRN Administration Nausea And Vomiting Trimethoprim 100 mg 04/22/20 21:00 04/25/20
[2020-04-26] MEDS: MICAFUNGIN SODIUM 100 MG in SODIUM CHLORIDE 0.9% IV 100 ML IVPB (16:35)
--- NOTE | 2020-04-26 16:47 | PM.IMPN ---
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 Additional considerations included implanted hardware of lumbar spine or valvular disease. Infection from implanted pacemaker unlikely as the area is nontender. Pacemaker palpated with no bogginess or evidence of fluid collection. Joint infection from right knee or hip considered given hx of joint replacement but unlikely as she has no pain, limitation in ROM, or other symptoms consistent with infection. Previous imaging reviewed with radiologist Dr. George who indicates no areas of lucency on CT a/p consistent with fungal infection. Fungal pneumonia unlikely given lack of respiratory symptoms and normal CXR. Lumbar spine CT reviewed with no evidence of discitis or infected hardware. Echo reviewed with no vegetations noted. Dr. Ramsay (infectious disease) consulted and input is appreciated Continue micafungin 100 mg daily per ID recommendations. Plan for micafungin infusions through 05/05/2020. Midline catheter has been ordered. Care coordination following and has set up home health for infusions. Preliminary blood cultures repeated 04/22/20 with NGTD. Continue monitoring. (2) History of ureter stent: Status: Acute Assessment and Plan: She has chronic left ureteral stent in place due to obstruction from spinal hardware. She is s/p left ureteral stent exchange on 04/14/[address] Lal, her primary urologist. I contacted Dr. Dickerson, on-call urologist, on 04/23/20 and informed him of patient's admission. No need for urology consultation at this time. Dr. Lal will be informed and will monitor. She will need outpatient follow up. (3) Abnormal urinalysis: Code(s): R82.90 - Unspecified abnormal findings in urine Status: Acute Assessment and Plan: Urinalysis was abnormal on presentation though she just finished a course of PO cefdinir on 04/22/2020. She complains of frequency. She is afebrile and without leukocytosis. Initial urine culture was contaminated therefore urine culture repeated on 04/24/20, also contaminated Her home prophylactic Keflex and trimethoprim was continued, therefore urine culture results may be affected by this. Based on clinical findings, I do not suspect acute UTI. Will not proceed with further antibiotic treatment at this time. Continue prophylactic medications. (4) Atrial fibrillation: Qualifiers: Atrial fibrillation type: unspecified Qualified Code(s): I48.91 - Unspecified atrial fibrillation Code(s): I48.91 - Unspecified atrial fibrillation Status: Chronic Assessment and Plan: She has a pacemaker. Sounds to be in a sinus rhythm. Rate is controlled. Continue amiodarone and metoprolol. 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 Continue Eliquis. (6) Hypertension: Qualifiers: Hypertension type: essential hypertension Qualified Code(s): I10 - Essential (primary) hypertension Code(s): I10 - Essential (primary) hypertension Status: Acute Assessment and Plan: Blood pressures were reviewed and they are well controlled. Last BP 134/54 Continue antihypertensives and monitor blood pressures daily. (7) Chronic anemia: Code(s): D64.9 - Anemia, unspecified Status: Chronic Assessment and Plan: Labs were reviewed and hemoglobin and hematocrit are stable. Vital signs stable. No evidence of active bleeding. Previous iron panel consistent with anemia of chronic disease. Trend H&H (8) Edema of right lower leg: Code(s): R60.0 - Locali
--- NOTE | 2020-04-26 17:11 | CONS_ITS ---
DATE OF CONSULTATION: 04/26/2020 REASON FOR CONSULTATION: Fungemia. HISTORY OF THE PRESENT ILLNESS: I was not notified of this consult until this morning. The patient is a 79-year-old female who has chronic hydronephrosis and ureteral stents followed by Dr. Lal. She had a stent changed on April 21 and was admitted to the hospital the following day when report of a positive blood culture returned, in fact this had been drawn during her last admission, collected on April 15. She actually was discharged from the hospital on the . She had received antibiotics while here, not discharged on the same. Her hospitalization last month from the until the was for fever. The patient had a ureteral stent also changed on April 14. She has an abnormal UA. Cultures were not revealing by the time of arrival. The patient does have chronic lumbar back pain. She also has dysuria, frequency, and polyuria. On arrival, the patient was started on micafungin and remains on that now, day 5. No other antifungals. ALLERGIES: MULTIPLE PER RECORD INCLUDING SULFA. HABITS: See record. PRESENT MEDICATIONS: No immunosuppressants currently. PAST MEDICAL HISTORY: AF, peripheral vascular disease with what she describes as emboli to the left lower extremity after her first back surgery eventually requiring AKA in May of last year. Also, the ureteral obstruction due to spinal hardware, hypertension, peripheral neuropathy. FAMILY HISTORY: Not pertinent to her present illness. REVIEW OF SYSTEMS: As per record, 14-point review with me, otherwise negative. Additional past medical history on the record and reviewed. She does have right hip and right knee replacement, which have not been symptomatic. SOCIAL HISTORY: She is . Does not work outside the home. Lives in [place], [place]. PHYSICAL EXAMINATION: GENERAL: This is an elderly female who appears her actual age. No acute distress. VITAL SIGNS: Consistently afebrile, 137/53, 60, 16, 98% room air. SKIN: Warm and dry. EENT: Conjunctivae are normal. Pupils equal, round, and reactive to light. The oropharynx, oral mucosa normal. No thrush. NECK: No masses or thyromegaly. LUNGS: Clear to auscultation and percussion. BACK: No CVAT. CARDIAC: Regular rate and rhythm. No murmur or gallop. ABDOMEN: Soft, nondistended. No masses. EXTREMITIES: Left AKA present. She has no evidence of infection at the right hip nor the right knee. She has skin atrophy distally. No clubbing, cyanosis, edema. LABORATORY DATA: From April 15, Meghna glabrata 2/2 sets. These have been repeated and all subsequent are no growth. White count consistently normal. Hemoglobin 9.6, platelets are 735. Chemistry panel is normal other than high chloride and low calcium. HIV is nonreactive. Urinalysis on rearrival, multiple abnormalities, which are reviewed. RADIOLOGY: Lumbar spine CT performed April 25. Fusion hardware. No diskitis. Chronic-appearing compression fractures. Chest x-ray, no active disease. An echocardiogram transthoracic, multiple valvular abnormalities, no evidence of infection, however. ASSESSMENT: 1. Meghna glabrata bloodstream infection, due to urinary source. Other sources unlikely including musculoskeletal, primary bloodstream, other mucosal disease. 2. Chronic ureteral obstruction with stent in place. 3. Sulfa allergy. 4. Chronic back pain. 5. Joint replacements, not infected on exam. RECOMMENDATIONS: 1. Continue micafungin for 14-day course through May 05. 2. Okay with me for discharge planning, her midline might be appropriate. 3. Follow up with Dr. Lal regarding any need for new stent change. This probably should not be attempted prior to completion of her antif
[2020-04-26] MEDS: EZETIMIBE 10 MG TABLET PO (17:17)
[2020-04-26] MEDS: CEPHALEXIN 500 MG CAPSULE PO (17:18)
[2020-04-26] MEDS: AMIODARONE HCL 200 MG TABLET PO (20:26)
[2020-04-26] MEDS: DOCUSATE SODIUM 100 MG CAPSULE PO (20:26)
[2020-04-26] MEDS: TRIMETHOPRIM 100 MG TABLET PO (20:26)
[2020-04-26] MEDS: MELATONIN 3 MG TABLET PO (20:28)
[2020-04-27] MEDS: HYDROcodone/acetaminophen (*CRX) 5-325 MG TABLET 1 TAB PO ×3 (01:21→15:13)
[2020-04-27] MEDS: PROCHLORPERAZINE MALEATE 5 MG TABLET 10 MG PO (05:15)
[2020-04-27] MEDS: GABAPENTIN 300 MG CAPSULE PO ×2 (05:16→13:08)
[2020-04-27 06:00] VITALS: BP 127/37; PULSE 60; RESP 16; TEMP 36.6; O2SAT 95
[2020-04-27 06:21] VITALS: BP 123/43
[2020-04-27 09:15] VITALS: BP 118/59; PULSE 61
[2020-04-27] MEDS: OXYBUTYNIN CHLORIDE 5 MG TABLET PO ×2 (09:18→13:08)
[2020-04-27] MEDS: ASCORBIC ACID 500 MG TABLET 1000 MG PO (09:18)
[2020-04-27 09:19] VITALS: PULSE 61
[2020-04-27] MEDS: APIXABAN 5 MG TABLET PO (09:19)
[2020-04-27] MEDS: METOPROLOL SUCCINATE EXT REL 25 MG TABCR PO (09:19)
[2020-04-27] MEDS: CHOLECALCIFEROL 1,000 UNITS TABLET 1000 UNITS PO (09:21)
[2020-04-27] MEDS: FAMOTIDINE 20 MG/2 ML VIAL IV PUSH (09:22)
[2020-04-27] MEDS: ASPIRIN 81 MG CHEWABLE TABLET PO (09:23)
[2020-04-27] MEDS: SALINE LOCK FLUSH 10 ML IV PUSH (13:08)
[2020-04-27] MEDS: LIDOCAINE 5% PATCH 1 PATCH TRANSDERM (13:08)
[2020-04-27 14:00] VITALS: BP 113/45; PULSE 62; RESP 14; TEMP 36.8; O2SAT 99
--- NOTE | 2020-04-27 14:44 | PM.DS ---
DS: Admitting Diagnosis Admitting Diagnosis Admitting Diagnosis: Blood cultures positive for Meghna glabrata DS: Discharge Diagnosis Discharge Diagnosis (1) Candidemia: Onset Date: ~04/19/20 Code(s): B37.7 - Candidal sepsis Status: Acute Assessment and Plan: Discharge Summary (Date of service 04/27/20): Mrs. Peng is a 79 y.o. female with PMH significant for multiple medical comorbidities including atrial fibrillation on eliquis, PAD s/p left AKA 05/2019, ureteral obstruction due to spinal hardware with left ureteral stent in place, and multiple other comorbidities who presented to the emergency department on 04/22/20 after receiving a call from her primary care provider's office instructing her to proceed to the emergency department due to blood culture positive for yeast. She was recently hospitalized 04/15/20-04/17/20 for fever after left ureteral stent exchange by Dr. Lal. Urine culture was negative but after discussion with urology, we elected to treat with cefdinir because the urine culture was obtained after she already received antibiotic for stent exchange. Blood cultures at discharge were pending but demonstrated no growth to date. Blood cultures obtained from 04/15/20 were subsequently positive for Meghna glabrata after the patient was already discharged and her primary care provider's office was notified of positive culture result and recommended she proceed to the emergency department. On arrival to the emergency department, WBC was 11,500, Hb 9.5, Hct 30.8, platelets 581. Blood cultures were repeated and micafungin was initiated. She was admitted to the hospitalist service and Dr. Ramsay with infectious disease was consulted. Urine source was felt most likely. Lumbar spine CT was ordered to r/o infection of spinal hardware and reviewed no evidence of discitis or infected hardware. Echo was performed with no vegetations noted. She had no clinical evidence of pacemaker infection. Dr. Ramsay with infectious disease recommended micafungin infusions through 05/05/2020. Midline catheter was placed and home health with [facility]. The prescription for micafungin was sent directly to [facility] home health with confirmation of receipt by care coordination. Preliminary blood cultures repeated 04/22/20 demonstrate no growth to date and are still pending and will be followed. She was afebrile with normal WBC. She was felt stable for discharge from an infectious disease standpoint and she felt much better overall with no further urinary symptoms. Urine culture x2 were consistent with contamination and her suppressive antibiotic regimen was resumed at discharge. She was advised to follow-up with Dr. Lal for continued stent exchange and to determine if he still wants her on both suppressive antbiotics. Worrisome signs and symptoms which would warrant return to the emergency department were discussed and she verbalized understanding. (2) History of ureter stent: Status: Acute Assessment and Plan: She has chronic left ureteral stent in place due to obstruction from spinal hardware. She is s/p left ureteral stent exchange on 04/14/[address] Lal, her primary urologist. Dr. Dickerson, on-call urologist was notified 04/23/[address] Dickerson, there was no need for urology consultation at this time. Dr. Lal will be informed and will monitor. She will need outpatient follow up and will call Dr. Lal at discharge to set up an appointment. Dr. Ramsay recommended to avoid stent change until completion of micafungin on 05/05/20. (3) Abnormal urinalysis: Code(s): R82.90 - Unspecified abnormal findings in urine Status: Acute Assessment and Plan: Urinalysis was abnormal on presentation though she just finished a course of PO cefdinir on 04/22/2020. She noted urinary frequency. She was afebrile and without leukocytosis. Initial urine culture was contaminated therefore urine culture repeated on 04/24/20, also
[2020-04-27] MEDS: MICAFUNGIN SODIUM 100 MG in SODIUM CHLORIDE 0.9% IV 100 ML IVPB (15:13)
--- NOTE | 2020-04-27 15:33 | PC.NURSE ---
On 04/27/20, the student, [Mimi Vaughn ], provided care and completed [facility] documentation on this patient. I have reviewed the student's documentation and agree with the findings.
== END 2020-04-27 16:45 | disposition home health service (06) | DRG 872 ==
LOC: ANHED 13:43 → ANH2MED 17:03
PROVIDERS: Physician Assistant; Admitting Provider Internal Medicine; Emergency Provider Emergency Medicine; PCP Nurse Practitioner Family; Visit Provider Physician Assistant
DX: B37.7 Candidal sepsis (principal); I48.20 Chronic atrial fibrillation, unspecified; D63.8 Anemia in other chronic diseases classified elsewhere; R60.0 Localized edema; I12.9 Hypertensive chronic kidney disease with stage 1 through stage 4 chronic kidney disease, or unspecified chronic kidney disease; N18.9 Chronic kidney disease, unspecified; D47.3 Essential (hemorrhagic) thrombocythemia; E78.5 Hyperlipidemia, unspecified; I73.9 Peripheral vascular disease, unspecified; I25.10 Atherosclerotic heart disease of native coronary artery without angina pectoris; M71.21 Synovial cyst of popliteal space [Baker], right knee; R13.10 Dysphagia, unspecified; Z96.641 Presence of right artificial hip joint; Z96.651 Presence of right artificial knee joint; Z79.01 Long term (current) use of anticoagulants; Z95.0 Presence of cardiac pacemaker; Z87.11 Personal history of peptic ulcer disease; Z85.820 Personal history of malignant melanoma of skin; Z86.718 Personal history of other venous thrombosis and embolism; Z98.42 Cataract extraction status, left eye; Z98.41 Cataract extraction status, right eye; Z90.49 Acquired absence of other specified parts of digestive tract; Z95.5 Presence of coronary angioplasty implant and graft; Z89.612 Acquired absence of left leg above knee; Z98.1 Arthrodesis status; Z87.891 Personal history of nicotine dependence
CPT/HCPCS: 36415; 36569; 71046; 72131; 80048; 80053; 81001; 83735; 85025; 85027; 85610; 85730; 86703; 87040; 87086; 87088; 93306; 93971; 99285; A9270; C1751; G0432; J2248; J2405

== ENCOUNTER → 2020-05-05 07:54 | Outpatient (CLI) | payer MEDICARE, SELFPAY ==
[2020-05-05 17:02] LABS: SARS-CoV-2 RNA PCR Negative
== END ==
PROVIDERS: PCP Nurse Practitioner Family; Visit Provider Urology
DX: Z01.812 Encounter for preprocedural laboratory examination (principal); Z20.822 Contact with and (suspected) exposure to COVID-19
CPT/HCPCS: C9803; U0003; U0005

== ENCOUNTER 2020-05-06 01:47 | Day surgery (SDC) | payer MEDICARE, SELFPAY ==
--- NOTE | 2020-05-05 15:01 | PC.NURSE ---
Addendum entered by Yareli Chavez RN 05/05/20 15:07: LAST INTERVIEW 04/22/20 NO CHANGE IN HEALTH HX Original Note: PT STATES NO CHANGE IN HEALTH HX SINCE LAST INTERVIEW ON 04/14/20
[2020-05-05 15:05] VITALS: BMI 17.5
--- NOTE | 2020-05-05 15:08 | PC.NURSE ---
PT STATES NO CHANGE IN HEALTH HX SINCE LAST INTERVIEW ON 04/22/20
--- NOTE | ~2020-05-06 | XR_ITS ---
EXAMINATION: XR retrograde pyelo w/stent LT EXAM DATE: 05/06/2020 15:24 INDICATION: Left-sided stent exchange. TECHNIQUE: Fluoroscopy used during XR retrograde pyelo w/stent LT performed by Dr. Broderick Lal MD. The DAP for this procedure was 410 radcm2. Cine run(s) available for review. FINDINGS: Contrast was injected through the left ureteral catheter or stent, demonstrates moderate t o severe left-sided hydronephrosis. The stent is obscured by lumbosacral fusion hardware. There is ri ght hip replacement. Correlate with procedure note. IMPRESSION: Moderate to severe left hydronephrosis. Reviewed, dictated and finalized at location A.
--- NOTE | 2020-05-06 08:20 | WPDHPUPDATE1 ---
History and Physical Update Update Date/Time: 05/06/20 08:20 History and Physical has been reviewed, including an updated exam of the patient. There are NO changes in the patient's condition. Risks, benefits, and alternatives have been discussed and questions answered. Patient agrees to proceed with procedure.
[2020-05-06 11:32] VITALS: BP 87/70; PULSE 74; RESP 18; TEMP 36.7; O2SAT 100
[2020-05-06] MEDS: LACTATED RINGERS 1,000 ML 30 ML IV CONT (11:45)
--- NOTE | 2020-05-06 12:36 | WPDANESEPPF ---
Anes - Initial Pre Proc Eval Procedure: Operation Date: 05/06/20 13:30 Proposed Procedures p Cystoscopy with Left Stent Exchange - Broderick Lal MD Date/Time: 05/06/20 12:36 Surgeon: Broderick Lal MD Pre Op Diagnosis: recurrent cystitis Patient Data Age: 79 Gender: F Height: 5 ft 4 in Weight: 46.3 kg Last Vital Signs Temp 98.1 F 05/06/20 11:32 Pulse 74 05/06/20 11:32 Resp 18 05/06/20 11:32 BP 87/70 L 05/06/20 11:32 Pulse Ox 100 05/06/20 11:32 Allergies Allergy/AdvReac Type Severity Reaction Status Date / Time sertraline Allergy Severe Joint Pain Verified 05/06/20 11:37 Sulfa (Sulfonamide Allergy Severe RASH Verified 05/06/20 11:37 Antibiotics) atorvastatin Allergy Intermediate Hives Verified 05/06/20 11:37 baclofen Allergy Intermediate tremors Verified 05/06/20 11:37 estradiol Allergy Intermediate Joint Verified 05/06/20 11:37 pain, swollen eyes & leg pain codeine Allergy Mild NAUSEA, Verified 05/06/20 11:37 RASH esomeprazole Allergy Mild CHEST PAIN Verified 05/06/20 11:37 lansoprazole Allergy Mild CHEST PAIN Verified 05/06/20 11:37 Penicillins Allergy Mild RASH Verified 05/06/20 11:37 iohexol Allergy Unknown Hives Verified 05/06/20 11:37 [From contrast - CT, X-RAY] metoclopramide Allergy Unknown Itching Verified 05/06/20 11:37 nebivolol Allergy Unknown Itching Verified 05/06/20 11:37 tolmetin Allergy Unknown Hives Verified 05/06/20 11:37 amitriptyline AdvReac Mild MUSCLE PAIN Verified 05/06/20 11:37 citalopram AdvReac Mild CHEST PAIN Verified 05/06/20 11:37 colesevelam AdvReac Mild Gastrointestinal Verified 05/06/20 11:37 Upset lisinopril AdvReac Mild NAUSEA/DIAR Verified 05/06/20 11:37 SU pravastatin AdvReac Mild Nausea Verified 05/06/20 11:37 Home Medications Medication Instructions Recorded Confirmed Type amiodarone [Pacerone] 200 mg PO HS 05/31/19 05/06/20 History ascorbic acid (vitamin C) [Vitamin 1,000 mg PO DAILY 30 Days #60 05/31/19 05/06/20 Rx C] tablet oxybutynin chloride 5 mg PO TID 08/09/19 05/06/20 History albuterol sulfate 2 puff INHALATION Q4-6H PRN 10/29/19 05/06/20 History cephalexin 500 mg PO QPM 10/29/19 05/06/20 History ezetimibe [Zetia] 10 mg PO QPM 10/29/19 05/06/20 History trimethoprim 100 mg PO HS 10/29/19 05/06/20 History docusate sodium 100 mg PO HS 11/26/19 05/06/20 History polyethylene glycol 3350 [Miralax] 17 g PO HS PRN 11/26/19 05/06/20 History aspirin 81 mg PO DAILY 04/07/20 05/06/20 History cholecalciferol (vitamin D3) 25 mcg PO DAILY 04/07/20 05/06/20 History gabapentin 300 mg PO TID 04/07/20 05/06/20 History lidocaine [Lidoderm] 1 patch TRANSDERMAL PRN PRN 04/07/20 05/06/20 History metoprolol succinate [Toprol XL] 25 mg PO QAM 04/07/20 05/06/20 History Eliquis 5 mg PO BID 04/15/20 05/06/20 History oxycodone myristate [Xtampza ER] 18 mg PO Q12-24H 05/05/20 05/06/20 History prochlorperazine maleate 10 mg PO Q8H PRN 05/05/20 05/06/20 History [Compazine] Patient hx anesthesia problems: none Family hx anesthesia problems: none [facility] Past Medical History Medical History (Updated 04/25/20 @ 16:43 by Shaista Noe PA-C) Atrial fibrillation Status post pacemaker insertion per Dr. Garza. Maintained on amiodarone and metoprolol. On apixaban for stroke prophylaxis. Candidemia (~04/19/20) Carotid bruit Less than 50% stenosis in bilateral internal carotid arteries on Dopplers in April 2018. Chronic anemia Chronic renal disease Baseline creatinine is between 0.9 and 1.10. Coronary artery disease Status post stent per Dr. Duque in 2015. Current use of senior care anticoagulation Degenerative disc disease Depression with anxiety Essential hypertension History of adenomatous polyp of colon History of bleeding peptic ulcer Hyperlipidemia Kidney stones Left leg DVT (~10/2014) Following spinal surgery. Melanoma of face Status post complete resection in the 1970s. Mixed hyperlipidemia
[2020-05-06] MEDS: ONDANSETRON INJ 4 MG/2 ML VIAL IV PUSH (12:45)
[2020-05-06] MEDS: ceFAZolin 2 GM/D5W 50 ML 2 GM/50 ML BAG IVPB (14:52)
--- NOTE | 2020-05-06 15:24 | PM.PROC ---
Procedure Note - Detailed Date of procedure: 05/06/20 Pre-op diagnosis: recurrent cystitis Post-op diagnosis: same Procedure performed: Cystoscopy, left ureteral stent removal, left retrograde pyelogram and left ureteral stent replacement Description of procedure: Patient is brought to the operative suite where she was prepped and draped in routine sterile fashion while a dorsal lithotomy position. She was given preoperative Ancef intravenously. Systemic sedation is administered per the anesthesia department and 2% lidocaine jelly was introduced intraurethrally. Cystoscopy with a 19 F rigid cystoscope reveals a normal bladder neck and urethra. The bladder is minimally hyperemic today. The tip of the indwelling stent is grasped brought to the external urethral meatus. 0.035 in glidewire is advanced into the renal pelvis. Retrograde pyelography is undertaken with the angiographic catheter to outline the renal pelvis and ensure proper positioning of her stent. A 4.8 F ureteral stent disposition with the proximal coil in the left renal pelvis and distal coil in the bladder. Scopes and wires were removed and she was taken recovery good condition Anesthesia: GLMA Surgeon: Broderick Lal MD Estimated blood loss (mL): 0 Drains: Yes (4.8F left ureteral stent) Packing: No Pathology: none sent Complications: No immediate complications Condition: stable Disposition: PACU
[2020-05-06 15:35] VITALS: BP 93/37; PULSE 62; RESP 16; O2SAT 97
[2020-05-06 16:10] VITALS: BP 106/43; PULSE 60; RESP 14
[2020-05-06] MEDS: oxyCODONE HCL (*CRX) 2.5 MG TAB IR PO (16:10)
[2020-05-06 16:40] VITALS: BP 123/40; PULSE 60; RESP 14
--- NOTE | 2020-05-09 17:02 | PM.HPGS ---
History of Present Illness History of Present Illness Consent: Risks, benefits, and alternatives have been discussed and questions answered. Patient agrees to proceed with procedure. Chief complaint: recurrent cystitis Narrative: Desirae Peng is a 79 year old female who is very well known to me with a history of exposed spinal hardware in her left renal pelvis. This is being managed with chronic indwelling ureteral stent with periodic changes and suppressive antibiotics. Following a recent stent change she developed fungemia with presumptive urinary tract origin. After IV antifungal for 10 days she presents for stent replacement at the recommendation of the infectious disease specialist. Review of Systems Cardiovascular: Cardiovascular: Denies chest pain, Denies lightheadedness, Denies palpitations and Denies dyspnea Respiratory: Respiratory: Denies dyspnea Gastrointestinal: Gastrointestinal: Denies diarrhea, Denies nausea and Denies vomiting Genitourinary: Genitourinary: Denies hematuria and Denies dysuria Endocrine: Endocrine: Denies palpitations [facility] Past Medical History Medical History Atrial fibrillation Status post pacemaker insertion per Dr. Garza. Maintained on amiodarone and metoprolol. On apixaban for stroke prophylaxis. Candidemia (~04/19/20) Carotid bruit Less than 50% stenosis in bilateral internal carotid arteries on Dopplers in April 2018. Chronic anemia Chronic renal disease Baseline creatinine is between 0.9 and 1.10. Coronary artery disease Status post stent per Dr. Duque in 2014. Current use of fdc anticoagulation Degenerative disc disease Depression with anxiety Essential hypertension History of adenomatous polyp of colon History of bleeding peptic ulcer Hyperlipidemia Kidney stones Left leg DVT (~10/2014) Following spinal surgery. Melanoma of face Status post complete resection in the 1970s. Mixed hyperlipidemia Neuropathic pain Peripheral vascular disease Pre-diabetes Hemoglobin A1c was 5.2% in 11/2019. Recurrent urinary tract infection On prophylactic antibiotics including daily cefdinir and trimethoprim. Surgical History Surgical History History of appendectomy (~1953) History of arthroscopy of both knees History of back surgery History of bilateral breast biopsy Benign pathology. History of bilateral carpal tunnel release Left in 1995. Right in 1997. History of bilateral cataract extraction (~2014) History of cardiac pacemaker in situ (~10/2014) [employer] pacemaker per Dr. Garza. History of cholecystectomy (~1977) History of colonoscopy with polypectomy History of coronary artery stent placement History of cystoscopy Multiple cystoscopies with left ureteral stent placements due to obstruction from spinal hardware. History of left above knee amputation (~05/22/19) History of left below knee amputation (~05/12/19) History of lumbar surgery Lumbar laminectomy in 1983. Lumbar fusion in 2015. Lumbar fusion with hardware in 06/2018. History of melanoma excision Completely excised from the face in the 1970s History of partial hysterectomy (~1969) History of right hip replacement (~06/2017) History of right knee joint replacement (~2017) History of vascular surgery PTCA/stent of the left lower extremity per Dr. Rudy Hurst in 12/2016, 11/2017, & 02/2019. Thrombectomy and fem-pop bypass in 2009. Status post trigger finger release (~1998) Left ring finger. Family History Family History Mother Family history of cardiovascular disease Family history of elevated blood lipids Family history of osteoporosis Family history of coronary artery disease Hypertension Sibling Patient's brother is Family history of malignant neoplasm of breast in first degree relative Grandpar
== END 2020-05-06 17:15 | disposition home or self-care (01) ==
PROVIDERS: PCP Nurse Practitioner Family; Visit Provider Urology
PROC: (CPT 52352; principal; 2020-05-06 13:30)
DX: N30.90 Cystitis, unspecified without hematuria (principal); Z79.01 Long term (current) use of anticoagulants; Z79.82 Long term (current) use of aspirin; Z79.51 Long term (current) use of inhaled steroids; I10 Essential (primary) hypertension; N28.9 Disorder of kidney and ureter, unspecified; E78.5 Hyperlipidemia, unspecified; I25.10 Atherosclerotic heart disease of native coronary artery without angina pectoris; Z95.5 Presence of coronary angioplasty implant and graft; F41.8 Other specified anxiety disorders; Z86.718 Personal history of other venous thrombosis and embolism; Z85.820 Personal history of malignant melanoma of skin; I73.9 Peripheral vascular disease, unspecified; R73.03 Prediabetes; Z87.891 Personal history of nicotine dependence; I65.23 Occlusion and stenosis of bilateral carotid arteries; Z95.0 Presence of cardiac pacemaker; I48.91 Unspecified atrial fibrillation
CPT/HCPCS: 52332; 74420; A9270; C1769; C1887; C2617; J0690; J2405; J2704; J3010; J7120

== ENCOUNTER 2020-05-31 10:35 | Outpatient (RCR) | payer MEDICARE, SELFPAY ==
--- NOTE | 2020-05-31 12:40 | PTOPEVAL ---
Thank you for referring Desirae Peng to [facility].? The patient is scheduled to be seen for therapy? ____x/week for ___ weeks. Please review, sign, date and return this plan of care FABIO. I agree with and certify that the following plan of care is medically necessary. Referring Physician Date Admitting Provider: Attending Provider: Aissatou Hurst, Referring Provider: *PT Outpatient Evaluation Start: 05/31/20 10:58 Freq: Status: Active Protocol: Document 05/31/20 10:59 ACR (Rec: 05/31/20 11:45 ACR [id number]) Therapy Assessment Status Assessment Status Assessment Status Evaluation Outpatient Past Medical History Neurological History Hx Other Neurological Disorders Yes: PHANTOM PAIN Cardiovascular History Hx Atrial Fibrillation Yes Hx Cardiac Catheterization Yes: [address] NEAL Hx Coronary Stent Yes: FOLLOWS WITH DR. NEAL Hx Deep Vein Thrombosis Yes: LT LEG FOLLOWING BACK SURGERY JULY 04, 2018, AMPUTATED 04/2019 & 05/2019 Hx Mitral Valve Prolapse Yes Hx Pacemaker Yes: 10/2014, FOLLOWS WITH DR. GERBER, LAST OV 09/2019 Hx Vascular Surgery Yes: DVT LT LOWER LEG - STENTS JUNE, JULY, NOV 2018 - FEB 2019 DR. HURST Hx Other Cardiac Disorders Yes: VASCULAR STENT RT LEG. DR HURST Respiratory History Hx Pneumonia Yes: July 2019- HOSPITALIZED 10 DAYS Gastrointestinal History Hx Appendectomy Yes Hx Cholecystectomy Yes Hx Gastroesophageal Reflux Disease Yes Hx Ulcer Yes: HX OF BLEEDING ULCER Hx Other Gastrointestinal Disorders Yes: STATES NON-ALCOHOLIC FATTY LIVER Genitourinary History Hx Bladder Surgery Yes: NUMEROUS CYSTOCOPYS CURRENTLY HAS LT STENT-LAST SURGERY 08/06/19 Hx Kidney Stones Yes: BILATERALLY CURRENTLY, LAST SURGERY JUNE 2017 Hx Urinary Tract Infection Yes: CHRONIC UTI, UROSEPSIS 2019 Hx Other Genitourinary Disorders Yes: GROSS HEMATURIA, SCREW FROM BACK SURG-DISPLACED/ IMBEDDED LT KIDNEY Musculoskeletal History Hx 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
--- NOTE | 2020-07-28 08:14 | PCPTNOTE ---
Patient is a 79 year old female that participated in the initial evaluation for LLE AKA. She began to have difficulty with her stump and was called on 06/20/20. She stated that she was getting a second opinion on 07/04/20 then she would call back. When patient called back she stated that the femur was pushing through her stump and she would get a new order to come back once that was addressed. Please refer to initial evaluation for discharge status. Thank you, GUZMAN McclendonT
== END 2020-05-31 16:00 | disposition home or self-care (01) ==
LOC: CHSPT 10:35
PROVIDERS: PCP Nurse Practitioner Family; Visit Provider Internal Medicine
DX: Z48.812 Encounter for surgical aftercare following surgery on the circulatory system (principal)
CPT/HCPCS: 97110; 97162

== ENCOUNTER 2020-08-01 12:16 | Outpatient (CLI) | payer MEDICARE, SELFPAY ==
--- NOTE | ~2020-08-01 | XR_ITS ---
XR lumbar spine 2-3V DATE: 08/01/2020 12:43 INDICATION: Fall, lower left lateral pump. Status post surgical fusion. TECHNIQUE: AP, lateral and coned lateral lumbosacral views COMPARISON: 05/12/2018 lumbar spine 04/25/2020 CT lumbar spine FINDINGS: Again noted is extensive postoperative change of the lumbar spine including anterior and po sterior spinal fusion from L1 to S2. The hardware appears intact without apparent fracture or displac ement. Diffuse osteopenia. Chronic T12 compression fracture deformity. Chronic mild anterior wedging of L1. Chronic L4 compression fracture deformity. Stable chronic grade 1 anterolisthesis at L3-4. Right atrial and right ventricular pacemaker leads. Status post cholecystectomy. Left iliac vascular and probable bilateral femoral endovascular stent. Bipolar hip replacement. IMPRESSION: No significant change since 04/25/2020 Reviewed, dictated and finalized at location A.
== END 2020-08-01 12:17 | disposition home or self-care (01) ==
LOC: ANHIMG 12:26
PROVIDERS: PCP Nurse Practitioner Family; Visit Provider Neurological Surgery
DX: M48.061 Spinal stenosis, lumbar region without neurogenic claudication (principal)
CPT/HCPCS: 72100

== ENCOUNTER → 2020-08-13 00:01 | Outpatient (CLI) | payer MEDICARE, SELFPAY ==
[2020-08-13 16:57] LABS: SARS-CoV-2 RNA PCR Negative
== END ==
PROVIDERS: PCP Nurse Practitioner Family; Visit Provider Internal Medicine Gastroenterology
DX: Z01.812 Encounter for preprocedural laboratory examination (principal); Z20.822 Contact with and (suspected) exposure to COVID-19
CPT/HCPCS: C9803; U0003; U0005

== ENCOUNTER 2020-08-16 08:32 | Day surgery (SDC) | payer MEDICARE, SELFPAY ==
[2020-08-16 08:46] VITALS: BMI 17.6
--- NOTE | 2020-08-16 09:17 | WPDANESEPPF ---
Anes - Initial Pre Proc Eval Procedure: Operation Date: 08/16/20 09:30 Proposed Procedures p Esophagogastroduodenoscopy - iRtesh Gutierrez MD Date/Time: 08/16/20 09:17 Surgeon: Ritesh Gutierrez MD Pre Op Diagnosis: Dysphagia Patient Data Age: 79 Gender: F Height: 1.63 m Weight: 46.6 kg Allergies Allergy/AdvReac Type Severity Reaction Status Date / Time sertraline Allergy Severe Joint Pain Verified 08/16/20 09:12 Sulfa (Sulfonamide Allergy Severe RASH Verified 08/16/20 09:12 Antibiotics) atorvastatin Allergy Intermediate Hives Verified 08/16/20 09:12 baclofen Allergy Intermediate tremors Verified 08/16/20 09:12 estradiol Allergy Intermediate Joint Verified 08/16/20 09:12 pain, swollen eyes & leg pain codeine Allergy Mild NAUSEA, Verified 08/16/20 09:12 RASH esomeprazole Allergy Mild CHEST PAIN Verified 08/16/20 09:12 lansoprazole Allergy Mild CHEST PAIN Verified 08/16/20 09:12 Penicillins Allergy Mild RASH Verified 08/16/20 09:12 iohexol Allergy Unknown Hives Verified 08/16/20 09:12 [From contrast - CT, X-RAY] metoclopramide Allergy Unknown Itching Verified 08/16/20 09:12 nebivolol Allergy Unknown Itching Verified 08/16/20 09:12 tolmetin Allergy Unknown Hives Verified 08/16/20 09:12 amitriptyline AdvReac Mild MUSCLE PAIN Verified 08/16/20 09:12 citalopram AdvReac Mild CHEST PAIN Verified 08/16/20 09:12 colesevelam AdvReac Mild Gastrointestinal Verified 08/16/20 09:12 Upset lisinopril AdvReac Mild NAUSEA/DIAR Verified 08/16/20 09:12 SU pravastatin AdvReac Mild Nausea Verified 08/16/20 09:12 Home Medications Medication Instructions Recorded Confirmed Type amiodarone [Pacerone] 200 mg PO HS 05/31/19 08/16/20 History ascorbic acid (vitamin C) [Vitamin 1,000 mg PO DAILY 30 Days #60 05/31/19 08/16/20 Rx C] tablet albuterol sulfate 2 puff INHALATION Q4-6H PRN 10/29/19 08/16/20 History ezetimibe [Zetia] 10 mg PO QPM 10/29/19 08/16/20 History trimethoprim 100 mg PO HS 10/29/19 08/16/20 History docusate sodium 100 mg PO HS 11/26/19 08/16/20 History polyethylene glycol 3350 [Miralax] 17 g PO HS PRN 11/26/19 08/16/20 History aspirin 81 mg PO DAILY 04/07/20 08/16/20 History cholecalciferol (vitamin D3) 25 mcg PO DAILY 04/07/20 08/16/20 History gabapentin 300 mg PO TID 04/07/20 08/16/20 History lidocaine [Lidoderm] 1 patch TRANSDERMAL PRN PRN 04/07/20 08/16/20 History metoprolol succinate [Toprol XL] 25 mg PO QAM 04/07/20 08/16/20 History Eliquis 5 mg PO BID 04/15/20 08/16/20 History prochlorperazine maleate 10 mg PO Q8H PRN 05/05/20 08/16/20 History [Compazine] Patient hx anesthesia problems: none Family hx anesthesia problems: none [facility] Past Medical History Medical History Atrial fibrillation Status post pacemaker insertion per Dr. Garza. Maintained on amiodarone and metoprolol. On apixaban for stroke prophylaxis. Candidemia (~04/19/20) Carotid bruit Less than 50% stenosis in bilateral internal carotid arteries on Dopplers in April 2018. Chronic anemia Chronic renal disease Baseline creatinine is between 0.9 and 1.10. Coronary artery disease Status post stent per Dr. Duque in 2014. 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 Melanoma of face Status post complete resection in the 1970s. Mixed hyperlipidemia Neuropathic pain Peripheral vascular disease Pre-diabetes Hemoglobin A1c was 5.2% in 11/2019. Recurrent urinary tract infection On prophylactic antibiotics including daily cefdinir and trimethoprim. Surgical History Surgical History (Updated 08/04/20 @ 14:20 by Ritesh Gutierrez MD) History of appendectomy (~195) History of arthroscopy of both knees History of ba
[2020-08-16] MEDS: LACTATED RINGERS 1,000 ML 150 ML IV CONT (09:24)
[2020-08-16 09:25] VITALS: BP 114/64; PULSE 62; RESP 18; TEMP 36.1; O2SAT 100
--- NOTE | 2020-08-16 09:28 | WPDHPUPDATE1 ---
History and Physical Update Update Date/Time: 08/16/20 09:28 History and Physical has been reviewed, including an updated exam of the patient. There are NO changes in the patient's condition. Risks, benefits, and alternatives have been discussed and questions answered. Patient agrees to proceed with procedure.
[2020-08-16] MEDS: BENZOCAINE (*SP) 60 ML SPRAY CAN (HURRICAINE) 1 SPRAY MUCOUS MEM (09:41)
[2020-08-16 10:01] VITALS: BP 103/46; PULSE 60; RESP 17; O2SAT 95
[2020-08-16 10:11] VITALS: BP 109/47; PULSE 60; RESP 22; O2SAT 92
[2020-08-16 10:21] VITALS: BP 91/39; PULSE 60; RESP 22; O2SAT 95
== END 2020-08-16 10:35 | disposition home or self-care (01) ==
PROVIDERS: PCP Nurse Practitioner Family; Visit Provider Internal Medicine Gastroenterology
PROC: 0DJ08ZZ Inspection of Upper Intestinal Tract, Via Natural or Artificial Opening Endoscopic (ICD-10-PCS; CPT 43235; principal; 2020-08-16 09:30)
DX: R13.19 Other dysphagia (principal); Z79.01 Long term (current) use of anticoagulants; Z79.82 Long term (current) use of aspirin; Z79.51 Long term (current) use of inhaled steroids; Z95.0 Presence of cardiac pacemaker; D64.9 Anemia, unspecified; I25.10 Atherosclerotic heart disease of native coronary artery without angina pectoris; Z86.718 Personal history of other venous thrombosis and embolism; Z85.820 Personal history of malignant melanoma of skin; Z86.010 Personal history of colon polyps; R09.89 Other specified symptoms and signs involving the circulatory and respiratory systems; E78.2 Mixed hyperlipidemia; Z87.891 Personal history of nicotine dependence; R73.03 Prediabetes; I10 Essential (primary) hypertension; Z98.61 Coronary angioplasty status; Z90.49 Acquired absence of other specified parts of digestive tract
CPT/HCPCS: 43450; J2704; J7120

== ENCOUNTER 2021-01-02 09:45 | Outpatient (CLI) | payer MEDICARE, SELFPAY ==
--- NOTE | ~2021-01-02 | CT_ITS ---
EXAMINATION: CT lumbar spine wo con EXAM DATE: 01/02/2021 10:15 INDICATION: Lumbar vertebral body fracture. Back surgery. Back pain. TECHNIQUE: Spiral CT of the lumbar spine was performed without contrast. Axial, coronal and sagittal images lumbar spine were reviewed. The dose-length product (DLP) for this examination was 550.78 mG y-cm. The exposure was tailored according to patient size (auto mA exposure control), and iterative reconstruction (ASIR) was used as additional dose reduction technique. Comparison is made to prior e xamination from 04/25/2020. FINDINGS: There is chronic appearing mild to moderate compression fracture inferior endplate of T12 u nchanged. Mild to moderate disc disease at T12-L1. Posterior and interbody fusion L1 through the sacr um. Mild lucency surrounding both of the L1 pedicular screws, could indicate some amount of loosening . No hardware fracture. There are anterior plates at the L4-5 and L5-S1 levels. There is right latera l plate with supporting screws in the L3 and L4 vertebral bodies. There is mild to moderate diffuse l oss of the L4 vertebral body height, mild loss of the other lumbar vertebral body heights without acu te fracture line suspected. Laminectomies L1, L2, L4 and L5. L3 laminotomies with mild central canal stenosis at L3-4. Otherwise no evidence of central canal stenosis. There is left sacral insufficiency fracture with some sclerosis, appears to be subacute but new marysol red to 04/25/2020 CDT. This is better visualized than on the larger [id number] pelvic CT obtained at the same time. Otherwise, difficult to appreciate any significant interval change compared to that e xamination. Some limitations in evaluating spondylosis from metallic artifact. Probable mild to moderate right ne ural foraminal stenosis at L2-3 and mild bilateral neural foraminal stenosis at L4-5. Otherwise neura l foramen appear patent. Posterior decompressions from the laminectomies. Percutaneous left-sided n ephrostomy tube. Cholecystectomy clips. Extensive arterial sclerosis. IMPRESSION: 1. Subacute appearing left sacral insufficiency fracture. 2. Mild lucency surrounding T12 pedicular screws, could indicate mild loosening. 3. Extensive surgical changes. Reviewed, dictated and finalized at location B. 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 Subacute appearing left sacral insufficiency fracture. 2. Mild lucency surrounding T12 pedicular screws, could indicate mild loosenin g. 3. Extensive surgical changes.
--- NOTE | ~2021-01-02 | CT_ITS ---
EXAMINATION: CT pelvis wo con EXAM DATE: 01/02/2021 10:15 INDICATION: Fell 4 months ago. 2 back surgeries. Pelvic and back pain. TECHNIQUE: Spiral CT pelvis wo con was performed pelvis Axial, coronal and sagittal images were revi ewed. The dose-length product (DLP) for this examination was 260.67 mGy-cm. The exposure was tailor ed according to patient size (auto mA exposure control), and iterative reconstruction (ASIR) was used as additional dose reduction technique. Comparison is made to prior examination from 04/15/2020. FINDINGS: Lumbosacral fusion including screws bridging the sacroiliac joints bilaterally without surr ounding lucency. There is artifact from right hip replacement hardware. There our old right superior ramus, pubic symphysis fractures. There is old left inferior ramus fracture. There are no acute fract ures identified. Extensive arterial sclerotic disease. Left external iliac, common femoral arterial s tents. There may be a left femoropopliteal bypass. Large amount of ascending and transverse colonic s tool. No small bowel obstruction. Can't identify the uterus. IMPRESSION: 1. Lumbosacral fusion, right hip replacement. 2. Old rami, right pubis fractures. Reviewed, dictated and finalized at location B. 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
== END 2021-01-02 09:46 | disposition home or self-care (01) ==
LOC: ANHIMG 09:52
PROVIDERS: PCP Nurse Practitioner Family; Visit Provider Neurological Surgery
DX: S32.009K Unspecified fracture of unspecified lumbar vertebra, subsequent encounter for fracture with nonunion (principal); Z98.890 Other specified postprocedural states; Z98.1 Arthrodesis status; Z96.641 Presence of right artificial hip joint
CPT/HCPCS: 72131; 72192

== ENCOUNTER 2022-04-18 10:05 | Outpatient (CLI) | payer MEDICARE, SELFPAY ==
--- NOTE | ~2022-04-18 | CT_ITS ---
EXAMINATION: CT lumbar spine wo con DATE: 04/18/2022 10:35 INDICATION: Back pain. TECHNIQUE: Computed tomography (CT) of the lumbar spine was performed without intravenous contrast. A utomated exposure control and iterative reconstruction technique were employed. The dose-length produ ct was 799.15 mGy-cm. COMPARISON: CT lumbar spine 01/02/2021 FINDINGS: There is a stent in left external iliac artery. There is 4 mm retrolisthesis of L2 on L3 an d 3 mm anterolisthesis of L3 on L4. There are changes of anterior fusion procedures from L1 to S1 wit h interbody devices. There are anterior plates and screws at L4-L5 and L5-S1. There are changes of po sterior fusion procedure from L1 to the sacrum and iliac bones with pedicle screws and sacroiliac scr ews. There is a chronic compression fracture of T12 with 1/5 loss of height. There is mild chronic an terior wedging of L1 vertebral body. The left L1 screw extends 1 mm beyond the superior endplate. The re is mildly decreased disc height at T12-L1. The following disc levels are specifically discussed: T12-L1: There is a central protrusion. There is mild left facet joint osteoarthritis. There is no dima ral foraminal stenosis. There is mild central canal stenosis. L1-L2: There is no facet joint hypertrophy. There is no neural foraminal stenosis. There is no centra l canal stenosis. There are changes of posterior decompression. L2-L3: There is no facet joint hypertrophy. There is mild bilateral neural foraminal stenosis. There is no central canal stenosis. There are changes of posterior decompression. L3-L4: There is no facet joint hypertrophy. There is no neural foraminal stenosis. There is no centra l canal stenosis. There are changes of posterior decompression. L4-L5: There is no facet joint hypertrophy. There is mild left neural foraminal stenosis. There is no central canal stenosis. There are changes of posterior decompression. L5-S1: There is mild bilateral facet joint hypertrophy. There is mild bilateral neural foraminal sten osis. There is no central canal stenosis. There are changes of posterior decompression. IMPRESSION: 1. Mild lumbar spondylosis, stable from 01/02/2021. 2. Anterior fusion procedure from L1 to S1. Posterior fusion procedure from L1 to the sacrum and shara c bones. Reviewed, dictated and finalized at location A. RMATION SYSTEMS TECHNICIAN IMPRESSION: 1. Mild lumbar spondylosis, stable from 01/02/2021. 2. Anterior fusion procedure from L1 to S1. Posterior fusion procedure from L1 to the sacrum and iliac bones.
== END 2022-04-18 10:06 | disposition home or self-care (01) ==
PROVIDERS: PCP Family Medicine; Visit Provider Neurological Surgery
DX: M47.816 Spondylosis without myelopathy or radiculopathy, lumbar region (principal); Z98.1 Arthrodesis status
CPT/HCPCS: 72131

== ENCOUNTER → 2022-09-14 08:17 | Outpatient (CLI) | payer MEDICARE, SELFPAY ==
--- NOTE | ~2022-09-14 | CT_ITS ---
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 Additional sagittal and coronal reconstructions were performed. The dose-length product was 106.15 mGy-cm. COMPARISON: None FINDINGS: Severe joint space narrowing at the third distal interphalangeal joint with osteolysis and erosive ch anges at both sides of the joint space and surrounding soft tissue swelling. There is additional eros ion at the dorsal tuft of the distal phalanx with abnormal configuration of the overlying nail versus nailbed. Findings are concerning for osteomyelitis and septic arthritis at the distal interphalangea l joint. Additional polyarticular osteoarthritis, severe at the first interphalangeal joint with seco ndary mild radial angulation, moderate severity at the fourth and fifth proximal interphalangeal join ts and mild at the remaining interphalangeal joints. No fractures identified. IMPRESSION: 1. Joint centered erosions with severe joint space narrowing at the third distal interphalangeal join t which could be consistent with septic arthritis and associated osteomyelitis although differential would include other aseptic inflammatory arthritides including erosive osteoarthritis. 2. Erosion at the dorsal tuft of the third distal phalanx similarly suspicious for osteomyelitis alth ough given differential would include other noninfectious etiologies including pressure erosions such as in the setting of epidermal inclusion cyst, limb with tumor or other neoplasm. 3. Additional mild to severe polyarticular osteoarthritis at the remaining interphalangeal joints. Reviewed, dictated and finalized at location A. IMPRESSION: 1. Joint centered erosions with severe joint space narrowing at the third dista l interphalangeal joint which could be consistent with septic arthritis and ass ociated osteomyelitis although differential would include other aseptic inflamm atory arthritides including erosive osteoarthritis. 2. Erosion at the dorsal tuft of the third distal phalanx similarly suspicious for osteomyelitis although given differential would include other noninfectious etiologies including pressure erosions such as in the setting of epidermal inc lusion cyst, limb with tumor or other neoplasm. 3. Additional mild to severe polyarticular osteoarthritis at the remaining inte rphalangeal joints.
[2022-09-14 08:49] LABS: Estimated Glomerular Filt Rate 29
== END ==
PROVIDERS: PCP Family Medicine
DX: S69.91XA Unspecified injury of right wrist, hand and finger(s), initial encounter (principal); S60.459A Superficial foreign body of unspecified finger, initial encounter; M19.041 Primary osteoarthritis, right hand
CPT/HCPCS: 73200

== ENCOUNTER 2023-05-20 00:19 | Day surgery (SDC) | payer MEDICARE, SELFPAY ==
[2023-05-17 15:40] VITALS: BMI 23.1
[2023-05-20] VITALS (16 sets, daily range): BP systolic 96–133; BP diastolic 42–77; PULSE 60–79; RESP 14–22; TEMP 36.7–36.8; O2SAT 94–97; BMI 23.8
[2023-05-20 07:43] LABS: Basophils Percent Auto 0.2 % (0.2-1.2); Hematocrit 42.9 % (37.0-47.0); Hemoglobin 13.5 g/dL (12.0-15.0); Immature Granulocyte Absolute 0.05 K/mm3 (0.00-0.031); Immature Granulocyte Percent A 0.8 % (0-0.5); Lymphocytes Absolute Auto 0.98 K/mm3 (0.9-3.2); Lymphocytes Percent Auto 15.5 % (18.3-44.2); Mean Corpuscular HGB Conc 31.5 g/dl (32-36); Mean Corpuscular Hemoglobin 26.9 pg (26-34); Mean Corpuscular Volume 85.5 fl (80-100); Mean Platelet Volume 9.8 fl (7.4-10.4); Monocytes Absolute Auto 0.2 K/mm3 (0.1-0.6); Monocytes Percent Auto 3.8 % (2.6-8.5); Neutrophils Percent Auto 79.7 % (45.5-73.1); Platelet Count Result 330 k/mm3 (150-375); Red Blood Count 5.02 M/mm3 (4.2-5.4); Red Cell Distribution Width 15.9 % (11.5-14.5); White Blood Count 6.3 K/mm3 (4.5-10.0)
[2023-05-20 07:49] LABS: Anion Gap 12 mmol/L (4-12); Blood Urea Nitrogen 32 mg/dL (7-17); Calcium 9.8 mg/dL (8.4-10.2); Carbon Dioxide 16 mmol/L (22-30); Chloride 107 mmol/L (98-107); Estimated CRCL calculation 31 ml/min; Estimated Glomerular Filt Rate 48; Glucose 167 mg/dL (65-110); Potassium 4.4 mmol/L (3.4-5.0); Sodium 135 mmol/L (137-145)
--- NOTE | 2023-05-20 09:57 | WPDCARDPROC ---
Cardiac Cath Procedure Note Date of procedure:: 05/20/23 Performing physician:: Bartolo Ann MD Indication:: coronary artery disease with previous right coronary PCI accelerating angina abnormal nuclear stress test Brief clinical history:: this is an 82-year-old lady with coronary artery disease and severe peripheral vascular disease who has been having ischemic chest pain of recent onset which has been accelerating. Test demonstrates significant inferior ischemic burden. 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 In this setting a follow-up angiogram has been recommended. LV function by nuclear stress testing remains vigorous. Procedure Procedure performed:: Coronary angiography Sedation/Medication given:: fentanyl 50 mg Versed 2 mg case start time 9:14 a.m. case end time 9:53 a.m. sedation provided by Taylor Guerrero RN, trained observer Access site:: right radial artery Estimated blood loss:: minimal Procedure note:: patient was brought to the cardiac catheterization lab in the postabsorptive state where the right and left femoral triangles were prepped and draped in usual fashion. Anesthesia was given in the left groin with 1% lidocaine. The left lower extremity is an above the knee amputation however there was a palpable pulse in the left side. The right lower extremity was to be avoided given recent history of interventional revascularization with stenting. Details of this were not available for me at the time of this procedure today. Several attempts or a to puncture the left femoral artery unsuccessfully. I with the patient under the camera and saw stent material in the left and right groin from the femoral artery, SFA profundus up into the iliacs. It was my impression that would no opportunity for access for catheterization from the lower extremity. The right arm was then prepped for a radial artery access case. 1% lidocaine was infiltrated in this region and the radial artery micropuncture Needle and access was placed a 5 Spanish radial sheath was then placed and the patient received intra-arterial injection of nitroglycerin and verapamil. She received systemic heparin 3200 units IV push. Following this I advanced a 5 Spanish AL1 catheter into the aortic root and per selective left and right coronary angiography using this catheter. This catheter was selected as the right coronary is known to be anomalous and in previous angiography the AL1 was required to engage the RCA successfully. Following this the cineangiograms were reviewed and the case was terminated. The catheter was removed and flushed. 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 Procedure was well tolerated and uncomplicated. Findings:: Hemodynamics: Central aortic pressure is 137/70. The left ventricle was not entered during this procedure The left main coronary artery is widely patent and large in caliber the LAD is a large caliber vessel extending down to the apex. In the midportion after the major diagonal branch axis origin there is a discrete 70% stenosis in the LAD. There was ZOË 3 flow in the vessel. This represents progressive disease in this vessel was not seen in 2014. The circumflex is a moderate caliber artery giving rise to the marginal branches. The circumflex and its marginal branches have minimal luminal irregularities but no angiographically significant disease is noted. As noted previously the right coronary artery is anomalous and was engaged using the AL1 catheter. The right coronary has proximal stent material and as well as stent material in the 2nd portion. In the proximal stented area there is 99% InStent stenosis. Distal to this there is visible stent material in the 2nd portion of the artery as well. There is ZOË 2 flow in the vessel following this there is minimal flow in the RPDA interestingly RPDA receives collatera
[2023-05-20] MEDS: SODIUM CHLORIDE 0.9% IV 1,000 ML 125 ML IV CONT (10:10)
== END 2023-05-20 14:05 | disposition home or self-care (01) ==
PROVIDERS: PCP Family Medicine; Visit Provider Specialist
PROC: (CPT 93454; principal; 2023-05-20 08:30)
DX: I25.10 Atherosclerotic heart disease of native coronary artery without angina pectoris (principal); T82.855A Stenosis of coronary artery stent, initial encounter; Y83.8 Other surgical procedures as the cause of abnormal reaction of the patient, or of later complication, without mention of misadventure at the time of the procedure; I73.9 Peripheral vascular disease, unspecified
CPT/HCPCS: 36415; 80048; 85025; 93454; A9270; C1769; C1887; C1894; J1644; J2250; J2305; J3010; J7040

== ENCOUNTER 2023-07-09 09:38 | Outpatient (CLI) | payer MEDICARE, SELFPAY ==
--- NOTE | ~2023-07-09 | XR_ITS ---
Clinical Indication: Chronic bronchitis PA and lateral views of the chest: Comparison: 04/25/2020 Findings: The lungs are clear, without evidence of focal consolidation or pleural effusion. Cardiome diastinal silhouette is stable, with pacemaker device. Bones and soft tissues are unremarkable. Impression: Clear lungs. Reviewed, dictated and finalized at location . Impression: Clear lungs.
--- NOTE | ~2023-07-09 | CT_ITS ---
EXAMINATION: CT sinus wo con DATE: 07/09/2023 09:56 INDICATION: Chronic pansinusitis. TECHNIQUE: Computed tomography (CT) of the paranasal sinuses was performed without intravenous contra st. Iterative reconstruction technique was employed. The dose-length product was 256.12 mGy-cm. COMPARISON: None FINDINGS: There is mild mucosal thickening in the frontal sinuses and ethmoid sinuses. The sphenoid s inuses and maxillary sinuses are clear. There are bilateral Saul cells. The ostiomeatal units are p atent. The nasal septum is at the midline. There are likely changes of ocular lens replacement surger ies. IMPRESSION: 1. Mild mucosal thickening in the paranasal sinuses. Reviewed, dictated and finalized at location A.
== END 2023-07-09 09:39 ==
PROVIDERS: PCP Family Medicine; Visit Provider Family Medicine
DX: J34.89 Other specified disorders of nose and nasal sinuses (principal)
CPT/HCPCS: 70486; 71046